=== PATIENT | male | born 1945 | race Caucasian/White ===

== ENCOUNTER → 2016-09-18 | Outpatient (CLI) | payer MEDICARE, BC ==
[2016-09-18 15:33] VITALS: BP 153/80; PULSE 75; RESP 18; TEMP 98
--- NOTE | 2016-09-19 20:02 | P.PN ---
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, we have done radiofrequency ablation of median branch lumbar area more than year ago He got excellent pain relief, and now he is complaining of increased low back pain with radiation to the lower extremity, his meds [place] 5/325 every 6 hours , he denies any motor or sensory deficit, denies any change in the bowel movements or urination Patient denies any side effects of the medication, denies excessive drowsiness or sleepiness, denies suicidal ideation, and reports that the current pain medication is NOT helping To control the pain and improve activity of daily living Physical Examinations : 1-Constitutiona : Cooperative , not in acute distress . 2-HEENT : nech ; supple , no Lymphadenopathy , no Thyromegaly , normal thyroid size . eyes : no ptosis , no icterus, no photophobia . ENT : normal of hearing , normal oropharynx , no Thrush . 3- Respiratory : Chest clear to auscultations Bilaterally , no wheezing , no Rhonchi . 4- Cardiovascular : regular rate and rhythem , S1 , S2 , no S3 , no S4. 5- Gastrointestinal : abdomen soft no tenderness , bowel sounds positive all four quadrents , no organomegally . 6- Genitourinary : Defferred . 7- neurologic : Cranial nerve II to XII intact , no focal neurological deffecit . 8-psychatric : alert , oriented X 3 , appropriate affect , intact judgment and insight . 9-Lymphatic : no Lymphadenopathy . 10- musculoskeltal : exams of the cervical spine = motor strength normal bilateral upper extremities exams of the Lumber spine = motor strength lower extremities ,thigh and legs .5/5 deep tendon reflexes : normal Knee Jerk , normal ankle Jerk . lumber facet Loading Test positive strait leg raising test positive at 30 degree , RT ,LT , Fabere test positive RT and positive LT . Range of motion: Range of motion in flexion of the lumbar spine 30 degrees Range of motion range of motion of extension of the lumbar spine 10 Assessment and plan = - Chronic low back pain secondary to lumbar failed back surgery syndrome , lumbar spondylosis with facet arthropathy without myelopathy , - chronic and current use of high-risk medication (Opioids). The patient was counseled about risk of opioid use, psychological risk associated with opioids and was orally counseled to not overuse , divert,or sell dictations to take medications as prescribed only , and to restore medication in safe location , and the patient counseled against driving while using narcotic medications, and also not to use alcohol or any illicit recreational drugs, - diagnoses , prognosis, and treatment options including but not limited to physical therapy , surgical interventions, interventional therapies , and medication management including narcotics and adjuvant medication were discussed with the patient and all The questions answered -medication management = getting prescription refills from his primary care -procedure= scheduled patient for radiofrequency ablation right-sided medial branch at L3/L4 5/L5-S1, and later on will do the left Objective - Vital Signs Vital signs: Vital Signs Temp 98 F 09/18/16 15:22 Pulse 75 09/18/16 15:22 Resp 18 09/18/16 15:22 BP 153/80 09/18/16 15:22 Pulse Ox 95 09/18/16 15:22
== END ==
LOC: PNWHC3 14:22
PROVIDERS: ATTEND Specialist
DX: M47.816 Spondylosis without myelopathy or radiculopathy, lumbar region (principal); M46.86 Other specified inflammatory spondylopathies, lumbar region; G89.29 Other chronic pain; Z87.891 Personal history of nicotine dependence
CPT/HCPCS: 99211

== ENCOUNTER 2016-10-24 10:29 | Day surgery (SDC) | payer MEDICARE, BC ==
[2016-10-22 15:50] VITALS: BMI 25.0
[2016-10-24 11:05] VITALS: RESP 18; TEMP 97.9
[2016-10-24] MEDS: LACTATED RINGERS 1,000 ML IV SCH ×3 (11:09→11:59)
[2016-10-24] MEDS ORDERED: BUPIVACAINE (PF) 0.5% 30 ML VIAL ONE (12:38)
[2016-10-24] MEDS ORDERED: TRIAMCINOLONE ACETONIDE 40 MG/ML 1 ML VIAL ONE (12:38)
[2016-10-24] MEDS ORDERED: KETOROLAC 30 MG/ML 1 ML VIAL IVP STA (13:08)
--- NOTE | 2016-10-24 13:09 | P.PCN ---
Date of Procedure: 10/24/16 Procedure(s) Performed: PREOPERATIVE DIAGNOSIS: 1-Lumbar Spondylosis with Facet Arthropathy without myelopathy. POSTOPERATIVE DIAGNOSIS: 1- Lumbar Spondylosis with Facet Arthropathy without myelopathy. PROCEDURES : Right Radiofrequency thermocoagulation, L3-L4, L4-L5, and L5-S1 medial branch, with fluoroscopic guidance ANESTHESIA: local infiltration with lidocaine 1% 6 ml EBL: Minimal PROCEDURE INDICATION: The patient with low back pain secondary to lumbar facet arthropathy who had more than 50% relief of her pain with previous diagnostic lumbar medial branch block with bupivacaine. PROCEDURE DESCRIPTION / TECHNIQUE: The patient was seen and identified in the preoperative area. Risks, benefits, complications, including but not limited to risk of infection ,bleeding , allergic reactions to the medications and no complete pain releife , and alternatives were discussed with the patient, the patient agreed to proceed with the procedure and signed the consent. IV was started. Vital signs remained stable throughout the procedure. Patient was taken to the OR and time out was completed. The patient was placed in the prone position on the procedure table. The lumber area was prepped and draped in the usual sterile fashion. . Vital signs were closely monitored during the procedure . Using AP and then oblique fluoroscopy, the ``eye of the Joseph dog corresponding to the connection between the superior and transverse articular processes of right L3, L4, and L5 were identified, marked, and localized with 1 % lidocaine. Subsequently, a 18 [id number] radiofrequency cannula with a 10- mm active tip was advanced guided by fluoroscopy to each of the ``eyes of the Joseph dog at right L3, L4, and L5. Each site then underwent sensory testing at 50 Hz and 0 to 1 volt and motor testing at 2.5 Hz and 0 to 3 volt with local stimulation, but no radicular symptoms down the legs. Thereafter the right L3-4, L4-5, and L5-S1 sites underwent radiofrequency thermocoagulation at 80 degrees celsius for 90 seconds after injecting 0.5 ml of PF lidocaine 1%. then After the thermocoagulation done , 1 ml of the block solution containing Kenalog 40 mg and 3 ml of marain 0.5% was injected at the right L3- 4 , L4-5 , and L5-S1, levels after negative aspiration of CSF and blood and with no paresthesias. Cannulas were retracted while injecting lidocaine 1% until the needle is out. At the end of the procedure, the skin was cleansed and bandages were applied. COMPLICATIONS: No acute complications. DISPOSITION / PLANS: The patient was placed in a supine position and transferred to the recovery area in a stable condition for observation and was discharged from the recovery room after meeting discharge criteria. Home discharge instructions given to the patient by the staff. The patient was reexamined prior to discharge. The patient will schedule a follow up in the clinic in 2-4 weeks.
[2016-10-24 13:31] VITALS: BP 164/80; PULSE 67
[2016-10-24] MEDS ORDERED: IV FLUID CONTINUATION 1,000 ML IV ONE (13:31)
--- NOTE | 2016-10-24 14:00 | FL ---
EXAMINATION TYPE: FL guided pain mgmt statistic DATE OF EXAM: 10/24/2016 1:09 PM HISTORY: Flouroscopy time 6 seconds of fluoroscopy provided. IMPRESSION: 1. Fluoroscopy time.
== END 2016-10-24 13:38 | disposition home or self-care (01) ==
LOC: ORPAIN 10:29
PROVIDERS: ATTEND Specialist
DX: M47.816 Spondylosis without myelopathy or radiculopathy, lumbar region (principal); M46.96 Unspecified inflammatory spondylopathy, lumbar region; Z88.8 Allergy status to other drugs, medicaments and biological substances
CPT/HCPCS: 64635; 64636 ×2; J3301

== ENCOUNTER → 2016-11-14 | Outpatient (CLI) | payer MEDICARE, BC | LOC: PTMAIN 09:45 | PROVIDERS: ATTEND Otolaryngology | DX: K21.9 Gastro-esophageal reflux disease without esophagitis (principal) | CPT/HCPCS: 31579 ==

== ENCOUNTER 2016-12-05 08:43 | Day surgery (SDC) | payer MEDICARE, BC ==
[2016-12-04 08:36] VITALS: BMI 23.6
[~2016-12-05 08:43] MED LIST: LACTATED RINGERS 1,000 ML IV SCH
[2016-12-05 09:28] VITALS: TEMP 98.1
[2016-12-05] MEDS ORDERED: LIDOCAINE 1% 20 ML VIAL (10MG/ML) FOR IV START SQ ONE (09:30)
[2016-12-05] MEDS ORDERED: fentaNYL (PF) 50 MCG/ML 2 ML AMP ONE (10:24)
[2016-12-05] MEDS ORDERED: BUPIVACAINE (PF) 0.5% 30 ML VIAL ONE (10:24)
[2016-12-05] MEDS ORDERED: DEXAMETHASONE SOD PHOS (MDV) 100 MG/10 ML VIAL ONE (10:24)
[2016-12-05] MEDS ORDERED: MIDAZOLAM 2 MG/2 ML VIAL ONE (10:24)
--- NOTE | 2016-12-05 10:51 | P.PCN ---
Date of Procedure: 12/05/16 Preoperative Diagnosis: Postoperative Diagnosis: Procedure(s) Performed: PREOPERATIVE DIAGNOSIS: 1-Lumbar Spondylosis with Facet Arthropathy without myelopathy. POSTOPERATIVE DIAGNOSIS: 1- Lumbar Spondylosis with Facet Arthropathy without myelopathy. PROCEDURES : Left Radiofrequency thermocoagulation, L3-L4, L4-L5, and L5-S1 medial branch, with fluoroscopic guidance ANESTHESIA: IV sedation with versed 3 mg and fentaneyl 100 mcg and local infiltration with lidocaine 1% 6 ml EBL: Minimal PROCEDURE INDICATION: The patient with low back pain secondary to lumbar facet arthropathy who had more than 50% relief of her pain with previous diagnostic lumbar medial branch block with bupivacaine. PROCEDURE DESCRIPTION / TECHNIQUE: The patient was seen and identified in the preoperative area. Risks, benefits, complications, including but not limited to risk of infection ,bleeding , allergic reactions to the medications and no complete pain releife , and alternatives were discussed with the patient, the patient agreed to proceed with the procedure and signed the consent. IV was started. Vital signs remained stable throughout the procedure. Patient was taken to the OR and time out was completed. The patient was placed in the prone position on the procedure table. The lumber area was prepped and draped in the usual sterile fashion. . Vital signs were closely monitored during the procedure .IV sedation was used during the procedure to decrease patients anxiety. Using AP and then oblique fluoroscopy, the ``eye of the Joseph dog corresponding to the connection between the superior and transverse articular processes of left L3, L4, and L5 were identified, marked, and localized with 1 % lidocaine. Subsequently, a 18 -ae radiofrequency cannula with a 10- mm active tip was advanced guided by fluoroscopy to each of the ``eyes of the Joseph dog at left L3, L4, and L5. Each site then underwent sensory testing at 50 Hz and 0 to 1 volt and motor testing at 2.5 Hz and 0 to 3 volt with local stimulation, but no radicular symptoms down the legs. Thereafter the left L3-4, L4-5, and L5-S1 sites underwent radiofrequency thermocoagulation at 80 degrees celsius for 90 seconds after injecting 0.5 ml of PF lidocaine 1%. then After the thermocoagulation done , 1 ml of the block solution containing Kenalog 40 mg and 3 ml of marain 0.5% was injected at the left L3-4 , L4-5 , and L5-S1, levels after negative aspiration of CSF and blood and with no paresthesias. Cannulas were retracted while injecting lidocaine 1% until the needle is out. At the end of the procedure, the skin was cleansed and bandages were applied. COMPLICATIONS: No acute complications. DISPOSITION / PLANS: The patient was placed in a supine position and transferred to the recovery area in a stable condition for observation and was discharged from the recovery room after meeting discharge criteria. Home discharge instructions given to the patient by the staff. The patient was reexamined prior to discharge. The patient will schedule a follow up in the clinic in 2-4 weeks. Implants: Indications for Procedure: Operative Findings: Description of Procedure:
[2016-12-05 10:59] VITALS: RESP 16
--- NOTE | 2016-12-05 11:07 | FL ---
Fluoroscopy HISTORY: Pain 6 seconds fluoroscopy time supplied to the referring clinician. 3 intraoperative C-arm images docume nt the procedure. See dictated report from anesthesia.
[2016-12-05 11:16] VITALS: BP 146/79; PULSE 57
[2016-12-05] MEDS ORDERED: IV FLUID CONTINUATION 1,000 ML IV ONE (11:18)
== END 2016-12-05 11:26 | disposition home or self-care (01) ==
LOC: ORPAIN 08:43
PROVIDERS: ATTEND Specialist
DX: M46.96 Unspecified inflammatory spondylopathy, lumbar region (principal); M47.816 Spondylosis without myelopathy or radiculopathy, lumbar region; Z88.8 Allergy status to other drugs, medicaments and biological substances
CPT/HCPCS: 64635; 64636 ×2; 99152; J2250; J3010; J1100

== ENCOUNTER → 2017-01-20 | Outpatient (CLI) | payer MEDICARE, BC ==
[2017-01-20 12:49] VITALS: BP 156/81; PULSE 66; RESP 16
--- NOTE | 2017-01-20 13:17 | P.PN ---
Progress Note - Text This is a 71-year-old male with chronic history of bilateral leg pain and muscular spasms the pain occasionally wakes the patient up at night however he denies any bowel or bladder dysfunction or any weight loss. He had surgery on his lumbar spine more than 20 years ago. Neuro exam showed normal and symmetrical muscle strength in the lower extremities and also showed hyperactive but symmetrical deep tendon reflexes in the lower extremities. Straight leg raising test negative bilaterally. He denies any tingling or numbness in the lower extremities. At this point I will put the patient on magnesium 400 mg once a day and I will send him to have an MRI on the lumbar spine with and without contrast. We will see the patient next month.
== END | disposition home or self-care (01) ==
LOC: PNWHC3 11:54
PROVIDERS: ATTEND Anesthesiology
DX: M79.605 Pain in left leg (principal); M79.604 Pain in right leg; M62.838 Other muscle spasm
CPT/HCPCS: 99211

== ENCOUNTER → 2017-01-29 | Outpatient (CLI) | payer MEDICARE, BC ==
[2017-01-29 11:30] LABS: Non-African American GFR(MDRD) >60 (>60 ml/min/1.73 sqM)
== END | disposition home or self-care (01) ==
LOC: LABWHC1 10:36
PROVIDERS: ATTEND Anesthesiology
DX: Z01.812 Encounter for preprocedural laboratory examination (principal)
CPT/HCPCS: 36415; 82565

== ENCOUNTER → 2017-01-31 | Outpatient (CLI) | payer MEDICARE, BC ==
--- NOTE | 2017-01-31 11:15 | MR ---
EXAMINATION TYPE: MR lumbar spine wo/w con DATE OF EXAM: 01/31/2017 COMPARISON: Plain film 03/09/2015 HISTORY: post laminectomy, radiculopathy lsp TECHNIQUE: Multiplanar, multisequence images of the lumbar spine were acquired utilizing 15 mL intravenous Multi [place] gadolinium contrast. L1-L2: Loss of disc signal is present, minimal posterior broad-based disc bulge causes only slight an terior mass effect on the thecal sac. No significant central stenosis or foraminal encroachment. L2-L3: Loss of disc height and signal compatible with disc desiccation and degenerative disc disease. Minimal posterior broad-based disc bulge causes only slight anterior mass effect on the thecal sac, there is mild facet arthropathy L3-L4: Circumferential posterior broad-based disc bulge causes only minimal anterior mass effect on t he thecal sac. No significant central stenosis or foraminal encroachment. There is facet arthropathy present with encroachment on the lateral recesses. L4-L5: Facet arthropathy with hypertrophy of the ligamentum flavum encroaches on the lateral recesses left greater than right, listhesis contributes to cause foraminal encroachment bilaterally at L4-5. No evident disc herniation. No significant central stenosis. L5-S1: There is facet arthropathy with hypertrophy of the ligamentum flavum. Circumferential posterio r disc bulge contacts anterior thecal sac and possibly proximal S1 nerve roots, lateral extension of endplate disc complex encroaches on the neural foramen on the right greater than left possibly contri buted by mild scoliosis. Lumbar segments are intact. Mild superior endplate compression suspected L4 appears chronic. Anteroli sthesis grade 1 L4-5, loss of disc height and signal greatest L4-5 and L5-S1. There is multilevel spo ndylosis with endplate discogenic marrow signal change compatible with degenerative disc disease. The conus is at L1. No paraspinal masses are identified. Conus medullaris has a normal appearance. No abnormal enhancement following contrast administration. IMPRESSION: Degenerative disc disease, facet arthropathy, foraminal encroachment as described.
== END ==
LOC: RADMRIMAIN 08:20
PROVIDERS: ATTEND Anesthesiology
DX: M99.73 Connective tissue and disc stenosis of intervertebral foramina of lumbar region (principal); M51.36 Other intervertebral disc degeneration, lumbar region; M46.86 Other specified inflammatory spondylopathies, lumbar region
CPT/HCPCS: 72158; A9577

== ENCOUNTER → 2017-02-17 | Outpatient (CLI) | payer MEDICARE, BC ==
[2017-02-17 14:54] VITALS: BP 129/77; PULSE 79; RESP 16
--- NOTE | 2017-02-17 15:16 | P.PN ---
Progress Note - Text 1-year-old gentleman with history of lower back pain with radiation to the lower extremities down to his feet with numbness and tingling. Has any bowel or bladder dysfunction at this point. He states that the lumbar medial branch RFA procedures have been giving him good relief of his pain except for the last 2 that he had. He uses [place] only once or twice a week. He had the recent MRI of the lumbar spine which showed typical degenerative disc disease and disc bulging and possible compression of the S1 nerve root bilaterally. The patient had back surgery previously with about 2 inch incision the lumbar midline. She says that his pain has been getting worse and he does not like to use opioids to treat his pain. At this point the patient may benefit from getting caudal epidural steroid injection with lysis of adhesions under fluoroscopic guidance. There was explained to the patient and his questions were answered.
== END | disposition home or self-care (01) ==
LOC: PNWHC3 14:40
PROVIDERS: ATTEND Anesthesiology
DX: M51.26 Other intervertebral disc displacement, lumbar region (principal); M51.36 Other intervertebral disc degeneration, lumbar region
CPT/HCPCS: 99211

== ENCOUNTER 2017-04-01 09:45 | Day surgery (SDC) | payer MEDICARE, BC ==
[2017-03-27 11:37] VITALS: BMI 23.5
[2017-04-01 09:04] VITALS: TEMP 98.1
[~2017-04-01 09:45] MED LIST changes: +LACTATED RINGERS 1,000 ML IV ONE; -LACTATED RINGERS 1,000 ML IV SCH
--- NOTE | 2017-04-01 09:56 | P.PCN ---
Date of Procedure: 04/01/17 Procedure(s) Performed: PREOP DIAGNOSIS: 1- Lumbar postlaminectomy syndrome 2- lumbar Spondylosis with lumbar facet arthropathy without myelopathy POSTOP DIAGNOSIS: same as preop diagnosis . PROCEDURE: Caudal epidural steroid injection with epidurolysis and epidurogram under fluoroscopic guidance ANESTHESIA: Local with 1% lidocaine 3 ml ; IV sedation with Versed 2 mg and fentanyl 100 g EBL: Minimal. PROCEDURE INDICATION: The patient with post-laminectomy syndrome with low back pain and radiculopathy radiating down in both legs, here for a caudal epidural steroid injection with epidurolysis. PROCEDURE DESCRIPTION: The patient was seen and identified in the preoperative area. Risks, benefits, complications, and alternatives were discussed with the patient. The patient agreed to proceed with the procedure and signed the consent. IV was started, and vital signs were stable. Patient was taken to the OR and time out was completed. The patient was placed in the prone position on procedure table and a pillow was placed under the abdomen to reduce lumbar lordosis. The lumbosacral area was prepped and draped in the usual sterile fashion. Vital signs were closely monitored during the procedure. lateral view and the anterior-posterior plates of the sacrum were identified with infiltration of the area overlying the sacral hiatus with 1% lidocaine .A 17 gauge RK epidural needle was used to advance through the sacral hiatus into the caudal epidural space. Omnipaque 180 dye. 2cc was injected and the position of the needle was verified to be in the midline. A Racz catheter was introduced into the epidural space and was advanced towards the L5-S1 interspace under direct fluoroscopic guidance. Multiple passes were made with the catheter for lysis of epidural adhesions. Kenalog 80 mg with 3ml of preservative free Lidocaine 1% and 5 ml of preservative free normal saline was injected slowly. Additional spread was seen to L4 under fluoroscopy. The needle and the catheter were withdrawn intact. EPIDUROGRAM: Omnipaque 180 mg dye 2 ml was injected with spread of the dye into the caudal epidural space and with spread cutoff at L5 prior to epidurolysis. Post epidurolysis dye 2 ml was injected and spread was seen to L3- 4.There was further spread of the solution together with the dye above the L3 COMPLICATIONS: None. DISPOSITION / PLANS: The patient was placed in a supine position and transferred to the recovery area in a stable condition for observation and was discharged from the recovery room after meeting discharge criteria. Home discharge instructions given to the patient by the staff. The patient was reexamined prior to discharge. The patient will schedule a follow up in the clinic in 2-4 weeks.
[2017-04-01] MEDS ORDERED: LIDOCAINE 1% 20 ML VIAL (10MG/ML) FOR IV START INTRADERMA ONE (10:00)
[2017-04-01 10:20] VITALS: BP 163/77; PULSE 67; RESP 20
[2017-04-01] MEDS ORDERED: LACTATED RINGERS 1,000 ML IV ONE (10:20)
--- NOTE | 2017-04-01 11:45 | FL ---
Fluoroscopy HISTORY: Pain 9 seconds fluoroscopy time supplied to the referring clinician. 3 intraoperative C-arm images docume nt the procedure. See dictated report from anesthesia.
== END 2017-04-01 11:00 | disposition home or self-care (01) ==
LOC: ORPAIN 09:45
PROVIDERS: ATTEND Specialist
DX: M96.1 Postlaminectomy syndrome, not elsewhere classified (principal); M47.26 Other spondylosis with radiculopathy, lumbar region; M46.96 Unspecified inflammatory spondylopathy, lumbar region; Z88.8 Allergy status to other drugs, medicaments and biological substances; Y83.8 Other surgical procedures as the cause of abnormal reaction of the patient, or of later complication, without mention of misadventure at the time of the procedure; Y79.3 Surgical instruments, materials and orthopedic devices (including sutures) associated with adverse incidents; M54.5 Low back pain
CPT/HCPCS: 99152; 62323; J2250; J1100; Q9965; J3010; C1894

== ENCOUNTER → 2017-05-19 | Outpatient (CLI) | payer MEDICARE, BC ==
[2017-05-19 13:33] VITALS: BP 139/70; PULSE 70; RESP 16; TEMP 98.3
--- NOTE | 2017-05-19 13:50 | P.PN ---
Progress Note - Text Progress Note Date: 05/19/17 This is a 71-year-old male with history of chronic lower back pain with radiation to the lower extremities and history of one back surgery a few years ago.. The patient had caudal epidural steroid injection lately which gave him only a few days of pain relief. He usually takes [place] 10 mg at night and he tries not to use opioids. He said that the last time he received a prescription of [place] from his primary care physician he received 50 pills which lasted him for about 7 months. He denies any new changes in his bowel or bladder function or the strength of his lower extremities. At this point I will give the patient prescription for trazodone 50 mg to be used 1 pill at night to help him sleep through better. The patient will contact his primary care physician to get prescription for [place]. We will see the patient for a follow-up in 2 months from now.
== END | disposition home or self-care (01) ==
LOC: PNWHC3 12:53
PROVIDERS: ATTEND Anesthesiology
DX: M54.5 Low back pain (principal)
CPT/HCPCS: 99211

== ENCOUNTER → 2017-07-14 | Outpatient (CLI) | payer MEDICARE, BC ==
[2017-07-14 13:48] VITALS: BP 152/67; PULSE 74; RESP 16
--- NOTE | 2017-07-14 15:06 | P.PN ---
Subjective Progress Note Date: 07/14/17 This is follow-up visit for this patient with a history of severe and chronic low back pain secondary to lumbar degenerative disc disease, lumbar facet arthropathy, and postlaminectomy pain syndrome, we did interventional pain management injection, radiofrequency ablation of the medial branch lumbar area and on more than 6 months ago, he got good pain relief, is no back pain improved significantly, with only done a caudal epidural steroid injections, . Patient denies any motor or sensory deficit, denies change in bowel movement or urination, patient denies any fever or night sweats and patient here for follow-up visit and medication refill, is currently on trazodone 50 mg patient reported that he had no benefit from it, and it was started last visit the patient for pain but he reported that most of his problem is severe pain interfering with his ability to sleep, otherwise if his pain control he will not have a problem sleeping Objective - Vital Signs Vital signs: Vital Signs Temp Pulse 74 07/14/17 13:39 Resp 16 07/14/17 13:39 BP 152/67 07/14/17 13:39 Pulse Ox 96 07/14/17 13:39 Intake & Output 07/13/17 07/14/17 07/14/17 18:59 06:59 18:59 Weight 70.307 kg - Exam Physical Examinations : 1-Constitutiona : Cooperative , not in acute distress . 2-HEENT : nech ; supple , no Lymphadenopathy , normal thyroid size . eyes : no ptosis , no icterus, no photophobia . ENT : normal of hearing , normal oropharynx , no Thrush . 3- Respiratory : Chest clear to auscultations Bilaterally , no wheezing , no Rhonchi . 4- Cardiovascular : regular rate and rhythem , S1 , S2 , no S3 , no S4. 5- Gastrointestinal : abdomen soft no tenderness , bowel sounds positive all four quadrents , no organomegally . 6- Genitourinary : Defferred . 7- neurologic : Cranial nerve II to XII intact , no focal neurological deffecit . 8-psychatric : alert , oriented X 3 , appropriate affect , intact judgment and insight . 9-Lymphatic : no Lymphadenopathy . 10- musculoskeltal : , Lumber spine = normal moter stegnth lower extremities ,thigh and legs .5/5 deep tendon reflexes : normal Knee Jerk , normal ankle Jerk . lumber facet Loading Test positive strait leg raising test positive at 30 degree Right , positve at 30 degree Left Fabere test positive Right and positive Left Assessment and Plan Plan: Assessment and plan= chronic low back pain secondary to lumbar degenerative disc disease , lumbar spondylosis with lumbar facet arthropathy , failed back surgery syndrome and lumbar area Patient could benefit from repeat radiofrequency ablation of the medial branch lumbar area. Patient signed the narcotic agreement, and he was orally counseled, not to overuse, not to abuse, not to Divert , not tp sell pain medication, and to take it as prescribed only, Patient was counseled not to drive or operate heavy equipment while using narcotic medication, and advised not to use alcohol or any Illicit drugs while using the narcotis, the patient's verbalized understanding that lack of compliance with any of the above instructions, and will likely to cause discharge from the pain service, not to renew his narcotic prescriptions Medication managements= recommend to discontinue trazodone patient could benefit from [place] 7.5/325 , 6-8 hours, dispense 60, and he could benefit from Mobic 7.5 mg daily Time with Patient: Less than 30
== END | disposition home or self-care (01) ==
LOC: PNWHC3 13:32
PROVIDERS: ATTEND Specialist
DX: G89.29 Other chronic pain (principal); M54.5 Low back pain; M51.36 Other intervertebral disc degeneration, lumbar region; M47.816 Spondylosis without myelopathy or radiculopathy, lumbar region; M96.1 Postlaminectomy syndrome, not elsewhere classified; M46.86 Other specified inflammatory spondylopathies, lumbar region; Z79.52 Long term (current) use of systemic steroids; Z79.899 Other long term (current) drug therapy; Z79.891 Long term (current) use of opiate analgesic
CPT/HCPCS: 99211

== ENCOUNTER → 2017-09-30 | Outpatient (CLI) | payer MEDICARE, BC ==
[2017-09-30 09:30] LABS: Blood Urea Nitrogen 10 mg/dL (9-20)
--- NOTE | 2017-09-30 11:29 | CT ---
EXAMINATION TYPE: CT soft tissue neck w con DATE OF EXAM: 09/30/2017 COMPARISON: NONE HISTORY: Sore throat CT DLP: 296.70 mGycm CONTRAST: Patient injected with 100 ml mL of Isovue 370. TECHNIQUE: Axial images at 3 mm thick sections. Reconstructed images in the coronal plane and sagitt al plane are reviewed. FINDINGS: Limited CT sections are obtained the lung apices. The lung apices appear clear. CT neck: The torus tubarius and fossa of Rosenmuller are normal. Boiler Engineer spaces are normal. Para nasal sinuses and mastoid air cells are clear. There is right septal deviation. Parotid glands appear normal and symmetrical. Submandibular glands, are normal. Parapharyngeal spac es are normal. No suspicious adenopathy is evident. Tonsillar pillars and hypopharynx as visualized appears within normal limits. The hypopharynx appears within normal limits. Vocal cord level appear symmetrical. Thyroid as visualized is normal. Subglottic airway is unremarkable. Extensive prominent emphysematous changes with very large blebs and bulla are present at the lung api teressa especially on the left. Prior cervical fusion is present within the mid cervical spine. IMPRESSIONS: 1. No suspicious etiology to account for the sore throat. 2. Extensive emphysematous changes lung apices within the [id number].
== END | disposition home or self-care (01) ==
LOC: RADCTMAIN 08:48
PROVIDERS: ATTEND Otolaryngology
DX: J43.9 Emphysema, unspecified (principal)
CPT/HCPCS: 82565; 84520; 70491; 36415; Q9967

== ENCOUNTER → 2017-11-04 | Day surgery (SDC) | payer MEDICARE, BC ==
[2017-10-30 16:32] VITALS: BMI 24.3
[~2017-11-04] MED LIST changes: +LACTATED RINGERS 1,000 ML IV SCH; +LIDOCAINE 1% 20 ML VIAL (10MG/ML) FOR IV START INTRADERMA ONE
[2017-11-04 08:47] VITALS: RESP 16; TEMP 97.9
[2017-11-04 09:51] VITALS: BP 138/87; PULSE 65
--- NOTE | 2017-11-04 09:57 | P.PCN ---
Date of Procedure: 11/04/17 Surgeon: Cristobal Martin Pathology: none sent Condition: stable Disposition: PACU Description of Procedure: PREOPERATIVE DIAGNOSIS: Lumbar spondylosis without myelopathy and facet arthropathy POSTOPERATIVE DIAGNOSIS: Lumbar spondylosis without myelopathy and facet arthropathy PROCEDURES: Right Radiofrequency thermocoagulation, L3-L4, L4-L5, and L5-S1 medial branch, with fluoroscopic guidance. ANESTHESIA: 1% lidocaine plain; Conscious sedation with versed/fentanyl EBL: Minimal PROCEDURE INDICATION: The patient with low back pain secondary to lumbar arthropathy who had more than 50% relief of pain with previous diagnostic lumbar medial branch block with bupivacaine. Patient presents for R lumbar RFA today; no use of blood thinners. PROCEDURE DESCRIPTION / TECHNIQUE: The patient was seen and identified in the preoperative area. Risks, benefits, complications, and alternatives were discussed with the patient (including but not limited to incomplete pain relief , bleeding, infection, nerve damage, and allergies to medications), the patient agreed to proceed with the procedure and signed the consent after all questions were answered. Patient was taken to the OR and time out was completed to verify proper patient , position, laterality of pain, and allergies. Pt was placed in the prone position. IV was started. Vital signs remained stable throughout the procedure. A pillow was placed under the patients chest to decrease lordosis. The lumbosacral area was prepped and draped in the usual sterile fashion. Vital signs were closely monitored during the procedure. Conscious sedation was used during the procedure to decrease patients anxiety. Using AP and then oblique fluoroscopy, the eye of the Joseph dog corresponding to the connection between the superior and transverse articular processes of right L3, L4, L5 and top of the sacrum were identified, marked, and localized with 1% lidocaine. Subsequently, a 20 gauge, 100-mm radiofrequency cannula with a 10-mm active tip was advanced guided by fluoroscopy to each of the eyes of the Joseph dog at the levels of all four medial branches. Each site then underwent sensory testing at 50 Hz and 0 to 1 volt and motor testing at 2 Hz and 0 to 3 volt with local stimulation, but no radicular symptoms down the legs. Thereafter all four medial branch sites underwent radiofrequency thermocoagulation at 80 degrees Celsius for 90 seconds after injecting 0.5 ml of PF lidocaine 1%. After thermocoagulation, 1 ml of the block solution containing Kenalog 40 mg and 2 mL of preservative-free normal saline was injected at all four medial branch levels after negative aspiration of CSF and blood and with no paresthesias. Cannulas were retracted while injecting lidocaine 1% until the needles were removed. At the end of the procedure, the skin was cleansed and bandages were applied. COMPLICATIONS: No acute complications. DISPOSITION / PLANS: The patient was placed in a supine position and transferred to the recovery area in a stable condition for observation and was discharged from the recovery room after meeting discharge criteria. Home discharge instructions given to the patient by the staff. The patient was reexamined prior to discharge. The patient will schedule a follow up for left lumbar RFA at next visit.
--- NOTE | 2017-11-04 10:14 | FL ---
EXAMINATION TYPE: FL guided pain mgmt statistic DATE OF EXAM: 11/04/2017 HISTORY: Flouroscopy time 8 seconds of fluoroscopy provided. IMPRESSION: 1. Fluoroscopy time.
== END ==
LOC: ORPAIN 07:27
PROVIDERS: ATTEND Anesthesiology
DX: M47.816 Spondylosis without myelopathy or radiculopathy, lumbar region (principal); I10 Essential (primary) hypertension; E78.5 Hyperlipidemia, unspecified; Z79.1 Long term (current) use of non-steroidal anti-inflammatories (NSAID); Z88.8 Allergy status to other drugs, medicaments and biological substances
CPT/HCPCS: 64635; 64636 ×2; J2250; J3301; J3010; 99152

== ENCOUNTER 2018-02-10 09:26 | Inpatient (IN) | payer MEDICARE, BC ==
[~2018-02-10 09:26] MED LIST changes: -LACTATED RINGERS 1,000 ML IV ONE; -LACTATED RINGERS 1,000 ML IV SCH; -LIDOCAINE 1% 20 ML VIAL (10MG/ML) FOR IV START INTRADERMA ONE; +LIDOCAINE 1% 20 ML VIAL (10MG/ML) FOR IV START INTRADERMA PRN; +MIDAZOLAM 2 MG/2 ML VIAL IV PRN
[2018-02-10] MEDS: LACTATED RINGERS 1,000 ML IV SCH (09:53)
--- NOTE | 2018-02-10 11:06 | P.PCN ---
Date of Procedure: 02/10/18 Procedure(s) Performed: Procedure: Colonoscopy and polypectomy. Preoperative diagnosis: Blood in the stools and history of polyps. Postoperative diagnosis: 1. Diverticulosis with no evidence of acute diverticulitis or strictures. 2. Small polyp in the descending colon snared. 3. Exam was terminated for concern of possible perforation. Preparation: HalfLytely prep. Sedation: Was provided by anesthesia. Brief clinical history: The patient is a 72-year-old male who was referred for this evaluation because of finding of blood in his stools. The patient has history of multiple adenomatous polyps in the past. This evaluation is to rule out neoplasia. Procedure: With the patient on his left lateral decubitus position and after informed consent and adequate sedation, the perianal area was inspected and it did not show any fissures or fistulas. There were no masses felt on digital rectal examination. The Olympus CFQ 160L video colonoscope was then inserted in the rectum in the usual fashion and advanced. Multiple diverticular orifices were noted in the sigmoid and there was a 1 cm polyp in the descending colon which I snared and retrieved by suction. At that point, and while proceeding with the exam, I noted some mucosal changes in the splenic flexure area that made me concerned of possible perforation which prompted me to terminate the examination.. Plan: The patient without evidence abdominal x-ray and would be kept nothing by mouth. Further plans based on this evaluation and his course.
[2018-02-10] MEDS ORDERED: fentaNYL (PF) 50 MCG/ML 2 ML AMP IVP ONE (11:24)
[2018-02-10] MEDS: HYDROmorphone 1 MG/ML 1 ML SYRINGE IVP ONE ×3 (11:36→12:39)
[2018-02-10] MEDS ORDERED: LACTATED RINGERS 1,000 ML IV ONE ×3 (11:43→17:09)
--- NOTE | 2018-02-10 11:53 | XR ---
EXAMINATION TYPE: XR abdomen complete w decub DATE OF EXAM: 02/10/2018 CLINICAL HISTORY: Post colonoscopy with possible perforation TECHNIQUE: Supine, upright, and left side down lateral decubitus views of the abdomen are obtained. COMPARISON: None. FINDINGS: Extensive pneumoperitoneum is seen on all images best appreciated on upright and left side down lateral decubitus view. Gas prominent colonic and to lesser degree small bowel loops throughout the abdomen and pelvis are present. Moderate multilevel spurring in the lumbar spine is incidentally seen. IMPRESSION: Pneumoperitoneum consistent with colonic perforation. Critical results communicated to ordering GI doctor via telephone at time of dictation. A Document Only message has been documented for Sharan Hurtado MD in the [facility] system on 02/10/2018 11:51 AM, Message ID [id number].
[2018-02-10] MEDS ORDERED: HYDROmorphone 1 MG/ML 1 ML SYRINGE IVP ONE (12:40)
[2018-02-10] MEDS ORDERED: PIPERACILLIN-TAZOBACTAM 3.375 GM in DEXTROSE/WATER 1 50ML.BAG IVPB STA (13:15)
--- NOTE | 2018-02-10 13:18 | P.GSHP ---
History of Present Illness H&P Date: 02/10/18 Chief Complaint: Colonic perforation 72-year-old male having a elective colonoscopy today. During the procedure there was an area of the sigmoid colon that appeared normal and was suspicious for perforation. Postprocedural x-ray confirmed pneumoperitoneum. Patient having diffuse abdominal pain. Most of the history obtained from the because the patient has been receiving pain medications. No bowel complaints. Past Medical History Past Medical History: Hyperlipidemia, Musculoskeletal Disorder, Osteoarthritis ( OA) Additional Past Medical History / Comment(s): STATES BLOOD IN STOOL, Chronic neck and back pain, RADIATES DOWN BOTH LEGS, ALSO N/T. History of Any Multi-Drug Resistant Organisms: None Reported Past Surgical History: Back Surgery, Orthopedic Surgery Additional Past Surgical History / Comment(s): Neck surgery, right knee arthroscopy, pain procedures. Past Anesthesia/Blood Transfusion Reactions: No Reported Reaction Additional Past Anesthesia/Blood Transfusion Reaction / Comment(s): FAMILY HX UNKNOWN Smoking Status: Current every day smoker - Past Family History Mother Family Medical History: Liver Disease Medications and Allergies Home Medications Medication Instructions Recorded Confirmed Type Atorvastatin [Lipitor] 40 mg PO Q2D 10/05/15 02/05/18 History Ascorbic Acid [Vitamin C] 1,000 mg PO DAILY 02/02/16 02/05/18 History Cholecalciferol [Vitamin D3] 2,000 unit PO DAILY 02/02/16 02/05/18 History Cyanocobalamin [Vitamin B-12] 1,000 mcg PO DAILY 02/02/16 02/05/18 History Magnesium Oxide 400 mg PO DAILY 02/17/17 02/05/18 History Meloxicam [Mobic] 7.5 mg PO DAILY #30 tab 07/14/17 02/10/18 Rx Allergies Allergy/AdvReac Type Severity Reaction Status Date / Time pregabalin [From Lyrica] Allergy psychotic Verified 02/10/18 09:46 behavior varenicline tartrate Allergy psychotic Verified 02/10/18 09:46 [From Chantix] behavior Surgical - Exam Vital Signs Temp Pulse Resp BP Pulse Ox 98.1 F 58 L 16 145/82 98 02/10/18 09:49 02/10/18 09:49 02/10/18 09:49 02/10/18 09:49 02/10/18 09:49 Physical exam: General: Well-developed, well-nourished HEENT: Normocephalic, sclerae nonicteric Abdomen: Distended with diffuse tenderness Extremities: No edema Neuro: Alert and oriented Assessment and Plan (1) Perforation of colon as colonoscopy complication Narrative/Plan: Options discussed with the patient and his . We'll proceed with a exploratory laparotomy with repair colonic perforation. May require colon resection or colostomy. Risks of bleeding, infection, hernia, staple line dehiscence, abscess, anesthesia related complications were reviewed. They understand and wish for us to proceed. Current Visit: Yes Status: Acute Code(s): K63.1 - PERFORATION OF INTESTINE ( NONTRAUMATIC); K91.71 - ACCIDENTAL PNCTR & LAC OF A DGSTV SYS ORG DUR DGSTV SYS PROC SNOMED Code(s): 41119756
[2018-02-10] MEDS ORDERED: ONDANSETRON 4 MG/2 ML VIAL IVP ONE (13:24)
[2018-02-10] MEDS ORDERED: DEXAMETHASONE SOD PHOSPHATE 10 MG/ML 1 ML VIAL IV ONE (13:27)
[2018-02-10] MEDS ORDERED: IV FLUID CONTINUATION 500 ML IV ONE (13:56)
[2018-02-10] MEDS ORDERED: NALBUPHINE 10 MG/ML VIAL (10ML MDV) IV PRN (14:26)
[2018-02-10] MEDS ORDERED: diphenhydrAMINE 50 MG/ML 1 ML VIAL IVP PRN (14:26)
[2018-02-10] MEDS ORDERED: NALOXONE 0.4 MG/ML 1 ML VIAL IV PRN (14:26)
[2018-02-10] MEDS: ROPIVACAINE 300 MG, HYDROMORPHONE (PF) 5 MG in SODIUM CHLORIDE 0.9% 190 ML EPIDURAL PRN ×2 (15:51→17:09)
[2018-02-10] MEDS ORDERED: METOCLOPRAMIDE 5 MG/ML 2 ML VIAL IVP PRN (16:05)
[2018-02-10] MEDS ORDERED: HYDROmorphone 1 MG/ML 1 ML SYRINGE IVP PRN (16:05)
[2018-02-10] MEDS ORDERED: LORazepam 2 MG/ML INJ IV PRN ×2 (16:05)
--- NOTE | 2018-02-10 16:14 | P.OP ---
Date of Procedure: 02/10/18 Procedure(s) Performed: PREOPERATIVE DIAGNOSIS: Colon perforation POSTOPERATIVE DIAGNOSIS: Sigmoid colon perforation PROCEDURE: Low anterior resection SURGEON: Dimitri EBL: 30 mL ANESTHESIA: General COMPLICATIONS: None OPERATIVE PROCEDURE: Patient place in the operative table in the supine position. The patient was placed under general anesthesia. The patient was then placed in lithotomy. The abdomen was prepped and draped in usual sterile fashion. A vertical incision was made extending from the infraumbilical location to the suprapubic location. Dissection through the subcutaneous tissues and fascia took place using electrocautery. The patient had some seropurulent fluid within the abdomen that was evacuated. I could not visualize the site of perforation well through this incision and extended our incision above the umbilicus area careful evaluation of the colon revealed a 1- 1.5 cm perforation of the proximal sigmoid colon. This did not appear to be at the site of a diverticulum. The bowel had some mild adhesions between the mesentery and the left abdominal wall that were able to be lysed using electrocautery. This may have been associated with some prior episodes of scarring from adjacent diverticulitis although no significant diverticular disease in that location was identified. The bowel was clean in that location and the edges of the perforation site appeared healthy. It was decided to close this primarily in a transverse fashion. A running seromuscular 3-0 Vicryl suture was used. This was then imbricated using interrupted 3-0 GI silk Lambert sutures. I then closed some pericolonic fat over the suture line using 3-0 GI silk sutures as well. I was able to palpate digitally the lumen diameter and this appeared adequate at approximately 2 cm. The abdomen was then copiously irrigated. No additional abnormalities were identified. I could not visualize the splenic flexure of the colon well from this incision site however. The fascia was then reapproximated using a double-stranded #1 PDS suturex2. The skin was then closed using wandy. Sterile dressings were then applied. DISPOSITION: Stable to recovery room
[2018-02-10 17:41] LABS: Anion Gap 9 mmol/L; Blood Urea Nitrogen 8 mg/dL (9-20); Carbon Dioxide 22 mmol/L (22-30); Chloride 110 mmol/L (98-107); Glucose 79 mg/dL (74-99); Potassium 4.7 mmol/L (3.5-5.1); Sodium 141 mmol/L (137-145)
[2018-02-10 17:45] LABS: HGB 15.8 gm/dL (13.0-17.5); MCH 31.5 pg (25.0-35.0); MCHC 32.2 g/dL (31.0-37.0); MCV 97.7 fL (80.0-100.0); Mean Platelet Volume 7.3; Platelet Count 305 k/uL (150-450); RBC 5.02 m/uL (4.30-5.90); RDW 12.8 % (11.5-15.5); WBC 7.7 k/uL (3.8-10.6)
[2018-02-10] MEDS: D5-0.45% NACL WITH KCL 20MEQ/L 1,000 ML IV SCH ×2 (17:59→23:31)
[2018-02-10] MEDS: ACETAMINOPHEN IV (For NPO) 1,000 MG in EMPTY BAG 1 BAG IVPB SCH ×2 (18:05→23:29)
[2018-02-10 18:35] LABS: Band Neutrophils % 4 %; Lymphocytes # (M) 0.69 k/uL (1.0-4.8); Monocytes # (M) 0.31 k/uL (0-1.0); Neutrophils % (M) 83 %; Nucleated Red Blood Cells 0 /100 WBC (0-0); Polychromasia Present; Total Cells Counted 100
--- NOTE | 2018-02-10 18:39 | P.CONS ---
History of Present Illness - Reason for Consult Consult date: 02/10/18 Medical management Requesting physician: Rafiq Mosley - Chief Complaint Abdominal pain - History of Present Illness 72-year-old male with past medical history of hyperlipidemia initially presented to the hospital for an elective colonoscopy on February 10. Colonoscopy initially showed diverticulosis and small polyps, mucosal changes were noted in the splenic flexure which was concerning for perforation so the procedure was terminated. Abdominal x-ray at that time showed pneumoperitoneum consistent with colonic perforation. General surgery was consulted and patient underwent exploratory laparotomy and low anterior resection of the sigmoid colon. At the time of this interview, patient had a blood pressure 134/60. He is saturating 97% on 3 L nasal cannula. He is tachycardic to HR 96. Review of labs show a normal hemoglobin of 15.8. Review of Systems All systems: negative Past Medical History Past Medical History: Hyperlipidemia, Musculoskeletal Disorder, Osteoarthritis ( OA) Additional Past Medical History / Comment(s): STATES BLOOD IN STOOL, Chronic neck and back pain, RADIATES DOWN BOTH LEGS, ALSO N/T. History of Any Multi-Drug Resistant Organisms: None Reported Past Surgical History: Back Surgery, Orthopedic Surgery Additional Past Surgical History / Comment(s): Neck surgery, right knee arthroscopy, pain procedures. Past Anesthesia/Blood Transfusion Reactions: No Reported Reaction Additional Past Anesthesia/Blood Transfusion Reaction / Comm: FAMILY HX UNKNOWN Smoking Status: Current every day smoker - Past Family History Mother Family Medical History: Liver Disease Medications and Allergies Home Medications Medication Instructions Recorded Confirmed Type Atorvastatin [Lipitor] 40 mg PO Q2D 10/05/15 02/05/18 History Ascorbic Acid [Vitamin C] 1,000 mg PO DAILY 02/02/16 02/05/18 History Cholecalciferol [Vitamin D3] 2,000 unit PO DAILY 02/02/16 02/05/18 History Cyanocobalamin [Vitamin B-12] 1,000 mcg PO DAILY 02/02/16 02/05/18 History Magnesium Oxide 400 mg PO DAILY 02/17/17 02/05/18 History Meloxicam [Mobic] 7.5 mg PO DAILY #30 tab 07/14/17 02/10/18 Rx Allergies Allergy/AdvReac Type Severity Reaction Status Date / Time pregabalin [From Lyrica] Allergy psychotic Verified 02/10/18 09:46 behavior varenicline tartrate Allergy psychotic Verified 02/10/18 09:46 [From Chantix] behavior Physical Exam Vitals: Vital Signs Temp Pulse Pulse Resp BP BP BP 02/10/18 17:06 96 16 134/60 02/10/18 16:51 94 16 132/68 02/10/18 16:36 101 H 16 142/68 02/10/18 16:21 97.7 F 99 16 140/69 02/10/18 16:06 100 16 138/63 02/10/18 15:51 97.7 F 105 H 18 132/81 02/10/18 13:30 103 H 16 138/69 02/10/18 13:00 96 16 129/63 02/10/18 12:45 95 16 149/64 02/10/18 12:28 88 16 144/62 02/10/18 12:16 86 16 142/75 02/10/18 12:15 97 16 135/74 02/10/18 12:00 84 16 147/80 02/10/18 11:43 89 18 145/85 02/10/18 11:06 68 18 121/65 02/10/18 11:04 65 18 92/61 02/10/18 09:49 98.1 F 58 L 16 145/82 Pulse Ox 02/10/18 17:06 97 02/10/18 16:51 98 02/10/18 16:36 96 02/10/18 16:21 98 02/10/18 16:06 100 02/10/18 15:51 100 02/10/18 13:30 95 02/10/18 13:00 95 02/10/18 12:45 95 02/10/18 12:28 95 02/10/18 12:16 97 02/10/18 12:15 95 02/10/18 12:00 98 02/10/18 11:43 98 02/10/18 11:06 95 02/10/18 11:04 94 L 02/10/18 09:49 98 Intake and Output 02/10/18 02/10/18 02/10/18 06:59 14:59 22:59 Intake Total 1650 309.8 Output Total 160 Balance 1650 149.8 Intake: IV 1650 309.8 Output: Urine 130 Estimated Blood Loss 30 Patient is drowsy at this time, likely due to pain medication. Limited physical exam due to inability to cooperate. General: non toxic, no distress, appears at stated age Derm: warm, dry Head: atraumatic, normocephalic, symmetric Cardiovascular: S1S2 reg, no murmur, rubs, gallops. Lungs: Coarse breath sounds bilaterally, no rhonchi, no rales , no accessory muscle use Abdominal: soft, surgical scar, nondistended Ext: no edema, no contractures, SCD boots on Results CBC & Chem 7: 02/10/18 16:48 02/10/18 16:48 Labs: Abnormal Lab Results - Last 24 Hours (Table) 02/10/18 Range/Units 16:48 Chloride 110 H (98-107) mmol/L BUN 8 L (9-20) mg/dL Abdominal x-ray: report reviewed Assessment and Plan Assessment: Assessment and Plan 1. Colonic perforation: s/p colonic resection and repair on 02/10. Pain control with Ropivacaine/Dilaudid Epidural pump, Dilaudid 1 mg IV Q3H, Tylenol IV. CLD and advance. Adequate coverage with Zosyn 3.375g IV Q8H. Reglan or Zofran for N/ V. Serial abdominal exams. FU CBC, General Sx 2. EtOH abuse: CIWA protocol. Ativan IV PRN for agitation or seizures. Start Thiamine 100 mg PO QD, Folic acid 1 mg PO QD, MVI 1 tab PO QD. 3. Tobacco dependance: Habitrol patch if needed. 4. DVT/GI Prophylaxis: Heparin 5000 units TID. Pepcid 20 mg IV BID.
[2018-02-10] MEDS: THIAMINE 100 MG TAB PO SCH (18:50)
[2018-02-10] MEDS: FAMOTIDINE 20 MG/2 ML VIAL IV SCH (19:48)
[2018-02-10] MEDS: HEPARIN SODIUM,PORCINE 5,000 UNIT/ML 1 ML VIAL SQ SCH (23:30)
[2018-02-10] MEDS: PIPERACILLIN-TAZOBACTAM 3.375 GM in DEXTROSE/WATER 1 50ML.BAG IVPB SCH (23:30)
[2018-02-11] MEDS: ONDANSETRON 4 MG/2 ML VIAL IVP PRN ×2 (04:48→16:11)
[2018-02-11] MEDS: ACETAMINOPHEN IV (For NPO) 1,000 MG in EMPTY BAG 1 BAG IVPB SCH ×2 (04:52→12:19)
[2018-02-11] MEDS: LACTATED RINGERS 1,000 ML IV SCH (05:44)
[2018-02-11] MEDS: PIPERACILLIN-TAZOBACTAM 3.375 GM in DEXTROSE/WATER 1 50ML.BAG IVPB SCH ×3 (09:08→23:27)
[2018-02-11] MEDS: FOLIC ACID 1 MG TAB PO SCH (09:09)
[2018-02-11] MEDS: HEPARIN SODIUM,PORCINE 5,000 UNIT/ML 1 ML VIAL SQ SCH ×3 (09:09→23:27)
[2018-02-11] MEDS: MULTIVITAMINS, THERA 1 EACH TAB PO SCH (09:09)
[2018-02-11] MEDS: THIAMINE 100 MG TAB PO SCH ×2 (09:10→16:16)
[2018-02-11] MEDS: FAMOTIDINE 20 MG/2 ML VIAL IV SCH ×2 (09:10→21:02)
[2018-02-11] MEDS: D5-0.45% NACL WITH KCL 20MEQ/L 1,000 ML IV SCH ×2 (09:10→21:03)
--- NOTE | 2018-02-11 12:19 | P.PN ---
Progress Note - Text Progress Note Date: 02/11/18 72-year-old male status post exploratory laparotomy postop day #1 epidural catheter day #2. Patient doing well VAS 3/10. Epidural catheter site is clean dry and intact, incision appears clean dry and intact. No motor or sensory deficits. Full catheter someplace can be removed per anesthesia. Plan is to continue with current epidural settings a rate of 8 ML's per hour.
--- NOTE | 2018-02-11 12:38 | P.PN ---
Subjective Progress Note Date: 02/11/18 Principal diagnosis: Colonic perforation Patient feels better today. Pain is improved. He is afebrile. Vitals are stable. Labs from yesterday afternoon reviewed. No bowel function. Good pain control with epidural. Objective - Vital Signs Vital signs: Vital Signs Temp 97.9 F 02/11/18 09:44 Pulse 81 02/11/18 09:44 Resp 18 02/11/18 09:44 BP 104/61 02/11/18 09:44 Pulse Ox 95 02/11/18 09:44 Intake & Output 02/10/18 02/11/18 02/11/18 18:59 06:59 18:59 Intake Total 1959.8 1787.5 120 Output Total 160 550 Balance 1799.8 1237.5 120 Weight 65.771 kg Intake: IV 1959.8 Intake, IV Titration 1737.5 Amount D5-0.45% NaCl with KCl 1687.5 20Meq/l 1,000 ml @ 125 mls/hr IV .Q8H [facility] Rx#: [id number] Piperacillin-Tazobactam 3 50 .375 gm In Dextrose/Water 1 50ml.bag @ 12.5 mls/hr IVPB Q8HR [facility] Rx#: [id number] Oral 50 120 Output: Urine 130 550 Estimated Blood Loss 30 Other: Voiding Method Indwelling Catheter Indwelling Catheter - Exam Abdomen: Soft, nondistended, mild tenderness, dressing intact - Labs CBC & Chem 7: 02/10/18 16:48 02/10/18 16:48 Labs: Abnormal Lab Results - Last 24 Hours (Table) 02/10/18 02/10/18 Range/Units 16:48 16:48 Lymphocytes # (Manual) 0.69 L (1.0-4.8) k/uL Chloride 110 H (98-107) mmol/L BUN 8 L (9-20) mg/dL Assessment and Plan (1) Perforation of colon as colonoscopy complication Narrative/Plan: Continue on a biotics. Increase activity. Keep epidural and Echols catheter for now. Current Visit: Yes Status: Acute Code(s): K63.1 - PERFORATION OF INTESTINE ( NONTRAUMATIC); K91.71 - ACCIDENTAL PNCTR & LAC OF A DGSTV SYS ORG DUR DGSTV SYS PROC SNOMED Code(s): 14972983
[2018-02-11] MEDS: ROPIVACAINE 300 MG, HYDROMORPHONE (PF) 5 MG in SODIUM CHLORIDE 0.9% 190 ML EPIDURAL PRN (16:02)
[2018-02-11] MEDS: LORazepam 2 MG/ML INJ IV PRN (20:28)
[2018-02-12] MEDS: LORazepam 2 MG/ML INJ IV PRN ×3 (03:06→22:46)
[2018-02-12] MEDS: D5-0.45% NACL WITH KCL 20MEQ/L 1,000 ML IV SCH ×3 (06:50→14:05)
[2018-02-12] MEDS: LACTATED RINGERS 1,000 ML IV SCH (06:50)
[2018-02-12] MEDS: PIPERACILLIN-TAZOBACTAM 3.375 GM in DEXTROSE/WATER 1 50ML.BAG IVPB SCH ×3 (08:29→23:41)
[2018-02-12] MEDS: FAMOTIDINE 20 MG/2 ML VIAL IV SCH ×2 (08:30→21:54)
[2018-02-12] MEDS: HEPARIN SODIUM,PORCINE 5,000 UNIT/ML 1 ML VIAL SQ SCH ×3 (08:32→23:42)
[2018-02-12] MEDS: THIAMINE 100 MG TAB PO SCH ×2 (10:26→16:03)
[2018-02-12] MEDS: MULTIVITAMINS, THERA 1 EACH TAB PO SCH (10:26)
--- NOTE | 2018-02-12 10:34 | P.PN ---
Progress Note - Text Anesthesia POD 2. Status Post exploratory laparotomy with repair of colonic perforation under general endotracheal anesthesia with an epidrual catheter placed at T10 for post surgical pain releif. The epidural was working well for postoperative pain relief, unfortunately in the system development manager hours the patient accidentally dislodged the catheter from his upper back and it was then completely discontinued by staff. The epidural site is free of any signs of infection.
--- NOTE | 2018-02-12 11:09 | P.PN ---
<Lianna Dillonne M - Last Filed: 02/12/18 10:51> Subjective Progress Note Date: 02/12/18 72-year-old male seen at the bedside with a sitter. Patient had an episode last evening combative trying to climb out of bed. Nursing reports patient did remove the Echols catheter last night. Epidural additionally has been removed. Patient currently is oriented to self easily agitated. Incontinent urine. Did note surgical dressing dry nondistended. Suprapubic area redness noted no labs this morning Postop February 10 exploratory laparotomy with repair colonic perforation Objective - Vital Signs Vital signs: Vital Signs Temp 98.4 F 02/12/18 08:40 Pulse 82 02/12/18 08:40 Resp 16 02/12/18 08:40 BP 113/68 02/12/18 08:40 Pulse Ox 91 L 02/12/18 08:40 Intake & Output 02/11/18 02/12/18 02/12/18 18:59 06:59 18:59 Intake Total 1370 1850 Balance 1370 1850 Intake: Intake, IV Titration 1050 1750 Amount D5-0.45% NaCl with KCl 1000 1650 20Meq/l 1,000 ml @ 125 mls/hr IV .Q8H [facility] Rx#: [id number] Piperacillin-Tazobactam 3 50 100 .375 gm In Dextrose/Water 1 50ml.bag @ 12.5 mls/hr IVPB Q8HR [facility] Rx#: [id number] Oral 320 100 Other: Voiding Method Indwelling Catheter Toilet Urinal # Voids 3 - Exam Physical exam 72-year-old male sitter at bedside restless agitated attempting to get out of bed Lungs adequate air movement bilaterally on room air Heart S1-S2 audible regular Abdomen surgical tenderness appropriate nondistended few hypoactive bowel tones incontinent urine surgical dressing dry slight redness noted left lower quadrant Extremities moving all extremities randomly with no edema - Labs CBC & Chem 7: 02/10/18 16:48 02/10/18 16:48 Assessment and Plan Assessment: Impression Perforation of colon as colonoscopy complication Exploratory laparotomy with repair colonic perforation February 10 chronic alcoholism daily consumption Episode postop combative disruptive behavior suspect due to impending DTs treated with CIWA protocol Active current every day smoker Colonoscopy initially showed diverticulosis, polyps Plan Continue postop surgical care Continue sitter at the bedside for patient safety IV antibiotic Zosyn as ordered Reinforce smoking cessation and absence of alcohol use PT and GI prophylaxis Increase activity when appropriate Pain control The above impression and plan of care have been discussed and directed by signing physician. Janis Dillon nurse practitioner acting as scribe for signing physician. <Rafiq Mosley - Last Filed: 02/12/18 16:07> Objective - Vital Signs Vital signs: Vital Signs Temp 97.4 F L 02/12/18 14:56 Pulse 91 02/12/18 14:56 Resp 18 02/12/18 14:56 BP 130/68 02/12/18 14:56 Pulse Ox 94 L 02/12/18 14:56 Intake & Output 02/11/18 02/12/18 02/12/18 18:59 06:59 18:59 Intake Total 1370 1850 Balance 1370 1850 Intake: Intake, IV Titration 1050 1750 Amount D5-0.45% NaCl with KCl 1000 1650 20Meq/l 1,000 ml @ 125 mls/hr IV .Q8H [facility] Rx#: [id number] Piperacillin-Tazobactam 3 50 100 .375 gm In Dextrose/Water 1 50ml.bag @ 12.5 mls/hr IVPB Q8HR [facility] Rx#: [id number] Oral 320 100 Other: Voiding Method Indwelling Catheter Toilet Urinal # Voids 3 1 - Labs CBC & Chem 7: 02/12/18 12:50 02/12/18 12:50 Labs: Abnormal Lab Results - Last 24 Hours (Table) 02/12/18 Range/Units 12:50 WBC 13.4 H (3.8-10.6) k/uL RBC 3.72 L (4.30-5.90) m/uL Hgb 12.1 L D (13.0-17.5) gm/dL Hct 35.9 L (39.0-53.0) % Assessment and Plan Assessment: As above. Patient has been suffering from delirium tremens since yesterday. Seems to be improved currently from earlier today and last night. He remains disoriented however. Denies any pain currently. Abdomen: Soft, mild diffuse tenderness. He is currently on clear liquids. Had a small bowel movement today. White blood cell count 13. He is afebrile. Continue clear liquids. Gradually increase activity as able. (1) Perforation of colon as colonoscopy complication Current Visit: Yes Status: Acute Code(s): K63.1 - PERFORATION OF INTESTINE ( NONTRAUMATIC); K91.71 - ACCIDENTAL PNCTR & LAC OF A DGSTV SYS ORG DUR DGSTV SYS PROC SNOMED Code(s): 78541291
[2018-02-12 13:05] LABS: HCT 35.9 % (39.0-53.0); MCH 32.6 pg (25.0-35.0); MCHC 33.8 g/dL (31.0-37.0); MCV 96.5 fL (80.0-100.0); Mean Platelet Volume 6.9; Platelet Count 275 k/uL (150-450); RBC 3.72 m/uL (4.30-5.90); RDW 12.8 % (11.5-15.5); WBC 13.4 k/uL (3.8-10.6)
[2018-02-12 13:16] LABS: HGB 12.1 gm/dL (13.0-17.5)
--- NOTE | 2018-02-12 13:21 | P.PN ---
Subjective Progress Note Date: 02/12/18 Principal diagnosis: EtOH Withdrawal Patient was seen and examined. No acute events overnight. Sitter at bedside. Patient reports no pain. Per sitter, patient is very agitated. Epidural dislodged overnight. His blood pressure is 113/68. He is saturating 91% on room air. His pulse is 82. Objective - Vital Signs Vital signs: Vital Signs Temp 98.4 F 02/12/18 08:40 Pulse 82 02/12/18 08:40 Resp 16 02/12/18 08:40 BP 113/68 02/12/18 08:40 Pulse Ox 91 L 02/12/18 08:40 Intake & Output 02/11/18 02/12/18 02/12/18 18:59 06:59 18:59 Intake Total 1370 1850 Balance 1370 1850 Intake: Intake, IV Titration 1050 1750 Amount D5-0.45% NaCl with KCl 1000 1650 20Meq/l 1,000 ml @ 125 mls/hr IV .Q8H [facility] Rx#: [id number] Piperacillin-Tazobactam 3 50 100 .375 gm In Dextrose/Water 1 50ml.bag @ 12.5 mls/hr IVPB Q8HR [facility] Rx#: [id number] Oral 320 100 Other: Voiding Method Indwelling Catheter Toilet Urinal # Voids 3 1 - Exam Patient is AO x 0. Does not know the year or where he is. General: non toxic, no distress, appears at stated age Derm: warm, dry Head: atraumatic, normocephalic, symmetric Cardiovascular: S1S2 reg, no murmur, rubs, gallops. Lungs: Coarse breath sounds bilaterally, no rhonchi, no rales , no accessory muscle use Abdominal: soft, nontender to palpation, dressings intact, nondistended Ext: no edema, no contractures, SCD boots on - Labs CBC & Chem 7: 02/10/18 16:48 02/10/18 16:48 Assessment and Plan Assessment: Assessment and Plan 1. EtOH abuse: CIWA 3. Given 4 mg of Ativan in 24 hours. Will start Librium 25 mg PO TID. Ativan IV PRN for agitation or seizures. Continue Thiamine 100 mg PO QD, Folic acid 1 mg PO QD, MVI 1 tab PO QD. 2. Colonic perforation: s/p colonic resection and repair on 02/10. Pain control with Dilaudid 1 mg IV Q3H PRN. CLD and advance. Adequate coverage with Zosyn 3.375g IV Q8H. Reglan or Zofran for N/V. Serial abdominal exams. FU CBC/BMP, General Sx 3. Tobacco dependance: Habitrol patch if needed. 4. DVT/GI Prophylaxis: Heparin 5000 units TID. Pepcid 20 mg IV BID.
[2018-02-12 13:24] LABS: Anion Gap 6 mmol/L; Blood Urea Nitrogen 12 mg/dL (9-20); Calcium 8.6 mg/dL (8.4-10.2); Carbon Dioxide 25 mmol/L (22-30); Chloride 106 mmol/L (98-107); Glucose 82 mg/dL (74-99); Potassium 3.9 mmol/L (3.5-5.1); Sodium 137 mmol/L (137-145)
[2018-02-12] MEDS: chlordiazePOXIDE 25 MG CAP PO SCH ×2 (16:03→21:54)
[2018-02-12] MEDS ORDERED: NICOTINE 21MG/24HR PATCH TRANSDERM STA (23:26)
[2018-02-13] MEDS: LORazepam 2 MG/ML INJ IV PRN (01:09)
[2018-02-13] MEDS: chlordiazePOXIDE 25 MG CAP PO SCH ×3 (09:58→23:05)
[2018-02-13] MEDS: FAMOTIDINE 20 MG/2 ML VIAL IV SCH ×2 (09:58→21:01)
[2018-02-13] MEDS: HEPARIN SODIUM,PORCINE 5,000 UNIT/ML 1 ML VIAL SQ SCH ×3 (09:59→23:17)
[2018-02-13] MEDS: PIPERACILLIN-TAZOBACTAM 3.375 GM in DEXTROSE/WATER 1 50ML.BAG IVPB SCH ×3 (10:52→23:17)
[2018-02-13] MEDS: LACTATED RINGERS 1,000 ML IV SCH (10:53)
[2018-02-13] MEDS: D5-0.45% NACL WITH KCL 20MEQ/L 1,000 ML IV SCH ×3 (10:53→16:28)
--- NOTE | 2018-02-13 11:43 | P.PN ---
<Janis Dillon M - Last Filed: 02/13/18 11:33> Subjective Progress Note Date: 02/13/18 72-year-old seen with son at bedside remains pleasantly confused less combative cooperative will open eyes to verbal stimuli sitter at bedside. Incontinent urine no stool surgical dressing site dry abdomen soft not distended significant improvement in the redness to the left lateral incision Objective - Vital Signs Vital signs: Vital Signs Temp 97.4 F L 02/13/18 09:53 Pulse 74 02/13/18 09:53 Resp 16 02/13/18 09:53 BP 148/81 02/13/18 09:53 Pulse Ox 93 L 02/13/18 09:53 Intake & Output 02/12/18 02/13/18 02/13/18 18:59 06:59 18:59 Intake Total 1650 Output Total 200 Balance -200 1650 Weight 65.771 kg Intake: Intake, IV Titration 1100 Amount D5-0.45% NaCl with KCl 1000 20Meq/l 1,000 ml @ 125 mls/hr IV .Q8H [facility] Rx#: [id number] Piperacillin-Tazobactam 3 100 .375 gm In Dextrose/Water 1 50ml.bag @ 12.5 mls/hr IVPB Q8HR [facility] Rx#: [id number] Oral 550 Output: Urine 200 Other: Voiding Method Urinal Urinal # Voids 1 3 - Exam Physical exam 72-year-old male sitter at bedside less combative pleasantly confused opens eyes to verbal stimuli oriented to self Lungs adequate air movement bilaterally on room air no cough noted no shortness of breath Heart S1-S2 audible regular no murmur heart rate in the 70s Abdomen surgical tenderness appropriate nondistended few hypoactive bowel tones incontinent urine surgical dressing dry redness significantly improved left lower quadrant Extremities moving all extremities randomly with no edema bilateral mittens on - Labs CBC & Chem 7: 02/12/18 12:50 02/12/18 12:50 Labs: Abnormal Lab Results - Last 24 Hours (Table) 02/12/18 Range/Units 12:50 WBC 13.4 H (3.8-10.6) k/uL RBC 3.72 L (4.30-5.90) m/uL Hgb 12.1 L D (13.0-17.5) gm/dL Hct 35.9 L (39.0-53.0) % Assessment and Plan Assessment: Impression Perforation of colon as colonoscopy complication Exploratory laparotomy with repair colonic perforation February 10 chronic alcoholism daily consumption Episode postop combative disruptive behavior suspect due to impending DTs treated with CIWA protocol Active current every day smoker Colonoscopy initially showed diverticulosis, polyps Leukocytosis possible reactive Plan Continue postop surgical care Continue sitter at the bedside for patient safety IV antibiotic Zosyn as ordered Reinforce smoking cessation and absence of alcohol use when appropriate DVT and GI prophylaxis Increase activity when appropriate Pain control PT OT eval Repeat labs in the morning The above impression and plan of care have been discussed and directed by signing physician. Janis Dillon nurse practitioner acting as scribe for signing physician. <Rafiq Mosley - Last Filed: 02/13/18 14:46> Objective - Vital Signs Vital signs: Vital Signs Temp 98.2 F 02/13/18 14:05 Pulse 85 02/13/18 14:05 Resp 16 02/13/18 14:05 BP 138/87 02/13/18 14:05 Pulse Ox 93 L 02/13/18 14:05 Intake & Output 02/12/18 02/13/18 02/13/18 18:59 06:59 18:59 Intake Total 1650 Output Total 200 Balance -200 1650 Weight 65.771 kg Intake: Intake, IV Titration 1100 Amount D5-0.45% NaCl with KCl 1000 20Meq/l 1,000 ml @ 125 mls/hr IV .Q8H [facility] Rx#: [id number] Piperacillin-Tazobactam 3 100 .375 gm In Dextrose/Water 1 50ml.bag @ 12.5 mls/hr IVPB Q8HR [facility] Rx#: [id number] Oral 550 Output: Urine 200 Other: Voiding Method Urinal Urinal # Voids 1 3 - Labs CBC & Chem 7: 02/13/18 11:42 02/13/18 11:42 Labs: Abnormal Lab Results - Last 24 Hours (Table) 02/13/18 02/13/18 Range/Units 11:42 11:42 WBC 13.1 H (3.8-10.6) k/uL RBC 4.12 L (4.30-5.90) m/uL Neutrophils # 11.0 H (1.3-7.7) k/uL Lymphocytes # 0.9 L (1.0-4.8) k/uL BUN 7 L (9-20) mg/dL Assessment and Plan Assessment: As above. Patient less anxious today. Appears more alert. No bowel movement today. No vomiting. He did have loose stools yesterday. Appears slightly more bloated. Minimal diffuse tenderness noted. Incision is clean and dry with minimal erythema on the left side. White blood cell count slightly improved to 13.1. Today's chest x-ray showed possible pneumoperitoneum which would not be unreasonable given the recent exploratory laparotomy. Continue DVT precautions. Continue antibiotics. Maintain diet on liquids. Repeat labs tomorrow. (1) Perforation of colon as colonoscopy complication Current Visit: Yes Status: Acute Code(s): K63.1 - PERFORATION OF INTESTINE ( NONTRAUMATIC); K91.71 - ACCIDENTAL PNCTR & LAC OF A DGSTV SYS ORG DUR DGSTV SYS PROC SNOMED Code(s): 99011411
--- NOTE | 2018-02-13 11:59 | P.PN ---
Subjective Progress Note Date: 02/13/18 Principal diagnosis: Alcohol withdrawal Patient was seen and examined. No acute events overnight. Neighbor and bedside. Sitter at bedside. Patient complains of 6 out of 10 abdominal pain, only when coughing. Her sitter, patient continues to cough up sputum. Her sitter, patient is not agitated since last night. He is urine incontinent. His blood pressure is 148/81 with a pulse of 74. His O2 saturation is 93% on room air. Objective - Vital Signs Vital signs: Vital Signs Temp 97.4 F L 02/13/18 09:53 Pulse 74 02/13/18 09:53 Resp 16 02/13/18 09:53 BP 148/81 02/13/18 09:53 Pulse Ox 93 L 02/13/18 09:53 Intake & Output 02/12/18 02/13/18 02/13/18 18:59 06:59 18:59 Intake Total 1650 Output Total 200 Balance -200 1650 Weight 65.771 kg Intake: Intake, IV Titration 1100 Amount D5-0.45% NaCl with KCl 1000 20Meq/l 1,000 ml @ 125 mls/hr IV .Q8H [facility] Rx#: [id number] Piperacillin-Tazobactam 3 100 .375 gm In Dextrose/Water 1 50ml.bag @ 12.5 mls/hr IVPB Q8HR [facility] Rx#: [id number] Oral 550 Output: Urine 200 Other: Voiding Method Urinal Urinal # Voids 1 3 - Exam Patient is following commands. General: non toxic, no distress, appears at stated age Derm: warm, dry Head: atraumatic, normocephalic, symmetric Cardiovascular: S1S2 reg, no murmur, rubs, gallops. Lungs: Coarse breath sounds bilaterally, no rhonchi, no rales , no accessory muscle use Abdominal: soft, nontender to palpation, dressings intact, nondistended Ext: no edema, no contractures, SCD boots on - Labs CBC & Chem 7: 02/12/18 12:50 02/12/18 12:50 Labs: Abnormal Lab Results - Last 24 Hours (Table) 02/12/18 Range/Units 12:50 WBC 13.4 H (3.8-10.6) k/uL RBC 3.72 L (4.30-5.90) m/uL Hgb 12.1 L D (13.0-17.5) gm/dL Hct 35.9 L (39.0-53.0) % Assessment and Plan Plan: Assessment and Plan 1. EtOH abuse: Improved mentation since yesterday. Given 4 mg of Ativan in 24 hours with 50 mg of Librium. Continue Librium 25 mg PO TID. Ativan IV PRN for agitation or seizures. Continue Thiamine 100 mg PO QD, Folic acid 1 mg PO QD, MVI 1 tab PO QD. 2. Colonic perforation: s/p colonic resection and repair on 02/10. Pain control with [place] 7.5 mg PO Q6H + Dilaudid 1 mg IV Q3H PRN. CLD and advance. Adequate coverage with Zosyn 3.375g IV Q8H. Reglan or Zofran for N/V. Serial abdominal exams. FU CBC/BMP, General Sx 3. Leukocytosis: WBC 13.4 likely reactive from Sx. Afebrile. Does have a cough, would be concerned for aspiration PNA. FU CXR 4. Anemia: Hg 12.1, 15.8 on admission. Likely dilutional as patient has received IVF since Sx. VSS, no signs of bleeding. Will continue to monitor. FU CBC 5. Tobacco dependance: Habitrol patch if needed. 6. DVT/GI Prophylaxis: Heparin 5000 units TID. Pepcid 20 mg IV BID.
[2018-02-13] MEDS ORDERED: HYDROmorphone 1 MG/ML 1 ML SYRINGE IVP PRN (12:12)
[2018-02-13 12:23] LABS: Basophils % (A) 0 %; Eosinophils # (A) 0.3 k/uL (0-0.7); Eosinophils % (A) 2 %; HCT 39.5 % (39.0-53.0); HGB 13.2 gm/dL (13.0-17.5); Lymphocytes # (A) 0.9 k/uL (1.0-4.8); Lymphocytes % (A) 7 %; MCHC 33.3 g/dL (31.0-37.0); Mean Platelet Volume 6.9; Monocytes # (A) 0.7 k/uL (0-1.0); Monocytes % (A) 6 %; Neutrophils % (A) 84 %; Platelet Count 337 k/uL (150-450); RBC 4.12 m/uL (4.30-5.90); RDW 12.7 % (11.5-15.5); WBC 13.1 k/uL (3.8-10.6)
[2018-02-13 12:46] LABS: Anion Gap 8 mmol/L; Blood Urea Nitrogen 7 mg/dL (9-20); Calcium 8.6 mg/dL (8.4-10.2); Carbon Dioxide 26 mmol/L (22-30); Chloride 103 mmol/L (98-107); Glucose 94 mg/dL (74-99); Potassium 3.7 mmol/L (3.5-5.1); Sodium 137 mmol/L (137-145)
--- NOTE | 2018-02-13 13:29 | XR ---
EXAMINATION TYPE: XR chest 1V portable DATE OF EXAM: 02/13/2018 COMPARISON: 02/10/2018 HISTORY: Pain TECHNIQUE: Single frontal view of the chest is obtained. FINDINGS: There again appears be a lucency beneath the hemidiaphragm of free intraperitoneal air is suspected. Bibasilar infiltrate and small effusion. Underlying COPD. Arthropathy of the shoulders wit h evidence remote trauma left clavicle. Postsurgical change overlying the cervical spine. Prominent t he upper mediastinum likely reflects positioning. IMPRESSION: 1. Bilateral infiltrate and small effusion. Cannot exclude mild central venous congestion. 2. Persistent pneumoperitoneum. Report called to the patient's nurse.
[2018-02-13] MEDS: MULTIVITAMINS, THERA 1 EACH TAB PO SCH (13:34)
[2018-02-13] MEDS: THIAMINE 100 MG TAB PO SCH ×2 (13:35→17:45)
[2018-02-13] MEDS: FOLIC ACID 1 MG TAB PO SCH (13:35)
[2018-02-13] MEDS: CALCIUM CARBONATE 500 MG CHEWABLE PO PRN (17:44)
[2018-02-13] MEDS: HYDROcodone/APAP 7.5-325MG 1 EACH TAB PO PRN (18:27)
[2018-02-14] MEDS: CALCIUM CARBONATE 500 MG CHEWABLE PO PRN (03:50)
[2018-02-14] MEDS: D5-0.45% NACL WITH KCL 20MEQ/L 1,000 ML IV SCH ×3 (05:15→17:25)
[2018-02-14] MEDS: LACTATED RINGERS 1,000 ML IV SCH (05:16)
[2018-02-14 07:27] LABS: Basophils % (A) 0 %; Eosinophils # (A) 0.4 k/uL (0-0.7); Eosinophils % (A) 3 %; HCT 40.8 % (39.0-53.0); HGB 13.6 gm/dL (13.0-17.5); Lymphocytes # (A) 1.1 k/uL (1.0-4.8); Lymphocytes % (A) 10 %; MCH 31.6 pg (25.0-35.0); MCHC 33.3 g/dL (31.0-37.0); MCV 95.1 fL (80.0-100.0); Mean Platelet Volume 6.9; Monocytes # (A) 0.9 k/uL (0-1.0); Monocytes % (A) 7 %; Neutrophils # (A) 9.3 k/uL (1.3-7.7); Neutrophils % (A) 77 %; Platelet Count 387 k/uL (150-450); RBC 4.29 m/uL (4.30-5.90); RDW 12.7 % (11.5-15.5)
[2018-02-14 07:37] LABS: Anion Gap 6 mmol/L; Blood Urea Nitrogen 6 mg/dL (9-20); Calcium 8.8 mg/dL (8.4-10.2); Carbon Dioxide 25 mmol/L (22-30); Chloride 107 mmol/L (98-107); Glucose 92 mg/dL (74-99); Potassium 3.8 mmol/L (3.5-5.1); Sodium 138 mmol/L (137-145)
[2018-02-14] MEDS: PIPERACILLIN-TAZOBACTAM 3.375 GM in DEXTROSE/WATER 1 50ML.BAG IVPB SCH ×3 (08:43→22:55)
[2018-02-14] MEDS: HEPARIN SODIUM,PORCINE 5,000 UNIT/ML 1 ML VIAL SQ SCH ×3 (08:43→22:54)
[2018-02-14] MEDS: FAMOTIDINE 20 MG/2 ML VIAL IV SCH ×2 (08:43→21:48)
[2018-02-14] MEDS: chlordiazePOXIDE 25 MG CAP PO SCH ×3 (08:44→21:48)
--- NOTE | 2018-02-14 08:46 | P.PN ---
Subjective Progress Note Date: 02/14/18 Pt. reported that he had good night sleep, is feeling OK and passing gases per rectum. Did c/o abdominal pain when he coughs or sneeze. Denies CP, Palpitations , Diaphoresis, F/C, N/V and denies rest of the ROS. Objective - Vital Signs Vital signs: Vital Signs Temp 98.2 F 02/13/18 23:20 Pulse 78 02/13/18 23:20 Resp 18 02/13/18 23:20 BP 124/75 02/13/18 23:20 Pulse Ox 93 L 02/13/18 23:20 Intake & Output 02/13/18 02/14/18 02/14/18 18:59 06:59 18:59 Intake Total 890 Output Total 1 Balance 889 Weight 65.771 kg Intake: Intake, IV Titration 650 Amount D5-0.45% NaCl with KCl 600 20Meq/l 1,000 ml @ 125 mls/hr IV .Q8H [facility] Rx#: [id number] Piperacillin-Tazobactam 3 50 .375 gm In Dextrose/Water 1 50ml.bag @ 12.5 mls/hr IVPB Q8HR [facility] Rx#: [id number] Oral 240 Output: Stool 1 Other: Voiding Method Bedside Commode Diaper # Voids 1 3 # Bowel Movements 2 - Constitutional General appearance: Present: average body habitus, cooperative, no acute distress - EENT Eyes: Present: EOMI, normal appearance - Neck Neck: Present: normal ROM. Absent: lymphadenopathy, rigidity, stridor, thyromegaly - Respiratory Respiratory: bilateral: CTA, rales ([place] and central which improves with light coughing.), negative: rhonchi, wheezing - Cardiovascular Rhythm: regular Heart sounds: normal: S1, S2 Abnormal Heart Sounds: Absent: systolic murmur, S3 Gallop, S4 Gallop, other - Gastrointestinal General gastrointestinal: Present: decreased bowel sounds, soft - Neurologic Neurologic: Present: CNII-XII intact - Psychiatric Psychiatric: Present: A&O x's 3, appropriate affect - Labs CBC & Chem 7: 02/14/18 06:24 02/14/18 06:24 Labs: Abnormal Lab Results - Last 24 Hours (Table) 02/13/18 02/13/18 02/14/18 Range/Units 11:42 11:42 06:24 WBC 13.1 H 12.0 H (3.8-10.6) k/uL RBC 4.12 L 4.29 L (4.30-5.90) m/uL Neutrophils # 11.0 H 9.3 H (1.3-7.7) k/uL Lymphocytes # 0.9 L (1.0-4.8) k/uL BUN 7 L (9-20) mg/dL 02/14/18 Range/Units 06:24 WBC (3.8-10.6) k/uL RBC (4.30-5.90) m/uL Neutrophils # (1.3-7.7) k/uL Lymphocytes # (1.0-4.8) k/uL BUN 6 L (9-20) mg/dL - Imaging and Cardiology Chest x-ray: report reviewed, image reviewed Assessment and Plan (1) Alcohol abuse, uncomplicated Current Visit: Yes Status: Acute Priority: Medium Code(s): F10.10 - ALCOHOL ABUSE, UNCOMPLICATED SNOMED Code(s): 43569532 (2) Chest pain Narrative/Plan: No resolved. Current Visit: No Status: Acute Priority: Low Code(s): R07.9 - CHEST PAIN , UNSPECIFIED SNOMED Code(s): 07363523 (3) Perforation of colon as colonoscopy complication Narrative/Plan: Intra-abdominal free air persists and pt. is having some abdominal pain with coughing. Pt. is not using Incentive Spirometry as suggested and on CXR is developing bilateral atelactasis v/s Infiltraltes. There is no clinical evidence of infection as this poin in time. Recommend to use I.S. 10 beep breaths q 2 hours while awake, patient and his nurse was reminded of this and once used appropriately his atelactasis will improve and chances of developing pneumonia will be less. Current Visit: Yes Status: Acute Code(s): K63.1 - PERFORATION OF INTESTINE ( NONTRAUMATIC); K91.71 - ACCIDENTAL PNCTR & LAC OF A DGSTV SYS ORG DUR DGSTV SYS PROC SNOMED Code(s): 00480140 (4) Anemia, unspecified Narrative/Plan: Stable. at this point in time. Current Visit: Yes Status: Acute Code(s): D64.9 - ANEMIA, UNSPECIFIED SNOMED Code(s): 150123160 Plan: Pt's condition is improving, now without 1-1 sitter and is responding appropriately, on ATIVAN as needed for S/S of withdrawal. I.S. as per recs above , continue current management. Time with Patient: Less than 30 (Routine follow-up with some counceling and education given.)
[2018-02-14] MEDS: HYDROcodone/APAP 7.5-325MG 1 EACH TAB PO PRN (10:24)
--- NOTE | 2018-02-14 10:26 | P.PN ---
Subjective Progress Note Date: 02/14/18 Principal diagnosis: Colonic perforation Patient doing much better today. He is oriented to place and seems to be understanding the clinical scenario well. Minimal pain he says. He is having loose stool since yesterday evening. No nausea. No vomiting. White blood cell count 12. Objective - Vital Signs Vital signs: Vital Signs Temp 98.2 F 02/14/18 08:40 Pulse 89 02/14/18 08:40 Resp 16 02/14/18 08:40 BP 115/74 02/14/18 08:40 Pulse Ox 91 L 02/14/18 08:40 Intake & Output 02/13/18 02/14/18 02/14/18 18:59 06:59 18:59 Intake Total 890 Output Total 1 Balance 889 Weight 65.771 kg Intake: Intake, IV Titration 650 Amount D5-0.45% NaCl with KCl 600 20Meq/l 1,000 ml @ 125 mls/hr IV .Q8H [facility] Rx#: [id number] Piperacillin-Tazobactam 3 50 .375 gm In Dextrose/Water 1 50ml.bag @ 12.5 mls/hr IVPB Q8HR [facility] Rx#: [id number] Oral 240 Output: Stool 1 Other: Voiding Method Bedside Commode Bedside Commode Diaper # Voids 1 3 # Bowel Movements 2 - Exam Abdomen: Soft, nondistended, incision clean and dry, minimal tenderness - Labs CBC & Chem 7: 02/14/18 06:24 02/14/18 06:24 Labs: Abnormal Lab Results - Last 24 Hours (Table) 02/13/18 02/13/18 02/14/18 Range/Units 11:42 11:42 06:24 WBC 13.1 H 12.0 H (3.8-10.6) k/uL RBC 4.12 L 4.29 L (4.30-5.90) m/uL Neutrophils # 11.0 H 9.3 H (1.3-7.7) k/uL Lymphocytes # 0.9 L (1.0-4.8) k/uL BUN 7 L (9-20) mg/dL 02/14/18 Range/Units 06:24 WBC (3.8-10.6) k/uL RBC (4.30-5.90) m/uL Neutrophils # (1.3-7.7) k/uL Lymphocytes # (1.0-4.8) k/uL BUN 6 L (9-20) mg/dL Assessment and Plan (1) Perforation of colon as colonoscopy complication Narrative/Plan: Continue antibiotics. Gradually advance diet. Increase activity. Current Visit: Yes Status: Acute Code(s): K63.1 - PERFORATION OF INTESTINE ( NONTRAUMATIC); K91.71 - ACCIDENTAL PNCTR & LAC OF A DGSTV SYS ORG DUR DGSTV SYS PROC SNOMED Code(s): 30706427
[2018-02-14] MEDS: MULTIVITAMINS, THERA 1 EACH TAB PO SCH (14:24)
[2018-02-14] MEDS: THIAMINE 100 MG TAB PO SCH ×2 (14:24→16:58)
[2018-02-14] MEDS: FOLIC ACID 1 MG TAB PO SCH (14:24)
[2018-02-15] MEDS: D5-0.45% NACL WITH KCL 20MEQ/L 1,000 ML IV SCH ×4 (02:31→23:35)
[2018-02-15] MEDS: LACTATED RINGERS 1,000 ML IV SCH (06:08)
[2018-02-15 07:04] LABS: Basophils % (A) 0 %; Eosinophils # (A) 0.4 k/uL (0-0.7); Eosinophils % (A) 4 %; HCT 38.1 % (39.0-53.0); HGB 12.9 gm/dL (13.0-17.5); Lymphocytes # (A) 1.7 k/uL (1.0-4.8); Lymphocytes % (A) 15 %; MCH 32.1 pg (25.0-35.0); MCHC 33.9 g/dL (31.0-37.0); MCV 94.6 fL (80.0-100.0); Mean Platelet Volume 6.8; Monocytes # (A) 1.2 k/uL (0-1.0); Monocytes % (A) 10 %; Neutrophils # (A) 7.5 k/uL (1.3-7.7); Neutrophils % (A) 67 %; Platelet Count 384 k/uL (150-450); RBC 4.03 m/uL (4.30-5.90); RDW 12.8 % (11.5-15.5); WBC 11.1 k/uL (3.8-10.6)
[2018-02-15 07:18] LABS: Anion Gap 7 mmol/L; Blood Urea Nitrogen 5 mg/dL (9-20); Calcium 8.6 mg/dL (8.4-10.2); Carbon Dioxide 22 mmol/L (22-30); Chloride 111 mmol/L (98-107); Glucose 93 mg/dL (74-99); Potassium 4.3 mmol/L (3.5-5.1); Sodium 140 mmol/L (137-145)
--- NOTE | 2018-02-15 08:22 | P.PN ---
<Jnais Dillon M - Last Filed: 02/15/18 08:15> Subjective Progress Note Date: 02/15/18 72-year-old male seen sitting up in bed taking a full liquid diet oriented to self and place pleasant cooperative had a bowel movement last night wandy to surgical incision site well approximated suture line afebrile white count 11.1 Exploratory laparotomy with repair colonic perforation February 10 Objective - Vital Signs Vital signs: Vital Signs Temp 98 F 02/14/18 20:00 Pulse 79 02/14/18 20:00 Resp 18 02/14/18 20:00 BP 138/76 02/14/18 20:00 Pulse Ox 93 L 02/14/18 20:00 Intake & Output 02/14/18 02/15/18 02/15/18 18:59 06:59 18:59 Intake Total 1600 Balance 1600 Intake: Intake, IV Titration 1600 Amount D5-0.45% NaCl with KCl 1500 20Meq/l 1,000 ml @ 125 mls/hr IV .Q8H [facility] Rx#: [id number] Piperacillin-Tazobactam 3 100 .375 gm In Dextrose/Water 1 50ml.bag @ 12.5 mls/hr IVPB Q8HR [facility] Rx#: [id number] Other: Voiding Method Bedside Commode Bedside Commode # Voids 1 3 # Bowel Movements 1 1 - Exam Physical exam 72-year-old male sitting up in bed taking diet oriented to person and place Lungs adequate air movement bilaterally on room air no cough noted no shortness of breath Heart S1-S2 audible regular no murmur heart rate in the 70s Abdomen surgical tenderness appropriate nondistended bowel tones present up on bedside commode urinating one loose stool last night surgical dressing dry redness significantly improved left lower quadrant Extremities moving all extremities no edema - Labs CBC & Chem 7: 02/15/18 06:34 02/15/18 06:34 Labs: Abnormal Lab Results - Last 24 Hours (Table) 02/15/18 02/15/18 Range/Units 06:34 06:34 WBC 11.1 H (3.8-10.6) k/uL RBC 4.03 L (4.30-5.90) m/uL Hgb 12.9 L (13.0-17.5) gm/dL Hct 38.1 L (39.0-53.0) % Monocytes # 1.2 H (0-1.0) k/uL Chloride 111 H (98-107) mmol/L BUN 5 L (9-20) mg/dL Assessment and Plan Assessment: Impression Perforation of colon as colonoscopy complication on February 10 Exploratory laparotomy with repair colonic perforation February 10 chronic alcoholism daily consumption Episode postop combative disruptive behavior suspect due to impending DTs treated with CIWA protocol resolved Active current every day smoker Colonoscopy initially showed diverticulosis, polyps Leukocytosis possible reactive Anemia unspecified Plan Continue postop surgical care IV antibiotic Zosyn as ordered Reinforce smoking cessation and absence of alcohol use when appropriate DVT and GI prophylaxis Increase activity when appropriate Pain control Repeat labs in the morning Gradually advance diet as tolerated Anticipate discharge soon The above impression and plan of care have been discussed and directed by signing physician. Janis Dillon nurse practitioner acting as scribe for signing physician. <Rafiq Mosley - Last Filed: 02/15/18 10:27> Objective - Vital Signs Vital signs: Vital Signs Temp 97.5 F L 02/15/18 10:17 Pulse 92 02/15/18 10:17 Resp 16 02/15/18 10:17 BP 125/75 02/15/18 10:17 Pulse Ox 92 L 02/15/18 10:17 Intake & Output 02/14/18 02/15/18 02/15/18 18:59 06:59 18:59 Intake Total 1600 0 Balance 1600 0 Intake: Intake, IV Titration 1600 Amount D5-0.45% NaCl with KCl 1500 20Meq/l 1,000 ml @ 125 mls/hr IV .Q8H [facility] Rx#: [id number] Piperacillin-Tazobactam 3 100 .375 gm In Dextrose/Water 1 50ml.bag @ 12.5 mls/hr IVPB Q8HR [facility] Rx#: [id number] Oral 0 Other: Voiding Method Bedside Commode Bedside Commode # Voids 1 3 # Bowel Movements 1 1 - Labs CBC & Chem 7: 02/15/18 06:34 02/15/18 06:34 Labs: Abnormal Lab Results - Last 24 Hours (Table) 02/15/18 02/15/18 Range/Units 06:34 06:34 WBC 11.1 H (3.8-10.6) k/uL RBC 4.03 L (4.30-5.90) m/uL Hgb 12.9 L (13.0-17.5) gm/dL Hct 38.1 L (39.0-53.0) % Monocytes # 1.2 H (0-1.0) k/uL Chloride 111 H (98-107) mmol/L BUN 5 L (9-20) mg/dL Assessment and Plan Assessment: As above. Patient doing well. Much more alert. Still having bowel function. Will advance diet to low fiber diet. Increase activity. Possible discharge tomorrow if doing well. (1) Perforation of colon as colonoscopy complication Current Visit: Yes Status: Acute Priority: High Code(s): K63.1 - PERFORATION OF INTESTINE (NONTRAUMATIC); K91.71 - ACCIDENTAL PNCTR & LAC OF A DGSTV SYS ORG DUR DGSTV SYS PROC SNOMED Code(s): 14511732
[2018-02-15] MEDS: chlordiazePOXIDE 25 MG CAP PO SCH ×3 (10:05→21:09)
[2018-02-15] MEDS: PIPERACILLIN-TAZOBACTAM 3.375 GM in DEXTROSE/WATER 1 50ML.BAG IVPB SCH ×3 (10:05→23:31)
[2018-02-15] MEDS: FAMOTIDINE 20 MG/2 ML VIAL IV SCH ×2 (10:05→21:09)
[2018-02-15] MEDS: HEPARIN SODIUM,PORCINE 5,000 UNIT/ML 1 ML VIAL SQ SCH ×3 (10:06→23:31)
--- NOTE | 2018-02-15 10:11 | P.PN ---
Subjective Progress Note Date: 02/15/18 Patient reports that he is feeling little better as compared to yesterday and is tolerating his full liquid diet well. Patient stated he had a bowel movement yesterday. Patient stated that his surgical site is nicely healing. Patient denies chest pain, palpitation, nausea, vomiting, diarrhea, headaches, dizziness and denies rest of the review of system. Patient is status post exploratory laparotomy and coronary perforation repair. Patient's hemoglobin stable at 12.9 white count is improving now around 11,000. Patient is on Zosyn for antibiotic coverage. Nurses reported no current issues with him. Objective - Vital Signs Vital signs: Vital Signs Temp 98 F 02/14/18 20:00 Pulse 79 02/14/18 20:00 Resp 18 02/14/18 20:00 BP 138/76 02/14/18 20:00 Pulse Ox 93 L 02/14/18 20:00 Intake & Output 02/14/18 02/15/18 02/15/18 18:59 06:59 18:59 Intake Total 1600 Balance 1600 Intake: Intake, IV Titration 1600 Amount D5-0.45% NaCl with KCl 1500 20Meq/l 1,000 ml @ 125 mls/hr IV .Q8H [facility] Rx#: [id number] Piperacillin-Tazobactam 3 100 .375 gm In Dextrose/Water 1 50ml.bag @ 12.5 mls/hr IVPB Q8HR [facility] Rx#: [id number] Other: Voiding Method Bedside Commode Bedside Commode # Voids 1 3 # Bowel Movements 1 1 - Constitutional General appearance: Present: cooperative, no acute distress - EENT Eyes: Present: EOMI, normal appearance - Respiratory Respiratory: bilateral: CTA, negative: rales, rhonchi, wheezing - Cardiovascular Rhythm: regular Heart sounds: normal: S1, S2 - Gastrointestinal Gastrointestinal Comment(s): Minimal abdominal soreness/tenderness, nicely healing surgical site without evidence of local infection, no guarding or rigidity rebound detected. Patient abdomen is soft bowel sounds positive. - Neurologic Neurologic: Absent: CNII-XII intact, focal deficits - Psychiatric Psychiatric: Present: A&O x's 3, appropriate affect - Labs CBC & Chem 7: 02/15/18 06:34 02/15/18 06:34 Labs: Abnormal Lab Results - Last 24 Hours (Table) 02/15/18 02/15/18 Range/Units 06:34 06:34 WBC 11.1 H (3.8-10.6) k/uL RBC 4.03 L (4.30-5.90) m/uL Hgb 12.9 L (13.0-17.5) gm/dL Hct 38.1 L (39.0-53.0) % Monocytes # 1.2 H (0-1.0) k/uL Chloride 111 H (98-107) mmol/L BUN 5 L (9-20) mg/dL Assessment and Plan (1) Alcohol abuse, uncomplicated Narrative/Plan: No clinical or documented evidence of alcohol withdrawal at this time. We'll continue to monitor him closely. Current Visit: Yes Status: Acute Priority: Medium Code(s): F10.10 - ALCOHOL ABUSE, UNCOMPLICATED SNOMED Code(s): 20525237 (2) Chest pain Narrative/Plan: No further complaints of chest pain, treated patient stable, patient has been chest pain-free for past 2 or more days. Current Visit: No Status: Resolved Priority: Low Code(s): R07.9 - CHEST PAIN, UNSPECIFIED SNOMED Code(s): 73249696 (3) Perforation of colon as colonoscopy complication Narrative/Plan: Per primary admitting team's care, advance diet As tolerated and when necessary pain management. Current Visit: Yes Status: Acute Priority: High Code(s): K63.1 - PERFORATION OF INTESTINE (NONTRAUMATIC); K91.71 - ACCIDENTAL PNCTR & LAC OF A DGSTV SYS ORG DUR DGSTV SYS PROC SNOMED Code(s): 04645804 (4) Anemia, unspecified Narrative/Plan: Hemoglobin is stable and no significant decline noted postoperatively. Current Visit: Yes Status: Acute Code(s): D64.9 - ANEMIA, UNSPECIFIED SNOMED Code(s): 265620967 Plan: Patient will be continued on I.S. as was recommended yesterday and patient still remembers and has been using it. Patient states that he is able to cough up phlegm now and we're his airways, I will continue current management. Time with Patient: Less than 30
[2018-02-15] MEDS: MULTIVITAMINS, THERA 1 EACH TAB PO SCH (13:22)
[2018-02-15] MEDS: FOLIC ACID 1 MG TAB PO SCH (13:22)
[2018-02-15] MEDS: THIAMINE 100 MG TAB PO SCH ×2 (13:22→17:18)
[2018-02-16] MEDS: LORazepam 2 MG/ML INJ IV PRN ×3 (01:16→20:31)
[2018-02-16] MEDS ORDERED: LORazepam 2 MG/ML INJ IV STA ×2 (01:45→01:52)
[2018-02-16] MEDS ORDERED: QUEtiapine 25 MG TAB PO STA (02:53)
[2018-02-16] MEDS: NICOTINE 14MG/24HR PATCH TRANSDERM SCH (03:13)
--- NOTE | 2018-02-16 03:41 | P.PN ---
Progress Note - Text I evaluated the patient for episodes of agitation and confusion. In summary patient was admitted here about a week ago for surgical intervention due to colon perforation colonoscopy. He underwent laparotomy and anterior resection of the sigmoid colon. No colostomy was created. Patient been recovering well ever since. He has history of drinking and based on history and physical documented from 2016 he was drinking 6. Today I guess at that time. Currently that cannot obtain information how much he was drinking recently. Last drink was at least one week ago. Patient was placed on the Librium around the clock 5 days ago and WA protocol. He's been doing quite well based on the nursing staff and the documentation. He's been quite awake alert and orientated in no apparent distress up to tonight. I found the patient in the bed wound looked slightly agitated but awake and alert clearly not orientated as he felt that he was in longterm. He was: For his family. He was cooperative enough to follow simple commands. And also he was answering with yes and no. My questions he answered no to shortness of breath chest pain abdominal pain headache vision changes. Per nursing staff no difficulties with urination was noted as patient been urinating quite a bit actually he urinated in the bed. He is receiving IV fluids rate on antibiotic. He is moving all 4 extremities and no any particular focal deficits were noticed. He did not have any chest pain. Laboratory findings were stable without any particular electrolyte abnormalities. Most recent chest x-ray showed stable findings Vital Signs: I have reviewed the vital signs. GENERAL: As mentioned he was awake and alert, his attention span was vague, he was following simple commands and answering questions Eyes: PERRL, extraoculry movements intact, clear conjunctiva Neck: Symmetric, trachea midline, No thyromegaly, no masses or neck vain pulsation, no neck rigidity CVS: +S1/S2, No murmurs or gallops. RESP: Unlabored respiratory effort. Diminished but present breath sounds bilaterally, but no wheezing rhonchi or crackles. Abdomen: Midline incision in the lower abdomen is clear without any drainage or redness Bowel sounds present in all 4 quadrants, Soft to palpation, Nontender/ Nondistended, Skin: Warm, Dry. 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 Assessment and plan: Acute delirium, due to hospital delirium/sundowning with waxing and waning pattern. I doubt any alcohol withdrawal at this point as patient's last drink was at least one week ago, he is not tachycardic, sweaty, and he's been doing quite well for this last few days based on the documentation and nursing staff. Plan: Discontinue Librium, Ativan, Reglan and Benadryl as they may cause and further worsen delirium. Continue reorientation of the patient. Bladder scan to assess any urinary retention. Hep-Lock patient until this morning to provide detethering and also help with bladder control overnight. Seroquel 25 mg once due to a bout of agitation. We will order nicotine patch. Elevate the head of the bed to promote deep breaths and help cough mechanism. sitter at bedside. Fall precautions. Once patient's calmer turn off the lights and decrease the noise level if possible. Attempt to establish night/day time sleep /awake pattern. May consider Seroquel at bedtime in the next couple of days and postvoid residuals at bedtime.
[2018-02-16] MEDS: HYDROcodone/APAP 7.5-325MG 1 EACH TAB PO PRN (06:19)
[2018-02-16] MEDS: FAMOTIDINE 20 MG/2 ML VIAL IV SCH ×2 (09:23→20:31)
[2018-02-16] MEDS: HEPARIN SODIUM,PORCINE 5,000 UNIT/ML 1 ML VIAL SQ SCH ×2 (09:23→16:41)
[2018-02-16] MEDS: PIPERACILLIN-TAZOBACTAM 3.375 GM in DEXTROSE/WATER 1 50ML.BAG IVPB SCH ×2 (09:51→16:41)
[2018-02-16] MEDS ORDERED: LORazepam 2 MG/ML INJ IV PRN (10:44)
[2018-02-16] MEDS: THIAMINE 100 MG TAB PO SCH ×2 (12:20→16:46)
[2018-02-16] MEDS: FOLIC ACID 1 MG TAB PO SCH (12:20)
[2018-02-16] MEDS: MULTIVITAMINS, THERA 1 EACH TAB PO SCH (12:20)
[2018-02-16] MEDS: D5-0.45% NACL WITH KCL 20MEQ/L 1,000 ML IV SCH ×2 (12:21→19:49)
[2018-02-16 13:16] LABS: Basophils # (A) 0.1 k/uL (0-0.2); Basophils % (A) 0 %; Eosinophils # (A) 0.4 k/uL (0-0.7); Eosinophils % (A) 3 %; HCT 40.3 % (39.0-53.0); HGB 12.9 gm/dL (13.0-17.5); Lymphocytes # (A) 1.8 k/uL (1.0-4.8); Lymphocytes % (A) 16 %; MCH 31.2 pg (25.0-35.0); MCHC 32.1 g/dL (31.0-37.0); MCV 97.1 fL (80.0-100.0); Mean Platelet Volume 6.5; Monocytes # (A) 1.2 k/uL (0-1.0); Monocytes % (A) 11 %; Neutrophils # (A) 7.5 k/uL (1.3-7.7); Neutrophils % (A) 66 %; Platelet Count 398 k/uL (150-450); RBC 4.15 m/uL (4.30-5.90); RDW 12.9 % (11.5-15.5); WBC 11.3 k/uL (3.8-10.6)
[2018-02-16 13:21] LABS: Anion Gap 9 mmol/L; Blood Urea Nitrogen 5 mg/dL (9-20); Calcium 8.7 mg/dL (8.4-10.2); Carbon Dioxide 22 mmol/L (22-30); Chloride 112 mmol/L (98-107); Glucose 89 mg/dL (74-99); Potassium 3.5 mmol/L (3.5-5.1); Sodium 143 mmol/L (137-145)
[2018-02-16] MEDS: HALOPERIDOL LACTATE 5 MG/ML 1 ML VIAL IM PRN ×2 (14:37→20:37)
--- NOTE | 2018-02-16 16:25 | P.PN ---
Progress Note - Text Progress Note Date: 02/16/18 The patient is sleepy in his bed. Per the nursing staff he just received some Ativan. On exam his vital signs are stable. His abdomen is soft. Incision site is clean dry and intact. Status post repair of colonic perforation status post colonoscopy. Patient is improving. He is tolerating his thickened liquids. He'll most likely be discharged the next 48 hours.
--- NOTE | 2018-02-16 19:01 | P.PN ---
Subjective Progress Note Date: 02/16/18 Principal diagnosis: abdominal pain Patient is a 72-year-old male who initially was having elective colonoscopy. During the preprocedure there is an area of sigmoid colon that appeared abnormal and was suspicious for perforation. Patient had a postprocedural x-ray that consumed pneumoperitoneum. Patient subsequently underwent exploratory laparotomy with repair of colonic perforation on 02/10. Were consulted for medical management. Patient had been progressing well but developed acute agitation overnight on 02/15. He does have a history of alcohol misuse and had been receiving Librium 25 mg twice a day as well as CIWA protocol. On the evening of 02/15 he was given a dose of Seroquel due to his agitation. He was also his Librium and CIWA were stopped. Patient seen and examined at bedside. He is confused. He is able to tell me that it is 2018. He is able to tell me that he is to have a white bandage over his incision and that he had issues with his colon. He is unable to that he is at the hospital or what he has "had done here". He is concerned about people standing in the hallway. He is feeling anxious and fidgety. Objective - Vital Signs Vital signs: Vital Signs Temp 98.2 F 02/16/18 07:00 Pulse 75 02/16/18 07:00 Resp 14 02/16/18 16:00 BP 119/73 02/16/18 07:00 Pulse Ox 92 L 02/16/18 07:00 Intake & Output 02/15/18 02/16/18 02/16/18 18:59 06:59 18:59 Intake Total 100 437.5 Output Total 2 Balance 98 437.5 Intake: Intake, IV Titration 437.5 Amount D5-0.45% NaCl with KCl 437.5 20Meq/l 1,000 ml @ 125 mls/hr IV .Q8H [facility] Rx#: [id number] Oral 100 Output: Stool 2 Other: Voiding Method Bedside Commode Bedside Commode # Voids 1 1 2 # Bowel Movements 1 - Exam General: non toxic, no distress, appears at stated age Derm: warm, dry Head: atraumatic, normocephalic, symmetric Eyes: EOMI, no lid lag, anicteric sclera Mouth: no lip lesion, mucus membranes moist Cardiovascular: S1S2 reg, no murmur, positive posterior tibial pulse bilateral, Lungs: CTA bilateral, no rhonchi, no rales , no accessory muscle use Abdominal: soft, nontender to palpation, no guarding, no appreciable organomegaly, midline incision clean, dry, intact Ext: no gross muscle atrophy, no edema, no contractures Neuro: CN II-XI grossly intact, no focal neuro deficits Psych: Alert, oriented to year, not completely oriented to situation and easily confused, appears to be hallucinating, anxious - Labs CBC & Chem 7: 02/16/18 12:54 02/16/18 12:54 Labs: Abnormal Lab Results - Last 24 Hours (Table) 02/16/18 02/16/18 Range/Units 12:54 12:54 WBC 11.3 H (3.8-10.6) k/uL RBC 4.15 L (4.30-5.90) m/uL Hgb 12.9 L (13.0-17.5) gm/dL Monocytes # 1.2 H (0-1.0) k/uL Chloride 112 H (98-107) mmol/L BUN 5 L (9-20) mg/dL Assessment and Plan Assessment: Acute encephalopathy. Alcohol withdrawal versus delirium -Resume Librium but at a lower dose of 10 mg 3 times a day, CIWA protocol -All precautions, monitor closely -Patient did not respond to a dose of Librium and Ativan. Haldol 2 mg IM initiated along with telemetry monitoring -Check urinalysis to rule out urinary tract infection -Continue with thiamine supplementation -Continue with empiric Zosyn Colonic perforation status post repair -Pain control -Recommendations as per primary team Leukocytosis, improving -Likely reactive secondary to surgery -Repeat CBC in a.m. Anemia, related to acute blood loss and is expected stable -Follow CBC Tobacco abuse -Smoking cessation -Nicotine replacement DVT prophylaxis: Heparin Discussed with: nursing, patient Anticipated discharge: per surgery Anticipated discharge place: home A total of 35 minutes was spent on the care of this complex patient more than 50 % of the time was spent in counseling and care coordination.
[2018-02-17] MEDS: HEPARIN SODIUM,PORCINE 5,000 UNIT/ML 1 ML VIAL SQ SCH ×4 (00:23→23:33)
[2018-02-17] MEDS: PIPERACILLIN-TAZOBACTAM 3.375 GM in DEXTROSE/WATER 1 50ML.BAG IVPB SCH ×4 (00:24→23:33)
[2018-02-17] MEDS: D5-0.45% NACL WITH KCL 20MEQ/L 1,000 ML IV SCH ×3 (00:24→16:16)
[2018-02-17] MEDS: LORazepam 2 MG/ML INJ IV PRN ×2 (03:38→05:13)
[2018-02-17 04:29] LABS: Appearance,Urine Clear (Clear); Bilirubin,Urine Negative (Negative); Blood,Urine Negative (Negative); Color,Urine Yellow; Glucose,Urine (UA) Negative (Negative); Ketones,Urine Negative (Negative); Leukocyte Esterase,Urine Negative (Negative); Nitrite,Urine Negative (Negative); Protein,Urine Negative (Negative); Specific Gravity,Urine 1.009 (1.001-1.035); Urobilinogen,Urine <2.0 mg/dL (<2.0)
[2018-02-17 07:30] LABS: HCT 40.6 % (39.0-53.0); HGB 13.4 gm/dL (13.0-17.5); MCH 31.7 pg (25.0-35.0); Mean Platelet Volume 6.9; Platelet Count 441 k/uL (150-450); RBC 4.22 m/uL (4.30-5.90); RDW 12.8 % (11.5-15.5); WBC 10.9 k/uL (3.8-10.6)
[2018-02-17 07:48] LABS: ALT 36 U/L (21-72); AST 32 U/L (17-59); Albumin 3.1 g/dL (3.5-5.0); Alkaline Phosphatase 78 U/L (38-126); Anion Gap 9 mmol/L; Blood Urea Nitrogen 3 mg/dL (9-20); Calcium 8.8 mg/dL (8.4-10.2); Carbon Dioxide 21 mmol/L (22-30); Chloride 111 mmol/L (98-107); Glucose 94 mg/dL (74-99); Potassium 4.1 mmol/L (3.5-5.1); Sodium 141 mmol/L (137-145); Total Bilirubin 0.5 mg/dL (0.2-1.3); Total Protein 5.8 g/dL (6.3-8.2)
[2018-02-17] MEDS: FAMOTIDINE 20 MG/2 ML VIAL IV SCH ×2 (09:42→21:50)
[2018-02-17] MEDS: FOLIC ACID 1 MG TAB PO SCH (09:44)
[2018-02-17] MEDS: MULTIVITAMINS, THERA 1 EACH TAB PO SCH (09:44)
[2018-02-17] MEDS: THIAMINE 100 MG TAB PO SCH ×2 (09:44→16:16)
[2018-02-17] MEDS: NICOTINE 14MG/24HR PATCH TRANSDERM SCH (09:45)
[2018-02-17] MEDS: ACETAMINOPHEN TAB 325 MG TAB PO PRN (10:31)
--- NOTE | 2018-02-17 12:25 | P.PN ---
Subjective Progress Note Date: 02/17/18 Principal diagnosis: S/P colon perforation and repair. Patient has been having intermittent agitation and confusion. He was given multiple doses of ativan and halodol, when seen he was asleep. I checked on him later when he woke up, he was alert and oriented, mental status is improved. Objective - Vital Signs Vital signs: Vital Signs Temp 97.6 F 02/17/18 07:32 Pulse 76 02/17/18 07:32 Resp 17 02/17/18 07:33 BP 125/76 02/17/18 07:32 Pulse Ox 92 L 02/17/18 07:32 Intake & Output 02/16/18 02/17/18 02/17/18 18:59 06:59 18:59 Intake Total 2049 Output Total 300 Balance 1750 Weight 65.771 kg Intake: Intake, IV Titration 2049 Amount D5-0.45% NaCl with KCl 2000 20Meq/l 1,000 ml @ 125 mls/hr IV .Q8H [facility] Rx#: [id number] Piperacillin-Tazobactam 3 50 .375 gm In Dextrose/Water 1 50ml.bag @ 12.5 mls/hr IVPB Q8HR [facility] Rx#: [id number] Output: Urine 300 Other: Voiding Method Bedside Commode Incontinent Urinal Incontinent # Voids 2 2 1 # Bowel Movements 1 - Exam Constitutional: No acute distress, conversant, pleasant Eyes:Anicteric sclerae, moist conjunctiva, no lid-lag, PERRLA, ENMT: Oropharynx clear, no erythema, exudates Neck: Supple, FROM, no masses, or JVD, No carotid bruits, No thyromegaly Lungs: Diffuse bilateral rhonchi, Clear to percussion, Normal respiratory effort , no accessory muscle use Cardiovascular: Heart regular in rate and rhythm, No murmurs, gallops, or rubs, No peripheral edema Abdominal: Soft, Nontender, no guarding, rebound or rigidity, Normoactive bowel sounds, No hepatomegaly, No splenomegaly, No palpable mass Skin: Normal temperature, tone, texture, turgor, no induration, No subcutaneous nodules, No rash, lesions, No ulcers Extremities: No digital cyanosis, No clubbing, Pedal pulses intact and symmetrical, Radial pulses intact and symmetrical, No calf tenderness Psychiatric: Alert and oriented to person, place and time, appropriate affect, intact judgement Neuro: Gen. weakness, no focal sensory deficits - Labs CBC & Chem 7: 02/17/18 06:57 02/17/18 06:57 Labs: Abnormal Lab Results - Last 24 Hours (Table) 02/16/18 02/16/18 02/17/18 Range/Units 12:54 12:54 06:57 WBC 11.3 H 10.9 H (3.8-10.6) k/uL RBC 4.15 L 4.22 L (4.30-5.90) m/uL Hgb 12.9 L (13.0-17.5) gm/dL Monocytes # 1.2 H (0-1.0) k/uL Chloride 112 H (98-107) mmol/L Carbon Dioxide (22-30) mmol/L BUN 5 L (9-20) mg/dL Total Protein (6.3-8.2) g/dL Albumin (3.5-5.0) g/dL 02/17/18 Range/Units 06:57 WBC (3.8-10.6) k/uL RBC (4.30-5.90) m/uL Hgb (13.0-17.5) gm/dL Monocytes # (0-1.0) k/uL Chloride 111 H (98-107) mmol/L Carbon Dioxide 21 L (22-30) mmol/L BUN 3 L (9-20) mg/dL Total Protein 5.8 L (6.3-8.2) g/dL Albumin 3.1 L (3.5-5.0) g/dL Assessment and Plan Plan: Acute encephalopathy, likely hospital delirium -Hold sedatives including Librium and Ativan as well as Haldol -UA revealed no urinary tract infection -Advised family to support and reorient patient whenever he is confused. Dysphagia Likely secondary to above Swallow evaluation Acute healthcare associated pneumonia -With mild leukocytosis and copious secretions and phlegm, sent for cultures -Repeat chest x-ray -Continue with empiric Zosyn Colonic perforation status post repair -Pain control -Recommendations as per primary team Tobacco abuse -Smoking cessation -Nicotine replacement DVT prophylaxis: Heparin Discussed with: nursing, family Anticipated discharge: Tomorrow Anticipated discharge place: home A total of 60 minutes was spent on the care of this complex patient more than 50 % of the time was spent in counseling and care coordination.
--- NOTE | 2018-02-17 12:57 | P.PN ---
Subjective Progress Note Date: 02/17/18 72-year-old being seen this morning on rounds family at bedside. Currently patient is sedated does open eyes to verbal stimuli. Surgical incision site no redness wandy in place currently tolerating a diet abdomen soft nondistended incontinent urine 1 bowel movement Exploratory laparotomy with repair colonic perforation February 10 Objective - Vital Signs Vital signs: Vital Signs Temp 97.6 F 02/17/18 07:32 Pulse 76 02/17/18 07:32 Resp 17 02/17/18 07:33 BP 125/76 02/17/18 07:32 Pulse Ox 92 L 02/17/18 07:32 Intake & Output 02/16/18 02/17/18 02/17/18 18:59 06:59 18:59 Intake Total 2049 Output Total 300 Balance 1750 Weight 65.771 kg Intake: Intake, IV Titration 2049 Amount D5-0.45% NaCl with KCl 2000 20Meq/l 1,000 ml @ 125 mls/hr IV .Q8H [facility] Rx#: [id number] Piperacillin-Tazobactam 3 50 .375 gm In Dextrose/Water 1 50ml.bag @ 12.5 mls/hr IVPB Q8HR [facility] Rx#: [id number] Output: Urine 300 Other: Voiding Method Bedside Commode Incontinent Urinal Incontinent # Voids 2 2 1 # Bowel Movements 1 - Exam Physical exam 72-year-old male sitting up in bed sedated opens eyes to verbal stimuli Lungs adequate air movement bilaterally on room air no cough noted no shortness of breath Heart S1-S2 audible regular no murmur heart rate in the 70s Abdomen surgical tenderness appropriate nondistended bowel tones present wandy in place non-red nondistended bowel tones present incontinent urine reports by nursing 1 stool last night reportedly tolerating a diet Extremities moving all extremities no edema - Labs CBC & Chem 7: 02/17/18 06:57 02/17/18 06:57 Labs: Abnormal Lab Results - Last 24 Hours (Table) 02/16/18 02/16/18 02/17/18 Range/Units 12:54 12:54 06:57 WBC 11.3 H 10.9 H (3.8-10.6) k/uL RBC 4.15 L 4.22 L (4.30-5.90) m/uL Hgb 12.9 L (13.0-17.5) gm/dL Monocytes # 1.2 H (0-1.0) k/uL Chloride 112 H (98-107) mmol/L Carbon Dioxide (22-30) mmol/L BUN 5 L (9-20) mg/dL Total Protein (6.3-8.2) g/dL Albumin (3.5-5.0) g/dL 02/17/18 Range/Units 06:57 WBC (3.8-10.6) k/uL RBC (4.30-5.90) m/uL Hgb (13.0-17.5) gm/dL Monocytes # (0-1.0) k/uL Chloride 111 H (98-107) mmol/L Carbon Dioxide 21 L (22-30) mmol/L BUN 3 L (9-20) mg/dL Total Protein 5.8 L (6.3-8.2) g/dL Albumin 3.1 L (3.5-5.0) g/dL Assessment and Plan Assessment: Impression Perforation of colon as colonoscopy complication on February 10 Exploratory laparotomy with repair colonic perforation February 10 chronic alcoholism daily consumption Episode postop combative disruptive behavior suspect due to impending DTs treated with CIWA protocol resolved Active current every day smoker Colonoscopy initially showed diverticulosis, polyps Leukocytosis likely due to hospital acquired pneumonia Anemia unspecified Acute healthcare associated pneumonia Acute encephalopathy suspect hospital delirium Plan Continue postop surgical care IV antibiotic Zosyn as ordered will need to transition to oral upon discharge Reinforce smoking cessation and absence of alcohol use when appropriate DVT and GI prophylaxis Increase activity when appropriate Pain control Repeat labs in the morning Gradually advance diet as tolerated The above impression and plan of care have been discussed and directed by signing physician. Janis Dillon nurse practitioner acting as scribe for signing physician.
--- NOTE | 2018-02-17 13:08 | XR ---
EXAMINATION TYPE: XR chest 1V portable DATE OF EXAM: 02/17/2018 COMPARISON: 02/13/2018 HISTORY: Cough TECHNIQUE: Single frontal view of the chest is obtained. FINDINGS: Subsegmental changes at both lung bases with blunting of the costophrenic angle on the rig ht. No overt failure. Biapical pleural thickening. Arthropathy of the shoulders with previous trauma involving the left clavicle. Postsurgical change overlying the cervical spine. Atherosclerotic change aorta. Hypertrophic and degenerative change of the spine. Underlying COPD suspected. IMPRESSION: 1. Improving bilateral lower lobe atelectasis or infiltrate with tiny effusion or pleural thickening.
--- NOTE | 2018-02-17 13:24 | FL ---
EXAMINATION TYPE: FL barium swallow w video DATE OF EXAM: 02/17/2018 MODIFIED SWALLOW / DEGLUTITION STUDY CLINICAL HISTORY: Dysphagia. Rule out aspiration. TECHNIQUE: Deglutition study is performed utilizing nectar thick liquid barium and barium thick pudd ing. A total of 1.4 minutes of fluoroscopic time was utilized. 0 images are saved to PACS. COMPARISON: CT neck September 30, 2017. FINDINGS: Patient has difficulty initiating swallow with all modalities tested. There is eventual spi ll of ingested material into the oral pharynx without progression into the proximal esophagus. There is poor epiglottis inversion and essentially absent pharyngeal phase of swallowing. No vinod penetrat ion or aspiration is seen. Patient is unable to swallow to get ingested material into proximal esopha karis. Minimal passage is identified. After 2-3 attempts no further attempts were made. Patient instruc florentino to cough up or vomit ingested material. Note is made of long segment anterior fusion plate C3-C7 levels. IMPRESSION: Markedly abnormal study study with essentially absent swallow. Please refer to speech therapist notes for further details if necessary.
[2018-02-18] MEDS: D5-0.45% NACL WITH KCL 20MEQ/L 1,000 ML IV SCH ×2 (05:13→21:02)
--- NOTE | 2018-02-18 08:57 | P.PN ---
Subjective Progress Note Date: 02/18/18 72-year-old seen this morning sitting up in a chair sitter at bedside pleasant cooperative. Patient is able to state name place no real recall of event. Abdomen nondistended nontender wandy in place bowel tones present States had a bowel movement afebrileExploratory laparotomy with repair colonic perforation February 10 Exploratory laparotomy with repair colonic perforation February 10 Objective - Vital Signs Vital signs: Vital Signs Temp 97.4 F L 02/18/18 04:58 Pulse 75 02/18/18 04:58 Resp 17 02/18/18 04:58 BP 150/73 02/18/18 04:58 Pulse Ox 95 02/18/18 04:58 Intake & Output 02/17/18 02/18/18 02/18/18 18:59 06:59 18:59 Intake Total 150 Balance 150 Weight 65.771 kg Intake: Intake, IV Titration 150 Amount D5-0.45% NaCl with KCl 100 20Meq/l 1,000 ml @ 125 mls/hr IV .Q8H [facility] Rx#: [id number] Piperacillin-Tazobactam 3 50 .375 gm In Dextrose/Water 1 50ml.bag @ 12.5 mls/hr IVPB Q8HR [facility] Rx#: [id number] Other: Voiding Method Urinal Toilet Incontinent Diaper # Voids 1 3 # Bowel Movements 1 0 # Emeses 0 - Exam Exam Abdomen wandy to surgical incision site well approximated no redness nondistended bowel tones present incontinent a urine reportedly tolerating a diet with no nausea vomiting nontender - Labs CBC & Chem 7: 02/17/18 06:57 02/17/18 06:57 Labs: Microbiology - Last 24 Hours (Table) 02/17/18 12:01 Gram Stain - Final Sputum Sputum Culture - Final Assessment and Plan Assessment: Impression Perforation of colon as colonoscopy complication on February 10 Exploratory laparotomy with repair colonic perforation February 10 chronic alcoholism daily consumption Episode postop combative disruptive behavior suspect due to impending DTs treated with CIWA protocol resolved Active current every day smoker Colonoscopy initially showed diverticulosis, polyps Leukocytosis likely due to hospital acquired pneumonia Anemia unspecified Acute healthcare associated pneumonia Acute encephalopathy suspect hospital delirium Plan Continue postop surgical care IV antibiotic Zosyn as ordered will need to transition to oral upon discharge Reinforce smoking cessation and absence of alcohol use when appropriate DVT and GI prophylaxis Increase activity when appropriate Pain control Progress note dictated for running on behalf of Dr. Mosley The above impression and plan of care have been discussed and directed by signing physician. Janis Dillon nurse practitioner acting as scribe for signing physician.
[2018-02-18] MEDS: PIPERACILLIN-TAZOBACTAM 3.375 GM in DEXTROSE/WATER 1 50ML.BAG IVPB SCH ×2 (09:37→17:48)
[2018-02-18] MEDS: NICOTINE 14MG/24HR PATCH TRANSDERM SCH (09:37)
[2018-02-18] MEDS: HEPARIN SODIUM,PORCINE 5,000 UNIT/ML 1 ML VIAL SQ SCH ×2 (09:37→17:48)
[2018-02-18] MEDS: FAMOTIDINE 20 MG/2 ML VIAL IV SCH ×2 (09:37→20:54)
--- NOTE | 2018-02-18 11:20 | CT ---
EXAMINATION TYPE: CT brain wo con DATE OF EXAM: 02/18/2018 COMPARISON: None HISTORY: Altered mental status CT DLP: 1853.[address] of the brain was performed. The ventricles, basal cisterns and sulci overlying the cerebral convexities demonstrate mild enlargem ent. There is no evidence for intracranial hemorrhage or sulcal effacement. There is decreased attenuation about the periventricular white matter and deep white matter of both c erebral hemispheres, compatible with chronic small vessel ischemia. Differential diagnosis does inclu de demyelination. No mass effects are seen.No midline shift. Osseous calvarium is intact. If symptoms persist consider MRI. IMPRESSION: 1. Age related atrophic and chronic small vessel ischemic change without acute intracranial process s een at this time.
[2018-02-18] MEDS: FOLIC ACID 1 MG TAB PO SCH (13:07)
[2018-02-18] MEDS: MULTIVITAMINS, THERA 1 EACH TAB PO SCH (13:07)
[2018-02-18] MEDS: THIAMINE 100 MG TAB PO SCH ×2 (13:08→16:28)
--- NOTE | 2018-02-18 13:46 | P.PN ---
Subjective Progress Note Date: 02/18/18 Principal diagnosis: S/P colon perforation and repair. Patient continues to do well in terms of his mental status. No further confusion, no focal weakness or numbness. However patient continues to fail swallow evaluation. Objective - Vital Signs Vital signs: Vital Signs Temp 98.6 F 02/18/18 07:50 Pulse 85 02/18/18 07:50 Resp 16 02/18/18 07:50 BP 119/74 02/18/18 07:50 Pulse Ox 95 02/18/18 07:50 Intake & Output 02/17/18 02/18/18 02/18/18 18:59 06:59 18:59 Intake Total 150 Balance 150 Weight 65.771 kg Intake: Intake, IV Titration 150 Amount D5-0.45% NaCl with KCl 100 20Meq/l 1,000 ml @ 125 mls/hr IV .Q8H [facility] Rx#: [id number] Piperacillin-Tazobactam 3 50 .375 gm In Dextrose/Water 1 50ml.bag @ 12.5 mls/hr IVPB Q8HR [facility] Rx#: [id number] Other: Voiding Method Urinal Toilet Toilet Incontinent Diaper Diaper # Voids 1 3 # Bowel Movements 1 0 # Emeses 0 - Exam Constitutional: No acute distress, conversant, pleasant Eyes:Anicteric sclerae, moist conjunctiva, no lid-lag, PERRLA, ENMT: Oropharynx clear, no erythema, exudates Neck: Supple, FROM, no masses, or JVD, No carotid bruits, No thyromegaly Lungs: Diffuse bilateral rhonchi, Clear to percussion, Normal respiratory effort , no accessory muscle use Cardiovascular: Heart regular in rate and rhythm, No murmurs, gallops, or rubs, No peripheral edema Abdominal: Soft, Nontender, no guarding, rebound or rigidity, Normoactive bowel sounds, No hepatomegaly, No splenomegaly, No palpable mass Skin: Normal temperature, tone, texture, turgor, no induration, No subcutaneous nodules, No rash, lesions, No ulcers Extremities: No digital cyanosis, No clubbing, Pedal pulses intact and symmetrical, Radial pulses intact and symmetrical, No calf tenderness Psychiatric: Alert and oriented to person, place and time, appropriate affect, intact judgement Neuro: Gen. weakness, no focal sensory deficits - Labs CBC & Chem 7: 02/17/18 06:57 02/17/18 06:57 Labs: Microbiology - Last 24 Hours (Table) 02/17/18 12:01 Gram Stain - Final Sputum Sputum Culture - Final Assessment and Plan Plan: Acute encephalopathy, likely hospital delirium -Holding all sedatives including Librium and Ativan as well as Haldol -UA revealed no urinary tract infection -Advised family to support and reorient patient whenever he is confused. Dysphagia Likely secondary to above Discussed with neurology, needs to rule out stroke. Patient cannot have MRI due to recent surgery with wandy placement, status post computed tomography scan Acute healthcare associated pneumonia -Improving -With mild leukocytosis and copious secretions and phlegm -Repeat chest x-ray showed improvement -Continue with empiric Zosyn Colonic perforation status post repair -Pain control -Recommendations as per primary team Tobacco abuse -Smoking cessation -Nicotine replacement DVT prophylaxis: Heparin Discussed with: nursing, family Anticipated discharge: 1-[address]: home A total of 35 minutes was spent on the care of this complex patient more than 50 % of the time was spent in counseling and care coordination.
[2018-02-19] MEDS: PIPERACILLIN-TAZOBACTAM 3.375 GM in DEXTROSE/WATER 1 50ML.BAG IVPB SCH ×3 (01:09→17:56)
[2018-02-19] MEDS: HEPARIN SODIUM,PORCINE 5,000 UNIT/ML 1 ML VIAL SQ SCH ×4 (01:09→23:20)
--- NOTE | 2018-02-19 09:37 | CONS ---
CONSULTATION DATE OF CONSULTATION: 02/18/2018. CHIEF COMPLAINT: Dysphagia and altered mental status. HISTORY OF PRESENT ILLNESS: Mr. Camacho is a pleasant 72-year-old, male, who is being evaluated today on 02/18/2018 by the neurology service per the request of Dr. Ludwig for the above- mentioned complaints. The patient was admitted to [facility] on 02/10/2018 after he underwent an elective colonoscopy, but ended up having a perforated bowel. He has been treated with antibiotics and the next few days, he had significant encephalopathy, likely due to infectious and toxic etiologies as he was receiving benzodiazepine and Haldol as needed. His mental status has significantly improved as the Ativan and Haldol have been held now. He was having difficulty swallowing and did have a swallow study done on 02/17/2018 which showed significant dysphagia. He has been n.p.o. for about 1 week now. Today, he is much more awake and appears to be at his baseline. He was able to take some oral medications that have been crushed and placed in applesauce. He does have a mild slurred speech which is also new. I had ordered an MRI of the brain but this was not done due to recent abdominal surgery. A CT scan of the brain was done, which showed generalized atrophy and small-vessel ischemic changes. When asked to swallow his saliva at bedside, the patient is able to swallow. He denies any lateralizing numbness or weakness. He continues to be on antibiotics. PAST MEDICAL HISTORY: Dyslipidemia, arthritis, chronic neck and low back pain, history of spine surgery and orthopedic surgery. SOCIAL HISTORY: The patient is a current every day smoker. He denies any drug use. He occasionally drinks alcohol. FAMILY HISTORY: Positive for liver disease. HOME MEDICATIONS: Reviewed in the chart. ALLERGIES: LYRICA and CHANTIX. REVIEW OF SYSTEMS: CONSTITUTIONAL: Positive for fatigue. EYES: Negative. ENT: Negative. CARDIOVASCULAR: Negative. RESPIRATORY: Positive for occasional shortness of breath. NEUROLOGICAL: As mentioned above. GASTROINTESTINAL: As mentioned above. GENITOURINARY: Negative. DERMATOLOGICAL: Negative. MUSCULOSKELETAL: As mentioned above. ENDOCRINE: Negative. PSYCHIATRIC: Negative. PHYSICAL EXAM: Vital signs show a temperature of 98.6, pulse 85, respirations 16, blood pressure 119/74. GENERAL APPEARANCE: The patient is a thin elderly male who appears to be in no acute distress. HEENT: Normocephalic, atraumatic. No facial asymmetry is seen. Neck is supple with no masses felt. CARDIOVASCULAR: Regular rate and rhythm. ABDOMEN: Nontender, nondistended. Extremities showed no edema or clubbing. NEUROLOGICAL EXAM: The patient is awake and oriented x3. Speech is mildly dysarthric. Language testing is normal. Strength is 5 minus out of 5 in all 4 extremities. Sensory exam was normal to light touch in all 4 extremities. No pronator drift is seen. No facial asymmetry is noticed on cranial nerve testing. IMPRESSION: 1. Dysphagia. 2. Dysarthria. 3. Acute toxic and infectious encephalopathy, resolved. 4. Status post bowel perforation after elective colonoscopy. 5. Small vessel ischemic disease. RECOMMENDATION: The patient was having significant dysphagia but this may have been due to him being n.p.o. for 1 week and having significant encephalopathy. He is back to his baseline at this time from a mental status standpoint and was able to swallow saliva at bedside with normal neck motion of swallowing. I do recommend repeating a barium swallow study and I will order this. Speech therapy is following. As for his encephalopathy, this was likely multifactorial with infectious and toxic etiologies. Continue antibiotic therapy. I do recommend holding all sedating medications at this time. In the differential diagnosis, there is also a small ischemic stroke but the patient was unable to undergo any MRI imaging due to his recent abdominal surgery. His CT scan of the brain showed only small vessel ischemic changes. Once cleared by surgery, he should be started on aspirin 81 mg daily. Continue neuro checks. I will continue to follow with you. Further recommendations to follow. Thank you for allowing me to participate in the care of your patient. If you have any questions, please feel free to contact me. MMODL / IJN: [id number] /
[2018-02-19] MEDS: FAMOTIDINE 20 MG/2 ML VIAL IV SCH ×2 (11:05→23:20)
[2018-02-19] MEDS: NICOTINE 14MG/24HR PATCH TRANSDERM SCH (11:06)
--- NOTE | 2018-02-19 11:23 | FL ---
Modified barium swallow HISTORY: Dysphagia Patient was evaluated in real-time fluoroscopy in the lateral projection during ingestion of barium w ith liquid. 40 seconds fluoroscopy time. No intraoperative images. There is an absent or near absent swallowing reflex. Patient coughed during the exam. Exam was aborte d.
--- NOTE | 2018-02-19 13:23 | P.PN ---
Subjective Progress Note Date: 02/19/18 72-year-old male seen family at bedside patient reportedly failed swallow eval per speech service. The attending has discussed with the family in regards to addressing nutritional status family is agreeing to have a PEG tube placed for nutritional support will arrange scheduled for tomorrow by Dr. vicente service. Consult the dietitian will start PPN. Exploratory laparotomy with repair colonic perforation February 10 Objective - Vital Signs Vital signs: Vital Signs Temp 98.4 F 02/19/18 06:40 Pulse 87 02/19/18 06:40 Resp 16 02/19/18 06:40 BP 175/78 02/19/18 06:40 Pulse Ox 96 02/19/18 07:11 Intake & Output 02/18/18 02/19/18 02/19/18 18:59 06:59 18:59 Intake Total 600 Balance 600 Intake: Intake, IV Titration 600 Amount D5-0.45% NaCl with KCl 600 20Meq/l 1,000 ml @ 50 mls /hr IV .Q20H [facility] Rx#: [id number] Other: Voiding Method Toilet Diaper # Voids 3 1 - Exam Exam Abdomen wandy to surgical incision site well approximated no redness nondistended bowel tones present incontinent urine no stool currently NPO status secondary to failed swallow eval - Labs CBC & Chem 7: 02/17/18 06:57 02/17/18 06:57 Assessment and Plan Assessment: Impression Perforation of colon as colonoscopy complication on February 10 Exploratory laparotomy with repair colonic perforation February 10 chronic alcoholism daily consumption Episode postop combative disruptive behavior suspect due to impending DTs treated with CIWA protocol resolved Active current every day smoker Colonoscopy initially showed diverticulosis, polyps Leukocytosis likely due to hospital acquired pneumonia Anemia unspecified Acute healthcare associated pneumonia Acute encephalopathy suspect hospital delirium Plan We'll schedule patient for PEG tube placement on February 20 Continue postop surgical care IV antibiotic Zosyn as ordered will need to transition to oral upon discharge Consult dietitian to start PPN Keep NPO with aspiration precautions DVT and GI prophylaxis Increase activity when appropriate Pain control Progress note dictated for running on behalf of Dr. Mosley The above impression and plan of care have been discussed and directed by signing physician. Janis Dillon nurse practitioner acting as scribe for signing physician.
--- NOTE | 2018-02-19 13:28 | P.PN ---
Subjective Progress Note Date: 02/19/18 Principal diagnosis: S/P colon perforation and repair. Patient is still failing the swallow evaluation, strict nothing by mouth recommendation was made by the speech therapist. Patient is feeling better in terms of the cough and shortness of breath. Objective - Vital Signs Vital signs: Vital Signs Temp 98.4 F 02/19/18 06:40 Pulse 87 02/19/18 06:40 Resp 16 02/19/18 06:40 BP 175/78 02/19/18 06:40 Pulse Ox 96 02/19/18 07:11 Intake & Output 02/18/18 02/19/18 02/19/18 18:59 06:59 18:59 Intake Total 600 Balance 600 Intake: Intake, IV Titration 600 Amount D5-0.45% NaCl with KCl 600 20Meq/l 1,000 ml @ 50 mls /hr IV .Q20H [facility] Rx#: [id number] Other: Voiding Method Toilet Diaper # Voids 3 1 - Exam Constitutional: No acute distress, conversant, pleasant Eyes:Anicteric sclerae, moist conjunctiva, no lid-lag, PERRLA, ENMT: Oropharynx clear, no erythema, exudates Neck: Supple, FROM, no masses, or JVD, No carotid bruits, No thyromegaly Lungs: Diffuse bilateral rhonchi, Clear to percussion, Normal respiratory effort , no accessory muscle use Cardiovascular: Heart regular in rate and rhythm, No murmurs, gallops, or rubs, No peripheral edema Abdominal: Soft, Nontender, no guarding, rebound or rigidity, Normoactive bowel sounds, No hepatomegaly, No splenomegaly, No palpable mass Skin: Normal temperature, tone, texture, turgor, no induration, No subcutaneous nodules, No rash, lesions, No ulcers Extremities: No digital cyanosis, No clubbing, Pedal pulses intact and symmetrical, Radial pulses intact and symmetrical, No calf tenderness Psychiatric: Alert and oriented to person, place and time, appropriate affect, intact judgement Neuro: Gen. weakness, no focal sensory deficits - Labs CBC & Chem 7: 02/17/18 06:57 02/17/18 06:57 Assessment and Plan Plan: Acute encephalopathy, likely hospital delirium -Holding all sedatives including Librium and Ativan as well as Haldol -UA revealed no urinary tract infection -Advised family to support and reorient patient whenever he is confused. Dysphagia Likely secondary to above Unable to rule out stroke, cannot do MRI this point because of the wandy Discussed with neurology Discussed with family, proceed with PEG tube placement, discussed with general surgery. PEG tube in a.m. Acute healthcare associated pneumonia -Improving -With mild leukocytosis and copious secretions and phlegm -Repeat chest x-ray showed improvement -Continue with empiric Zosyn Colonic perforation status post repair -Pain control -Recommendations as per primary team Tobacco abuse -Smoking cessation -Nicotine replacement DVT prophylaxis: Heparin Discussed with: nursing, family Anticipated discharge: 1-[address]: home A total of 55 minutes was spent on the care of this complex patient more than 50 % of the time was spent in counseling and care coordination.
[2018-02-19] MEDS: THIAMINE 100 MG TAB PO SCH ×2 (14:01→17:56)
[2018-02-19] MEDS: FOLIC ACID 1 MG TAB PO SCH (14:01)
[2018-02-19] MEDS: MULTIVITAMINS, THERA 1 EACH TAB PO SCH (14:01)
[2018-02-19] MEDS ORDERED: MVI, ADULT NO.4 WITH VIT K 10 ML, TRACE (CONC-1ML/DOSE) 1 ML in AMINO ACID 4.25%-D10W+L... IV SCH ×3 (15:00)
[2018-02-19 16:22] LABS: ALT 34 U/L (21-72); AST 28 U/L (17-59); Albumin 3.5 g/dL (3.5-5.0); Alkaline Phosphatase 75 U/L (38-126); Anion Gap 9 mmol/L; Blood Urea Nitrogen 6 mg/dL (9-20); Calcium 8.9 mg/dL (8.4-10.2); Carbon Dioxide 23 mmol/L (22-30); Chloride 108 mmol/L (98-107); Glucose 90 mg/dL (74-99); Magnesium 1.8 mg/dL (1.6-2.3); Phosphorus 3.5 mg/dL (2.5-4.5); Potassium 3.9 mmol/L (3.5-5.1); Sodium 140 mmol/L (137-145); Total Bilirubin 0.6 mg/dL (0.2-1.3); Total Protein 6.5 g/dL (6.3-8.2); Triglycerides 134 mg/dL (<150)
[2018-02-19 17:27] LABS: Glucose,Whole Blood 88 mg/dL (75-99)
[2018-02-19] MEDS: FAT EMULSION 20% 250 ML IV SCH (17:40)
[2018-02-19] MEDS: D5-0.45% NACL WITH KCL 20MEQ/L 1,000 ML IV SCH (17:54)
[2018-02-19] MEDS: INSULIN ASPART 100 UNIT/ML 1 ML 10 ML VIAL SQ SCH ×2 (17:59→23:20)
--- NOTE | 2018-02-19 22:33 | P.PN ---
Subjective Progress Note Date: 02/19/18 Principal diagnosis: acute toxic and infectious encephalopathy neurology is following a 72-year-old male for dysphagia, altered mental status. Patient was admitted to the hospital on 02/10/18 for elective surgery/ colonoscopy. Patient did have surgical complication including perforated bowel. Patient was treated with antibiotics but was noted to be significantly encephalopathic due to infectious and toxic etiologies. Ativan and Haldol were held and the patient's mental status improved significantly. Patient does still have difficulty swallowing and had a swallow study done on 02/17/18 which showed significant dysphagia. Patient has been nothing by mouth for approximately 8 days. Patient did have a repeat swallow study today which noted absent or near absent swallowing reflex. On contact, patient was sitting in bedside chair, several family members were in the room. Patient is alert and oriented 3, no acute distress. Nursing reports patient's cognition continues to improve. Supervising physician noted patient had almost returned to baseline yesterday. Per family patient is improving with regard to cognition. Patient's swallowing is still difficult and ineffective. Speech therapy is on consult and active in patient management. Objective - Vital Signs Vital signs: Vital Signs Temp 97.7 F 02/19/18 15:00 Pulse 81 02/19/18 15:00 Resp 16 02/19/18 15:00 BP 145/80 02/19/18 15:00 Pulse Ox 91 L 02/19/18 15:00 Intake & Output 02/19/18 02/19/18 02/20/18 06:59 18:59 06:59 Intake Total 600 Output Total 100 Balance 600 -100 Weight 65.771 kg Intake: Intake, IV Titration 600 Amount D5-0.45% NaCl with KCl 600 20Meq/l 1,000 ml @ 50 mls /hr IV .Q20H [facility] Rx#: [id number] Output: Urine 100 Other: # Voids 1 2 - Exam General appearance: Alert & oriented x3, no apparent distress. Head: Atraumatic, normocephalic, normal inspection Eyes: PERRLA, EOMI. Absent scleral icterus, conjunctival injection, nystagmus, periorbital swelling. Ear, nose and throat: abnormal swallow Neck: Normal inspection, absent tenderness, lymphadenopathy. Respiratory: No increased work of breathing Cardiovascular: Regular rate, rhythm GI/abdominal: postsurgical status Extremities: Full range of motion, normal capillary refill, no tenderness, pedal edema joint swelling, calf tenderness. Neurological: alert and oriented 3. Speech very mildly dysarthric. Language is normal. Strength is 5 out of 5 in all 4 extremities. Light touch was equal and symmetrical in 4 extremities. No pronator drift, no facial asymmetry on cranial nerve testing. Psychological: Mood and Affect appropriate for setting - Labs CBC & Chem 7: 02/17/18 06:57 02/19/18 15:52 Labs: Abnormal Lab Results - Last 24 Hours (Table) 02/19/18 Range/Units 15:52 Chloride 108 H (98-107) mmol/L BUN 6 L (9-20) mg/dL Assessment and Plan (1) Dysphagia Narrative/Plan: patient does have dysphagia however, exact underlying etiology is still yet to be determined. Given the patient's recent postsurgical status and inability to obtain MRI, we are unable to rule out acute stroke as a potential underlying or contributory etiology. As soon as patient is cleared, patient will need MRI of the brain for further investigation. Care team has plan in place for PEG tube placement tomorrow. We will continue to monitor for any correctable or identifiable underlying etiologies. Continue with speech's therapy's recommended plan of care. Current Visit: Yes Status: Acute Code(s): R13.10 - DYSPHAGIA, UNSPECIFIED SNOMED Code(s): 37817844 (2) Encephalopathy acute Narrative/Plan: Patient is almost returned to baseline per family. Patient is alert, interactive and responds appropriately to questions. Current Visit: Yes Status: Acute Code(s): G93.40 - ENCEPHALOPATHY, UNSPECIFIED SNOMED Code(s): 73871041 (3) Perforation of colon as colonoscopy complication Narrative/Plan: as previously noted Current Visit: Yes Status: Acute Priority: High Code(s): K63.1 - PERFORATION OF INTESTINE (NONTRAUMATIC); K91.71 - ACCIDENTAL PNCTR & LAC OF A DGSTV SYS ORG DUR DGSTV SYS PROC SNOMED Code(s): 06369875 Plan: Status: Neurology will continue to follow and provide updates as needed or warranted. Contact our office with any questions I have discussed the plan of care with the physician prior to implementation and he agrees with the plan as implemented.
[2018-02-19 23:28] LABS: Glucose,Whole Blood 138 mg/dL (75-99)
[2018-02-20] MEDS: PIPERACILLIN-TAZOBACTAM 3.375 GM in DEXTROSE/WATER 1 50ML.BAG IVPB SCH ×3 (01:12→18:00)
[2018-02-20 02:12] LABS: Hemoglobin A1C 5.4 % (4.0-6.0)
[2018-02-20 05:28] LABS: Glucose,Whole Blood 123 mg/dL (75-99)
[2018-02-20] MEDS: INSULIN ASPART 100 UNIT/ML 1 ML 10 ML VIAL SQ SCH ×3 (05:40→18:05)
[2018-02-20] MEDS: 1: MVI, ADULT NO.4 WITH VIT K 10 ML, TRACE (CONC-1ML/DOSE) 1 ML in AMINO ACID 4.25%-D10W IV SCH ×6 (06:23→17:48)
[2018-02-20] MEDS: HEPARIN SODIUM,PORCINE 5,000 UNIT/ML 1 ML VIAL SQ SCH ×2 (08:03→18:03)
[2018-02-20] MEDS: ACETAMINOPHEN TAB 325 MG TAB PO PRN (08:05)
[2018-02-20] MEDS ORDERED: ACETAMINOPHEN IV (For NPO) 1,000 MG in EMPTY BAG 1 BAG IVPB PRN (08:12)
[2018-02-20] MEDS: FAMOTIDINE 20 MG/2 ML VIAL IV SCH ×2 (08:19→21:37)
[2018-02-20 09:09] LABS: Ionized Calcium 5.1 mg/dL (4.5-5.3)
[2018-02-20 09:13] LABS: ALT 29 U/L (21-72); AST 21 U/L (17-59); Alkaline Phosphatase 63 U/L (38-126); Anion Gap 8 mmol/L; Blood Urea Nitrogen 8 mg/dL (9-20); Calcium 8.6 mg/dL (8.4-10.2); Carbon Dioxide 24 mmol/L (22-30); Chloride 107 mmol/L (98-107); Glucose 127 mg/dL (74-99); Magnesium 1.9 mg/dL (1.6-2.3); Phosphorus 3.7 mg/dL (2.5-4.5); Sodium 139 mmol/L (137-145); Total Bilirubin 0.4 mg/dL (0.2-1.3); Total Protein 5.9 g/dL (6.3-8.2)
[2018-02-20] MEDS: D5-0.45% NACL WITH KCL 20MEQ/L 1,000 ML IV SCH (12:01)
--- NOTE | 2018-02-20 12:21 | P.OP ---
Date of Procedure: 02/20/18 Preoperative Diagnosis: Malnutrition Postoperative Diagnosis: Malnutrition Procedure(s) Performed: PEG tube placement Anesthesia: MAC Surgeon: Toni Soto Pathology: none sent Condition: stable Disposition: floor Description of Procedure: The patient's placed on the endoscopy table in the lateral position. He received IV sedation. The gastroscope placed oropharynx passed in the esophagus and stomach. Scope was then placed through the pylorus. The first and second portion of the duodenum appeared normal. Scope was then brought back the antrum this. Mildly inflamed. The scope was unretroflexed and remainder some appeared normal. A suitable light reflux seen the anterior abdominal wall and then the skin was anesthetized and then using a 11 blade the skin was incised. The needles placed into the stomach under direct visualization and the we will needle was snared. The wire was placed through the needle and the wire was snared. The wires then brought through the oropharynx. The PEG tube placed overtop the wire and placed into the stomach. The PEG tube was secured at 3 cm ford. The one-piece bolster was applied. Patient top she will was sent to recovery in stable condition.
--- NOTE | 2018-02-20 12:46 | P.PN ---
Progress Note - Text Progress Note Date: 02/20/18 Patient seen this morning family at bedside scheduled today for PEG tube placement for nutritional support abdominal incision inspected wandy in place no redness to the abdominal wall nursing reports patient is stooling currently nothing by mouth for planned procedure PPN is infusing The above impression and plan of care have been discussed and directed by signing physician. Janis Dillon nurse practitioner acting as scribe for signing physician.
[2018-02-20 13:15] LABS: Glucose,Whole Blood 96 mg/dL (75-99)
[2018-02-20] MEDS: FOLIC ACID 1 MG TAB PO SCH (13:57)
[2018-02-20] MEDS: MULTIVITAMINS, THERA 1 EACH TAB PO SCH (13:58)
[2018-02-20] MEDS: THIAMINE 100 MG TAB PO SCH ×2 (13:58→18:03)
--- NOTE | 2018-02-20 15:09 | CDI ---
Last Revision, May 2017 Documentation Clarification Form Date: 02/20/2018 03:07:00 PM From: Breann MeeksPersaudCLAY, CCDS Admit Date: 02/12/2018 Patient Name: Best Camacho Visit Number: [id number] Discharge Date: ATTENTION: The Clinical Documentation Specialists (CDI) and [facility] Coding Staff appreciate your assistance in clarifying documentation. Please respond to the clarification below the line at the bottom and electronically sign. The CDI & [facility] Coding staff will review the response and follow-up if needed. Please note: Queries are made part of the Legal Health Record. If you have any questions, please contact the author of this message via ITS. Dr. Toni Soto: History/Risk Factors: Diverticulosis & polyps, Smoker, EtOH abuse. Clinical Indicators: Presented on 02/10 for colonoscopy due to diverticulosis w/ no evidence of diverticulitis or stricture but possible perforation noted during procedure. Subsequent repair w/sigmoid colon resection on 02/10 for repair of colon perforation. Labs: (02/16) Total protein 5.8*, Albumin 3.1*. (not drawn previously) Current BMI: 20.9 Nutritional assessment: npo status post surgery, advanced to clear liquids only. Difficulty swallowing, Moderate chronic malnutrition, poor oral intake. Treatment: CIWA protocol, IV Amino acids, IV Lipids, IV antibiotics & IV pain meds, IV Ativan required for alcohol withdrawal symptoms. In your professional opinion, can you please clarify if these findings signify one of the following conditions? Mild Protein-Calorie Malnutrition Moderate Protein-Calorie Malnutrition Severe Protein-Calorie Malnutrition Malnutrition following GI surgery Other condition, please specify Unable to determine Please include if the patient's malnutrition was present on admission. MTDD
[2018-02-20] MEDS: NICOTINE 14MG/24HR PATCH TRANSDERM SCH (17:19)
[2018-02-20 18:27] LABS: Glucose,Whole Blood 113 mg/dL (75-99)
[2018-02-20] MEDS: FAT EMULSION 20% 250 ML IV SCH (18:47)
--- NOTE | 2018-02-20 18:53 | P.MHFACE ---
Face to Face Eval of Restraint - Evaluation Patient's Immediate Situation: Endangers self safety, Endangers others' safety, Endangers staff safety, Violent behavior Patient's Immediate Situation - Comment: Patient was sitting in the staff members, trying to get out of bed, violent, confused and not cooperative with his care, even with family members present trying to reorient him. Patient's Reaction to the Intervention: Uncooperative, Angry, Nervous, Bizarre, Aggressive, Combative, Restless, Resistive to care Patient's Medical & Behavioral Condition: Awake, Alert, Agitated Need to Continue or Terminate Restraint or Seclusion: Continue
--- NOTE | 2018-02-20 18:55 | P.PN ---
Progress Note - Text Progress Note Date: 02/20/18 Time of previous [id number] evaluation for restraints was 16:30
[2018-02-20] MEDS ORDERED: diphenhydrAMINE 50 MG/ML 1 ML VIAL IVP STA (21:56)
[2018-02-21] MEDS: PIPERACILLIN-TAZOBACTAM 3.375 GM in DEXTROSE/WATER 1 50ML.BAG IVPB SCH ×3 (00:14→18:00)
[2018-02-21] MEDS: HEPARIN SODIUM,PORCINE 5,000 UNIT/ML 1 ML VIAL SQ SCH ×3 (00:14→15:24)
[2018-02-21] MEDS: INSULIN ASPART 100 UNIT/ML 1 ML 10 ML VIAL SQ SCH ×4 (00:14→18:15)
[2018-02-21] MEDS: 1: MVI, ADULT NO.4 WITH VIT K 10 ML, TRACE (CONC-1ML/DOSE) 1 ML in AMINO ACID 4.25%-D10W IV SCH ×3 (04:38)
[2018-02-21 06:09] LABS: Glucose,Whole Blood 108 mg/dL (75-99)
[2018-02-21 07:27] LABS: ALT 29 U/L (21-72); AST 21 U/L (17-59); Albumin 3.4 g/dL (3.5-5.0); Alkaline Phosphatase 66 U/L (38-126); Anion Gap 10 mmol/L; Blood Urea Nitrogen 13 mg/dL (9-20); Calcium 9.1 mg/dL (8.4-10.2); Carbon Dioxide 23 mmol/L (22-30); Chloride 107 mmol/L (98-107); Glucose 102 mg/dL (74-99); Magnesium 2.1 mg/dL (1.6-2.3); Phosphorus 4.7 mg/dL (2.5-4.5); Potassium 4.2 mmol/L (3.5-5.1); Sodium 140 mmol/L (137-145); Total Bilirubin 0.4 mg/dL (0.2-1.3); Total Protein 6.6 g/dL (6.3-8.2)
[2018-02-21] MEDS: NICOTINE 14MG/24HR PATCH TRANSDERM SCH (10:56)
[2018-02-21] MEDS: FAMOTIDINE 20 MG/2 ML VIAL IV SCH ×2 (10:57→21:24)
[2018-02-21] MEDS: FOLIC ACID 1 MG TAB PO SCH (11:03)
--- NOTE | 2018-02-21 11:03 | CT ---
EXAMINATION TYPE: CT brain wo con DATE OF EXAM: 02/21/2018 COMPARISON: Previous study dated 02/18/2018 HISTORY: AMS CT DLP: 1054.9 mGycm Automated exposure control for dose reduction was used. FINDINGS: There are generalized changes of sulcal prominence and ventriculomegaly, compatible with atrophic vangie nge. There is diffuse periventricular white matter lucency, compatible with small vessel ischemic vangie nge. There is no acute focal lesion, mass effect or midline shift identified. I do not see evidence o f intracranial blood. Visualized portions of the paranasal sinuses and mastoids are clear. The bony calvarium is intact. IMPRESSION: 1. NO ACUTE INTRACRANIAL ABNORMALITY. 2. DEGENERATIVE CHANGE.
--- NOTE | 2018-02-21 11:07 | CT ---
EXAMINATION TYPE: CT angio head neck DATE OF EXAM: 02/21/2018 HISTORY: agitation COMPARISON: CT DLP: 241.3 mGycm. Automated Exposure Control for Dose Reduction was Utilized. TECHNIQUE: CTA scan of the neck is performed with IV Contrast, patient injected with 65mL mL of Isov ue 370, axial images are obtained, coronal and sagittal reformatted images are reviewed. Three-D esther nstructed images are created on an independent workstation and reviewed. FINDINGS: There are gross emphysematous and bullous changes throughout the visualized portions of the lungs. There is a normal origin of the great vessels. The right vertebral artery is dominant. There is atheromatous calcification at both carotid bulbs, greater on the right than the left. There is no significant stenosis on the left. On the right there is approximately 90% by diameter stenosis at the origin of the right internal cerebral artery. The [place] has a normal appearance. There is normal arborization of the middle cerebral art eries. Both anterior cerebral arteries are patent. The posterior circulation appears normal. No sizab le aneurysm is seen. IMPRESSION: 1. 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 2. NORMAL CTA OF THE [place].
[2018-02-21 11:59] LABS: Glucose,Whole Blood 98 mg/dL (75-99)
--- NOTE | 2018-02-21 13:24 | P.PN ---
Subjective Progress Note Date: 02/21/18 The patient is a 72-year-old male with complicated medical history including perforated colon with repair of colon perforation over a week ago and subsequent gastrostomy tube placement yesterday. His family is at bedside. Patient is also being evaluated by vascular surgery for carotid artery stenosis. He has a sitter at bedside. His family members are at bedside. He is obtaining nutrition via TPN. Objective - Vital Signs Vital signs: Vital Signs Temp 99.1 F 02/21/18 07:00 Pulse 79 02/21/18 07:00 Resp 16 02/21/18 07:00 BP 138/74 02/21/18 07:00 Pulse Ox 98 02/21/18 07:00 Intake & Output 02/20/18 02/21/18 02/21/18 18:59 06:59 18:59 Intake Total 1061 Output Total 1175 Balance -114 Weight 60.5 kg 60.5 kg 59.8 kg Intake: IV 50 Intake, IV Titration 1011 Amount Mvi, Adult No.4 with Vit 1011 K 10 ml Trace (Conc-1Ml/ Dose) 1 ml In Amino Acid 4.25%-D10w+Lytes*E* 1,000 ml @ 95 mls/hr IV .BY DURATION [facility] Rx#: [id number] Output: Urine 1175 Other: Voiding Method Toilet Diaper - Exam GENERAL: Well developed and in no acute distress. HEENT: No sclera icterus. Extraocular movements grossly intact. Head is atraumatic, normocephalic. Hears conversational speech. No nasal drainage. NECK: Supple without lymphadenopathy. CHEST: Non-labored respirations and equal bilateral excursions. CARDIOVASCULAR: Regular rate and rhythm. Palpable 2+ radial pulses. ABDOMEN: Soft, nontender. Nondistended. Gastrostomy tube and staple sites clean dry and intact. MUSCULOSKELETAL: No clubbing, cyanosis or edema. NEUROLOGIC: No focal or lateralizing signs. PSYCH: He is alert to person - Labs CBC & Chem 7: 02/17/18 06:57 02/21/18 06:32 Labs: Abnormal Lab Results - Last 24 Hours (Table) 02/20/18 02/21/18 02/21/18 Range/Units 18:05 05:53 06:32 Glucose 102 H (74-99) mg/dL POC Glucose (mg/dL) 113 H 108 H (75-99) mg/dL Phosphorus 4.7 H (2.5-4.5) mg/dL Albumin 3.4 L (3.5-5.0) g/dL Assessment and Plan (1) Gastrostomy tube in place Current Visit: Yes Status: Acute Code(s): Z93.1 - GASTROSTOMY STATUS SNOMED Code(s): 714660208 (2) Perforated sigmoid colon Current Visit: Yes Status: Acute Code(s): K63.1 - PERFORATION OF INTESTINE ( NONTRAUMATIC) SNOMED Code(s): 502218973 (3) Inadequate dietary intake of protein Current Visit: Yes Status: Acute Code(s): R63.8 - OTHER SYMPTOMS AND SIGNS CONCERNING FOOD AND FLUID INTAKE SNOMED Code(s): 627339188 Plan: 1. Patient had a recent placement of gastrostomy tube by another provider. 2. Continue TPN at this time. 3. Nutrition management per operating surgeon.
[2018-02-21] MEDS: MULTIVITAMINS, THERA 1 EACH TAB PO SCH (13:48)
[2018-02-21] MEDS: THIAMINE 100 MG TAB PO SCH ×2 (13:48→15:20)
[2018-02-21] MEDS: diphenhydrAMINE 50 MG/ML 1 ML VIAL IVP PRN (14:04)
--- NOTE | 2018-02-21 14:18 | CONS ---
CONSULTATION This is a 72-year-old pleasant gentleman who was seen in his room on consultation. Patient had a surgical intervention for bowel perforation post colonoscopy. Patient also has been placed on tube feeding. The patient is having hyperalimentation. The patient has difficulty swallowing and for that patient went for a barium swallow, which showed no swallowing reflex noted. Patient has no history of amaurosis fugax and no history of any motor deficit in upper or lower extremity. Patient was seen by Neurology and had a CT scan of the brain which showed no active bleeding or stroke noted. 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 The patient was scheduled to have an MRI, but because of abdominal surgery and wandy could not do the MRI. Patient has history of spine surgery done in the past with chronic back problem, history of arthritis. Patient is under the care of Dr. Tom Mas, and I have discussed with him about any study done in the past for his carotid arteries. According to the patient, he had an ultrasound done at Dr. Tom Mccollum's office. We will contact them on Friday for the report. The patient's vital signs are stable. His speech is normal. Family has a concern about his tube feeding. Discussed with Dr. Gaspar. Most likely they will start feeding from Friday. On examination the patient still has some swelling problem. Neck is supple. Chest is clear on auscultation. First and second sounds are normal. Abdomen is soft. A gastrostomy tube has been placed for feeding. His brachial, radial femoral pulses are present. CENTRAL NERVOUS SYSTEM: The patient has normal motor function, upper and lower extremity. PLAN: We will get report on Friday from Dr. Tom Mccollum about his ultrasound findings and right carotid did show a 90% stenosis. The patient has been worked up for difficulty in swallowing and dysphagia. We will also request an ENT evaluation to rule out any vocal cord injury. We will follow with you. MMODL / IJN: [id number] /
[2018-02-21] MEDS: D5-0.45% NACL WITH KCL 20MEQ/L 1,000 ML IV SCH (15:12)
[2018-02-21] MEDS: 1: MVI, ADULT NO.4 WITH VIT K 10 ML, TRACE (CONC-1ML/DOSE) 1 ML, PARENTERAL ELECTROLYTES IV SCH ×4 (16:00)
[2018-02-21] MEDS: FAT EMULSION 20% 250 ML IV SCH (16:00)
[2018-02-21] MEDS ORDERED: NICOTINE POLACRILEX 2 MG GUM BUCCAL PRN (17:47)
[2018-02-21 18:08] LABS: Glucose,Whole Blood 97 mg/dL (75-99)
[2018-02-21] MEDS: ACETAMINOPHEN TAB 325 MG TAB PO PRN (18:10)
[2018-02-21 19:29] LABS: Glucose,Whole Blood 96 mg/dL (75-99)
--- NOTE | 2018-02-21 20:44 | P.PN ---
Subjective Progress Note Date: 02/21/18 Principal diagnosis: acute toxic and infectious encephalopathy Interval update: 02/20/18: Unable to be rounded on, patient off floor 02/21/18: Neurology is following on a 74 -year-old male with a history of colon perforation. He did have PEG tube placed yesterday. On rounding, patient's son was in the room. Son expressed concern regarding patient's agitation as well as his confusion. Patient is significantly post procedure anesthesia recovery which does decrease the potential that there is any secondary anesthesia remaining effect. Given the patient's mental status changes, CT angiogram head and neck was ordered. On contact, the patient was alert, responsive to verbal stimuli but was otherwise agitated. Nursing requests order for when necessary sedation medication. Order was given for Benadryl 25 mg by mouth every 4-6 hours when necessary. Order a standing order at this time. Discussed for the results of imaging tomorrow and rounding. Further treatment options to be discussed at that time. Objective - Vital Signs Vital signs: Vital Signs Temp 97.7 F 02/21/18 14:56 Pulse 82 02/21/18 14:56 Resp 15 02/21/18 14:56 BP 149/71 02/21/18 14:56 Pulse Ox 97 02/21/18 14:56 Intake & Output 02/21/18 02/21/18 02/22/18 06:59 18:59 06:59 Weight 60.5 kg 59.8 kg Other: Voiding Method Toilet Diaper # Voids 3 - Exam General appearance: Alert, no apparent distress. Head: Atraumatic, normocephalic, normal inspection Eyes: PERRLA, EOMI. Absent scleral icterus, conjunctival injection, nystagmus, periorbital swelling. Ear, nose and throat: abnormal swallow Neck: Normal inspection, absent tenderness, lymphadenopathy. Respiratory: No increased work of breathing Cardiovascular: Regular rate, rhythm GI/abdominal: postsurgical status, PEG tube present Extremities: Full range of motion, normal capillary refill, no tenderness, pedal edema joint swelling, calf tenderness. Neurological: alert. Speech very mildly dysarthric. Language is normal. Strength is 5 out of 5 in all 4 extremities. Light touch was equal and symmetrical in 4 extremities. No pronator drift, no facial asymmetry on cranial nerve testing. Psychological: Mood and Affect appropriate for setting - Labs CBC & Chem 7: 02/17/18 06:57 02/21/18 06:32 Labs: Abnormal Lab Results - Last 24 Hours (Table) 02/21/18 02/21/18 Range/Units 05:53 06:32 Glucose 102 H (74-99) mg/dL POC Glucose (mg/dL) 108 H (75-99) mg/dL Phosphorus 4.7 H (2.5-4.5) mg/dL Albumin 3.4 L (3.5-5.0) g/dL Assessment and Plan (1) Dysphagia Narrative/Plan: patient does have dysphagia however, exact underlying etiology is still yet to be determined. Given the patient's recent postsurgical status and inability to obtain MRI, we are unable to rule out acute stroke as a potential underlying or contributory etiology. As soon as patient is cleared, patient will need MRI of the brain for further investigation. consider ear nose and throat consult. Continue with speech's therapy's recommended plan of care. Current Visit: Yes Status: Acute Code(s): R13.10 - DYSPHAGIA, UNSPECIFIED SNOMED Code(s): 01121443 (2) Encephalopathy acute Narrative/Plan: continue to manage correctable underlying etiology. Defer to primary team for management. continue neuro checks as order/implemented. Notify neurology with any mental status changes. Current Visit: Yes Status: Acute Code(s): G93.40 - ENCEPHALOPATHY, UNSPECIFIED SNOMED Code(s): 25424170 (3) Perforation of colon as colonoscopy complication Narrative/Plan: defer to surgical team and GI for management. Current Visit: Yes Status: Acute Priority: High Code(s): K63.1 - PERFORATION OF INTESTINE (NONTRAUMATIC); K91.71 - ACCIDENTAL PNCTR & LAC OF A DGSTV SYS ORG DUR DGSTV SYS PROC SNOMED Code(s): 40496980 Plan: Status: Neurology will continue to follow and provide updates as needed or warranted. Contact our office with any questions I have discussed the plan of care with the physician prior to implementation and he agrees with the plan as implemented.
--- NOTE | 2018-02-21 21:00 | PN ---
PROGRESS NOTE DATE OF SERVICE: February 21, 2018. PRESENTING COMPLAINT: Acute confusion. INTERVAL HISTORY: This patient initially admitted to get a colonoscopy by Dr. Hurtado, then did have a sigmoid perforation. Surgical intervention was done by Dr. Mosley. Subsequently, the patient became confused and delirious, not able to take any food. Hence a PEG tube was placed by Dr. Soto. The patient also did fail a swallowing evaluation. The patient's son and daughter were at the bedside. I was speaking to the [id number], the patient prior to the presentation had been becoming forgetful for example he and son had gotten into a pretty significant argument, but the patient had forgotten all about the same. There have been episodes of forgetfulness. The patient had been smoking up until prior to surgery the patient is currently n.p.o. REVIEW OF SYSTEMS: Attempted for constitutional, cardiovascular, GI, pulmonary. The patient is able to answer some questions. CURRENT MEDICATIONS: Reviewed that include TPN, lipids, and IV Zosyn. EXAMINATION: VITAL SIGNS: Temperature 97.7, pulse 82, respiratory 15, blood pressure 149/71, pulse ox 97 percent on room air. GENERAL APPEARANCE: Thin build, awake, tired-appearing. EYES: Pupils equal. Conjunctivae pale. HEENT: External appearance of nose and ears normal. Oral cavity dry. NECK: JVD not raised. Mass not palpable. RESPIRATORY: Effort increased. LUNGS: Diminished breath sounds. CARDIOVASCULAR: 1st and 2nd sounds normal. No edema. ABDOMEN: Soft. Mild tenderness. Liver and spleen not palpable. PSYCHIATRY: Patient is able answer some questions, but otherwise drifts off. INVESTIGATIONS: White count 4.2, BUN 13, creatinine 0.75. ASSESSMENT: 1. Acute delirium, likely metabolic, multifactorial. 2. Mild cognitive impairment probably from late onset Alzheimer's dementia. 3. Chronic nicotine dependence. Patient is a cigarette smoker possibly now with nicotine withdrawal. 4. Primary osteoarthritis. 5. Sigmoid diverticulosis. 6. Hyperlipidemia. 7. Primary osteoarthritis. PLAN: I had a lengthy talk with the patient's son and daughter in law. I did explain to them what was going on. Did also speak at length with the nurse. Will initiate a sleep hygiene cycle. The patient not to be disturbed at night and of course he needs to be checked into and also let the patient to have a nap in the afternoon. We will allow the patient to have a Seroquel 25 mg pill by mouth. The patient otherwise remains to be n.p.o. The patient to continue with TPN lipids. PEG tube feeding to be started when okay with surgery. Antibiotics in the meantime, are to continue. We will also give the patient a nicotine patch and allow nicotine gum. Total time spent today was about 45 minutes with over 25 minutes of discussion. MMODL / IJN: [id number] /
[2018-02-21] MEDS: QUEtiapine 25 MG TAB PO SCH (21:24)
[2018-02-21] MEDS: NICOTINE 21MG/24HR PATCH TRANSDERM SCH (21:58)
[2018-02-22] MEDS: HEPARIN SODIUM,PORCINE 5,000 UNIT/ML 1 ML VIAL SQ SCH ×3 (00:23→15:35)
[2018-02-22] MEDS: PIPERACILLIN-TAZOBACTAM 3.375 GM in DEXTROSE/WATER 1 50ML.BAG IVPB SCH ×3 (00:27→15:26)
[2018-02-22] MEDS: INSULIN ASPART 100 UNIT/ML 1 ML 10 ML VIAL SQ SCH ×4 (00:27→18:00)
[2018-02-22] MEDS: 1: MVI, ADULT NO.4 WITH VIT K 10 ML, TRACE (CONC-1ML/DOSE) 1 ML, PARENTERAL ELECTROLYTES IV SCH ×12 (02:11→14:11)
[2018-02-22] MEDS: D5-0.45% NACL WITH KCL 20MEQ/L 1,000 ML IV SCH (04:30)
[2018-02-22 06:20] LABS: Glucose,Whole Blood 113 mg/dL (75-99)
[2018-02-22 06:58] LABS: Basophils % (A) 0 %; Eosinophils # (A) 0.4 k/uL (0-0.7); Eosinophils % (A) 3 %; Lymphocytes # (A) 1.6 k/uL (1.0-4.8); Lymphocytes % (A) 12 %; MCH 30.5 pg (25.0-35.0); MCHC 31.6 g/dL (31.0-37.0); MCV 96.7 fL (80.0-100.0); Mean Platelet Volume 6.6; Monocytes % (A) 8 %; Neutrophils # (A) 9.5 k/uL (1.3-7.7); Neutrophils % (A) 75 %; Platelet Count 594 k/uL (150-450); RBC 3.93 m/uL (4.30-5.90); WBC 12.8 k/uL (3.8-10.6)
[2018-02-22 07:06] LABS: ALT 26 U/L (21-72); AST 18 U/L (17-59); Albumin 2.9 g/dL (3.5-5.0); Alkaline Phosphatase 55 U/L (38-126); Anion Gap 7 mmol/L; Blood Urea Nitrogen 14 mg/dL (9-20); Calcium 8.8 mg/dL (8.4-10.2); Carbon Dioxide 24 mmol/L (22-30); Chloride 108 mmol/L (98-107); Glucose 108 mg/dL (74-99); Magnesium 2.1 mg/dL (1.6-2.3); Phosphorus 3.8 mg/dL (2.5-4.5); Potassium 4.2 mmol/L (3.5-5.1); Sodium 139 mmol/L (137-145); Total Bilirubin 0.3 mg/dL (0.2-1.3); Total Protein 5.8 g/dL (6.3-8.2)
[2018-02-22] MEDS: diphenhydrAMINE 50 MG/ML 1 ML VIAL IVP PRN ×2 (07:29→12:03)
[2018-02-22] MEDS: FAMOTIDINE 20 MG/2 ML VIAL IV SCH (08:39)
[2018-02-22] MEDS: NICOTINE 21MG/24HR PATCH TRANSDERM SCH (08:41)
--- NOTE | 2018-02-22 10:33 | XR ---
EXAMINATION TYPE: XR cervical spine comp , 5 VIEWS DATE OF EXAM ORDERED: 02/22/2018 HISTORY: cervicalgia, hx of fusion w ext hardware. COMPARISON: Previous study dated 10/23/2009. FINDINGS: There has been an ACDF extending from C3 through to C7. There is also been a corpectomy. A lignment remains normal. There has been no interval change in the appearance. Intervertebral foramina are narrowed throughout this area effusion more so on the right than the left . Alignment remains normal. Atlantoaxial relationships are normal. IMPRESSION: 1. EXTENSIVE POSTSURGICAL CHANGE. 2. MULTILEVEL INTERVERTEBRAL FORAMINAL NARROWING.
[2018-02-22 12:02] LABS: Glucose,Whole Blood 102 mg/dL (75-99)
[2018-02-22] MEDS: FOLIC ACID 1 MG TAB PO SCH (12:55)
[2018-02-22] MEDS: MULTIVITAMINS, THERA 1 EACH TAB PO SCH (12:56)
[2018-02-22] MEDS: THIAMINE 100 MG TAB PO SCH ×2 (12:57→15:32)
[2018-02-22] MEDS ORDERED: IPRATROPIUM-ALBUTEROL 3 ML NEB INHALATION PRN (13:13)
--- NOTE | 2018-02-22 13:32 | P.PN ---
Subjective Progress Note Date: 02/22/18 The patient is a 72-year-old male with complicated medical history including perforated colon with repair of colon perforation over a week ago and subsequent gastrostomy tube placement. His son is at bedside. He is much more awake and alert today than yesterday. In fact, he is concerned of his medications which may be affecting his mentation. He still on TPN. Objective - Vital Signs Vital signs: Vital Signs Temp 98.0 F 02/22/18 07:00 Pulse 100 02/22/18 07:00 Resp 16 02/22/18 07:00 BP 117/80 02/22/18 07:00 Pulse Ox 95 02/22/18 07:00 Intake & Output 02/21/18 02/22/18 02/22/18 18:59 06:59 18:59 Intake Total 1031 Balance 1031 Weight 59.8 kg 59.5 kg Intake: Intake, IV Titration 1031 Amount Mvi, Adult No.4 with Vit 1031 K 10 ml Trace (Conc-1Ml/ Dose) 1 ml Parenteral Electrolytes 20 ml In Amino Acid 4.25%-D10w 1, 000 ml @ 95 mls/hr IV .BY DURATION [facility] Rx#: [id number] Other: Voiding Method Toilet Diaper # Voids 3 - Exam GENERAL: Well developed and in no acute distress. HEENT: No sclera icterus. Extraocular movements grossly intact. Head is atraumatic, normocephalic. Hears conversational speech. No nasal drainage. NECK: Supple without lymphadenopathy. CHEST: Non-labored respirations and equal bilateral excursions. CARDIOVASCULAR: Regular rate and rhythm. Palpable 2+ radial pulses. ABDOMEN: Soft, nontender. Nondistended. Gastrostomy tube and staple sites clean dry and intact. MUSCULOSKELETAL: No clubbing, cyanosis or edema. NEUROLOGIC: No focal or lateralizing signs. PSYCH: Awake and alert. Oriented to person and place. - Labs CBC & Chem 7: 02/22/18 06:15 02/22/18 06:15 Labs: Abnormal Lab Results - Last 24 Hours (Table) 02/22/18 02/22/18 02/22/18 Range/Units 06:15 06:15 06:18 WBC 12.8 H (3.8-10.6) k/uL RBC 3.93 L (4.30-5.90) m/uL Hgb 12.0 L (13.0-17.5) gm/dL Hct 38.0 L (39.0-53.0) % Plt Count 594 H (150-450) k/uL Neutrophils # 9.5 H (1.3-7.7) k/uL Chloride 108 H (98-107) mmol/L Glucose 108 H (74-99) mg/dL POC Glucose (mg/dL) 113 H (75-99) mg/dL Total Protein 5.8 L (6.3-8.2) g/dL Albumin 2.9 L (3.5-5.0) g/dL 02/22/18 Range/Units 11:57 WBC (3.8-10.6) k/uL RBC (4.30-5.90) m/uL Hgb (13.0-17.5) gm/dL Hct (39.0-53.0) % Plt Count (150-450) k/uL Neutrophils # (1.3-7.7) k/uL Chloride (98-107) mmol/L Glucose (74-99) mg/dL POC Glucose (mg/dL) 102 H (75-99) mg/dL Total Protein (6.3-8.2) g/dL Albumin (3.5-5.0) g/dL Assessment and Plan (1) Gastrostomy tube in place Current Visit: Yes Status: Acute Code(s): Z93.1 - GASTROSTOMY STATUS SNOMED Code(s): 674300407 (2) Perforated sigmoid colon Current Visit: Yes Status: Acute Code(s): K63.1 - PERFORATION OF INTESTINE ( NONTRAUMATIC) SNOMED Code(s): 903225525 (3) Inadequate dietary intake of protein Current Visit: Yes Status: Acute Code(s): R63.8 - OTHER SYMPTOMS AND SIGNS CONCERNING FOOD AND FLUID INTAKE SNOMED Code(s): 486609457 (4) Weakness Current Visit: Yes Status: Acute Code(s): R53.1 - WEAKNESS SNOMED Code(s) : 66561197 Plan: 1. He is more awake and alert. May benefit from swallow study. 2. Management of nutrition by operating surgeon. 3. Review of medications, Pepcid places him at risk for mental status changes. We'll switch to Protonix. 4. White count trending up. May benefit from ID consultation. 5. Recommend PT and OT for generalized weakness
--- NOTE | 2018-02-22 15:21 | P.PN ---
Subjective Progress Note Date: 02/22/18 Principal diagnosis: acute toxic and infectious encephalopathy Interval update 02/22/18: Neurology is following on a 74-year-old male with complex history including perforated bowel, PEG tube placement, acute delirium/encephalopathy. CT angiogram of the head and neck noted 90% occlusion right ICA. Vascular surgery consult was requested yesterday. Vascular is following up with the patient and attempting to obtain outside records per family. Patient was significantly more alert, interactive and displayed much more energy. Patient and family did obtain further history related to the patient's neck and throat complaints. Patient does have a history of cervical anterior fusion approximate 7 years ago in [facility] with Dr. Vallejo. Patient also was evaluated by ear nose and throat provider Dr. Chen and a second opinion with Dr. Vigil. This took place within the last 12 months. Patient states that Dr. Vigil told him that there were findings on his esophagram had concerning findings which needed to be followed up on. Patient was unclear exactly what the findings were. He stated that he was told that they "could develop into something more" if they were not handled. Patient also complains of cervicalgia which did appear to be consistent with facet etiology however the patient does have a significant fusion history. Based on the age of the fusion, patient is beginning to enter the window of adjacent level disease to start. Further workup as noted in assessment and plan. We may need to consider ruling out laryngeal nerve palsy as a possible underlying etiology as well. Interval update 02/21/18: Neurology is following on a 74 -year-old male with a history of colon perforation. He did have PEG tube placed yesterday. On rounding, patient's son was in the room. Son expressed concern regarding patient's agitation as well as his confusion. Patient is significantly post procedure anesthesia recovery which does decrease the potential that there is any secondary anesthesia remaining effect. Given the patient's mental status changes, CT angiogram head and neck was ordered. On contact, the patient was alert, responsive to verbal stimuli but was otherwise agitated. Nursing requests order for when necessary sedation medication. Order was given for Benadryl 25 mg by mouth every 4-6 hours when necessary. Order a standing order at this time. Discussed for the results of imaging tomorrow and rounding. Further treatment options to be discussed at that time. Interval update: 02/20/18: Unable to be rounded on, patient off floor Objective - Vital Signs Vital signs: Vital Signs Temp 98.0 F 02/22/18 07:00 Pulse 100 02/22/18 07:00 Resp 16 02/22/18 07:00 BP 117/80 02/22/18 07:00 Pulse Ox 95 02/22/18 07:00 Intake & Output 02/21/18 02/22/18 02/22/18 18:59 06:59 18:59 Intake Total 1031 Balance 1031 Weight 59.8 kg 59.5 kg Intake: Intake, IV Titration 1031 Amount Mvi, Adult No.4 with Vit 1031 K 10 ml Trace (Conc-1Ml/ Dose) 1 ml Parenteral Electrolytes 20 ml In Amino Acid 4.25%-D10w 1, 000 ml @ 95 mls/hr IV .BY DURATION [facility] Rx#: [id number] Other: Voiding Method Toilet Diaper # Voids 3 4 - Exam General appearance: Alert, no apparent distress. Head: Atraumatic, normocephalic, normal inspection Eyes: PERRLA, EOMI. Absent scleral icterus, conjunctival injection, nystagmus, periorbital swelling. Ear, nose and throat: abnormal swallow Neck: Normal inspection, absent tenderness, lymphadenopathy. Respiratory: No increased work of breathing Cardiovascular: Regular rate, rhythm GI/abdominal: postsurgical status, PEG tube present Extremities: Full range of motion, normal capillary refill, no tenderness, pedal edema joint swelling, calf tenderness. Neurological: Alert and oriented x2-3. Speech normal. Language is normal. Strength is 5 out of 5 in all 4 extremities. Light touch was equal and symmetrical in 4 extremities. No pronator drift, no facial asymmetry on cranial nerve testing. Psychological: Mood and Affect appropriate for setting - Labs CBC & Chem 7: 02/22/18 06:15 02/22/18 06:15 Labs: Abnormal Lab Results - Last 24 Hours (Table) 02/22/18 02/22/18 02/22/18 Range/Units 06:15 06:15 06:18 WBC 12.8 H (3.8-10.6) k/uL RBC 3.93 L (4.30-5.90) m/uL Hgb 12.0 L (13.0-17.5) gm/dL Hct 38.0 L (39.0-53.0) % Plt Count 594 H (150-450) k/uL Neutrophils # 9.5 H (1.3-7.7) k/uL Chloride 108 H (98-107) mmol/L Glucose 108 H (74-99) mg/dL POC Glucose (mg/dL) 113 H (75-99) mg/dL Total Protein 5.8 L (6.3-8.2) g/dL Albumin 2.9 L (3.5-5.0) g/dL 02/22/18 Range/Units 11:57 WBC (3.8-10.6) k/uL RBC (4.30-5.90) m/uL Hgb (13.0-17.5) gm/dL Hct (39.0-53.0) % Plt Count (150-450) k/uL Neutrophils # (1.3-7.7) k/uL Chloride (98-107) mmol/L Glucose (74-99) mg/dL POC Glucose (mg/dL) 102 H (75-99) mg/dL Total Protein (6.3-8.2) g/dL Albumin (3.5-5.0) g/dL Assessment and Plan (1) Dysphagia Narrative/Plan: patient does have dysphagia however, exact underlying etiology is still yet to be determined. Given the patient's recent postsurgical status and inability to obtain MRI, we are unable to rule out acute stroke as a potential underlying or contributory etiology. As soon as patient is cleared, patient will need MRI of the brain for further investigation. Consider ear nose and throat consult to further investigate the results of patients previous esophagram with noted changes per patient. Patient also has cervicalgia with a history of cervical fusion of approximately 78 years. Patient and family state that the patient did have vocal changes post surgery which does appear to be consistent with possible laryngeal nerve damage. Given the patient's current status, I am going to conduct a workup of the cervical spine to further investigate any possible underlying etiology and to investigate the patient's cervicalgia. Reconsult Speech therapy for "vitalstim" use. ordered: X-ray cervical spine with flexion and extension CT cervical spine without contrast Continue with speech's therapy's recommended plan of care. Current Visit: Yes Status: Acute Code(s): R13.10 - DYSPHAGIA, UNSPECIFIED SNOMED Code(s): 88050463 (2) Encephalopathy acute Narrative/Plan: continue to manage correctable underlying etiology. Defer to primary team for management. continue neuro checks as order/implemented. Notify neurology with any mental status changes. Current Visit: Yes Status: Acute Code(s): G93.40 - ENCEPHALOPATHY, UNSPECIFIED SNOMED Code(s): 54500731 (3) Perforation of colon as colonoscopy complication Narrative/Plan: defer to surgical team and GI for management. Current Visit: Yes Status: Acute Priority: High Code(s): K63.1 - PERFORATION OF INTESTINE (NONTRAUMATIC); K91.71 - ACCIDENTAL PNCTR & LAC OF A DGSTV SYS ORG DUR DGSTV SYS PROC SNOMED Code(s): 77395824 Plan: Status: Neurology will continue to follow and provide updates as needed or warranted. Contact our office with any questions I have discussed the plan of care with the physician prior to implementation and he agrees with the plan as implemented.
[2018-02-22] MEDS: FAT EMULSION 20% 250 ML IV SCH (15:27)
[2018-02-22] MEDS: PANTOPRAZOLE 40 MG/10 ML VIAL IVP SCH (15:35)
[2018-02-22 18:13] LABS: Glucose,Whole Blood 131 mg/dL (75-99)
[2018-02-22 21:41] LABS: Glucose,Whole Blood 96 mg/dL (75-99)
[2018-02-22] MEDS: QUEtiapine 25 MG TAB PO SCH (22:04)
--- NOTE | 2018-02-22 22:11 | PN ---
PROGRESS NOTE DATE OF SERVICE: 02/22/2018. PRESENTING COMPLAINT: Acute agitation. INTERVAL HISTORY: The patient is status post sigmoid perforation following colonoscopy, had surgical repair of the same. Then had a PEG tube placed. Patient had failed a swallowing. The patient subsequently became delirious. Introducing a sleep hygiene and Seroquel, patient did very well last night, slept well, far more alert and oriented this morning. The patient's nephew is present at the bedside. The patient remains otherwise n.p.o. REVIEW OF SYSTEMS: Done for constitutional, cardiovascular, GI, pulmonary; relevant findings as above. CURRENT MEDICATIONS: Include IV Zosyn, TPN, lipids. PHYSICAL EXAMINATION: VITAL SIGNS: Temperature 97.7 pulse 87, respiratory rate 15, blood pressure 113/76, pulse ox 95 percent on room air. GENERAL APPEARANCE: Lying in bed, comfortable. Tired. EYES: Pupils equal. Conjunctivae pale. HEENT: External appearance of nose and ears normal. Oral cavity dry. NECK: JVD not raised. Mass not palpable. RESPIRATORY: Effort increased. LUNGS: Decreased breath sounds. Mild wheezing. CARDIOVASCULAR: 1st and 2nd sounds normal. No edema. ABDOMEN: Soft, nontender. Liver and spleen not palpable. PSYCHIATRY: Patient is answering questions, far more appropriately today. INVESTIGATIONS: White count 12.8, hemoglobin 12, potassium 4.2, BUN and creatinine is normal. Accu- Cheks are noted. ASSESSMENT: 1. Acute delirium, likely metabolic, multifactorial with improvement. 2. Altered sleep cycle. 3. Mild cognitive impairment probably from late onset Alzheimer's dementia. 4. Chronic nicotine dependence, patient is a cigarette smoker. 5. Nicotine withdrawal syndrome, doing better with nicotine patch. 6. Primary osteoarthritis. 7. Sigmoid diverticulosis. 8. Hyperlipidemia. 9. Status post sigmoid perforation followed by surgical repair. 10.New PEG tube placed, currently not being used. PLANS: Reminded the nurse about to maintain the sleep cycle. I did speak to the patient and the nephew. TPN lipids to be continue. Will have a repeat swallow evaluation in the morning by speech. The patient probably may be doing much better after the delirium is now better. MMODL / IJN: [id number] /
[2018-02-23] MEDS: D5-0.45% NACL WITH KCL 20MEQ/L 1,000 ML IV SCH ×2 (00:20→22:04)
[2018-02-23] MEDS: HEPARIN SODIUM,PORCINE 5,000 UNIT/ML 1 ML VIAL SQ SCH ×3 (00:20→15:53)
[2018-02-23] MEDS: INSULIN ASPART 100 UNIT/ML 1 ML 10 ML VIAL SQ SCH ×4 (00:21→17:27)
[2018-02-23] MEDS: 1: MVI, ADULT NO.4 WITH VIT K 10 ML, TRACE (CONC-1ML/DOSE) 1 ML, PARENTERAL ELECTROLYTES IV SCH ×4 (00:25)
[2018-02-23] MEDS: PIPERACILLIN-TAZOBACTAM 3.375 GM in DEXTROSE/WATER 1 50ML.BAG IVPB SCH ×4 (00:25→23:45)
[2018-02-23] MEDS: diphenhydrAMINE 50 MG/ML 1 ML VIAL IVP PRN ×2 (01:47→08:37)
[2018-02-23] MEDS: IPRATROPIUM-ALBUTEROL 3 ML NEB INHALATION SCH ×4 (07:03→19:12)
[2018-02-23 07:26] LABS: ALT 27 U/L (21-72); AST 22 U/L (17-59); Albumin 3.4 g/dL (3.5-5.0); Alkaline Phosphatase 67 U/L (38-126); Anion Gap 10 mmol/L; Blood Urea Nitrogen 14 mg/dL (9-20); Calcium 9.3 mg/dL (8.4-10.2); Carbon Dioxide 25 mmol/L (22-30); Chloride 106 mmol/L (98-107); Glucose 105 mg/dL (74-99); Magnesium 2.1 mg/dL (1.6-2.3); Potassium 4.3 mmol/L (3.5-5.1); Sodium 141 mmol/L (137-145); Total Bilirubin 0.5 mg/dL (0.2-1.3); Total Protein 6.7 g/dL (6.3-8.2)
[2018-02-23 07:50] LABS: Glucose,Whole Blood 108 mg/dL (75-99)
[2018-02-23] MEDS: NICOTINE 21MG/24HR PATCH TRANSDERM SCH (07:55)
[2018-02-23] MEDS: PANTOPRAZOLE 40 MG/10 ML VIAL IVP SCH (07:55)
[2018-02-23 10:50] VITALS: BMI 20.7
[2018-02-23 11:32] LABS: Glucose,Whole Blood 97 mg/dL (75-99)
--- NOTE | 2018-02-23 11:36 | P.PN ---
<Lianna Dillonne M - Last Filed: 02/23/18 11:30> Subjective Progress Note Date: 02/23/18 72-year-old male ambulating in the hallway with standby assist PEG tube in place no redness at the site dressing dry. Pleasant cooperative oriented to person and place wandy to surgical incision site well approximated no redness no stool no nausea no vomiting TPN in progress Objective - Vital Signs Vital signs: Vital Signs Temp 98.0 F 02/23/18 07:50 Pulse 81 02/23/18 07:50 Resp 18 02/23/18 07:50 BP 148/82 02/23/18 07:50 Pulse Ox 100 02/23/18 07:50 Intake & Output 02/22/18 02/23/18 02/23/18 18:59 06:59 18:59 Intake Total 1031 1131 Balance 1031 1131 Weight 60.1 kg Intake: Intake, IV Titration 1031 1031 Amount Mvi, Adult No.4 with Vit 1031 1031 K 10 ml Trace (Conc-1Ml/ Dose) 1 ml Parenteral Electrolytes 20 ml In Amino Acid 4.25%-D10w 1, 000 ml @ 95 mls/hr IV .BY DURATION COUNTS INCLUDE 234 BEDS AT THE [facility] Rx#: [id number] Oral 100 Other: Voiding Method Toilet Diaper # Voids 4 2 - Exam Exam Abdomen wandy to surgical incision site well approximated no redness nondistended bowel tones present incontinent urine no stool currently TPN progress PEG tube in place dressings dry - Labs CBC & Chem 7: 02/22/18 06:15 02/23/18 06:21 Labs: Abnormal Lab Results - Last 24 Hours (Table) 02/22/18 02/22/18 02/23/18 Range/Units 11:57 17:55 06:21 Glucose 105 H (74-99) mg/dL POC Glucose (mg/dL) 102 H 131 H (75-99) mg/dL Albumin 3.4 L (3.5-5.0) g/dL 02/23/18 Range/Units 06:39 Glucose (74-99) mg/dL POC Glucose (mg/dL) 108 H (75-99) mg/dL Albumin (3.5-5.0) g/dL Assessment and Plan Assessment: Impression Perforation of colon as colonoscopy complication on February 10 Exploratory laparotomy with repair colonic perforation February 10 chronic alcoholism daily consumption Episode postop combative disruptive behavior suspect due to impending DTs treated with CIWA protocol resolved Active current every day smoker Colonoscopy initially showed diverticulosis, polyps Leukocytosis likely due to hospital acquired pneumonia Anemia unspecified Acute healthcare associated pneumonia Acute encephalopathy suspect hospital delirium Episode of dysphagia. PEG tube placement for nutritional support Right carotid artery stenosis Plan Start tube feeds using PEG tube now and taper PPN down IV antibiotic Zosyn as ordered will need to transition to oral upon discharge DVT and GI prophylaxis Increase activity when appropriate Pain control The above impression and plan of care have been discussed and directed by signing physician. Janis Dillon nurse practitioner acting as scribe for signing physician. <Rafiq Mosley - Last Filed: 02/23/18 17:37> Objective - Vital Signs Vital signs: Vital Signs Temp 97.6 F 02/23/18 14:43 Pulse 72 02/23/18 15:54 Resp 16 02/23/18 14:43 BP 138/71 02/23/18 14:43 Pulse Ox 97 02/23/18 14:43 Intake & Output 02/22/18 02/23/18 02/23/18 18:59 06:59 18:59 Intake Total 1031 1131 43 Balance 1031 1131 43 Weight 60.1 kg Intake: Intake, IV Titration 1031 1031 Amount Mvi, Adult No.4 with Vit 1031 1031 K 10 ml Trace (Conc-1Ml/ Dose) 1 ml Parenteral Electrolytes 20 ml In Amino Acid 4.25%-D10w 1, 000 ml @ 95 mls/hr IV .BY DURATION [facility] Rx#: [id number] Oral 100 Tube Feeding 43 Other: Voiding Method Toilet Diaper # Voids 4 2 - Labs CBC & Chem 7: 02/22/18 06:15 02/23/18 06:21 Labs: Abnormal Lab Results - Last 24 Hours (Table) 02/22/18 02/23/18 02/23/18 Range/Units 17:55 06:21 06:39 Glucose 105 H (74-99) mg/dL POC Glucose (mg/dL) 131 H 108 H (75-99) mg/dL Albumin 3.4 L (3.5-5.0) g/dL 02/23/18 Range/Units 17:18 Glucose (74-99) mg/dL POC Glucose (mg/dL) 122 H (75-99) mg/dL Albumin (3.5-5.0) g/dL Assessment and Plan Assessment: As above. I had a long discussion with the family today at the bedside. Patient still intermittently confused. Tube feeds were just started today. They are interested in the patient being discharged to rehab when stable. They also were discussing the possibility of transfer to an outside facility for second opinion. I discussed the case with Dr. Dias. He is aware of their concerns. Slowly advance tube feeds to goal. Possible discharge to rehab if cleared by consultants. We'll remove one half of abdominal wandy. (1) Perforation of colon as colonoscopy complication Current Visit: Yes Status: Acute Priority: High Code(s): K63.1 - PERFORATION OF INTESTINE (NONTRAUMATIC); K91.71 - ACCIDENTAL PNCTR & LAC OF A DGSTV SYS ORG DUR DGSTV SYS PROC SNOMED Code(s): 58774187
--- NOTE | 2018-02-23 12:06 | PN ---
PROGRESS NOTE Patient has a long-standing history of medical issues along with the patient had a colonoscopy and has been found to have a perforation and had surgical intervention by Dr. Mosley and patient also had a feeding tube. Patient has history of difficulty in swallowing. Today, patient had a repeat swallowing test which he failed. CT of the carotids shows a 90% right carotid. On examination, his motor functions are normal for upper and lower extremities. Speech is normal. I have discussed with Internal Medicine and at this point, patient has to be worked up for dysphagia. As far as carotid surgical intervention is concerned, we will wait until we find out the underlying problem. Will follow with you. Thank you very much. MMSAVANNAHL / IJN: [id number] /
[2018-02-23] MEDS: MULTIVITAMINS, THERA 1 EACH TAB PO SCH (13:07)
[2018-02-23] MEDS: FOLIC ACID 1 MG TAB PO SCH (13:07)
[2018-02-23] MEDS: THIAMINE 100 MG TAB PO SCH ×2 (13:07→15:54)
[2018-02-23] MEDS: FAT EMULSION 20% 250 ML IV SCH (15:22)
[2018-02-23 17:20] LABS: Glucose,Whole Blood 122 mg/dL (75-99)
--- NOTE | 2018-02-23 19:44 | P.PN ---
Subjective Progress Note Date: 02/23/18 Principal diagnosis: acute toxic and infectious encephalopathy, dysphagia Interval update 02/23/18: Provider conferenced with Dr. Dias regarding patient's current neurological status, current neurological workup and results. Provider also spoke to supervising physician regarding patient status. Provider spoke to patient family regarding further neurological workup or treatment in the outpatient setting given the patient's current status (greater than 30 minutes care team and family meeting time). Son expressed understanding although upset at the current patient status. Explained current workup past results of testing, further workup to be done in the outpatient setting and consideration by speech therapy for evaluation of possible vital stim use in the patient if appropriate. Neurology will follow up with the patient in the outpatient setting for ongoing care and/or diagnostic workup as warranted. Provider answered and family questions with regard to possible treatment plan in the outpatient setting. If no follow-up with our office in 10-14 days post discharge for further evaluation in the office. STATUS: Patient will be cleared for discharge from a neurological standpoint. Patient to contact our office within 10 days for follow up. I have discussed the plan of care with the physician prior to implementation and he agrees with the plan as implemented. Interval update 02/22/18: Neurology is following on a 74-year-old male with complex history including perforated bowel, PEG tube placement, acute delirium/encephalopathy. CT angiogram of the head and neck noted 90% occlusion right ICA. Vascular surgery consult was requested yesterday. Vascular is following up with the patient and attempting to obtain outside records per family. Patient was significantly more alert, interactive and displayed much more energy. Patient and family did obtain further history related to the patient's neck and throat complaints. Patient does have a history of cervical anterior fusion approximate 7 years ago in [facility] with Dr. Vallejo. Patient also was evaluated by ear nose and throat provider Dr. Chen and a second opinion with Dr. Vigil. This took place within the last 12 months. Patient states that Dr. Vigil told him that there were findings on his esophagram had concerning findings which needed to be followed up on. Patient was unclear exactly what the findings were. He stated that he was told that they "could develop into something more" if they were not handled. Patient also complains of cervicalgia which did appear to be consistent with facet etiology however the patient does have a significant fusion history. Based on the age of the fusion, patient is beginning to enter the window of adjacent level disease to start. Further workup as noted in assessment and plan. We may need to consider ruling out laryngeal nerve palsy as a possible underlying etiology as well. Interval update 02/21/18: Neurology is following on a 74 -year-old male with a history of colon perforation. He did have PEG tube placed yesterday. On rounding, patient's son was in the room. Son expressed concern regarding patient's agitation as well as his confusion. Patient is significantly post procedure anesthesia recovery which does decrease the potential that there is any secondary anesthesia remaining effect. Given the patient's mental status changes, CT angiogram head and neck was ordered. On contact, the patient was alert, responsive to verbal stimuli but was otherwise agitated. Nursing requests order for when necessary sedation medication. Order was given for Benadryl 25 mg by mouth every 4-6 hours when necessary. Order a standing order at this time. Discussed for the results of imaging tomorrow and rounding. Further treatment options to be discussed at that time. Interval update: 02/20/18: Unable to be rounded on, patient off floor Objective - Vital Signs Vital signs: Vital Signs Temp 97.6 F 02/23/18 14:43 Pulse 92 02/23/18 19:21 Resp 16 02/23/18 14:43 BP 138/71 02/23/18 14:43 Pulse Ox 97 02/23/18 14:43 Intake & Output 02/23/18 02/23/18 02/24/18 06:59 18:59 06:59 Intake Total 1131 43 Balance 1131 43 Weight 60.1 kg Intake: Intake, IV Titration 1031 Amount Mvi, Adult No.4 with Vit 1031 K 10 ml Trace (Conc-1Ml/ Dose) 1 ml Parenteral Electrolytes 20 ml In Amino Acid 4.25%-D10w 1, 000 ml @ 95 mls/hr IV .BY DURATION [facility] Rx#: [id number] Oral 100 Tube Feeding 43 Other: Voiding Method Toilet Diaper # Voids 2 - Exam Care team / family meeting - Labs CBC & Chem 7: 02/22/18 06:15 02/23/18 06:21 Labs: Abnormal Lab Results - Last 24 Hours (Table) 08/27/18 08/27/18 08/27/18 Range/Units 06:21 06:39 17:18 Glucose 105 H (74-99) mg/dL POC Glucose (mg/dL) 108 H 122 H (75-99) mg/dL Albumin 3.4 L (3.5-5.0) g/dL Assessment and Plan (1) Dysphagia Narrative/Plan: patient does have dysphagia however, exact underlying etiology is still yet to be determined. Given the patient's recent postsurgical status and inability to obtain MRI, we are unable to rule out acute stroke as a potential underlying or contributory etiology. As soon as patient is cleared, patient will need MRI of the brain for further investigation. Consider ear nose and throat consult to further investigate the results of patients previous esophagram with noted changes per patient. Patient also has cervicalgia with a history of cervical fusion of approximately 78 years. Patient and family state that the patient did have vocal changes post surgery which does appear to be consistent with possible laryngeal nerve damage. Given the patient's current status, any further cervical workup can be done in the outpatient setting. Speech therapy for "vitalstim" use has already been requested. ordered: X-ray cervical spine with flexion and extension- noted degenerative changes CT cervical spine without contrast- to be completed in the outpatient setting Continue with speech's therapy's recommended plan of care. Current Visit: Yes Status: Acute Code(s): R13.10 - DYSPHAGIA, UNSPECIFIED SNOMED Code(s): 98919424 (2) Encephalopathy acute Narrative/Plan: continue to manage correctable underlying etiology. Defer to primary team for management. continue neuro checks as order/implemented. Notify neurology with any mental status changes. Current Visit: Yes Status: Acute Code(s): G93.40 - ENCEPHALOPATHY, UNSPECIFIED SNOMED Code(s): 38422058 (3) Perforation of colon as colonoscopy complication Narrative/Plan: defer to surgical team and GI for management. Current Visit: Yes Status: Acute Priority: High Code(s): K63.1 - PERFORATION OF INTESTINE (NONTRAUMATIC); K91.71 - ACCIDENTAL PNCTR & LAC OF A DGSTV SYS ORG DUR DGSTV SYS PROC SNOMED Code(s): 61074517 Plan: STATUS: Patient will be cleared for discharge from a neurological standpoint. Patient to contact our office within 10 days for follow up. I have discussed the plan of care with the physician prior to implementation and he agrees with the plan as implemented.
[2018-02-23] MEDS: QUEtiapine 25 MG TAB PO SCH (20:39)
[2018-02-23] MEDS ORDERED: QUEtiapine 25 MG TAB PO STA (22:50)
[2018-02-23 23:09] LABS: Glucose,Whole Blood 110 mg/dL (75-99)
[2018-02-24] MEDS: INSULIN ASPART 100 UNIT/ML 1 ML 10 ML VIAL SQ SCH ×5 (00:04→23:49)
[2018-02-24] MEDS: HEPARIN SODIUM,PORCINE 5,000 UNIT/ML 1 ML VIAL SQ SCH ×4 (00:05→23:46)
--- NOTE | 2018-02-24 00:23 | PN ---
PROGRESS NOTE DATE OF SERVICE: 02/23/2018 PRESENTING COMPLAINT: Confusion. INTERVAL HISTORY: Patient is status post sigmoid perforation following colonoscopy and surgical repair of the same. He has a PEG tube. Tube feeding was started today. The patient again failed swallowing test this morning. The patient had swallowing evaluation by Dr. Andreas Vigil as an outpatient. I spoke this morning to the patient's . Patient's delirium is better. Confusion is actually better with sleep hygiene. Patient remains n.p.o. REVIEW OF SYSTEMS: Done for constitutional, cardiovascular, GI, pulmonary, psych; relevant findings as above. There are occasional episodes of patient getting confused. CURRENT MEDICATIONS: Reviewed. They include TPN, lipids. Tube feeding is being started. IV Zosyn. PHYSICAL EXAMINATION: Temperature 98, pulse 81, respiration 18, blood pressure 140/82, pulse ox 100% on room air. GENERAL APPEARANCE: Sitting up in a chair, comfortable, smiling, having a conversation with me. Very reasonable. EYES: Pupils equal. Conjunctivae pale. HEENT: External appearance of nose and ears normal. Oral cavity dry. NECK: JVD not raised. Mass not palpable. RESPIRATORY: Effort increased. LUNGS: Diminished breath sounds. CARDIOVASCULAR: First and second sounds normal. No edema. ABDOMEN: Soft, non-tender. PEG tube in place. PSYCHIATRY: Patient is answering questions rather appropriately. INVESTIGATIONS: Potassium 4.3. ASSESSMENT: 1. Acute delirium, likely metabolic, multifactorial, with significant improvement. 2. Altered sleep cycle. 3. Mild cognitive impairment, probably from late-onset Alzheimer's dementia. 4. Chronic nicotine dependence. Patient is a cigarette smoker. 5. Nicotine withdrawal syndrome. Patient is on a nicotine patch. 6. Primary osteoarthritis. 7. Sigmoid diverticulosis. 8. Hyperlipidemia. 9. Status post sigmoid perforation followed by surgical repair. 10.PEG tube feeding will be started. PLAN: TPN and lipids are being weaned off. PEG tube feeding is being advanced. I spoke to patient's son at length over the phone for a good 20 minutes, explaining the different problems that are going on. From a medical standpoint, the patient is doing much better and delirium is suspected, given the change in environment and surgery. Dr. Andreas Vigil is following the patient from ENT standpoint. I did speak to Dr. Chuy Adamson from Neurology to talk to him, as he has discussed this with them before. Probably they want to see the patient as an outpatient. Per Dr. Mosley, hopefully the patient can go to the rehab place. Total time spent was about 1 hour today with over 40 minutes of discussion with various consultants, family, Nursing, perinatal social worker and embedded case manager. MELO / TELMA: [id number] /
[2018-02-24] MEDS: diphenhydrAMINE 50 MG/ML 1 ML VIAL IVP PRN (01:49)
[2018-02-24] MEDS: IPRATROPIUM-ALBUTEROL 3 ML NEB INHALATION SCH ×5 (07:27→20:23)
[2018-02-24 07:37] LABS: ALT 30 U/L (21-72); AST 25 U/L (17-59); Alkaline Phosphatase 67 U/L (38-126); Anion Gap 10 mmol/L; Blood Urea Nitrogen 11 mg/dL (9-20); Carbon Dioxide 24 mmol/L (22-30); Chloride 107 mmol/L (98-107); Glucose 85 mg/dL (74-99); Phosphorus 4.4 mg/dL (2.5-4.5); Potassium 4.3 mmol/L (3.5-5.1); Sodium 141 mmol/L (137-145); Total Bilirubin 0.5 mg/dL (0.2-1.3); Total Protein 5.8 g/dL (6.3-8.2)
[2018-02-24 07:38] LABS: Glucose,Whole Blood 129 mg/dL (75-99)
[2018-02-24] MEDS: NICOTINE 21MG/24HR PATCH TRANSDERM SCH (09:28)
[2018-02-24] MEDS: PANTOPRAZOLE 40 MG/10 ML VIAL IVP SCH (09:28)
[2018-02-24] MEDS: PIPERACILLIN-TAZOBACTAM 3.375 GM in DEXTROSE/WATER 1 50ML.BAG IVPB SCH ×2 (09:29→16:29)
--- NOTE | 2018-02-24 10:33 | CDI ---
Last Revision, May 2017 Documentation Clarification Form Date: 02/20/2018 2:50:00 PM From: Breann MeeksPersaudCLAY ivy, CCDS Admit Date: 02/12/2018 1:40:00 AM Patient Name: Best Camacho Visit Number: [id number] Discharge Date: ATTENTION: The Clinical Documentation Specialists (CDI) and [facility] Coding Staff appreciate your assistance in clarifying documentation. Please respond to the clarification below the line at the bottom and electronically sign. The CDI & [facility] Coding staff will review the response and follow-up if needed. Please note: Queries are made part of the Legal Health Record. If you have any questions, please contact the author of this message via ITS. Toni De Dios MD: Malnutrition has been documented in the PEG tube procedure note with no specificity. History/Risk Factors: Diverticulosis & polyps, Smoker, EtOH abuse. Clinical Indicators: Presented on 02/10 for colonoscopy due to diverticulosis w/ no evidence of diverticulitis or stricture but possible perforation noted during procedure. Subsequent repair w/sigmoid colon resection on 02/10 for repair of colon perforation. Labs: (02/16) Total protein 5.8*, Albumin 3.1*. (not drawn previously) Current BMI: 20.9 Nutritional assessment: npo status post surgery, advanced to clear liquids only. Difficulty swallowing, Moderate chronic malnutrition, poor oral intake. Treatment: CIWA protocol, IV Amino acids, IV Lipids, IV antibiotics & IV pain meds, IV Ativan required for alcohol withdrawal symptoms. In your professional opinion, can you please clarify if these findings signify one of the following conditions? Mild Protein-Calorie Malnutrition Moderate Protein-Calorie Malnutrition Severe Protein-Calorie Malnutrition Malnutrition following GI surgery Other condition, please specify Unable to determine Please include if the patient's malnutrition was present on admission. MTDD
[2018-02-24 11:21] LABS: Glucose,Whole Blood 134 mg/dL (75-99)
--- NOTE | 2018-02-24 11:32 | P.PN ---
<Janis Dillon - Last Filed: 02/24/18 11:26> Subjective Progress Note Date: 02/24/18 Seen sitting up in chair Discharge Plan in Progress Family Indicates They Want Take the Patient Home with Home Health Support no new events Tube feeds in place per PEG tube Exploratory laparotomy with repair colonic perforation February 10 Status post February 20 PEG tube placement for nutrition Objective - Vital Signs Vital signs: Vital Signs Temp 97.7 F 02/24/18 07:20 Pulse 94 02/24/18 10:57 Resp 16 02/24/18 10:57 BP 119/65 02/24/18 07:20 Pulse Ox 93 L 02/24/18 07:27 Intake & Output 02/23/18 02/24/18 02/24/18 18:59 06:59 18:59 Intake Total 43 120 Balance 43 120 Weight 60.1 kg 60 kg Intake: Tube Feeding 43 120 Other: Voiding Method Toilet Urinal - Exam Exam Abdomen wandy to surgical incision site well approximated no redness nondistended bowel tones present incontinent urine no stool currently TPN progress PEG tube in place dressings dry wandy to the surgical incision site well approximated no redness - Labs CBC & Chem 7: 02/22/18 06:15 02/24/18 06:38 Labs: Abnormal Lab Results - Last 24 Hours (Table) 02/23/18 02/23/18 02/24/18 Range/Units 17:18 23:07 06:38 POC Glucose (mg/dL) 122 H 110 H (75-99) mg/dL Total Protein 5.8 L (6.3-8.2) g/dL Albumin 3.0 L (3.5-5.0) g/dL 02/24/18 02/24/18 Range/Units 07:37 11:20 POC Glucose (mg/dL) 129 H 134 H (75-99) mg/dL Total Protein (6.3-8.2) g/dL Albumin (3.5-5.0) g/dL Assessment and Plan Assessment: Impression Perforation of colon as colonoscopy complication on February 10 Exploratory laparotomy with repair colonic perforation February 10 chronic alcoholism daily consumption Episode postop combative disruptive behavior suspect due to impending DTs treated with CIWA protocol resolved Active current every day smoker Colonoscopy initially showed diverticulosis, polyps Leukocytosis likely due to hospital acquired pneumonia Anemia unspecified Acute healthcare associated pneumonia Acute encephalopathy suspect hospital delirium Episode of dysphagia. PEG tube placement for nutritional support Right carotid artery stenosis Moderate protein calorie malnutrition underweight BMI 20.9 likely due to poor caloric intake chronic in a patient who has a history of alcoholism Plan Tube feeds per PEG tube IV antibiotic Zosyn as ordered will need to transition to oral upon discharge DVT and GI prophylaxis Increase activity when appropriate Pain control Remove one half of the wandy now The above impression and plan of care have been discussed and directed by signing physician. Janis Dillon nurse practitioner acting as scribe for signing physician. <Rafiq Mosley - Last Filed: 02/24/18 23:00> Objective - Vital Signs Vital signs: Vital Signs Temp 98.8 F 02/24/18 14:57 Pulse 93 02/24/18 20:35 Resp 12 02/24/18 14:57 BP 129/69 02/24/18 14:57 Pulse Ox 93 L 02/24/18 07:27 Intake & Output 02/24/18 02/24/18 02/25/18 06:59 18:59 06:59 Intake Total 120 Balance 120 Weight 60 kg Intake: Tube Feeding 120 Other: Voiding Method Toilet Urinal - Labs CBC & Chem 7: 02/22/18 06:15 02/24/18 06:38 Labs: Abnormal Lab Results - Last 24 Hours (Table) 02/23/18 02/24/18 02/24/18 Range/Units 23:07 06:38 07:37 POC Glucose (mg/dL) 110 H 129 H (75-99) mg/dL Total Protein 5.8 L (6.3-8.2) g/dL Albumin 3.0 L (3.5-5.0) g/dL 02/24/18 02/24/18 Range/Units 11:20 18:23 POC Glucose (mg/dL) 134 H 106 H (75-99) mg/dL Total Protein (6.3-8.2) g/dL Albumin (3.5-5.0) g/dL Assessment and Plan Assessment: As above. Patient sleeping comfortably currently. Patient has been having ongoing intermittent episodes of delirium and confusion. I did not wake the patient at this time hoping that the additional sleep will help. He is currently tolerating tube feeds however at 50 mL per hour. Per the nursing staff has done quite well so far today with no confusion. We'll reevaluate tomorrow but anticipate discharge per the primary service soon. (1) Perforation of colon as colonoscopy complication Current Visit: Yes Status: Acute Priority: High Code(s): K63.1 - PERFORATION OF INTESTINE (NONTRAUMATIC); K91.71 - ACCIDENTAL PNCTR & LAC OF A DGSTV SYS ORG DUR DGSTV SYS PROC SNOMED Code(s): 76950882
[2018-02-24] MEDS: FOLIC ACID 1 MG TAB PO SCH (12:21)
[2018-02-24] MEDS: MULTIVITAMINS, THERA 1 EACH TAB PO SCH (12:21)
[2018-02-24] MEDS: THIAMINE 100 MG TAB PO SCH ×2 (12:22→18:14)
[2018-02-24 18:25] LABS: Glucose,Whole Blood 106 mg/dL (75-99)
[2018-02-24] MEDS: D5-0.45% NACL WITH KCL 20MEQ/L 1,000 ML IV SCH (20:21)
[2018-02-24] MEDS ORDERED: QUEtiapine 50 MG TAB PO SCH (21:00)
[2018-02-24 23:50] LABS: Glucose,Whole Blood 118 mg/dL (75-99)
--- NOTE | 2018-02-24 23:50 | PN ---
PROGRESS NOTE DATE OF SERVICE: 02/24/2018 PRESENTING COMPLAINT: Tired. INTERVAL HISTORY: Patient is status post sigmoid perforation following colonoscopy and surgical repair of the same. Has a PEG tube. Patient also failed swallowing; being worked up by Dr. Andreas Vigil as an outpatient. This morning up and about in the hallway, doing better. PEG tube feeding has been started. REVIEW OF SYSTEMS: Done for constitutional, cardiovascular, GI, pulmonary; relevant findings as above. CURRENT MEDICATIONS: Reviewed. They include Zosyn. PHYSICAL EXAMINATION: Temperature 97.7, pulse 92, respiration 14, blood pressure 119/65, pulse ox 92% on room air. GENERAL APPEARANCE: Sitting up, comfortable. EYES: Pupils equal. Conjunctivae pale. HEENT: External appearance of nose and ears normal. Oral cavity dry. NECK: JVD not raised. Mass not palpable. RESPIRATORY: Effort increased. LUNGS: Decreased breath sounds. CARDIOVASCULAR: First and second sounds normal. No edema. ABDOMEN: Soft, non-tender. PEG tube in place. PSYCHIATRY: Patient is answering questions rather appropriately. INVESTIGATIONS: Potassium 4.3. Accu-Cheks are noted. ASSESSMENT: 1. Acute delirium, multifactorial, with great improvement. 2. Altered sleep cycle. 3. Mild cognitive impairment, probably from late onset Alzheimer's dementia in the background. 4. Chronic nicotine dependence. Patient is a cigarette smoker. 5. Nicotine withdrawal syndrome, on nicotine patch. 6. Primary osteoarthritis. 7. Sigmoid diverticulosis. 8. Hyperlipidemia. 9. Status post sigmoid perforation during colonoscopy followed by surgical repair. 10.PEG tube feeding now started. PLAN: I had a lengthy talk with the patient, who is a little hesitant about going to [facility]. I did talk to him that it will benefit him. He is now agreeable to do the same. Also spoke to Malissa, the manager social, coordinating the same. I also spoke to patient's son, Maribel. I explained to him that the patient is definitely doing much better and will benefit from rehab at this point. We will see how this goes. Discharge for patient is in place. Total time spent today was about 50 minutes with over 35 minutes of discussion. MMODL / IJN: [id number] /
[2018-02-25 07:12] LABS: Glucose,Whole Blood 99 mg/dL (75-99)
[2018-02-25 08:06] LABS: Anion Gap 7 mmol/L; Blood Urea Nitrogen 10 mg/dL (9-20); Carbon Dioxide 26 mmol/L (22-30); Chloride 107 mmol/L (98-107); Glucose 83 mg/dL (74-99); Phosphorus 4.2 mg/dL (2.5-4.5); Potassium 4.5 mmol/L (3.5-5.1); Sodium 140 mmol/L (137-145)
[2018-02-25] MEDS ORDERED: AMOXIC-POT CLAV 875-125MG 1 EACH TAB PO SCH (09:00)
[2018-02-25] MEDS ORDERED: FAMOTIDINE 20 MG TAB PO SCH (09:00)
[2018-02-25] MEDS: IPRATROPIUM-ALBUTEROL 3 ML NEB INHALATION SCH ×3 (09:11→16:27)
[2018-02-25] MEDS: INSULIN ASPART 100 UNIT/ML 1 ML 10 ML VIAL SQ SCH ×2 (09:25→13:45)
[2018-02-25] MEDS: HEPARIN SODIUM,PORCINE 5,000 UNIT/ML 1 ML VIAL SQ SCH ×2 (10:53→17:10)
[2018-02-25] MEDS: NICOTINE 21MG/24HR PATCH TRANSDERM SCH (10:53)
[2018-02-25 12:36] LABS: Glucose,Whole Blood 102 mg/dL (75-99)
--- NOTE | 2018-02-25 13:11 | P.PN ---
<SantanaJanis M - Last Filed: 02/25/18 13:05> Subjective Progress Note Date: 02/25/18 72-year-old seen up ambulating in the hallway tube feeds in progress. Nursing reports patient has been getting up to the bathroom drinking water from the tap questioning the patient the patient states thirsty. Discharge plan per the attending Exploratory laparotomy with repair colonic perforation February 10 Status post February 20 PEG tube placement for nutrition Objective - Vital Signs Vital signs: Vital Signs Temp 98.2 F 02/25/18 07:49 Pulse 92 02/25/18 09:23 Resp 17 02/25/18 07:49 BP 115/65 02/25/18 07:49 Pulse Ox 96 02/25/18 07:49 Intake & Output 02/24/18 02/25/18 02/25/18 18:59 06:59 18:59 Intake Total 350 Balance 350 Weight 60 kg 60.9 kg Intake: Tube Feeding 350 Other: Voiding Method Toilet Toilet Urinal Urinal - Exam Exam Abdomen wandy to surgical incision site well approximated every other one removed yesterday no redness nondistended bowel tones present incontinent urine no stool currently tube feeds per PEG tube no nausea no vomiting - Labs CBC & Chem 7: 02/22/18 06:15 02/25/18 07:06 Labs: Abnormal Lab Results - Last 24 Hours (Table) 02/24/18 02/24/18 02/25/18 Range/Units 18:23 23:48 12:24 POC Glucose (mg/dL) 106 H 118 H 102 H (75-99) mg/dL Assessment and Plan Assessment: Impression Perforation of colon as colonoscopy complication on February 10 Exploratory laparotomy with repair colonic perforation February 10 chronic alcoholism daily consumption Episode postop combative disruptive behavior suspect due to impending DTs treated with CIWA protocol resolved Active current every day smoker Colonoscopy initially showed diverticulosis, polyps Leukocytosis likely due to hospital acquired pneumonia Anemia unspecified Acute healthcare associated pneumonia Acute encephalopathy suspect hospital delirium Episode of dysphagia. PEG tube placement for nutritional support Right carotid artery stenosis Moderate protein calorie malnutrition underweight BMI 20.9 likely due to chronic poor caloric intake in a patient who has a history of alcoholism Plan Tube feeds per PEG tube IV antibiotic Zosyn as ordered will need to transition to oral upon discharge DVT and GI prophylaxis Increase activity when appropriate Pain control Discharged per the attending The above impression and plan of care have been discussed and directed by signing physician. Janis Dillon nurse practitioner acting as scribe for signing physician. <Rafiq Mosley - Last Filed: 02/25/18 22:07> Objective - Vital Signs Vital signs: Vital Signs Temp 98.7 F 02/25/18 15:00 Pulse 89 02/25/18 15:00 Resp 12 02/25/18 15:00 BP 153/73 02/25/18 15:00 Pulse Ox 99 02/25/18 15:00 Intake & Output 02/25/18 02/25/18 02/26/18 06:59 18:59 06:59 Intake Total 350 200 Balance 350 200 Weight 60.9 kg Intake: Tube Feeding 350 200 Other: Voiding Method Toilet Urinal - Labs CBC & Chem 7: 02/22/18 06:15 02/25/18 07:06 Labs: Abnormal Lab Results - Last 24 Hours (Table) 02/24/18 02/25/18 Range/Units 23:48 12:24 POC Glucose (mg/dL) 118 H 102 H (75-99) mg/dL Assessment and Plan Assessment: As above. Patient doing well today. Tolerating tube feeds. Stable for transfer to rehabilitation. Follow-up in office. (1) Perforation of colon as colonoscopy complication Status: Acute Priority: High Code(s): K63.1 - PERFORATION OF INTESTINE ( NONTRAUMATIC); K91.71 - ACCIDENTAL PNCTR & LAC OF A DGSTV SYS ORG DUR DGSTV SYS PROC SNOMED Code(s): 23066301
[2018-02-25] MEDS: MULTIVITAMINS, THERA 1 EACH TAB PO SCH (14:42)
[2018-02-25 15:15] VITALS: BP 153/73; PULSE 89; RESP 12; TEMP 98.7
[2018-02-25] MEDS: THIAMINE 100 MG TAB PO SCH ×2 (15:21→17:10)
[2018-02-25] MEDS: FOLIC ACID 1 MG TAB PO SCH (15:21)
--- NOTE | 2018-02-26 07:25 | DS ---
DISCHARGE SUMMARY DATE OF ADMISSION: 02/12/2018 DATE OF DISCHARGE: 02/26/2018. FINAL DIAGNOSES: 1. Acute sigmoid perforation secondary to colonoscopy. 2. Hyperlipidemia. 3. Sigmoid diverticulosis. 4. Primary osteoarthritis. 5. Nicotine withdrawal syndrome. 6. Chronic nicotine dependence, patient active cigarette smoker. 7. Mild cognitive impairment. probably from late onset Alzheimer's dementia. 8. Altered sleep cycle. 9. Acute delirium, multifactorial. 10.Right carotid stenosis 80%-90%. 11.Acute on chronic dysphagia, patient is n.p.o. 12.Chronic obstructive pulmonary disease in a current smoker. PROCEDURES: PEG tube placement, repair of surgical perforation. CONSULTATIONS: 1. Dr. Mosley from General Surgery. 2. Dr. Faith from Neurology. 3. Dr. Feliciano Lr from Vascular Surgery. HOSPITAL COURSE: This patient had a colonoscopy, subsequently had a perforation and Dr. Mosley did a surgical intervention and the perforation was patch up. Subsequently, the patient has been having swallowing trouble as an outpatient too and did fail a swallowing eval, since admit n.p.o. and a PEG tube was started and feeding was resumed. Patient did become acutely delirious after sleep hygiene and Seroquel. Patient is doing much better. Patient was seen by Dr. Faith from Neurology. Patient did have a CT angio that did show 90% stenosis of proximal right ICA. Patient will follow up with Dr. Lr as an outpatient for the same. Also patient has been seen by Musa Kim from ENT and patient will follow up with the same regarding his swallowing. Patient is seen by Speech Therapy and the plan to do a repeat speech therapy after patient has been seen by ENT as an outpatient to determine what exact cause. Care was discussed at length with the patient today, also with the patient's son, Maribel, and the hospice case manager. Home care is being arranged. Patient was declined by the [facility]. Patient is up and about in the hallway. Patient is reminded of being n.p.o. PHYSICAL EXAM: LUNGS: decreased breath sounds. PSYCH: Patient is able to answer questions. PEG tube in place. DISCHARGE MEDICATIONS: 1. Lipitor 40 mg q.48 hours. 2. Vitamin C 1000 mg p.o. daily. 3. Vitamin D3 two thousand units p.o. daily. 4. Vitamin B12 one thousand mcg p.o. daily. 5. Augmentin 875 one tablet p.o. q.12 fourteen tablets. 6. [place] 5 one to two tablets q.4 p.r.n. 7. Pepcid 20 mg b.i.d. 8. Folic acid 1 mg p.o. daily. 9. DuoNeb t.i.d. 10.Multivitamin 1 tablet p.o. daily. 11.nicotine 20 mg patch. 12.Nicotine 2 mg q.4 p.r.n. 13.Seroquel 50 mg q.h.s. 14.Thiamine 100 mg p.o. b.i.d. Follow up with Dr. Mosley on 03/04/2018. Follow up with Dr. Tom Mccollum on 03/05/2018. Follow up with Dr. Andreas Gregorio in 1 week. Follow up with Dr. Faith in 2 weeks. Follow up with Dr. Lr in 1 week. PEG tube infusion as per dietitian. Discussion and discharge planning more than 35 minutes. MMODL / IJN: [id number] /
== END 2018-02-25 20:24 | disposition home health service (06) | DRG 907 ==
LOC: ORWHC2ENDO 09:26 → 3SUR 16:05 → ORWHC2ENDO 02-12 01:40 → 3SUR 02-15 22:14
PROVIDERS: ADMIT Hospitalist; ATTEND Hospitalist
PROC: 0DBN8ZX Excision of Sigmoid Colon, Via Natural or Artificial Opening Endoscopic, Diagnostic (ICD-10-PCS; principal; 2018-02-10 10:35)
PROC: 0DQN0ZZ Repair Sigmoid Colon, Open Approach (ICD-10-PCS; principal; 2018-02-10 10:35)
PROC: 0DH63UZ Insertion of Feeding Device into Stomach, Percutaneous Approach (ICD-10-PCS; 2018-02-20)
PROC: 3E0G76Z Introduction of Nutritional Substance into Upper GI, Via Natural or Artificial Opening (ICD-10-PCS; 2018-02-21)
DX: K91.71 Accidental puncture and laceration of a digestive system organ or structure during a digestive system procedure (principal); G92 Toxic encephalopathy; J18.9 Pneumonia, unspecified organism; D62 Acute posthemorrhagic anemia; E44.0 Moderate protein-calorie malnutrition; F02.81 Dementia in other diseases classified elsewhere, unspecified severity, with behavioral disturbance; F05 Delirium due to known physiological condition; F10.231 Alcohol dependence with withdrawal delirium; F17.213 Nicotine dependence, cigarettes, with withdrawal; J44.0 Chronic obstructive pulmonary disease with (acute) lower respiratory infection; R13.10 Dysphagia, unspecified; K66.8 Other specified disorders of peritoneum; I65.21 Occlusion and stenosis of right carotid artery; G30.1 Alzheimer's disease with late onset; K63.5 Polyp of colon; E78.5 Hyperlipidemia, unspecified; M19.91 Primary osteoarthritis, unspecified site; R32 Unspecified urinary incontinence; G89.29 Other chronic pain; M54.2 Cervicalgia; M54.5 Low back pain; R47.1 Dysarthria and anarthria; K57.30 Diverticulosis of large intestine without perforation or abscess without bleeding; Z79.899 Other long term (current) drug therapy; Z98.1 Arthrodesis status; Z88.8 Allergy status to other drugs, medicaments and biological substances; Z68.20 Body mass index [BMI] 20.0-20.9, adult; Z71.41 Alcohol abuse counseling and surveillance of alcoholic; Z71.6 Tobacco abuse counseling; Z83.79 Family history of other diseases of the digestive system; Y83.8 Other surgical procedures as the cause of abnormal reaction of the patient, or of later complication, without mention of misadventure at the time of the procedure
CPT/HCPCS: 43246; 45385; 70450; 70496; 70498; 71045; 72050; 74021; 74220; 74230; 80048; 80053; 81003; 82330; 83036; 83735; 84100; 84478; 85025; 85027; 87070; 87205; 88305; 94640; 94760

== ENCOUNTER → 2018-03-13 | Outpatient (CLI) | payer MEDICARE, BC | END | disposition home or self-care (01) | LOC: PTMAIN 11:05 | PROVIDERS: ATTEND Otolaryngology | DX: K21.9 Gastro-esophageal reflux disease without esophagitis (principal) | CPT/HCPCS: 31579; 74230 ==

== ENCOUNTER → 2018-03-13 | Outpatient (CLI) | payer MEDICARE, BC ==
--- NOTE | 2018-03-13 12:16 | FL ---
EXAMINATION TYPE: FL barium swallow w video DATE OF EXAM: 03/13/2018 MODIFIED SWALLOW / DEGLUTITION STUDY CLINICAL HISTORY: Dysphagia. TECHNIQUE: Deglutition study is performed utilizing thin liquid barium, nectar thick liquid barium and barium thick pudding. 0 spot images are saved to PACS. A total of 2 minutes 25 seconds of fluoros copic time was utilized. COMPARISON: Prior modified barium swallow report February 19, 2018. FINDINGS: The oral and pharyngeal phases show some mild delay in initiation with poor propagation wit h all modalities tested. There is poor epiglottic inversion with moderate to severe pharyngeal resid ue which slowly clears with repeated dry swallowing. No aspiration is evident. Long segment surgery i n the cervical spine is incidentally noted. IMPRESSION: Poor propagation with significant residuals. No aspiration is identified. Please refer t o speech therapist notes for further details if necessary.
== END | disposition home or self-care (01) ==
LOC: RADFLWHC 10:47
PROVIDERS: ATTEND Otolaryngology
DX: R13.10 Dysphagia, unspecified (principal)
CPT/HCPCS: 74230

== ENCOUNTER → 2018-05-15 | Outpatient (CLI) | payer MEDICARE, BC ==
--- NOTE | 2018-05-15 12:31 | FL ---
Modified barium swallow. HISTORY: Dysphagia. Modified barium swallow was performed with the department of speech pathology. The patient was prese nted with various consistencies of barium. There is no evidence for aspiration. Minimal aspiration noted with thin liquid barium. Full report is to follow from the department of speech pathology. Impression: No evidence for aspiration.
== END | disposition home or self-care (01) ==
LOC: RADFLMAIN 11:45
PROVIDERS: ATTEND Internal Medicine
DX: R13.13 Dysphagia, pharyngeal phase (principal)
CPT/HCPCS: 74230

== ENCOUNTER → 2018-06-10 | Outpatient (CLI) | payer MEDICARE, BC ==
--- NOTE | 2018-06-10 13:45 | CTL ---
EXAMINATION TYPE: CT Low Dose Lung DATE OF EXAM ORDERED: 06/10/2018 HISTORY: Tobacco abuse. Lung cancer screening CT DLP: 53.[address] CTDI: 1.49 mGy Automated exposure control for dose reduction was used. SCREENING VISIT: Initial COMPARISON: None TECHNIQUE: Low dose computed tomography scan was performed through the chest at 1 mm thick sections a nd reconstructed images in the coronal plane at [address] DIAGNOSTIC QUALITY: Limited, but interpretable FINDINGS: LUNG NODULES: Present, detailed below: There is an elongated nodule along the lateral aspect of a right apical bulla measuring 1.2 x 0.7 cm on series 4 image 62 and series 5 image 62. LUNGS: COPD: Severity: Moderate centrilobular and paraseptal emphysematous change with large biapical bulla Fibrosis: Severity: None Lymph nodes: Nonenlarged Other findings: Cylindrical bibasilar bronchiectasis is incidentally noted. Left basilar atelectasis is also seen in the subsegmental in addition to lingular atelectasis and right middle lobe atelectasi s. RIGHT PLEURAL SPACE: Effusion: None Calcification: None Thickening: None Pneumothorax: None LEFT PLEURAL SPACE: Effusion: None Calcification: None Thickening: None Pneumothorax: None HEART: Heart Size: Nonenlarged Coronary calcification: Moderate Pericardial effusion: None OTHER FINDINGS: Upper abdomen: There is a slightly nodular contour the liver raising suspicion for possible underlyin g hepatocellular disease. Correlate with serum laboratory values. Bony thorax: Moderate multilevel degenerative change of the thoracic spine. Supraclavicular region: Thyroid gland as few right lobe punctate calcifications. Other: Moderate atherosclerosis is seen of the thoracic aorta. Ascending thoracic aorta is within nor mal limits measuring 3.7 cm. IMPRESSION: Lung RADS 4A-findings for which additional diagnostic testing is recommended. Right apica l elongated pulmonary nodule measures 1.2 cm. [address] is recommended to assess for any in terval enlargement as the morphology of this nodular density decreases suspicion. FOLLOW UP CT CHEST RECOMMENDATION: Low-dose chest CT in [address] LUNG RAD: 3
== END | disposition home or self-care (01) ==
LOC: RADCTMAIN 11:50
PROVIDERS: ATTEND Internal Medicine
DX: Z12.2 Encounter for screening for malignant neoplasm of respiratory organs (principal); R91.1 Solitary pulmonary nodule; Z87.891 Personal history of nicotine dependence

== ENCOUNTER → 2018-09-09 | Outpatient (CLI) | payer MEDICARE, OTHER ==
--- NOTE | 2018-09-09 11:43 | CTL ---
EXAMINATION TYPE: CT Low Dose Lung DATE OF EXAM ORDERED: 09/09/2018 HISTORY: . Lung cancer screening CT DLP: 59.[address] CTDI: 1.61 mGy Automated exposure control for dose reduction was used. SCREENING VISIT: COMPARISON: 06/10/2018 TECHNIQUE: Low dose computed tomography scan was performed through the chest at 1 mm thick sections a nd reconstructed images in the coronal plane at [address] DIAGNOSTIC QUALITY: Satisfactory FINDINGS: LUNG NODULES: Stable elongated nodule measuring 1.2 x 0.7 cm right upper lobe. There is an additional left upper lo be nodule not seen with certainty in the prior exam measuring 3 mm. LUNGS: COPD: Severity: Severe centrilobular and paraseptal emphysematous change with large biapical bulla Fi brosis: Severity: None Lymph nodes: Nonenlarged Other findings: Cylindrical bibasilar bronchiectasis is incidentally noted. Left basilar atelectasis is also seen in the subsegmental consolidation bilaterally likely in the basis of atelectasis. Additi onally along the left proximal mainstem bronchus laterally there is a 1 cm soft tissue nodule. Bronch oscopy suggested.. PLEURAL SPACE: Effusion: None Calcification: None Thickening: Apical pleural thickening stable. Pneumothorax: None HEART: Heart Size: Within normal limits Coronary calcification: Dense coronary artery calcification Pericardial effusion: No sizable pericardial effusion OTHER FINDINGS: Upper abdomen: There is a slightly nodular contour the liver raising suspicion for possible underlyin g hepatocellular disease. Correlate with serum laboratory values. Bony thorax: Moderate multilevel degenerative change of the thoracic spine. Supraclavicular region: Thyroid gland as few right lobe punctate calcifications. Other: Moderate atherosclerosis is seen of the thoracic aorta. Ascending thoracic aorta is within nor mal limits measuring 3.7 cm. Atherosclerotic change of the origin of the great vessels. IMPRESSION: Lung RADS 4A-findings for which additional diagnostic testing is recommended. Right apical elongated pulmonary nodule measures 1.4 cm. This is slightly increased in size from the prior exam and a dedica florentino PET/CT scan is recommended. FOLLOW UP CT CHEST RECOMMENDATION: The right upper lobe nodule has demonstrated incremental increase in size by approximately 2 mm, dedicated PET/CT scan recommended. Additionally, there is a 1.2 cm nod ule on axial image 127 along the proximal mainstem left bronchus. Pulmonary consultation and bronchos copy suggested.
== END | disposition home or self-care (01) ==
LOC: RADCTMAIN 09:41
PROVIDERS: ATTEND Internal Medicine
DX: Z12.2 Encounter for screening for malignant neoplasm of respiratory organs (principal); R91.1 Solitary pulmonary nodule; F17.210 Nicotine dependence, cigarettes, uncomplicated

== ENCOUNTER 2018-10-11 13:57 | Observation (INO) | payer MEDICARE ==
[2018-10-11] MEDS ORDERED: NITROGLYCERIN OINT 1 INCH/GM PACKET TOPICAL STA (14:41)
[2018-10-11] MEDS ORDERED: ASPIRIN 81 MG PO STA (14:41)
--- NOTE | 2018-10-11 14:43 | ED ---
General Adult HPI - General Chief complaint: Chest Pain Stated complaint: Chest pain Time Seen by Provider: 10/11/18 14:09 Source: patient, RN notes reviewed Mode of arrival: wheelchair Limitations: no limitations - History of Present Illness Initial comments: Patient is a pleasant 73-year-old male presenting to the emergency Department with complaints of chest discomfort. Onset was yesterday. Discomfort has been mostly steady. Discomfort feels like pressure. No radiation. No associated dyspnea, nausea, or diaphoresis. No history of similar symptoms previously. Discomfort is currently 09/06. - Related Data Home Medications Medication Instructions Recorded Confirmed HYDROcodone/APAP 10-325MG [[place] 1 tab PO Q6H PRN 08/15/18 10/11/18 10-325] Atorvastatin [Lipitor] 80 mg PO Q48H 10/11/18 10/11/18 Metoprolol Unknown 1 tab PO ONCE PRN 10/11/18 10/11/18 Allergies Allergy/AdvReac Type Severity Reaction Status Date / Time pregabalin [From Lyrica] Allergy psychotic Verified 10/11/18 14:45 behavior varenicline tartrate Allergy psychotic Verified 10/11/18 14:45 [From Chantix] behavior Review of Systems ROS Statement: Those systems with pertinent positive or pertinent negative responses have been documented in the HPI. ROS Other: All systems not noted in ROS Statement are negative. Constitutional: Denies: fever Eyes: Denies: eye pain ENT: Denies: ear pain Respiratory: Denies: cough, dyspnea Cardiovascular: Reports: chest pain Endocrine: Denies: fatigue Gastrointestinal: Denies: abdominal pain Genitourinary: Denies: dysuria Skin: Denies: as per HPI, rash Neurological: Denies: weakness Past Medical History Past Medical History: Hyperlipidemia, Musculoskeletal Disorder, Osteoarthritis (OA) Additional Past Medical History / Comment(s): STATES BLOOD IN STOOL, Chronic neck and back pain, RADIATES DOWN BOTH LEGS, ALSO N/T. History of Any Multi-Drug Resistant Organisms: None Reported Past Surgical History: Back Surgery, Orthopedic Surgery Additional Past Surgical History / Comment(s): Neck surgery, right knee arthroscopy, pain procedures. Past Anesthesia/Blood Transfusion Reactions: No Reported Reaction Additional Past Anesthesia/Blood Transfusion Reaction / Comment(s): FAMILY HX UNKNOWN Past Psychological History: No Psychological Hx Reported Smoking Status: Current every day smoker Past Alcohol Use History: Daily Past Drug Use History: None Reported - Past Family History Mother Family Medical History: Liver Disease General Exam Limitations: no limitations General appearance: alert, in no apparent distress Head exam: Present: atraumatic Eye exam: Present: normal appearance, PERRL ENT exam: Present: normal oropharynx Neck exam: Present: normal inspection Respiratory exam: Present: normal lung sounds bilaterally. Absent: chest wall tenderness Cardiovascular Exam: Present: regular rate, normal rhythm Expanded Peripheral pulses: 2+: Radial (R), Radial (L), Dorsalis Pedis (R), Dorsalis Pedis (L) GI/Abdominal exam: Present: soft. Absent: distended, tenderness Extremities exam: Present: normal inspection. Absent: pedal edema, calf tenderness Neurological exam: Present: alert Psychiatric exam: Present: normal affect, normal mood Skin exam: Present: normal color Course Vital Signs 10/11/18 10/11/18 10/11/18 14:05 14:46 15:30 Temperature 97.8 F Pulse Rate 57 L 54 L 54 L Respiratory 18 18 16 Rate Blood Pressure 115/64 117/64 120/71 O2 Sat by Pulse 96 98 97 Oximetry EKG Findings - EKG Comments: EKG Findings:: Sinus bradycardia 57. TX 164. QRS 68. QT 396. QTc 385. Normal axis. Septal Q waves. No acute ST change. Medical Decision Making - Medical Decision Making Patient reevaluated and resting comfortably in bed. Patient and family updated on results and plan. Dr. Dias has been paged for admission, covering for Dr. Gallegos. - Lab Data Result diagrams: 10/11/18 14:21 10/11/18 14:21 Lab Results 10/11/18 10/11/18 10/11/18 Range/Units 14:21 14:21 14:21 WBC 9.0 (3.8-10.6) k/uL RBC 4.55 (4.30-5.90) m/uL Hgb 14.4 (13.0-17.5) gm/dL Hct 41.6 (39.0-53.0) % MCV 91.6 (80.0-100.0) fL MCH 31.6 (25.0-35.0) pg MCHC 34.5 (31.0-37.0) g/dL RDW 14.6 (11.5-15.5) % Plt Count 337 (150-450) k/uL Neutrophils % 58 % Lymphocytes % 25 % Monocytes % 11 % Eosinophils % 3 % Basophils % 1 % Neutrophils # 5.2 (1.3-7.7) k/uL Lymphocytes # 2.3 (1.0-4.8) k/uL Monocytes # 1.0 (0-1.0) k/uL Eosinophils # 0.3 (0-0.7) k/uL Basophils # 0.1 (0-0.2) k/uL PT 10.3 (9.0-12.0) sec INR 1.0 (<1.2) APTT 25.9 (22.0-30.0) sec Sodium 141 (137-145) mmol/L Potassium 4.4 (3.5-5.1) mmol/L Chloride 107 (98-107) mmol/L Carbon Dioxide 28 (22-30) mmol/L Anion Gap 6 mmol/L BUN 11 (9-20) mg/dL Creatinine 0.73 (0.66-1.25) mg/dL Est GFR (CKD-EPI)AfAm >90 (>60 ml/min/1.73 sqM) Est GFR (CKD-EPI)NonAf >90 (>60 ml/min/1.73 sqM) Glucose 75 (74-99) mg/dL Calcium 9.4 (8.4-10.2) mg/dL Magnesium 2.0 (1.6-2.3) mg/dL Total Bilirubin 0.4 (0.2-1.3) mg/dL AST 21 (17-59) U/L ALT 22 (21-72) U/L Alkaline Phosphatase 103 (38-126) U/L Creatine Kinase 80 (55-170) U/L Troponin I (0.000-0.034) ng/mL Total Protein 7.1 (6.3-8.2) g/dL Albumin 4.3 (3.5-5.0) g/dL 10/11/18 Range/Units 14:21 WBC (3.8-10.6) k/uL RBC (4.30-5.90) m/uL Hgb (13.0-17.5) gm/dL Hct (39.0-53.0) % MCV (80.0-100.0) fL MCH (25.0-35.0) pg MCHC (31.0-37.0) g/dL RDW (11.5-15.5) % Plt Count (150-450) k/uL Neutrophils % % Lymphocytes % % Monocytes % % Eosinophils % % Basophils % % Neutrophils # (1.3-7.7) k/uL Lymphocytes # (1.0-4.8) k/uL Monocytes # (0-1.0) k/uL Eosinophils # (0-0.7) k/uL Basophils # (0-0.2) k/uL PT (9.0-12.0) sec INR (<1.2) APTT (22.0-30.0) sec Sodium (137-145) mmol/L Potassium (3.5-5.1) mmol/L Chloride (98-107) mmol/L Carbon Dioxide (22-30) mmol/L Anion Gap mmol/L BUN (9-20) mg/dL Creatinine (0.66-1.25) mg/dL Est GFR (CKD-EPI)AfAm (>60 ml/min/1.73 sqM) Est GFR (CKD-EPI)NonAf (>60 ml/min/1.73 sqM) Glucose (74-99) mg/dL Calcium (8.4-10.2) mg/dL Magnesium (1.6-2.3) mg/dL Total Bilirubin (0.2-1.3) mg/dL AST (17-59) U/L ALT (21-72) U/L Alkaline Phosphatase (38-126) U/L Creatine Kinase (55-170) U/L Troponin I <0.012 (0.000-0.034) ng/mL Total Protein (6.3-8.2) g/dL Albumin (3.5-5.0) g/dL - Radiology Data Radiology results: image reviewed (Chest x-ray shows no acute process) Disposition Clinical Impression: Chest pain Disposition: ADMITTED IP TO THIS [facility] Is patient prescribed a controlled substance at d/c from ED?: No Referrals: Tom Mccollum MD [Primary Care Provider] - 1-2 days Decision Time: 16:01
[2018-10-11 15:17] LABS: ALT 22 U/L (21-72); AST 21 U/L (17-59); Albumin 4.3 g/dL (3.5-5.0); Alkaline Phosphatase 103 U/L (38-126); Anion Gap 6 mmol/L; Blood Urea Nitrogen 11 mg/dL (9-20); Calcium 9.4 mg/dL (8.4-10.2); Carbon Dioxide 28 mmol/L (22-30); Chloride 107 mmol/L (98-107); Creatine Kinase 80 U/L (55-170); Glucose 75 mg/dL (74-99); Potassium 4.4 mmol/L (3.5-5.1); Sodium 141 mmol/L (137-145); Total Bilirubin 0.4 mg/dL (0.2-1.3); Total Protein 7.1 g/dL (6.3-8.2)
[2018-10-11 15:21] LABS: Partial Thromboplastin Time 25.9 sec (22.0-30.0); Prothrombin Time 10.3 sec (9.0-12.0)
[2018-10-11 15:32] LABS: Basophils # (A) 0.1 k/uL (0-0.2); Basophils % (A) 1 %; Eosinophils # (A) 0.3 k/uL (0-0.7); Eosinophils % (A) 3 %; HCT 41.6 % (39.0-53.0); HGB 14.4 gm/dL (13.0-17.5); Lymphocytes # (A) 2.3 k/uL (1.0-4.8); Lymphocytes % (A) 25 %; MCH 31.6 pg (25.0-35.0); MCHC 34.5 g/dL (31.0-37.0); MCV 91.6 fL (80.0-100.0); Mean Platelet Volume 7.6; Monocytes % (A) 11 %; Neutrophils # (A) 5.2 k/uL (1.3-7.7); Neutrophils % (A) 58 %; Platelet Count 337 k/uL (150-450); RBC 4.55 m/uL (4.30-5.90); RDW 14.6 % (11.5-15.5)
--- NOTE | 2018-10-11 15:46 | XR ---
EXAMINATION TYPE: XR chest 2V DATE OF EXAM: 10/11/2018 COMPARISON: 08/15/2018 HISTORY: Chest pain TECHNIQUE: Frontal and lateral views of the chest are obtained. FINDINGS: Heart and mediastinum are normal. There is minimal right upper lobe pulmonary emphysema. T here is old healed left clavicle fracture. There is no pleural effusion. There are no hilar masses. T here are chest leads. Thoracic spine is intact. IMPRESSION: No active cardiopulmonary disease. Normal heart. No change. Mild emphysema.
[2018-10-11] MEDS ORDERED: NITROGLYCERIN SL TABS 0.4 MG TAB SUBLINGUAL PRN (16:01)
[2018-10-11] MEDS: NITROGLYCERIN OINT 1 INCH/GM PACKET TOPICAL SCH ×2 (18:55→23:17)
[2018-10-11] MEDS ORDERED: MAG HYDROX/AL HYDROX/SIMETH 30 ML CUP PO PRN (19:19)
--- NOTE | 2018-10-11 19:29 | P.HPIM ---
History of Present Illness H&P Date: 10/11/18 Chief Complaint: chest pain 73-year-old male with no significant past medical history except for hyperlipidemia. Patient was at his baseline status at home when suddenly yesterday in the afternoon he felt sudden onset central chest pain retrosternal he couldn't but he said it severe 8 out of 10 in severity radiating to the neck this pain lasted for 12 hours he could not related to food or activity he didn't try to take any medications for that he just rested and waited for it to go away and was waxing and waning throughout the day until 1 after midnight when the pain subsided he slept well and then when woke up this morning he was fine and then at 10 in the morning he started experiencing chest pain again same as above lasting for one hour and then went away again is not precipitated by any food or activity. And then later during the day he kept getting short brief attacks of chest pain off-and-on for which she decided come to the hospital none of these events were associated with any nausea vomiting sweating and dizziness lightheadedness shortness of breath or palpitations. He has anything similar in the past. He reported that he is very active during the day normally and he wouldn't get any chest pain or shortness of breath that limits his activity. He takes Lipitor at home and Grambling's when needed. His neighbor had a heart attack a month ago and he kind of talked him into coming into the hospital to get checked. Currently patient feeling okay denies any chest pain or trouble breathing laying comfortable in bed with family at bedside the ER EKG was unremarkable except for bradycardia, his labs were unremarkable troponins were negative Review of Systems Pertinent positives as noted in HPI. All other systems were reviewed and are negative Past Medical History Past Medical History: Hyperlipidemia, Musculoskeletal Disorder, Osteoarthritis (OA) Additional Past Medical History / Comment(s): STATES BLOOD IN STOOL, Chronic neck and back pain, RADIATES DOWN BOTH LEGS, ALSO N/T. History of Any Multi-Drug Resistant Organisms: None Reported Past Surgical History: Back Surgery, Orthopedic Surgery Additional Past Surgical History / Comment(s): Neck surgery, right knee arthroscopy, pain procedures. Past Anesthesia/Blood Transfusion Reactions: No Reported Reaction Additional Past Anesthesia/Blood Transfusion Reaction / Comment(s): FAMILY HX UNKNOWN Past Psychological History: No Psychological Hx Reported Smoking Status: Current every day smoker Past Alcohol Use History: Daily Past Drug Use History: None Reported - Past Family History Mother Family Medical History: Liver Disease Medications and Allergies Home Medications Medication Instructions Recorded Confirmed Type HYDROcodone/APAP 10-325MG [[place] 1 tab PO Q6H PRN 08/15/18 10/11/18 History 10-325] Atorvastatin [Lipitor] 80 mg PO Q48H 10/11/18 10/11/18 History Metoprolol Unknown 1 tab PO ONCE PRN 10/11/18 10/11/18 History Allergies Allergy/AdvReac Type Severity Reaction Status Date / Time pregabalin [From Lyrica] Allergy psychotic Verified 10/11/18 14:45 behavior varenicline tartrate Allergy psychotic Verified 10/11/18 14:45 [From Chantix] behavior Physical Exam Vitals: Vital Signs Temp Pulse Resp BP Pulse Ox 10/11/18 15:30 54 L 16 120/71 97 10/11/18 14:46 54 L 18 117/64 98 10/11/18 14:05 97.8 F 57 L 18 115/64 96 Intake and Output 10/11/18 10/11/18 10/11/18 06:59 14:59 22:59 Other: Weight 69.853 kg Constitutional: No acute distress, conversant, pleasant Eyes: Anicteric sclerae, moist conjunctiva, no lid-lag Pupils equal round reactive to light ENMT: NC/AT Oropharynx clear, no erythema, exudates Neck: Supple, FROM, no masses, or JVD No carotid bruits No thyromegaly Lungs: Clear to auscultation Clear to percussion Normal respiratory effort, no accessory muscle use Cardiovascular: Heart regular in rate and rhythm, No murmurs, gallops, or rubs No peripheral edema Abdominal: Soft Nontender, no guarding, rebound or rigidity Abdomen moving with respiration Normoactive bowel sounds No hepatomegaly, No splenomegaly No palpable mass No abdominal wall hernia noted Skin: Normal temperature, tone, texture, turgor No induration No subcutaneous nodules No rash, lesions No ulcers Extremities: No digital cyanosis No clubbing Pedal pulses intact and symmetrical Radial pulses intact and symmetrical No calf tenderness Psychiatric: Alert and oriented to person, place and time Appropriate affect fair judgement Neuro Muscles Strength 5/5 in all 4 extremities Sensation to light touch grossly present throughout Cranial nerves II-XII grossly intact No focal sensory deficits Lymphatics: no palpable cervical or supraclavicular , or inguinal lymph nodes Results CBC & Chem 7: 10/11/18 14:21 10/11/18 14:21 Assessment and Plan Assessment: 73-year-old male with past medical history of hyperlipidemia admitted as observation with anticipated length of stay less than 48 hours for chest pain rule out ACS Plan: Atypical chest pain Patient is a male 73 years old heavy smoker with history of hyperlipidemia Patient will be monitored overnight with serial cardiac enzymes Cardiac monitoring Cardiology consult The patient chest pain-free in the morning probably will be offered stress test Nitro when necessary Hold metoprolol patient is bradycardic in the low 50s Aspirin Lipitor DVT prophylaxis heparin subcu 3 times a day Surrogate decision-maker: Patient CODE STATUS: Full code Discussed with: Patient, ER, RN Anticipated discharge: <48hours Anticipated discharge place: home A total of 60 minutes was spent on the care of this complex patient more than 50% of the time was spent in counseling and care coordination.
[2018-10-11] MEDS ORDERED: LORazepam 2 MG/ML INJ IV PRN ×3 (19:32)
[2018-10-11] MEDS ORDERED: THIAMINE 100 MG/ML 2 ML VIAL IM STA (19:32)
[2018-10-11] MEDS ORDERED: ATORVASTATIN 80 MG TAB PO SCH (21:00)
[2018-10-11] MEDS: PANTOPRAZOLE 40 MG TABLET PO SCH (23:14)
[2018-10-11] MEDS: HEPARIN SODIUM,PORCINE 5,000 UNIT/ML 1 ML VIAL SQ SCH (23:17)
[2018-10-12 03:05] LABS: Cholesterol 148 mg/dL (<200); HDL Cholesterol 34 mg/dL (40-60); LDL Cholesterol,Calculated 86 mg/dL (0-99); Triglycerides 139 mg/dL (<150)
[2018-10-12 05:34] VITALS: TEMP 98
[2018-10-12] MEDS: NITROGLYCERIN OINT 1 INCH/GM PACKET TOPICAL SCH ×2 (06:50→11:42)
[2018-10-12] MEDS: PANTOPRAZOLE 40 MG TABLET PO SCH (06:50)
[2018-10-12 08:23] VITALS: RESP 16
[2018-10-12] MEDS ORDERED: DOBUTamine DRIP for NUC MED 500 MG in DEXTROSE/WATER 1 250ML.BAG IV ONE (08:30)
[2018-10-12] MEDS: HEPARIN SODIUM,PORCINE 5,000 UNIT/ML 1 ML VIAL SQ SCH ×2 (08:56→15:50)
[2018-10-12] MEDS ORDERED: ASPIRIN 325 MG TAB PO SCH (09:00)
--- NOTE | 2018-10-12 09:11 | CONS ---
CONSULTATION CHIEF COMPLAINT: Chest pain. Best is a 73-year-old gentleman with history of hypertension, dyslipidemia, and smoking, who presented to hospital complaining of chest pain. He is admitted to hospital for the same and Cardiology had been consulted for the same. There is history of significant ETOH abuse. There is no history of leg edema, shortness of breath paroxysmal nocturnal dyspnea or orthopnea. There is no prior history of coronary artery disease or congestive heart failure. EKG on this admission reveals sinus bradycardia without significant ST-T wave changes. Three sets of cardiac enzymes are negative. Patient had an echocardiogram in 2016 that was within normal limits. Patient had a cardiac catheterization in 2006 that revealed moderate disease involving PDA and the diagonal branch. Patient's chest discomfort is localized to the xiphoid process and is reproducible. I am going to obtain a dobutamine echo on him to rule out ischemia and if he has ischemia, consider cardiac catheterization. If not, discharge him home and arrange outpatient followup. PAST MEDICAL HISTORY: Significant for hypertension, dyslipidemia. CURRENT MEDICATIONS: Include [place], metoprolol, and Lipitor. The patient is allergic to LYRICA and CHANTIX. FAMILY HISTORY: Negative for premature coronary artery disease. SOCIAL HISTORY: Significant for smoking and ETOH abuse. There is no history of drug abuse. REVIEW OF SYSTEMS: HEENT is unremarkable. CARDIAC: As described above. RESPIRATORY: Negative. GI: Negative. GENITOURINARY: Negative. ENDOCRINE: Negative. ALLERGY: Negative. SKIN: Negative. MUSCULOSKELETAL: Negative. ENDOCRINE: Negative. CONSTITUTIONAL: Negative. ONCOLOGICAL: Negative. Rest of the system review is not relevant. PHYSICAL EXAM: Comfortable at rest. Vital signs are stable. There is no jugular venous distention. Carotid upstroke is normal. There is no bruit. Chest exam reveals good air entry bilaterally. Heart exam reveals first and second heart sounds. No gallop. No murmur. No rub. Abdomen is soft, nontender. Exam of extremities did not reveal edema. Peripheral pulses are felt. SEED TECHNICIAN exam did not reveal focal neurological deficits. LABS: Show a hemoglobin of 14.4, potassium is 4.4, creatinine is 0.7. Three sets of troponins are negative. LDL is 86. ASSESSMENT: 1. Precordial chest pain. 2. Sinus bradycardia. 3. Dyslipidemia. 4. Smoking. PLAN: Patient's chest pain is atypical and probably musculoskeletal. Myocardial infarction is ruled out. EKG does not reveal ischemic changes. I reviewed his old records. I will obtain an dobutamine stress echo on him and if this is negative, he can be discharged home with outpatient followup. Thank you for giving us the privilege to participate in the care of this pleasant gentleman. MELO / TELMA: [id number] /
[2018-10-12] MEDS ORDERED: ATROPINE SULFATE 0.1 MG/ML 10ML SYRINGE ONE (11:05)
[2018-10-12] MEDS ORDERED: METOPROLOL TARTRATE 5 MG/5 ML VIAL IVP ONE (11:05)
--- NOTE | 2018-10-12 13:09 | ECHOF ---
Referral Reason:chest pain MEASUREMENTS -------- HEIGHT: 170.2 cm WEIGHT: 67.6 kg BP: RVIDd: 2.4 cm (< 3.3) IVSd: 1.2 cm (0.6 - 1.1) LVIDd: 3.4 cm (3.9 - 5.3) LVPWd: 1.3 cm (0.6 - 1.1) IVSs: 1.5 cm LVIDs: 1.9 cm LVPWs: 1.7 cm LAESV Index (A-L): 22.50 ml/m Ao Diam: 3.0 cm (2.0 - 3.7) AV Cusp: 1.5 cm (1.5 - 2.6) LA Diam: 1.8 cm (2.7 - 3.8) MV EXCURSION: 13.189 mm (> 18.000) MV EF SLOPE: 105 mm/s (70 - 150) EPSS: 0.3 cm MV E Kelvin: 0.85 m/s MV DecT: 299 ms MV A Kelvin: 0.94 m/s MV E/A Ratio: 0.91 RAP: 5.00 mmHg RVSP: 18.74 mmHg FINDINGS -------- Sinus rhythm with extra systolic beats. This was a technically good study. The left ventricular size is normal. Left ventricular wall thickness is normal. Overall left vent ricular systolic function is normal with, an EF between 55 - 60 %. The right ventricle is normal in size. Normal LA size by volume 22+/-6 ml/m2. The right atrial size is normal. The aortic valve is trileaflet and appears structurally normal. There is trace mitral regurgitation. Trace tricuspid regurgitation present. The right ventricular systolic pressure, as measured by Dopp ler, is 18.74mmHg. There is no pulmonic regurgitation present. The aortic root size is normal. Normal inferior vena cava with normal inspiratory collapse consistent with estimated right atrial pre ssure of 5 mmHg. There is no pericardial effusion. CONCLUSIONS -------- 1. Sinus rhythm with extra systolic beats. 2. This was a technically good study. 3. The left ventricular size is normal. 4. Left ventricular wall thickness is normal. 5. Overall left ventricular systolic function is normal with, an EF between 55 - 60 %. 6. The right ventricle is normal in size. 7. Normal LA size by volume 22+/-6 ml/m2. 8. The right atrial size is normal. 9. The aortic valve is trileaflet and appears structurally normal. 10. There is trace mitral regurgitation. 11. Trace tricuspid regurgitation present. 12. The right ventricular systolic pressure, as measured by Doppler, is 18.74mmHg. 13. There is no pulmonic regurgitation present. 14. The aortic root size is normal. 15. Normal inferior vena cava with normal inspiratory collapse consistent with estimated right atrial pressure of 5 mmHg. 16. There is no pericardial effusion. SCIENTIFIC TECHNICAL WRITER: Qi Bella RDCS
--- NOTE | 2018-10-12 13:58 | ECHOS ---
STRESS ECHOCARDIOGRAM INDICATIONS: Chest pain. BASELINE HEART RATE: 51 BASELINE BLOOD PRESSURE: 119/63 MAXIMUM HEART RATE: 154 MAXIMUM BLOOD PRESSURE: 194/65 85% MPHR: 123 100% MPHR: 145 MAXIMUM STAGE REACHED: 5 TOTAL EXERCISE TIME: 13:30 CLINICAL INFORMATION: Baseline EKG revealed a sinus mechanism with poor R-wave progression over leads V1 to V3. With the dobutamine administration as per protocol, the heart rate went up to 154 beats per minute and then came back down to baseline. As the heart rate increased at about 120 beats per minute, patient developed a rate-related QRS widening with rare ST- segment depression, which is considered as an inconclusive finding. Once the heart rate came back down in the recovery period, he went back to a narrow QRS rhythm which was same as baseline. Rare isolated PVCs were noted. There were some PACs noted as well. By EKG criteria, this is considered as an inconclusive dobutamine stress test because of rate-related QRS widening making it difficult to interpret. Baseline echo images revealed normal wall motion and wall thickening of all segments. With dobutamine administration as per protocol there was progressive increase in contractility noted suggesting that there is no evidence of any stress-induced ischemia on this study. There was good augmentation of ventricular wall motion and wall thickening of all segments. IMPRESSION: 1. By EKG criteria, this is an inconclusive dobutamine stress test because of rate- related QRS widening with a bundle branch block. 2. Normal dobutamine stress echocardiogram. MMODL / IJN: [id number] /
[2018-10-12 15:29] VITALS: BP 157/69; PULSE 58
[2018-10-12] MEDS ORDERED: THIAMINE 100 MG TAB PO SCH (17:00)
--- NOTE | 2018-10-13 00:02 | DS ---
DISCHARGE SUMMARY DATE OF ADMISSION: 10/11/2018 DATE OF DISCHARGE: 10/12/2018 FINAL DIAGNOSES: 1. Anterior chest wall pain, probably musculoskeletal, localized to the lower sternum. 2. Hyperlipidemia. 3. Sigmoid diverticulosis. 4. Primary osteoarthritis. 5. Mild cognitive impairment from late-onset Alzheimer's dementia. 6. Right carotid artery stenosis of 80% to 90%. 7. Chronic obstructive pulmonary disease in a smoker. HOSPITAL COURSE: This patient presented with chest pain which was actually localized to the lower sternal area; point tenderness. The patient was seen by Dr. Fab Kumari from Cardiology. A dobutamine echocardiogram was carried out that was negative. The patient's pain is completely resolved. PHYSICAL EXAMINATION: Temperature 98, pulse 55, respiration 16, blood pressure 110/58, pulse ox 93% on room air. CONSULTATION: Dr. Fab Kumari from Cardiology. DISCHARGE MEDICATIONS: 1. [place] 10 one tablet q.6 p.r.n. 2. Lipitor 80 mg q.48 hours. Follow up with Dr. Tom Mccollum on 10/19/2018. Follow up with Dr. Fab Kumari on 11/16/2018. MMODL / IJN: [id number] /
== END 2018-10-12 16:04 | disposition home or self-care (01) ==
LOC: EC 13:57 → 1SOBS 16:01 → 3SCARD 17:16
PROVIDERS: ADMIT Hospitalist; ATTEND Hospitalist
DX: R07.89 Other chest pain (principal); E78.5 Hyperlipidemia, unspecified; M19.90 Unspecified osteoarthritis, unspecified site; G89.29 Other chronic pain; M54.2 Cervicalgia; M54.9 Dorsalgia, unspecified; F10.20 Alcohol dependence, uncomplicated; F17.200 Nicotine dependence, unspecified, uncomplicated; Z71.6 Tobacco abuse counseling; I65.21 Occlusion and stenosis of right carotid artery; K57.30 Diverticulosis of large intestine without perforation or abscess without bleeding; G30.1 Alzheimer's disease with late onset; I10 Essential (primary) hypertension; J44.9 Chronic obstructive pulmonary disease, unspecified; K21.9 Gastro-esophageal reflux disease without esophagitis; M19.91 Primary osteoarthritis, unspecified site; F02.80 Dementia in other diseases classified elsewhere, unspecified severity, without behavioral disturbance, psychotic disturbance, mood disturbance, and anxiety; Z79.899 Other long term (current) drug therapy; Z88.8 Allergy status to other drugs, medicaments and biological substances
CPT/HCPCS: 96372; 99285; 36415; 93005; 93306; 93351; 80061; 80053; 82550; 83735; 84484 ×2; 85025; 85610; 85730; 71046; G0378 ×2; J1250; J1644; J0461

== ENCOUNTER → 2018-10-15 | Outpatient (CLI) | payer MEDICARE ==
--- NOTE | 2018-10-15 15:10 | XR ---
EXAMINATION TYPE: XR cervical spine comp DATE OF EXAM: 10/15/2018 COMPARISON: NONE HISTORY: Neck surgery, pain TECHNIQUE: Four views are submitted. FINDINGS: There is postsurgical change involving the cervical spine area multilevel facet arthropathy noted. Al ignment near-anatomic. Odontoid suboptimally evaluated. Emphysematous changes involving the lung apic es noted. Multilevel foraminal encroachment suspected. Calcification the soft tissue the neck likely related carotid artery atherosclerotic changes. IMPRESSION: 1. Postsurgical change appears in near-anatomic alignment. 2. Carotid artery atherosclerotic changes.
[2018-10-16 12:51] LABS: HLA B27 NEGATIVE
== END ==
LOC: LABWHC1 12:12
PROVIDERS: ATTEND Physician Assistant
DX: M54.2 Cervicalgia (principal); L40.50 Arthropathic psoriasis, unspecified; Z98.890 Other specified postprocedural states
CPT/HCPCS: 36415; 72050; 86812

== ENCOUNTER → 2018-10-30 | Outpatient (CLI) | payer MEDICARE ==
--- NOTE | 2018-10-30 12:53 | US ---
EXAMINATION TYPE: US carotid duplex BILAT DATE OF EXAM: 10/30/2018 COMPARISON: NONE CLINICAL HISTORY: I65.29 carotid atherosclerosis. EXAM MEASUREMENTS: RIGHT: Peak Systolic Velocity (PSV) cm/sec ----- Right CCA: 91.0 ----- Right ICA: 99.7 ----- Right ECA: 135.8 ICA/CCA ratio: 1.1 RIGHT: End Diastole cm/sec ----- Right CCA: 22.7 ----- Right ICA: 31.4 ----- Right ECA: 15.6 LEFT: Peak Systolic Velocity (PSV) cm/sec ----- Left CCA: 114.1 ----- Left ICA: 103.9 ----- Left ECA: 90.5 ICA/CCA ratio: 0.9 LEFT: End Diastole cm/sec ----- Left CCA: 23.4 ----- Left ICA: 40.5 ----- Left ECA: 12.4 VERTEBRALS (direction of flow): Right Vertebral: Antegrade Left Vertebral: Antegrade Rhythm: Normal IMPRESSION: Moderate amount of plaque visualized bilaterally. Elevated velocities visualized in right ECA Criteria for Assigning % of Stenosis / Diameter reduction (Estimation based on the indirect measurements of the internal carotid artery velocities (ICA PSV). 1. Normal (no stenosis)=ICA PSV < 125 cm/s: ratio < 2.0: ICA EDV<40 cm/s. 2. Less than 50% stenosis=ICA PSV < 125 cm/s: ratio < 2.0: ICA EDV<40 cm/s. 3. 50 to 69% stenosis=ICA PSV of 125 to 230 cm/s: ration 2.0 ? 4.0: ICA EDV 40-100 cm/s. 4. Greater than 70% stenosis to near occlusion= ICA PSV > 230 cm/s: ratio > 4.0: ICA EDV > 100 cm/s. 5. Near occlusion= ICA PSV velocities may be low or undetectable: variable ratio and ICA EDV. 6. Total occlusion=unable to detect flow.
== END | disposition home or self-care (01) ==
LOC: RADUSWWP 12:02
PROVIDERS: ATTEND Internal Medicine
DX: I65.23 Occlusion and stenosis of bilateral carotid arteries (principal); I77.89 Other specified disorders of arteries and arterioles
CPT/HCPCS: 93880

== ENCOUNTER → 2018-10-30 | Outpatient (CLI) | payer MEDICARE ==
--- NOTE | 2018-10-30 19:01 | PE ---
EXAMINATION TYPE: PET CT fusion skull to thigh DATE OF EXAM: 10/30/2018 COMPARISON: CT low dose lung September 09, 2018 HISTORY: Solitary pulmonary nodule, abnormal CT TECHNIQUE: Following the intravenous administration of 15.455 mCi of F-18 FDG, whole body images are performed from the skull base to the midthigh. Images are reviewed on the computer in the coronal, axial, and sagittal planes. Reconstructed rotating images are created on independent workstation and reviewed on the computer. A noncontrast CT is performed in conjunction with the PET scan. SCAN: Initial Scan FINDINGS: SKULL BASE AND NECK: No areas of suspicious hypermetabolic uptake. CHEST, MEDIASTINUM, AND HILAR REGION: Background moderate to advanced emphysematous change most promi nent in the lung apices. Small nodule or nodular consolidation medial right upper lobe measures 1.3 x 0.9 cm on axial image 78 not significantly changed in size or appearance from prior study is ametabo lic and strongly favor postinflammatory in etiology based on location near bulla. There is 5 x 4 mm l eft upper lobe ametabolic nodule axial image 85 perhaps slightly more prominent from prior. No areas of suspicious hypermetabolic uptake. ABDOMEN AND PELVIS: There is 7 x 2 mm scattered based soft tissue nodule right posterior upper pelvic region axial image 188 with mild hypermetabolic uptake, max SUV is 2.22. Correlate with direct physi dany exam advised. No additional areas of suspicious hypermetabolic uptake. Normal excretion is seen. OSSEOUS STRUCTURES: No areas of suspicious hypermetabolic uptake. OTHER CT: Anterior fusion plate in the cervical spine with vertebral fusion device is noted. Moderate coronary artery calcification is seen which is noted marked underlying coronary artery disea se. Incidental normal-appearing appendix from the cecum. Moderate calcified plaque distal abdominal aorta extends into iliac branch vessels. Bladder is poorly distended and thus suboptimally evaluated. Prostate gland is upper limits of normal in size. Facet arthropathy in the lower lumbar spine. There is multilevel spurring in the spine present. IMPRESSION: No suspicious hypermetabolic uptake identified to suggest malignancy. Advised follow-up c hest CT in 6 months time to reassess specially due to slightly more prominent left upper lobe nodule. Advise direct correlation of right upper pelvic posterior skin lesion as focal melanoma would be in differential.
== END | disposition home or self-care (01) ==
LOC: RADPETMAIN 15:37
PROVIDERS: ATTEND Internal Medicine
DX: R91.8 Other nonspecific abnormal finding of lung field (principal)
CPT/HCPCS: 78815; A9552

== ENCOUNTER 2018-11-04 12:37 | Day surgery (SDC) | payer BC, MEDICARE, OTHER ==
[2018-11-02 13:25] VITALS: BMI 24.1
[~2018-11-04 12:37] MED LIST changes: +ALBUTEROL NEB (CONC) 2.5 MG/0.5 ML INHALATION ONE; +LACTATED RINGERS 1,000 ML IV SCH; +LIDOCAINE 2% (PF) 20 MG/ML 5 ML VIAL INHALATION ONE; +LIDOCAINE VISCOUS 300 MG/15 ML CUP MUCOUS MEM ONE; -MIDAZOLAM 2 MG/2 ML VIAL IV PRN; +SODIUM CHLORIDE 0.9% 1,000 ML IV SCH
[2018-11-04 13:12] VITALS: RESP 16; TEMP 97.2
[2018-11-04] MEDS ORDERED: GLYCOPYRROLATE 0.2 MG/ML 2 ML VIAL ONE (14:51)
[2018-11-04] MEDS ORDERED: LIDOCAINE 1% INJ 10MG/ML (20 ML MDV) ONE (14:51)
[2018-11-04] MEDS ORDERED: PROPOFOL 10 MG/ML 20 ML VIAL IV ONE (14:51)
[2018-11-04] MEDS ORDERED: LIDOCAINE 2% INJ 20 MG/ML INTRATRACH ONE (15:09)
[2018-11-04 15:37] VITALS: BP 124/73; PULSE 77
--- NOTE | 2018-11-04 20:52 | OP ---
OPERATIVE REPORT OPERATIVE PROCEDURE: Bronchoscopy and random washings. PREOPERATIVE DIAGNOSIS: Abnormal CT of the chest suggestive of endobronchial tumor involving the left mainstem bronchus. POSTOPERATIVE DIAGNOSIS: Bronchiectasis, purulent secretions. No evidence of endobronchial tumor involving the left mainstem bronchus. ANESTHESIA USED: IV conscious sedation. PROCEDURE DESCRIPTION: The patient was prepared according to protocol. He was placed in a supine position. Oxygen was applied via nasal cannula. We monitored his oxygen saturation continuously. Blood pressure was intermittently monitored and cardiac rhythm was continuously monitored. After adequate IV conscious sedation, the bronchoscope was advanced through the right naris down to the area of the vocal cords. The vocal cords were noted to be patent. Lidocaine was applied over the vocal cords, and the bronchoscope was advanced down further. We had a thorough examination of the trachea, shmuel, right upper lobe, right middle lobe, right lower lobe, left upper lobe, lingula and left lower lobe. There was evidence of scattered purulent secretions in both lungs bilaterally; also noted in the left mainstem bronchus and in the right mainstem bronchus. The secretions were washed and lavaged from different segments and from the main airways. These were sent for different diagnostic studies. Thorough examination was done of the left mainstem bronchus. Pictures were taken. There was no evidence of any endobronchial tumors or nodules in the left mainstem. The procedure was well tolerated. No evidence of any immediate complications. The abnormality on the CT of the chest most likely was related to mucus plugs rather than a true endobronchial tumor. MMODL / IJN: [id number] /
== END 2018-11-04 16:06 | disposition home or self-care (01) ==
LOC: ORWHC2ENDO 12:37
PROVIDERS: ATTEND Internal Medicine
DX: J47.9 Bronchiectasis, uncomplicated (principal); F17.200 Nicotine dependence, unspecified, uncomplicated; M79.7 Fibromyalgia; Z71.6 Tobacco abuse counseling; K21.9 Gastro-esophageal reflux disease without esophagitis; E78.5 Hyperlipidemia, unspecified; D64.9 Anemia, unspecified; F17.210 Nicotine dependence, cigarettes, uncomplicated; F10.10 Alcohol abuse, uncomplicated; K70.9 Alcoholic liver disease, unspecified; Z88.8 Allergy status to other drugs, medicaments and biological substances; Z98.890 Other specified postprocedural states; Z87.01 Personal history of pneumonia (recurrent); Z84.89 Family history of other specified conditions
CPT/HCPCS: 31624; 87070; 87102; 87116; 87205; 87206; 94640

== ENCOUNTER 2018-11-09 11:23 | Day surgery (SDC) | payer MEDICARE ==
[2018-11-05 14:17] VITALS: BMI 24.1
[~2018-11-09 11:23] MED LIST changes: -ALBUTEROL NEB (CONC) 2.5 MG/0.5 ML INHALATION ONE; -LIDOCAINE 2% (PF) 20 MG/ML 5 ML VIAL INHALATION ONE; -LIDOCAINE VISCOUS 300 MG/15 ML CUP MUCOUS MEM ONE; -SODIUM CHLORIDE 0.9% 1,000 ML IV SCH
[2018-11-09 12:01] VITALS: RESP 16; TEMP 97.4
[2018-11-09] MEDS ORDERED: PROPOFOL 10 MG/ML 20 ML VIAL IV ONE (14:05)
--- NOTE | 2018-11-09 14:48 | P.PCN ---
Date of Procedure: 11/09/18 Procedure(s) Performed: Procedure: Esophagogastroduodenoscopy and biopsy. Preoperative diagnosis: Dysphagia. Postoperative diagnosis: 1. Sliding hiatal hernia with no obvious esophagitis or complicated reflux disease. 2. Mild gastritis and duodenitis. 3. Multiple biopsies obtained from the duodenum, antrum and esophagus. Preparation and sedation: Were provided by anesthesia. Brief clinical history: The patient is a 73-year-old male who I have evaluated in the office earlier this month in regards to difficulty swallowing that he has been experiencing since last year. The patient had colonoscopy in January 2018 which was complicated by perforation and he had low anterior resection with anastomosis and has done well since with the exception of his swallowing difficulties. Apparently, he had difficulty swallowing since that time. He has required a feeding tube back then during that hospitalization that was complicated by alcohol withdrawal. In April 2018 a barium swallow showed no evidence of aspiration. He is having hard time now even swallowing pills. No other alarm symptoms. This evaluation is to assess for esophagitis or complicated reflux disease or other pathology. Procedure: With the patient on his left lateral decubitus position and after informed consent and adequate sedation, I passed the Olympus-GIF H 190 video upper endoscope through the cricopharyngeus down the esophagus. GE junction was around 40 cm from the incisors and there was a sliding hiatal hernia measuring around 2 cm but no obvious esophagitis or complicated reflux disease. Specifically, there were no strictures or ulcers. The endoscope was then passed into the stomach which was insufflated with air and inspected in detail including the retroflex view in the cardia. Finally, the endoscope was passed through the pylorus into the duodenum. Both, the stomach and duodenum showed erythema and friability but no ulcers, erosions or bleeding. I obtained biopsies from the duodenum, antrum and esophagus then the endoscope was withdrawn. The patient tolerated the procedure well. Plan: The patient was reassured. Will await biopsy results. If he continues to be symptomatic, and if the biopsies do not add additional insight into the problem, I would consider a modified barium swallow and possible motility study. I will keep you updated on his progress.
[2018-11-09 15:02] VITALS: BP 126/71; PULSE 68
== END 2018-11-09 15:13 | disposition home or self-care (01) ==
LOC: ORWHC2ENDO 11:23
DX: K29.50 Unspecified chronic gastritis without bleeding (principal); K20.9 Esophagitis, unspecified; K44.9 Diaphragmatic hernia without obstruction or gangrene; K29.80 Duodenitis without bleeding; M19.90 Unspecified osteoarthritis, unspecified site; E78.5 Hyperlipidemia, unspecified; F17.200 Nicotine dependence, unspecified, uncomplicated; Z98.0 Intestinal bypass and anastomosis status; Z90.49 Acquired absence of other specified parts of digestive tract; Z87.19 Personal history of other diseases of the digestive system; Z79.891 Long term (current) use of opiate analgesic; Z79.899 Other long term (current) drug therapy; Z88.8 Allergy status to other drugs, medicaments and biological substances
CPT/HCPCS: 88305; 43239; J2704

== ENCOUNTER → 2019-01-04 | Outpatient (CLI) | payer MEDICARE ==
[2019-01-04 13:06] LABS: HCT 46.5 % (39.0-53.0); HGB 15.3 gm/dL (13.0-17.5); MCH 30.9 pg (25.0-35.0); MCV 93.6 fL (80.0-100.0); Mean Platelet Volume 7.1; Platelet Count 334 k/uL (150-450); RBC 4.97 m/uL (4.30-5.90); RDW 14.4 % (11.5-15.5)
[2019-01-04 13:34] LABS: African American GFR (CKD) >90 (>60 ml/min/1.73 sqM); Anion Gap 9 mmol/L; Blood Urea Nitrogen 11 mg/dL (9-20); Carbon Dioxide 26 mmol/L (22-30); Chloride 106 mmol/L (98-107); Potassium 4.7 mmol/L (3.5-5.1); Sodium 141 mmol/L (137-145)
== END | disposition home or self-care (01) ==
LOC: LABPAT 12:16
PROVIDERS: ATTEND Internal Medicine Interventional Cardiology
DX: Z01.812 Encounter for preprocedural laboratory examination (principal); I25.10 Atherosclerotic heart disease of native coronary artery without angina pectoris
CPT/HCPCS: 36415; 80051; 82565; 84520; 85027

== ENCOUNTER 2019-01-06 05:54 | Day surgery (SDC) | payer MEDICARE ==
[2019-01-06] MEDS ORDERED: SODIUM CHLORIDE 0.9% 1,000 ML in EMPTY BAG 1 BAG IV ONE (06:17)
[2019-01-06] MEDS ORDERED: NITROGLYCERIN SL TABS 0.4 MG TAB SUBLINGUAL PRN ×2 (06:17→08:48)
[2019-01-06] MEDS ORDERED: ALPRAZolam 0.25 MG TAB PO PRN (06:17)
[2019-01-06] MEDS ORDERED: ALPRAZolam 0.5 MG TAB PO PRN (06:17)
[2019-01-06] MEDS ORDERED: ATORVASTATIN 80 MG TAB PO ONE (07:00)
[2019-01-06] MEDS ORDERED: ASPIRIN 325 MG TAB PO ONE (07:00)
[2019-01-06] MEDS ORDERED: SODIUM CHLORIDE 0.9% 1,000 ML IV ONE (07:04)
[2019-01-06] MEDS ORDERED: fentaNYL (PF) 50 MCG/ML 2 ML AMP ONE (07:21)
[2019-01-06] MEDS ORDERED: HEPARIN SODIUM 1,000 UN/ML (10ML VL) ONE (07:21)
[2019-01-06] MEDS ORDERED: fentaNYL (PF) 50 MCG/ML 2 ML AMP IV ONE (07:43)
[2019-01-06] MEDS ORDERED: LIDOCAINE 1% INJ 10MG/ML (20 ML MDV) SQ ONE (07:47)
[2019-01-06] MEDS ORDERED: VERAPAMIL SYRINGE (5 MG/10 ML) INTRAARTER ONE (07:50)
[2019-01-06] MEDS ORDERED: BIVALIRUDIN BOLUS 250 MG/50 ML IV ONE (07:59)
[2019-01-06] MEDS ORDERED: BIVALIRUDIN 250 MG in SODIUM CHLORIDE 0.9% 50 ML IV ONE (07:59)
[2019-01-06] MEDS ORDERED: CLOPIDOGREL 75 MG TAB PO ONE (08:00)
[2019-01-06] MEDS ORDERED: NITROGLYCERIN 1000MCG/10ML SYRINGE INTRACORON ONE (08:00)
[2019-01-06] MEDS ORDERED: CLOPIDOGREL 75 MG TAB ONE (08:00)
[2019-01-06] MEDS ORDERED: IOPAMIDOL-370 100ML BTL INJ ONE ×2 (08:09→08:26)
[2019-01-06] MEDS ORDERED: ATROPINE SULFATE 0.1 MG/ML 10ML SYRINGE IV PRN (08:48)
[2019-01-06] MEDS ORDERED: ZOLPIDEM 5 MG TAB PO PRN (08:48)
[2019-01-06] MEDS ORDERED: MAG HYDROX/AL HYDROX/SIMETH 30 ML CUP PO PRN (08:48)
[2019-01-06] MEDS ORDERED: RX INFO: IV CONTRAST WAS GIVEN 1 EACH MISC MISCELLANE PRN (08:48)
[2019-01-06] MEDS ORDERED: SODIUM CHLORIDE 0.9% 1,000 ML IV SCH (09:00)
--- NOTE | 2019-01-06 09:08 | CC ---
CARDIAC CATHETERIZATION REPORT Mr. Camacho is a 73-year-old male with known history of coronary artery disease by cardiac catheterization in 2006, history of hyperlipidemia and chronic tobacco use, who presented with symptoms of chest discomfort at time exertional and improving with nitroglycerin. In view of that, recommendation was made regarding cardiac catheterization. The procedure as well as the risks and the complications were discussed with the patient who is in full understanding and agreement. PROCEDURE: Patient was brought to denture laboratory technician in a fasting semi-sedated state after receiving fentanyl and Benadryl and achieving moderate conscious sedated state. Using Xylocaine anesthesia in the Seldinger technique, a a 6-Maori sheath was introduced in the right radial artery. Selective right and left coronary angiography performed using 5-Maori 3.5 bend right and left True catheter. Multiple views of the coronary artery including hemiaxial views were obtained. Following that, angioplasty and stenting was performed. Following that 5-Maori tight pigtail catheter was introduced in the left ventricle and a 30-degree CARRILLO view of the left ventricle was obtained. Following the catheter and sheaths were removed. Hemostasis was obtained with deployment of a TR band. There was no immediate complication. Patient is returned to his room in stable condition. Of note, the patient received intra-arterial verapamil. FINDINGS: LEFT MAIN: This is a short size vessel bifurcating left circumflex, left anterior descending artery. Left main coronary artery has no evidence of high-grade stenosis. LEFT ANTERIOR DESCENDING ARTERY: This is a large-sized vessel reaching toward the apex with a wrap around the apex segment giving rise to a diagonal branch in the proximal segment. At the takeoff of the diagonal branch, there is 20% plaque. The takeoff of the ostium of the diagonal branch has a 70% plaque. The rest of the vessel has no high- grade stenosis. LEFT CIRCUMFLEX: This is a nondominant vessel giving rise to a large obtuse marginal branch. The left circumflex as well as branches have no evidence of obstructive coronary artery disease. RIGHT CORONARY ARTERY: This is a large dominant vessel bifurcating distally PDA and posterolateral segment and branches. The right coronary artery proximally has an 80% plaque in the mid segment. There is another tubular lesion of 80%. The takeoff of the PDA has a 60% to 70% plaque. The right coronary artery in the proximal mid segment is calcified. LEFT VENTRICULOGRAM: Left ventriculogram is performed 30-degree CARRILLO view and revealed normal left ventricular size and systolic function, ejection fraction 60%. There was arrhythmia induced mitral regurgitation. HEMODYNAMICS: There was no gradient across the aortic valve. The left ventricular end-diastolic pressure was 12 to 14 mmHg. CONCLUSION: 1. Calcified right coronary artery. 2. Significant disease in the proximal and mid right coronary artery. 3. Significant disease in the ostium of the first diagonal branch. 4. Normal left ventricular size and systolic function. RECOMMENDATION: In view of finding anatomy, I recommend proceeding with coronary angioplasty and stenting of the right coronary artery. The procedure as well as the risks and the complications were discussed with the patient who is in full understanding and agreement. MMODL / IJN: [id number] /
--- NOTE | 2019-01-06 09:13 | PTCA ---
PERCUTANEOUSTRANS CORORONARY ANGIOGRAPHY Mr. Camacho is a 73-year-old male with a known history of coronary artery disease who presented with symptoms of chest discomfort, underwent cardiac catheterization, was found to have critical stenosis involving the proximal mid right coronary artery and recommendation regarding angioplasty and stenting. The procedure as well as the risks and the complications were discussed with the patient who is in full understanding and agreement. PROCEDURE: A 6-Kiswahili FR3.5 guiding catheter introduced in the system. After cannulating the right coronary ostium, a 0.014 balanced medium weight J-wire was advanced and positioned distal right coronary artery. Following that, a 2.25 x 12 mm Trek balloon was advanced and 2 inflations in the proximal mid segment were done maximum of 8 atmospheres. Following that, the balloon was removed and a 2.5 x 15 mm Xience Priscilla stent was deployed in mid segment, postdilated at 16 atmospheres. Following that, the balloon was removed and a 2.75 x 15 mm Xience Priscilla stent was deployed proximally and postdilated to 16 atmospheres. Following that the balloon was removed and a 2.5 x 12 mm Xience Priscilla stent was deployed distal to the first stent and post dilated at 16 atmospheres. An inflation overlap segment to 16 atmospheres was done. Following that, the balloon and the guidewire were withdrawn back in the guiding catheter. Images were obtained and repeated. Those images reveal stable successful stenting. At that point, the guiding catheter, the balloon and the guidewire were removed. Left ventriculogram was performed. Following that, the sheath was removed. Hemostasis was obtained with deployment of a TR band. There was no immediate complication. Patient was returned to his room in stable condition. Of note, the patient had chest discomfort with the inflation that resolved at the end of the procedure. He received Angiomax per protocol as well as oral loading dose of clopidogrel. RESULTS: 1. Successful stenting of the proximal right coronary artery with reduction of stenosis from 80% to 0%. 2. Successful stenting of the mid right coronary artery with reduction of stenosis from 80% to 0%. RECOMMENDATION: Patient will be continued on aspirin, Plavix and statin. The importance of dual antiplatelet treatment was discussed with the patient and his family and they are in full understanding and agreement. Duration of procedure is 45 minutes. MMODL / IJN: [id number] /
[2019-01-06 13:41] VITALS: BMI 24.5
[2019-01-07 05:41] VITALS: PULSE 65
[2019-01-07 06:25] LABS: Basophils % (A) 0 %; Eosinophils # (A) 0.4 k/uL (0-0.7); Eosinophils % (A) 5 %; HCT 42.8 % (39.0-53.0); HGB 14.2 gm/dL (13.0-17.5); Lymphocytes # (A) 1.8 k/uL (1.0-4.8); Lymphocytes % (A) 21 %; MCH 31.3 pg (25.0-35.0); MCHC 33.2 g/dL (31.0-37.0); MCV 94.2 fL (80.0-100.0); Mean Platelet Volume 6.5; Monocytes # (A) 0.9 k/uL (0-1.0); Monocytes % (A) 10 %; Neutrophils # (A) 5.2 k/uL (1.3-7.7); Neutrophils % (A) 61 %; Platelet Count 295 k/uL (150-450); RBC 4.54 m/uL (4.30-5.90); RDW 13.2 % (11.5-15.5); WBC 8.5 k/uL (3.8-10.6)
[2019-01-07 06:35] LABS: African American GFR (CKD) >90 (>60 ml/min/1.73 sqM); Anion Gap 7 mmol/L; Blood Urea Nitrogen 10 mg/dL (9-20); Calcium 9.1 mg/dL (8.4-10.2); Carbon Dioxide 24 mmol/L (22-30); Chloride 107 mmol/L (98-107); Glucose 107 mg/dL (74-99); Potassium 4.1 mmol/L (3.5-5.1); Sodium 138 mmol/L (137-145)
[2019-01-07 08:03] VITALS: BP 150/80; RESP 16; TEMP 98.3
[2019-01-07] MEDS ORDERED: ASPIRIN 81 MG PO SCH (09:00)
[2019-01-07] MEDS ORDERED: ATORVASTATIN 80 MG TAB PO SCH (09:00)
[2019-01-07] MEDS ORDERED: CLOPIDOGREL 75 MG TAB PO SCH (09:00)
--- NOTE | 2019-01-07 09:57 | PN ---
PROGRESS NOTE Mr. Camacho is a 73-year-old male with known history of hyperlipidemia, chronic tobacco use, who presented with symptoms of chest discomfort and underwent a cardiac catheterization that revealed significant obstructive disease involving the right coronary artery, underwent successful stenting of that vessel. He is doing well this morning. He is denying any chest pain. His breathing has been stable. He denies any dizziness or palpitation. He denies any nausea. He continued to be on aspirin once a day, Plavix 75 mg daily, Lipitor 80 mg daily. PHYSICAL EXAMINATION: Blood pressure 120/60 with the heart rate in the 60s. LUNGS: Clear. HEART: Regular rate and rhythm. S1, S2. No S3. No rub. ABDOMEN: Soft, nontender. EXTREMITIES: No edema. Right radial pulse intact. LAB DATA: Lab data revealed BUN and creatinine 10 and 0.7, potassium . EKG revealed no acute changes. IMPRESSION: 1. Status post stenting of the right coronary artery. 2. Hyperlipidemia. 3. Chronic tobacco use. RECOMMENDATION: Patient should be able to be discharged home today and followed as an outpatient. The importance of smoking cessation was discussed with him. MMODL / IJN: [id number] /
== END 2019-01-07 10:00 | disposition home or self-care (01) ==
LOC: CATHCVL 05:54 → 3SCARD 10:08 → CATHCVL 01-07 10:00
PROVIDERS: ATTEND Internal Medicine Interventional Cardiology
DX: I25.110 Atherosclerotic heart disease of native coronary artery with unstable angina pectoris (principal); E78.2 Mixed hyperlipidemia; F17.210 Nicotine dependence, cigarettes, uncomplicated; I73.9 Peripheral vascular disease, unspecified; Z79.82 Long term (current) use of aspirin; Z79.02 Long term (current) use of antithrombotics/antiplatelets; Z88.8 Allergy status to other drugs, medicaments and biological substances; Z79.899 Other long term (current) drug therapy
CPT/HCPCS: 93458; 85347; 80048; 85025; C9600; C1769 ×2; C1894; C1725; C1887; C1874; J2001; J3010; J0583; Q9967

== ENCOUNTER 2019-02-01 02:16 | Observation (INO) | payer MEDICARE ==
[2019-02-01] MEDS ORDERED: SODIUM CHLORIDE 0.9% 1,000 ML IV STA (02:26)
--- NOTE | 2019-02-01 02:26 | ED ---
Chest Pain HPI - General Chief Complaint: Chest Pain Stated Complaint: Chest pain Time Seen by Provider: 02/01/19 02:18 Source: EMS, RN notes reviewed, old records reviewed Mode of arrival: EMS Limitations: no limitations - History of Present Illness Initial Comments: This is a 73-year-old male the ER for evaluation patient presents for evaluation of chest pain. Patient has history of anginal-type pain. Multiple cardiac evaluations. Patient has history of high cholesterol. Patient states he was working out suddenly of all day and began to have chest pain. MD Complaint: chest pain -: hour(s) Onset: during exertion Pain Location: substernal, left chest Severity: mild Severity scale (1-10): 2 Quality: heaviness Consistency: constant Improves With: nothing Worsens With: nothing Anginal Symptoms: nausea Treatments Prior to Arrival: none - Related Data Home Medications Medication Instructions Recorded Confirmed HYDROcodone/APAP 10-325MG [[place] 1 tab PO DAILY PRN 08/15/18 01/06/19 10-325] Aspirin 81 mg PO ONCE 01/06/19 01/06/19 Previous Rx's Medication Instructions Recorded Atorvastatin [Lipitor] 80 mg PO DAILY #0 01/07/19 Clopidogrel [Plavix] 75 mg PO DAILY #90 tab 01/07/19 Nitroglycerin Sl Tabs [Nitrostat] 0.4 mg SUBLINGUAL Q5M PRN #25 tab 01/07/19 Allergies Allergy/AdvReac Type Severity Reaction Status Date / Time pregabalin [From Lyrica] Allergy psychotic Verified 02/01/19 02:24 behavior varenicline tartrate Allergy psychotic Verified 02/01/19 02:24 [From Chantix] behavior Review of Systems ROS Statement: Those systems with pertinent positive or pertinent negative responses have been documented in the HPI. ROS Other: All systems not noted in ROS Statement are negative. EKG Findings - EKG Comments: EKG Findings:: EKG shows sinus rhythm rate of 60, KS 152, QRS 70, QTc 438 Past Medical History Past Medical History: Chest Pain / Angina, Hyperlipidemia, Musculoskeletal Disorder, Osteoarthritis (OA) Additional Past Medical History / Comment(s): Chronic neck and back pain, RADIATES DOWN BOTH LEGS, History of Any Multi-Drug Resistant Organisms: None Reported Past Surgical History: Back Surgery, Orthopedic Surgery Additional Past Surgical History / Comment(s): Neck surgery, right knee arthroscopy, pain procedures. COLONOSCOPY Past Anesthesia/Blood Transfusion Reactions: No Reported Reaction Additional Past Anesthesia/Blood Transfusion Reaction / Comment(s): FAMILY HX UNKNOWN Past Psychological History: No Psychological Hx Reported Smoking Status: Current every day smoker Past Alcohol Use History: Daily Past Drug Use History: None Reported - Past Family History Mother Family Medical History: No Reported History, Liver Disease General Exam Limitations: no limitations General appearance: alert, in no apparent distress Head exam: Present: atraumatic, normocephalic, normal inspection Eye exam: Present: normal appearance, PERRL, EOMI. Absent: scleral icterus, conjunctival injection, periorbital swelling ENT exam: Present: normal exam, mucous membranes moist Neck exam: Present: normal inspection. Absent: tenderness, meningismus, lymph adenopathy Respiratory exam: Present: normal lung sounds bilaterally. Absent: respiratory distress, wheezes, rales, rhonchi, stridor Cardiovascular Exam: Present: regular rate, normal rhythm, normal heart sounds. Absent: systolic murmur, diastolic murmur, rubs, gallop, clicks GI/Abdominal exam: Present: soft, normal bowel sounds. Absent: distended, tenderness, guarding, rebound, rigid Extremities exam: Present: normal inspection, full ROM, normal capillary refill. Absent: tenderness, pedal edema, joint swelling, calf tenderness Back exam: Present: normal inspection Neurological exam: Present: alert, oriented X3, CN II-XII intact Psychiatric exam: Present: normal affect, normal mood Skin exam: Present: warm, dry, intact, normal color. Absent: rash Course Vital Signs 02/01/19 02:17 Temperature 98.4 F Pulse Rate 68 Respiratory 18 Rate Blood Pressure 111/63 O2 Sat by Pulse 94 L Oximetry Chest Pain MDM - MDM 73 male the ER for evaluation presented for evaluation chest pain, patient can be admitted for cardiac observation Critical Care Time Critical Care Time: Yes Total Critical Care Time: 31 Disposition Clinical Impression: Chest pain Disposition: ADMITTED IP TO THIS HOSP Condition: Undetermined Instructions (If sedation given, give patient instructions): Chest Pain (ED) Is patient prescribed a controlled substance at d/c from ED?: No Referrals: Tom Mccollum MD [Primary Care Provider] - 1-2 days
[2019-02-01 02:34] LABS: Basophils % (A) 0 %; Eosinophils # (A) 0.4 k/uL (0-0.7); Eosinophils % (A) 4 %; HCT 37.9 % (39.0-53.0); HGB 12.8 gm/dL (13.0-17.5); Lymphocytes # (A) 2.5 k/uL (1.0-4.8); Lymphocytes % (A) 23 %; MCHC 33.8 g/dL (31.0-37.0); MCV 91.7 fL (80.0-100.0); Mean Platelet Volume 6.2; Monocytes # (A) 1.2 k/uL (0-1.0); Monocytes % (A) 11 %; Neutrophils # (A) 6.4 k/uL (1.3-7.7); Neutrophils % (A) 59 %; Platelet Count 332 k/uL (150-450); RBC 4.14 m/uL (4.30-5.90); RDW 13.1 % (11.5-15.5); WBC 10.8 k/uL (3.8-10.6)
[2019-02-01 02:47] LABS: ALT 22 U/L (21-72); AST 21 U/L (17-59); African American GFR (CKD) >90 (>60 ml/min/1.73 sqM); Albumin 3.7 g/dL (3.5-5.0); Alkaline Phosphatase 113 U/L (38-126); Anion Gap 8 mmol/L; Blood Urea Nitrogen 11 mg/dL (9-20); Calcium 8.7 mg/dL (8.4-10.2); Carbon Dioxide 28 mmol/L (22-30); Chloride 98 mmol/L (98-107); Glucose 102 mg/dL (74-99); Potassium 3.6 mmol/L (3.5-5.1); Sodium 134 mmol/L (137-145); Total Bilirubin 0.5 mg/dL (0.2-1.3); Total Protein 6.4 g/dL (6.3-8.2)
[2019-02-01 02:50] LABS: D-Dimer 0.59 mg/L FEU (<0.60); Partial Thromboplastin Time 25.5 sec (22.0-30.0); Prothrombin Time 10.5 sec (9.0-12.0)
--- NOTE | 2019-02-01 02:56 | XR ---
EXAM: XR Chest, 2 Views CLINICAL HISTORY: ITS.REASON XR Reason: Chest Pain TECHNIQUE: Frontal and lateral views of the chest. COMPARISON: 10/11/18. FINDINGS: Lungs: Chronic lung changes. Mild basilar opacities, possible atelectasis. Pleural space: No significant pleural effusion or pneumothorax. Heart: Stable cardiomediastinal silhouette. Mediastinum: See above. Bones/joints: Cervical hardware and old left clavicle fracture and noted. IMPRESSION: Mild basilar opacities, possible atelectasis. Correlate clinically to exclude developing infiltrate.
[2019-02-01] MEDS ORDERED: NITROGLYCERIN SL TABS 0.4 MG TAB SUBLINGUAL PRN ×2 (03:04→09:59)
[2019-02-01] MEDS ORDERED: MORPHINE SULFATE 4 MG/ML SYRINGE IVP PRN (03:09)
[2019-02-01] MEDS ORDERED: NITROGLYCERIN OINT 1 INCH/GM PACKET TOPICAL STA (03:09)
[2019-02-01] MEDS ORDERED: MORPHINE SULFATE 4 MG/ML SYRINGE IVP STA (03:09)
[2019-02-01] MEDS ORDERED: HYDROcodone/APAP 10-325MG 1 EACH TAB PO PRN (09:59)
--- NOTE | 2019-02-01 10:14 | P.CRDCN ---
History of Present Illness History of present illness: This is Dr. Saavedra dictating a consult on this patient The patient was interviewed and examined by me IMPRESSION / ASSESSMENT: Atypical chest discomfort with normal cardiac enzymes Coronary artery disease status post coronary stenting to the RCA last month No evidence for acute myocardial infarction PLAN: Dobutamine stress echo tomorrow and if this is normal he may follow up with Dr. Rodriguez as an outpatient Lipid panel HPI Patient was working in the yard when he started experiencing severe chest discomfort that began in his abdomen and went upwards no other symptoms such as nausea and sweating diarrhea or any other abnormal symptoms The pain lasted all day almost 11-12 hours by the time he came to the emergency room ROS: No fever chills or rigors, no cough, phlegm or expectoration, no nausea, vomiting or diarrhea, no hematuria, dysuria, no musculoskeletal complaints, no strokes or seizures, no skin lesions. EXAMINATION: Afebrile, pulse rate in the 50s, respirations, blood pressure 120/65 mmHg Breath sounds are normal, no adventitious sounds Normal S1 normal S2 no murmurs or gallops Abdomen is soft nontender Extremities warm no edema REVIEW OF LABS, ECG & MEDICAL DATA Coronary angiography last month in December 2018, revealed calcified right coronary artery, significant disease in the proximal and mid RCA, significant disease in the ostium of the first diagonal branch and normal LV systolic function He underwent coronary stenting of the RCA Twelve-lead ECG on admission did not show any ST segment abnormalities 2 cardiac enzymes are normal Past Medical History Past Medical History: Coronary Artery Disease (CAD), Chest Pain / Angina, Hyperlipidemia, Musculoskeletal Disorder, Osteoarthritis (OA) Additional Past Medical History / Comment(s): Chronic neck and back pain, RADIA EDMAR DOWN BOTH LEGS. 01/2018 colonoscopy resulting in perferation of bowel leading to peg tube with reversal History of Any Multi-Drug Resistant Organisms: None Reported Past Surgical History: Back Surgery, Heart Catheterization With Stent, Orthopedic Surgery Additional Past Surgical History / Comment(s): Neck surgery, right knee arthroscopy, pain procedures. COLONOSCOPY Past Anesthesia/Blood Transfusion Reactions: No Reported Reaction Additional Past Anesthesia/Blood Transfusion Reaction / Comment(s): FAMILY HX UNKNOWN Date of Last Stent Placement:: 12/2018 Past Psychological History: No Psychological Hx Reported Smoking Status: Current every day smoker Past Alcohol Use History: Daily Additional Past Alcohol Use History / Comment(s): STARTED SMOKING AT AGE 16 SMOKES 1/2PPD. DRINKS 6 BEERS DAILY Past Drug Use History: None Reported - Past Family History Mother Family Medical History: No Reported History, Liver Disease Medications and Allergies Home Medications Medication Instructions Recorded Confirmed Type HYDROcodone/APAP 10-325MG [[place] 1 tab PO DAILY PRN 08/15/18 02/01/19 History 10-325] Atorvastatin [Lipitor] 80 mg PO DAILY #0 01/07/19 02/01/19 Rx Clopidogrel [Plavix] 75 mg PO DAILY #90 tab 01/07/19 02/01/19 Rx Nitroglycerin Sl Tabs [Nitrostat] 0.4 mg SUBLINGUAL Q5M PRN #25 tab 01/07/19 02/01/19 Rx Gabapentin [Neurontin] 300 mg PO TID 02/01/19 02/01/19 History Allergies Allergy/AdvReac Type Severity Reaction Status Date / Time pregabalin [From Lyrica] Allergy psychotic Verified 02/01/19 07:12 behavior varenicline tartrate Allergy psychotic Verified 02/01/19 07:12 [From Chantix] behavior Physical Exam Vitals: Vital Signs Temp Pulse Pulse Resp BP BP BP 02/01/19 08:08 16 02/01/19 07:24 97.5 F L 57 L 16 120/65 02/01/19 03:57 97.6 F 67 18 137/70 02/01/19 03:30 72 21 118/71 02/01/19 03:00 64 19 115/60 02/01/19 02:17 98.4 F 68 18 111/63 Pulse Ox 02/01/19 08:08 02/01/19 07:24 93 L 02/01/19 03:57 96 02/01/19 03:30 98 02/01/19 03:00 97 02/01/19 02:17 94 L Intake and Output 01/31/19 02/01/19 02/01/19 22:59 06:59 14:59 Other: Voiding Method Toilet Toilet # Voids 1 Weight 70.76 kg Results 02/01/19 02:22 02/01/19 02:22 Cardiac Enzymes 02/01/19 02/01/19 02/01/19 Range/Units 02:22 02:22 07:30 AST 21 (17-59) U/L Troponin I <0.012 <0.012 (0.000-0.034) ng/mL Coagulation 02/01/19 Range/Units 02:22 PT 10.5 (9.0-12.0) sec APTT 25.5 (22.0-30.0) sec CBC 02/01/19 Range/Units 02:22 WBC 10.8 H (3.8-10.6) k/uL RBC 4.14 L (4.30-5.90) m/uL Hgb 12.8 L (13.0-17.5) gm/dL Hct 37.9 L (39.0-53.0) % Plt Count 332 (150-450) k/uL Comprehensive Metabolic Panel 02/01/19 Range/Units 02:22 Sodium 134 L (137-145) mmol/L Potassium 3.6 (3.5-5.1) mmol/L Chloride 98 (98-107) mmol/L Carbon Dioxide 28 (22-30) mmol/L BUN 11 (9-20) mg/dL Creatinine 0.92 (0.66-1.25) mg/dL Glucose 102 H (74-99) mg/dL Calcium 8.7 (8.4-10.2) mg/dL AST 21 (17-59) U/L ALT 22 (21-72) U/L Alkaline Phosphatase 113 (38-126) U/L Total Protein 6.4 (6.3-8.2) g/dL Albumin 3.7 (3.5-5.0) g/dL Current Medications Generic Name Dose Route Start Last Admin Trade Name Freq PRN Reason Stop Dose Admin Hydrocodone Bitart/Acetaminophen 1 each 02/01/19 09:59 [place] 10 PO DAILY PRN Pain Aspirin 325 mg 02/02/19 09:00 Aspirin PO DAILY [facility] Atorvastatin Calcium 80 mg 02/01/19 10:00 Lipitor PO DAILY [facility] Clopidogrel Bisulfate 75 mg 02/01/19 10:00 Plavix PO DAILY [facility] Gabapentin 300 mg 02/01/19 10:00 Neurontin PO TID [facility] Metoprolol Tartrate 25 mg 02/01/19 09:00 Lopressor PO BID [facility] Morphine Sulfate 4 mg 02/01/19 03:09 Morphine Sulfate (Inj) IVP Q4HR PRN Pain Nitroglycerin 0.4 mg 02/01/19 09:59 Nitrostat SUBLINGUAL Q5M PRN Chest Pain Intake and Output 01/31/19 02/01/19 02/01/19 22:59 06:59 14:59 Other: Voiding Method Toilet Toilet # Voids 1 Weight 70.76 kg 02/01/19 02:22 02/01/19 02:22
[2019-02-01] MEDS: GABAPENTIN 300 MG CAP PO SCH ×2 (10:58→16:45)
[2019-02-01] MEDS: ATORVASTATIN 80 MG TAB PO SCH (10:59)
[2019-02-01] MEDS: METOPROLOL TARTRATE 25 MG TAB PO SCH ×2 (10:59→20:54)
[2019-02-01] MEDS: CLOPIDOGREL 75 MG TAB PO SCH (10:59)
--- NOTE | 2019-02-01 13:24 | ECHOF ---
Referral Reason:cp MEASUREMENTS -------- HEIGHT: 170.2 cm WEIGHT: 70.8 kg BP: IVSd: 1.0 cm (0.6 - 1.1) LVIDd: 4.3 cm (3.9 - 5.3) LVPWd: 0.9 cm (0.6 - 1.1) IVSs: 1.3 cm LVIDs: 2.8 cm LVPWs: 1.3 cm LA Diam: 2.8 cm (2.7 - 3.8) RVIDd: 2.5 cm (< 3.3) LAESV Index (A-L): 18.70 ml/m Ao Diam: 2.8 cm (2.0 - 3.7) LA Diam: 2.9 cm (2.7 - 3.8) AV Cusp: 1.5 cm (1.5 - 2.6) EPSS: 0.5 cm MV E Kelvin: 0.74 m/s MV DecT: 272 ms MV A Kelvin: 0.84 m/s MV E/A Ratio: 0.88 RAP: 5.00 mmHg RVSP: 19.32 mmHg MV EF SLOPE: 76.70 mm/s (70 - 150) MV EXCURSION: 14.23 mm (> 18.000) FINDINGS -------- Sinus rhythm. This was a technically good study. LV size, wall thickness and systolic function are normal, with an EF greater than 55%. The left gildardo tricular size is normal. The right ventricle is normal in size. The left atrial size is normal. The right atrial size is normal. The aortic valve is trileaflet, and appears structurally normal. No aortic stenosis or regurgitation. Mild mitral regurgitation is present. Mild tricuspid regurgitation present. There is no evidence of pulmonary hypertension. The right v entricular systolic pressure, as measured by Doppler, is 19.32mmHg. There is no pulmonic regurgitation present. The aortic root size is normal. There is no pericardial effusion. CONCLUSIONS -------- 1. LV size, wall thickness and systolic function are normal, with an EF greater than 55%. 2. The left ventricular size is normal. 3. The right ventricle is normal in size. 4. The left atrial size is normal. 5. The right atrial size is normal. 6. The aortic valve is trileaflet, and appears structurally normal. No aortic stenosis or regurgitati on. 7. Mild mitral regurgitation is present. 8. Mild tricuspid regurgitation present. 9. There is no evidence of pulmonary hypertension. 10. The right ventricular systolic pressure, as measured by Doppler, is 19.32mmHg. 11. There is no pulmonic regurgitation present. 12. The aortic root size is normal. 13. There is no pericardial effusion. PASTRY ASSISTANT: Eva Pardo RDCS
[2019-02-01 15:45] VITALS: RESP 18
--- NOTE | 2019-02-01 16:09 | P.HPIM ---
History of Present Illness H&P Date: 02/01/19 Chief Complaint: Chest pain History of presenting complaint: This is a 73-year-old patient who follows Dr. Tom Gallegos. Chronic stable medical conditions include hyperlipidemia, sigmoid diverticulosis, primary osteoarthritis, mild cognitive impairment, COPD, right carotid artery stenosis. On January 06 of this year patient underwent cardiac catheterization with Dr. Rodriguez from cardiology. Patient was found to have calcification of the right coronary artery and significant disease in the right coronary artery. LV function was preserved. Also stenosis of the obtuse marginal. Patient did undergo successful stenting of the RCA. Patient now presented with what he desc ribes his pain starting in the upper abdomen. And the pain went across his chest rather significant. Last for good at 10 hours. There was no shortness of breath. No nausea. No dizziness. Patient did have some burping. Symptoms did improve. Patient is currently smoke. Troponin was negative. Pain did not radiate to the neck or arm. Admitted with unstable angina. And also to patient this afternoon. Does no further pain. Cardiology was consulted. Review of systems: GEN.: None EYES: None HEENT: None NECK: None RESPIRATORY: Occasional wheezing and shortness of breath CARDIOVASCULAR: As above GASTROINTESTINAL: As above GENITOURINARY: None MUSCULOSKELETAL: Joint pains LYMPHATICS: None HEMATOLOGICAL: None PSYCHIATRY: Some forgetfulness and anxiety NEUROLOGICAL: None Past medical history to include: Coronary artery disease with stent to the RCA December 2018, hyperlipidemia, sigmoid diverticulosis, primary osteoarthritis, mild cognitive impairment, COPD Social history: Drinks about 6 beers a day, smokes about half a pack a day has been smoking for over 50 years, INVESTIGATIONS, reviewed in the clinical context: White count 10.8, hemoglobin 12.8 potassium 3.6 creatinine 0.9 to Troponin I 2 less than 0.012 EKG tracing personally reviewed by me shows poor R-wave progression 2-D echo shows EF of greater than 55% no wall motion optometric the reported Chest x-ray film personally reviewed by me shows no obvious infiltrate, questionable borderline cardiomegaly Assessment: -Patient presents with upper abdominal pain that going to the chest staying there for quite a few hours. Patient has known coronary artery disease with a recent stent to the RCA. Has no ST segment abnormalities and troponins are negative. There is no wall motion abnormality on the 2-D echo. Need to rule out unstable angina -Coronary artery disease with stent to the RCA in December 2018 -Hyperlipidemia -Asymptomatic sigmoid diverticulosis -Primary osteoarthritis -Mild cognitive impairment -COPD in a current smoker -Chronic nicotine dependence patient cigarette smoker -Chronic alcohol intakes Plan: Continue patient not having any chest pain. Home medications resumed. Cardiology was consulted. Serial cardiac enzymes and place. Cardiology is planning to stress test tomorrow morning. Bronchodilators are being added. Nicotine patch should be given. Past Medical History Past Medical History: Coronary Artery Disease (CAD), Chest Pain / Angina, Hyperlipidemia, Musculoskeletal Disorder, Osteoarthritis (OA) Additional Past Medical History / Comment(s): Chronic neck and back pain, RADIATES DOWN BOTH LEGS. 01/2018 colonoscopy resulting in perferation of bowel leading to peg tube with reversal History of Any Multi-Drug Resistant Organisms: None Reported Past Surgical History: Back Surgery, Heart Catheterization With Stent, Orthopedic Surgery Additional Past Surgical History / Comment(s): Neck surgery, right knee arthroscopy, pain procedures. COLONOSCOPY Past Anesthesia/Blood Transfusion Reactions: No Reported Reaction Additional Past Anesthesia/Blood Transfusion Reaction / Comment(s): FAMILY HX UNKNOWN Date of Last Stent Placement:: 12/2018 Past Psychological History: No Psychological Hx Reported Smoking Status: Current every day smoker Past Alcohol Use History: Daily Additional Past Alcohol Use History / Comment(s): STARTED SMOKING AT AGE 16 SMOKES 1/2PPD. DRINKS 6 BEERS DAILY Past Drug Use History: None Reported - Past Family History Mother Family Medical History: No Reported History, Liver Disease Medications and Allergies Home Medications Medication Instructions Recorded Confirmed Type HYDROcodone/APAP 10-325MG [[place] 1 tab PO DAILY PRN 08/15/18 02/01/19 History 10-325] Atorvastatin [Lipitor] 80 mg PO DAILY #0 01/07/19 02/01/19 Rx Clopidogrel [Plavix] 75 mg PO DAILY #90 tab 01/07/19 02/01/19 Rx Nitroglycerin Sl Tabs [Nitrostat] 0.4 mg SUBLINGUAL Q5M PRN #25 tab 01/07/19 02/01/19 Rx Gabapentin [Neurontin] 300 mg PO TID 02/01/19 02/01/19 History Allergies Allergy/AdvReac Type Severity Reaction Status Date / Time pregabalin [From Lyrica] Allergy psychotic Verified 02/01/19 07:12 behavior varenicline tartrate Allergy psychotic Verified 02/01/19 07:12 [From Chantix] behavior Physical Exam Vitals: Vital Signs Temp Pulse Pulse Resp BP BP BP 02/01/19 15:44 97.9 F 54 L 18 120/68 02/01/19 11:37 97.5 F L 54 L 16 138/70 02/01/19 08:08 16 02/01/19 07:24 97.5 F L 57 L 16 120/65 02/01/19 03:57 97.6 F 67 18 137/70 02/01/19 03:30 72 21 118/71 02/01/19 03:00 64 19 115/60 02/01/19 02:17 98.4 F 68 18 111/63 Pulse Ox 02/01/19 15:44 96 02/01/19 11:37 97 02/01/19 08:08 02/01/19 07:24 93 L 02/01/19 03:57 96 02/01/19 03:30 98 02/01/19 03:00 97 02/01/19 02:17 94 L Intake and Output 02/01/19 02/01/19 02/01/19 06:59 14:59 22:59 Intake Total 440 Balance 440 Intake: Oral 240 Other 200 Other: Voiding Method Toilet Toilet # Voids 1 Weight 70.76 kg Results CBC & Chem 7: 02/01/19 02:22 02/01/19 02:22 Labs: Abnormal Lab Results - Last 24 Hours (Table) 02/01/19 02/01/19 Range/Units 02:22 02:22 WBC 10.8 H (3.8-10.6) k/uL RBC 4.14 L (4.30-5.90) m/uL Hgb 12.8 L (13.0-17.5) gm/dL Hct 37.9 L (39.0-53.0) % Monocytes # 1.2 H (0-1.0) k/uL Sodium 134 L (137-145) mmol/L Glucose 102 H (74-99) mg/dL Thrombosis Risk Factor Assmnt - Choose All That Apply Any of the Below Risk Factors Present?: No Other Risk Factors: Yes Each Risk Factor Represents 3 Points: Age 75 years or older Other congenital or acquired thrombophilia - If yes, enter type in comment: No Thrombosis Risk Factor Assessment Total Risk Factor Score: 3 Thrombosis Risk Factor Assessment Level: Moderate Risk
[2019-02-02 03:25] LABS: Cholesterol 124 mg/dL (<200); HDL Cholesterol 29 mg/dL (40-60); LDL Cholesterol,Calculated 70 mg/dL (0-99); Triglycerides 127 mg/dL (<150)
[2019-02-02] MEDS ORDERED: DOBUTamine DRIP for NUC MED 500 MG in DEXTROSE/WATER 1 250ML.BAG IV ONE (06:00)
[2019-02-02] MEDS ORDERED: ASPIRIN 325 MG TAB PO SCH (09:00)
--- NOTE | 2019-02-02 10:58 | P.PN ---
Subjective This is Keely Wesley PA-C dictating a progress note on this patient The patient was interviewed and examined by me as well as by Dr. Saavedra Case discussed with Dr. Saavedra and he agrees with the plan of care IMPRESSION / ASSESSMENT: Atypical chest discomfort, resolved, negative troponins CAD status post stent to the RCA and one month ago Dyslipidemia PLAN: Plan for dobutamine stress echo today He may be discharged from a cardiac standpoint and follow-up in the office with Dr. Rodriguez if stress testing is negative Continue atorvastatin 80 mg daily and dual antiplatelet therapy HPI/interval history Patient is a 73-year-old male with past medical history of CAD status post recent stenting and dyslipidemia who presented to the emergency department with complaints of chest discomfort x 11-12 hours. The discomfort started in his abdomen and radiated up to his chest. His troponins were negative and his EKG showed no ST segment abnormalities. Today his chest pain has resolved. He has been getting up and walking around with any dizziness, shortness of breath, or chest discomfort. EXAMINATION Temperature 97.8F, pulse 50, respirations 18, blood pressure 121/70, oxygen saturation 92% on room air Patient seen and examined resting comfortably in bed, no acute distress Lungs are clear to auscultation bilaterally, no rhonchi, wheezing, or crackles Heart is regular, normal S1 and S2, no murmurs appreciated Abdomen is soft No lower extremity edema noted REVIEW OF LABS, ECG Echocardiogram showed EF greater than 55%, no significant valvular abnormalities WBC 10.8, hemoglobin 12.8, potassium 3.6, BUNs 11, creatinine 0.9 to, magnesium 2.0 Lipase 100 Troponins negative 3 Total cholesterol 124, triglycerides 127, LDL 70, HDL 29 Objective - Vital Signs Vital signs: Vital Signs Temp 97.8 F 02/02/19 07:02 Pulse 60 02/02/19 07:02 Resp 18 02/02/19 07:02 BP 121/70 02/02/19 07:02 Pulse Ox 92 L 02/02/19 07:02 Intake & Output 02/01/19 02/02/19 02/02/19 18:59 06:59 18:59 Intake Total 440 Balance 440 Intake: Oral 240 Other 200 Other: Voiding Method Toilet Toilet Toilet # Voids 1 - Labs CBC & Chem 7: 02/01/19 02:22 02/01/19 02:22 Labs: Abnormal Lab Results - Last 24 Hours (Table) 02/01/19 Range/Units 02:22 HDL Cholesterol 29 L (40-60) mg/dL
[2019-02-02 11:54] VITALS: BP 137/77; PULSE 59; TEMP 97.4
[2019-02-02] MEDS: METOPROLOL TARTRATE 25 MG TAB PO SCH (11:56)
[2019-02-02] MEDS: CLOPIDOGREL 75 MG TAB PO SCH (11:56)
[2019-02-02] MEDS: ATORVASTATIN 80 MG TAB PO SCH (11:56)
--- NOTE | 2019-02-02 12:21 | P.STRESS ---
- Stress Test Note Stress Test Results/Findings: Exam Performed: dobutamine stress echo with con Exam Date: 02/02/19 Reason for Exam: CHEST PAIN Height: 5 ft 7 in Weight: 70.76 kg Protocol: DSE Stage: 5 Duration of Exercise: 12:30 Resting Heart Rate: 49 Resting Blood Pressure: 110/87 Maximum Achieved Heart Rate: 105 Maximum Achieved Blood Pressure: 168/48 85% PMHR: 123 100% PMHR: 145 METS: NA Technologist Comment: Stress Test Results/Findings: Baseline heart rate 49 beats a minute, Baseline blood pressure 110/87 mmHg Baseline 12-lead ECG shows sinus rhythm with poor R wave progression normal ST segments Patient is a dobutamine infusion per protocol Occasional PVCs noted no ECG ms for ischemia no sustained or nonsustained arrhythmias noted 0.[address] depression noted Baseline 2-D echo images were suboptimal and therefore Definity contrast was used line with dobutamine infusion there was a stepwise increment in overall LV contractility without development any wall motion abnormalities Specifically there was no evidence for inferior wall hypokinesis during dobutamine infusion At recovery regional global LV systolic function with normal Impression No ECG or echocardiographic evidence of ischemia on dobutamine stress echo
--- NOTE | 2019-02-02 23:45 | P.PN ---
Progress Note - Text Progress Note Date: 02/02/19 History of presenting complaint: This is a 73-year-old patient who follows Dr. Tom Gallegos. Chronic stable medical conditions include hyperlipidemia, sigmoid diverticulosis, primary osteoarthritis, mild cognitive impairment, COPD, right carotid artery stenosis. On January 06 of this year patient underwent cardiac catheterization with Dr. Rodriguez from cardiology. Patient was found to have calcification of the right coronary artery and significant disease in the right coronary artery. LV funct ion was preserved. Also stenosis of the obtuse marginal. Patient did undergo successful stenting of the RCA. Patient now presented with what he describes his pain starting in the upper abdomen. And the pain went across his chest rather significant. Last for good at 10 hours. There was no shortness of breath. No nausea. No dizziness. Patient did have some burping. Symptoms did improve. Patient is currently smoke. Troponin was negative. Pain did not radiate to the neck or arm. Admitted with unstable angina. And also to patient this afternoon. Does no further pain. Cardiology was consulted. Troponins were negative. Dobutamine stress echocardiogram was negative. Patient doing been up and about On examination: 97.4, 59, 18, 1 37/77, 96% room air Lungs-decreased breaths sounds Cardiovascular first second sounds normal INVESTIGATIONS, reviewed in the clinical context: White count 10.8, hemoglobin 12.8 potassium 3.6 creatinine 0.9 to Troponin I 2 less than 0.012 EKG tracing personally reviewed by me shows poor R-wave progression 2-D echo shows EF of greater than 55% no wall motion optometric the reported Chest x-ray film personally reviewed by me shows no obvious infiltrate, questionable borderline cardiomegaly Discharge diagnosis: -Anterior chest wall pain, could be musculoskeletal -Coronary artery disease with stent to the RCA in December 2018 -Hyperlipidemia -Asymptomatic sigmoid diverticulosis -Primary osteoarthritis -Mild cognitive impairment -COPD in a current smoker -Chronic nicotine dependence patient cigarette smoker -Chronic alcohol intakes Disposition: Home.
== END 2019-02-02 16:01 | disposition home or self-care (01) ==
LOC: EC 02:16 → 1SOBS 03:05
PROVIDERS: ADMIT Hospitalist; ATTEND Hospitalist
DX: R07.89 Other chest pain (principal); R11.0 Nausea; E78.00 Pure hypercholesterolemia, unspecified; E78.5 Hyperlipidemia, unspecified; M19.91 Primary osteoarthritis, unspecified site; G89.29 Other chronic pain; M54.2 Cervicalgia; M54.9 Dorsalgia, unspecified; I25.10 Atherosclerotic heart disease of native coronary artery without angina pectoris; F17.210 Nicotine dependence, cigarettes, uncomplicated; G31.84 Mild cognitive impairment of uncertain or unknown etiology; J44.9 Chronic obstructive pulmonary disease, unspecified; I65.21 Occlusion and stenosis of right carotid artery; K57.30 Diverticulosis of large intestine without perforation or abscess without bleeding; Z88.8 Allergy status to other drugs, medicaments and biological substances; Z95.5 Presence of coronary angioplasty implant and graft; Z79.82 Long term (current) use of aspirin; Z79.899 Other long term (current) drug therapy; Z79.02 Long term (current) use of antithrombotics/antiplatelets
CPT/HCPCS: 96374; 96361; 99291; 36415; 93005; 93306; 85379; 83880; 80061; 80053; 83690; 83735; 84484; 85025; 85610; 85730; 71046; G0378 ×2; C8930; J1250; J2270; Q9950; 93351

== ENCOUNTER → 2019-02-10 | Outpatient (CLI) | payer MEDICARE ==
--- NOTE | 2019-02-10 10:03 | US ---
EXAMINATION TYPE: US gallbladder DATE OF EXAM: 02/10/2019 COMPARISON: NONE CLINICAL HISTORY: R10.13 Epigastric pain. Difficult exam due to overlying bowel gas EXAM MEASUREMENTS: Liver Length: 15.0 cm Gallbladder Wall: 0.2 cm CBD: 0.3 cm Right Kidney: 9.6 x 5.5 x 4.2 cm Pancreas: Majority is obscured by bowel gas however the visualized portions appear inhomogeneous. Liver: Nodular and lobular contour however they parenchyma appears homogeneous. Gallbladder: wnl Evidence for sonographic Silva's sign: No CBD: wnl as visualized Right Kidney: No hydronephrosis or masses seen IMPRESSION: 1. Nodular contour the liver is seen. Correlate with liver function tests. Early cirrhosis is possibl e. 2. No sonographic evidence of cholelithiasis nor acute cholecystitis. 3. Slight inhomogeneity of the pancreas although the majority the pancreas is obscured by bowel gas. Inhomogeneity may relate to technique or pancreatitis. Correlate with serum amylase and lipase.
== END | disposition home or self-care (01) ==
LOC: RADUSMAIN 08:46
PROVIDERS: ATTEND Internal Medicine
DX: R14.3 Flatulence (principal)
CPT/HCPCS: 76705

== ENCOUNTER → 2019-02-22 | Outpatient (CLI) | payer MEDICARE ==
--- NOTE | 2019-02-22 14:28 | NM ---
Nuclear medicine hepatobiliary scan. HISTORY: Pain. DOSAGE: The patient received 8 ounces Ensure plus and 3.6 mCi of Technetium 99m Choletec. FINDINGS: There is normal hepatic extraction. The gallbladder is seen by 48 minutes. There is bilia ry to bowel clearance by 20 minutes. Ejection fraction is 86%. IMPRESSION: 1. Gallbladder fills within normal limits at 48 minutes. 2. Ejection fraction of 86%. This can occasionally be seen with hyperdynamic gallbladder. Correlate c linically.
== END | disposition home or self-care (01) ==
LOC: RADNMMAIN 12:17
PROVIDERS: ATTEND Internal Medicine
DX: R93.2 Abnormal findings on diagnostic imaging of liver and biliary tract (principal); R10.13 Epigastric pain
CPT/HCPCS: 78226; A9537

== ENCOUNTER → 2019-04-02 | Outpatient (CLI) | payer MEDICARE ==
[2019-04-02 15:47] LABS: African American GFR (CKD) >90 (>60 ml/min/1.73 sqM); Blood Urea Nitrogen 7 mg/dL (9-20)
--- NOTE | 2019-04-02 16:56 | CT ---
EXAMINATION TYPE: CT soft tissue neck w con DATE OF EXAM: 04/02/2019 COMPARISON: 09/30/2017 HISTORY: Throat pain. CT DLP: 329.4 mGycm CONTRAST: Patient injected with 100ml mL of Isovue 300. TECHNIQUE: Axial images at 3 mm thick sections. Reconstructed images in the coronal plane and sagitt al plane are reviewed. FINDINGS: Limited CT sections are obtained the lung apices. There is extensive advanced emphysematou s blebs and bulla throughout the lung apices. There is a three-vessel arch. Nose made of a subcutaneo us nodule posterior left neck. CT neck: The torus tubarius and fossa of Rosenmuller are normal. Shoe Patternmaker spaces are normal. Para nasal sinuses and mastoid air cells are clear. Parotid glands appear normal and symmetrical. Submandibular glands, are normal. Parapharyngeal spac es are normal. No suspicious adenopathy is evident. The hypopharynx appears within normal limits. Vocal cord level appear symmetrical. Thyroid as visualized is normal. Prior extensive anterior cervical fusion with interposition of structures is evident. IMPRESSIONS: 1. No suspicious acute changes.
== END ==
LOC: RADCTMAIN 14:59
PROVIDERS: ATTEND Otolaryngology
DX: J02.9 Acute pharyngitis, unspecified (principal)
CPT/HCPCS: 82565; 84520; 70491; 36415; Q9967

== ENCOUNTER → 2019-05-17 | Outpatient (CLI) | payer MEDICARE ==
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
== END | disposition home or self-care (01) ==
LOC: RADUSWWP 09:25
PROVIDERS: ATTEND Otolaryngology
DX: R13.10 Dysphagia, unspecified (principal)
CPT/HCPCS: 74220

== ENCOUNTER → 2019-10-25 | Outpatient (CLI) | payer MEDICARE ==
[2019-10-25 18:48] LABS: African American GFR (CKD) 95.8 (60.0-200.0); Albumin 4.4 g/dL (3.80-4.90); Albumin/Globulin Ratio 2.1 (1.60-3.17); BUN/Creat Ratio 8.89 Ratio (12.00-20.00); Calcium 9.4 mg/dL (8.7-10.3); Chol/HDL Ratio 2.73; Globulin 2.1 g/dL (1.6-3.3); Non-African American GFR(CKD) 82.7 (60.0-200.0); Potassium 4.6 mmol/L (3.5-5.5); Total Bilirubin 0.3 mg/dL (0.2-1.2); Total Protein 6.5 g/dL (6.2-8.2)
== END | disposition home or self-care (01) ==
LOC: LABWHC1 12:05
PROVIDERS: ATTEND Internal Medicine Interventional Cardiology
DX: E78.2 Mixed hyperlipidemia (principal)
CPT/HCPCS: 36415; 80053; 80061

== ENCOUNTER 2020-04-04 15:20 | Emergency (ER) | payer MEDICARE ==
--- NOTE | 2020-04-04 15:40 | ED ---
General Adult HPI - General Chief complaint: Chest Pain Stated complaint: Chest Pain Time Seen by Provider: 04/04/20 15:30 Source: patient Limitations: no limitations - History of Present Illness Initial comments: Dictation was produced using [employer] dictation software. please excuse any grammatical, word or spelling errors. This patient was cared for during a federal and state declared state of emergency secondary to Covid 19 Chief Complaint: 74-year-old male past medical history of coronary artery disease, stents presents with chest pain. History of Present Illness: 74-year-old male who sent in by his primary care physician for evaluation of chest pain. Patient recently had his flu shot. The day after he began experiencing episodes of chest pressure. Patient has any symptoms at this time. He describes it at some chest pain except for a noticeab le ache. States the pain moves about. Does not radiate to shoulders or jaw. No associated diaphoresis or nausea. He thought perhaps maybe had some he did do with recent flu shot he got. Denies any exacerbating or mitigating symptoms. The ROS documented in this emergency department record has been reviewed and confirmed by me. Those systems with pertinent positive or negative responses have been documented in the HPI. All other systems are other negative and/or noncontributory. PHYSICAL EXAM: General Impression: Alert and oriented x3, not in acute distress HEENT: Normocephalic atraumatic, extra-ocular movements intact, pupils equal and reactive to light bilaterally, mucous membranes moist. Cardiovascular: Heart regular rate and rhythm Chest: Able to complete full sentences, no retractions, no tachypnea Abdomen: abdomen soft, non-tender, non-distended, no organomegaly Musculoskeletal: Pulses present and equal in all extremities, no peripheral edema Motor: no focal deficits noted Neurological: CN II-XII grossly intact, no focal motor or sensory deficits noted Skin: Intact with no visualized rashes Psych: Normal affect and mood ED course: 74-year-old male past medical history of cardiac disease presents today with episodic chest pain. His symptomatology is atypical with typical features. He does have risk factors. Vital signs upon arrival are within acceptable limits. EKGs benign. Laboratory evaluation obtained. CBC, coag panel, metabolic panel was obtained. All his labs are unremarkable except his glucose is slightly depressed at 70. Patient given oral intake and his blood glucose is rechecked found to be unremarkable. Chest x-ray is nonacute. Patient was notified of these results. Disposition options were discussed. It was told to him that I would recommend to have him admitted for serial troponins however he said preferred to be discharge and to return to emergency department if he has any sort of hesitation recurrence of symptoms. That acute coronary syndrome has not been ruled out with reasonable certainty. He understands and will follow up with his primary care physician. At this point there is no high-risk findings. He is continual ly asymptomatic upon reevaluation. EKG interpretation: Ventricular rate 56, sinus bradycardia, NV interval 150, QRS 84, QTc 384. No NV prolongation, no QTC prolongation, no ST or T-wave changes noted. EKG compared to 02/01/2019 showing no changes. Overall, this EKG is unremarkable - Related Data Home Medications Medication Instructions Recorded Confirmed Famotidine (Unknown Dose) 1 tab PO DIRECTED PRN 02/23/19 Previous Rx's Medication Instructions Recorded Atorvastatin [Lipitor] 80 mg PO DAILY #0 01/07/19 Clopidogrel [Plavix] 75 mg PO DAILY #90 tab 01/07/19 Nitroglycerin Sl Tabs [Nitrostat] 0.4 mg SUBLINGUAL Q5M PRN #25 tab 01/07/19 Aspirin 81 mg PO DAILY #1 chewable 02/02/19 Metoprolol Tartrate [Lopressor] 25 mg PO BID #60 tab 02/02/19 Allergies Allergy/AdvReac Type Severity Reaction Status Date / Time pregabalin [From Lyrica] Allergy psychotic Verified 04/04/20 15:26 behavior varenicline tartrate Allergy psychotic Verified 04/04/20 15:26 [From Chantix] behavior Review of Systems ROS Statement: Those systems with pertinent positive or pertinent negative responses have been documented in the HPI. ROS Other: All systems not noted in ROS Statement are negative. Past Medical History Past Medical History: Coronary Artery Disease (CAD), Chest Pain / Angina, Hyperlipidemia, Musculoskeletal Disorder, Osteoarthritis (OA) Additional Past Medical History / Comment(s): Chronic neck and back pain, RADIAT ES DOWN BOTH LEGS. 01/2018 colonoscopy resulting in perferation of bowel leading to peg tube with reversal History of Any Multi-Drug Resistant Organisms: None Reported Past Surgical History: Back Surgery, Heart Catheterization With Stent, Orthopedic Surgery Additional Past Surgical History / Comment(s): Neck surgery, right knee arthroscopy, pain procedures. COLONOSCOPY Past Anesthesia/Blood Transfusion Reactions: No Reported Reaction Additional Past Anesthesia/Blood Transfusion Reaction / Comment(s): FAMILY HX UNKNOWN Date of Last Stent Placement:: 12/2018 Past Psychological History: No Psychological Hx Reported Smoking Status: Current every day smoker Past Alcohol Use History: Daily Past Drug Use History: None Reported - Past Family History Mother Family Medical History: No Reported History, Liver Disease General Exam Limitations: no limitations Course Vital Signs 04/04/20 15:22 Temperature 98 F Pulse Rate 62 Respiratory 18 Rate Blood Pressure 128/74 O2 Sat by Pulse 94 L Oximetry Medical Decision Making - Lab Data Result diagrams: 04/04/20 16:04 04/04/20 16:04 Lab Results 04/04/20 04/04/20 04/04/20 Range/Units 16:04 16:04 16:04 WBC 9.2 (3.8-10.6) k/uL RBC 4.45 (4.30-5.90) m/uL Hgb 14.2 (13.0-17.5) gm/dL Hct 43.0 (39.0-53.0) % MCV 96.7 (80.0-100.0) fL MCH 31.9 (25.0-35.0) pg MCHC 33.0 (31.0-37.0) g/dL RDW 13.1 (11.5-15.5) % Plt Count 319 (150-450) k/uL Neutrophils % 59 % Lymphocytes % 24 % Monocytes % 10 % Eosinophils % 4 % Basophils % 0 % Neutrophils # 5.4 (1.3-7.7) k/uL Lymphocytes # 2.2 (1.0-4.8) k/uL Monocytes # 0.9 (0-1.0) k/uL Eosinophils # 0.4 (0-0.7) k/uL Basophils # 0.0 (0-0.2) k/uL PT 9.8 (9.0-12.0) sec INR 0.9 (<1.2) APTT 24.1 (22.0-30.0) sec Sodium 138 (137-145) mmol/L Potassium 4.3 (3.5-5.1) mmol/L Chloride 107 (98-107) mmol/L Carbon Dioxide 25 (22-30) mmol/L Anion Gap 6 mmol/L BUN 9 (9-20) mg/dL Creatinine 0.77 (0.66-1.25) mg/dL Est GFR (CKD-EPI)AfAm >90 (>60 ml/min/1.73 sqM) Est GFR (CKD-EPI)NonAf 88 (>60 ml/min/1.73 sqM) Glucose 70 L (74-99) mg/dL Calcium 9.3 (8.4-10.2) mg/dL Magnesium 2.2 (1.6-2.3) mg/dL Total Bilirubin 0.5 (0.2-1.3) mg/dL AST 34 (17-59) U/L ALT 21 (4-49) U/L Alkaline Phosphatase 108 (38-126) U/L Troponin I (0.000-0.034) ng/mL Total Protein 7.0 (6.3-8.2) g/dL Albumin 4.2 (3.5-5.0) g/dL 04/04/20 Range/Units 16:04 WBC (3.8-10.6) k/uL RBC (4.30-5.90) m/uL Hgb (13.0-17.5) gm/dL Hct (39.0-53.0) % MCV (80.0-100.0) fL MCH (25.0-35.0) pg MCHC (31.0-37.0) g/dL RDW (11.5-15.5) % Plt Count (150-450) k/uL Neutrophils % % Lymphocytes % % Monocytes % % Eosinophils % % Basophils % % Neutrophils # (1.3-7.7) k/uL Lymphocytes # (1.0-4.8) k/uL Monocytes # (0-1.0) k/uL Eosinophils # (0-0.7) k/uL Basophils # (0-0.2) k/uL PT (9.0-12.0) sec INR (<1.2) APTT (22.0-30.0) sec Sodium (137-145) mmol/L Potassium (3.5-5.1) mmol/L Chloride (98-107) mmol/L Carbon Dioxide (22-30) mmol/L Anion Gap mmol/L BUN (9-20) mg/dL Creatinine (0.66-1.25) mg/dL Est GFR (CKD-EPI)AfAm (>60 ml/min/1.73 sqM) Est GFR (CKD-EPI)NonAf (>60 ml/min/1.73 sqM) Glucose (74-99) mg/dL Calcium (8.4-10.2) mg/dL Magnesium (1.6-2.3) mg/dL Total Bilirubin (0.2-1.3) mg/dL AST (17-59) U/L ALT (4-49) U/L Alkaline Phosphatase (38-126) U/L Troponin I <0.012 (0.000-0.034) ng/mL Total Protein (6.3-8.2) g/dL Albumin (3.5-5.0) g/dL Disposition Clinical Impression: Chest pain Disposition: HOME SELF-CARE Condition: Good Instructions (If sedation given, give patient instructions): Chest Pain (ED) Is patient prescribed a controlled substance at d/c from ED?: No Referrals: Tom Mccollum MD [Primary Care Provider] - 1-2 days Time of Disposition: 16:43
[2020-04-04 16:16] LABS: Basophils % (A) 0 %; Eosinophils # (A) 0.4 k/uL (0-0.7); Eosinophils % (A) 4 %; HGB 14.2 gm/dL (13.0-17.5); Lymphocytes # (A) 2.2 k/uL (1.0-4.8); Lymphocytes % (A) 24 %; MCH 31.9 pg (25.0-35.0); MCV 96.7 fL (80.0-100.0); Mean Platelet Volume 6.7; Monocytes # (A) 0.9 k/uL (0-1.0); Monocytes % (A) 10 %; Neutrophils # (A) 5.4 k/uL (1.3-7.7); Neutrophils % (A) 59 %; Platelet Count 319 k/uL (150-450); RBC 4.45 m/uL (4.30-5.90); RDW 13.1 % (11.5-15.5); WBC 9.2 k/uL (3.8-10.6)
[2020-04-04 16:25] LABS: ALT 21 U/L (4-49); AST 34 U/L (17-59); African American GFR (CKD) >90 (>60 ml/min/1.73 sqM); Albumin 4.2 g/dL (3.5-5.0); Alkaline Phosphatase 108 U/L (38-126); Anion Gap 6 mmol/L; Blood Urea Nitrogen 9 mg/dL (9-20); Calcium 9.3 mg/dL (8.4-10.2); Carbon Dioxide 25 mmol/L (22-30); Chloride 107 mmol/L (98-107); Glucose 70 mg/dL (74-99); INR 0.9 (<1.2); Magnesium 2.2 mg/dL (1.6-2.3); Non-African American GFR(CKD) 88 (>60 ml/min/1.73 sqM); Partial Thromboplastin Time 24.1 sec (22.0-30.0); Potassium 4.3 mmol/L (3.5-5.1); Prothrombin Time 9.8 sec (9.0-12.0); Sodium 138 mmol/L (137-145); Total Bilirubin 0.5 mg/dL (0.2-1.3)
--- NOTE | 2020-04-04 16:25 | XR ---
EXAMINATION TYPE: XR chest 2V DATE OF EXAM: 04/04/2020 COMPARISON: 02/01/2019 INDICATION: Chest pain TECHNIQUE: Frontal and lateral views of the chest are obtained. FINDINGS: The heart size is normal. The pulmonary vasculature is normal. The lungs are clear. Anterior cervical fusion is evident. IMPRESSION: 1. No acute pulmonary process.
[2020-04-04 17:09] LABS: Glucose,Whole Blood 97 mg/dL (75-99)
[2020-04-04 17:14] VITALS: BP 138/76; PULSE 57; RESP 16; TEMP 97.9
== END 2020-04-04 17:14 | disposition home or self-care (01) ==
LOC: EC 15:20
DX: R07.9 Chest pain, unspecified (principal); I25.119 Atherosclerotic heart disease of native coronary artery with unspecified angina pectoris; R00.1 Bradycardia, unspecified; R73.09 Other abnormal glucose; F17.200 Nicotine dependence, unspecified, uncomplicated; Z88.8 Allergy status to other drugs, medicaments and biological substances; Z95.5 Presence of coronary angioplasty implant and graft
CPT/HCPCS: 36415; 71046; 80053; 83735; 84484; 85025; 85610; 85730; 93005; 99285

== ENCOUNTER → 2020-04-17 | Outpatient (CLI) | payer MEDICARE ==
--- NOTE | 2020-04-17 18:00 | FL ---
EXAMINATION TYPE: FL barium swallow w video DATE OF EXAM: 04/17/2020 MODIFIED BARIUM SWALLOW FLUOROSCOPY EXAM CLINICAL HISTORY: Pain in throat. History of oral cancer. TECHNIQUE: Notified barium swallow study is performed utilizing thin liquid barium, honey and nectar thick liquid barium, barium thick puree. COMPARISON: None. FINDINGS: The oral phase shows satisfactory initiation and propagation with all modalities tested. T here is premature spill to the vallecula and piriform sinuses. There was penetration with thin and ba rium thick puree consistencies. No evidence of aspiration. Total fluoroscopy time 2 minutes 33 seconds IMPRESSION: Penetration with thin and barium thick puree consistencies. No aspiration. Please refer to speech therapist notes for further details.
== END | disposition home or self-care (01) ==
LOC: RADFLMAIN 11:04
PROVIDERS: ATTEND Internal Medicine
DX: R07.0 Pain in throat (principal)
CPT/HCPCS: 74230

== ENCOUNTER → 2020-11-30 | Outpatient (CLI) | payer MEDICARE ==
[2020-12-01 16:28] LABS: African American GFR (CKD) 83.8 (60.0-200.0); Albumin 4.2 g/dL (3.80-4.90); Albumin/Globulin Ratio 1.83 (1.60-3.17); Anion Gap 10.8 mmol/L (4.00-12.00); Calcium 9.8 mg/dL (8.7-10.3); Carbon Dioxide 22.2 mmol/L (21.6-31.8); Chol/HDL Ratio 3.37; Globulin 2.3 g/dL (1.6-3.3); LDL Cholesterol,Calculated 67.2 mg/dL (0.0-131.0); Non-African American GFR(CKD) 72.3 (60.0-200.0); Potassium 4.7 mmol/L (3.5-5.5); Total Bilirubin 0.5 mg/dL (0.2-1.2); Total Protein 6.5 g/dL (6.2-8.2); VLDL Calculation 15.8 mg/dL (5.00-40.00)
== END | disposition home or self-care (01) ==
LOC: LABWHC1 13:04
PROVIDERS: ATTEND Internal Medicine Interventional Cardiology
DX: E78.2 Mixed hyperlipidemia (principal)
CPT/HCPCS: 36415; 80053; 80061

== ENCOUNTER 2021-03-06 10:54 | Day surgery (SDC) | payer MEDICARE ==
[2021-03-02 12:12] VITALS: BMI 24.3
[~2021-03-06 10:54] MED LIST changes: +LIDOCAINE 1% (10MG/ML) FOR IV START INTRADERMA PRN; -LIDOCAINE 1% 20 ML VIAL (10MG/ML) FOR IV START INTRADERMA PRN
[2021-03-06 11:35] VITALS: TEMP 97.7
[2021-03-06] MEDS ORDERED: LIDOCAINE 1% INJ 10MG/ML (20 ML MDV) ONE (11:51)
[2021-03-06] MEDS ORDERED: PROPOFOL 10 MG/ML 20 ML VIAL IV ONE (11:51)
--- NOTE | 2021-03-06 11:57 | P.GSHP ---
History of Present Illness H&P Date: 03/06/21 Chief Complaint: Dysphagia 75-year-old male here today for upper endoscopy. Patient states he occasionally has coughing and sneezing episodes while eating. History of previous swallow evaluation suggesting possible aspiration. Mild dysphagia at times as well. Past Medical History Past Medical History: Coronary Artery Disease (CAD), Chest Pain / Angina, Hyperlipidemia, Musculoskeletal Disorder, Osteoarthritis (OA) Additional Past Medical History / Comment(s): Chronic neck and back pain, RADIATES DOWN BOTH LEGS. 01/2018 colonoscopy resulting in perferation of bowel leading to peg tube with reversal. Does not have any Peg tube @ this time. History of Any Multi-Drug Resistant Organisms: None Reported Past Surgical History: Back Surgery, Heart Catheterization With Stent, Orthopedic Surgery Additional Past Surgical History / Comment(s): Neck surgery, right knee arthroscopy, pain procedures. COLONOSCOPY. Past Anesthesia/Blood Transfusion Reactions: No Reported Reaction Additional Past Anesthesia/Blood Transfusion Reaction / Comment(s): FAMILY HX UNKNOWN Date of Last Stent Placement:: 12/2018 Smoking Status: Current every day smoker - Past Family History Mother Family Medical History: No Reported History, Liver Disease Medications and Allergies Home Medications Medication Instructions Recorded Confirmed Type Atorvastatin [Lipitor] 80 mg PO DAILY #0 01/07/19 03/06/21 Rx Nitroglycerin Sl Tabs [Nitrostat] 0.4 mg SUBLINGUAL Q5M PRN #25 tab 01/07/19 03/06/21 Rx Aspirin 81 mg PO DAILY #1 chewable 02/02/19 03/06/21 Rx Allergies Allergy/AdvReac Type Severity Reaction Status Date / Time pregabalin [From Lyrica] Allergy psychotic Verified 03/02/21 11:55 behavior varenicline tartrate Allergy psychotic Verified 03/02/21 11:55 [From Chantix] behavior Surgical - Exam Vital Signs Temp Pulse Resp BP Pulse Ox 97.7 F 66 16 139/64 94 L 03/06/21 11:30 03/06/21 11:30 03/06/21 11:30 03/06/21 11:30 03/06/21 11:30 Physical exam: General: Well-developed, somewhat malnourished appearing HEENT: Normocephalic, sclerae nonicteric Abdomen: Nontender, nondistended Extremities: No edema Neuro: Alert and oriented Assessment and Plan (1) Dysphagia Narrative/Plan: Will proceed with upper endoscopy and possible dilation. Current Visit: No Status: Acute Code(s): R13.10 - DYSPHAGIA, UNSPECIFIED SNOMED Code(s): 34698058
--- NOTE | 2021-03-06 12:04 | P.PCN ---
Date of Procedure: 03/06/21 Procedure(s) Performed: Preoperative Dx: Dysphagia Postoperative Dx: Gastritis, small hiatal hernia Procedure: EGD with Bx Anesthesia: Sedation Endoscopist: Dr. Mosley Specimens: Antrum Endoscopic Procedure: The patient was on the endoscopy table in the left decubitus position. The Olympus gastroscope was inserted into the oropharynx and passed under direct visualization to the region of the third portion of the duodenum. From that point the scope was slowly withdrawn inspecting all surfaces carefully. There were no neoplastic inflammatory or polypoid lesions throughout the duodenum. The pylorus was widely patent. The stomach was carefully inspected. There was prepyloric and antral gastritis present. A biopsy of the antrum took place to rule out H. pylori. Retroflexion revealed a small the medium sized hiatal hernia. At the GE junction there was very subtle narrowing that did not appear to be significant enough to cause dysphagia. The remainder the esophagus appeared normal. There were no inflammatory changes in the esophagus. The patient was then taken to the recovery room in stable condition per anesthesia guidelines. Recommendations: Resume diet. Patient's history suggest possible intermittent aspiration. Consider speech pathology evaluation for swallowing evaluation.
[2021-03-06 12:29] VITALS: BP 111/65; PULSE 69; RESP 16
== END 2021-03-06 12:50 | disposition home or self-care (01) ==
LOC: ORWHC2ENDO 10:54
PROVIDERS: ATTEND Surgery
DX: K29.50 Unspecified chronic gastritis without bleeding (principal); K44.9 Diaphragmatic hernia without obstruction or gangrene; R13.10 Dysphagia, unspecified; E78.5 Hyperlipidemia, unspecified; I25.10 Atherosclerotic heart disease of native coronary artery without angina pectoris; F17.210 Nicotine dependence, cigarettes, uncomplicated; M19.90 Unspecified osteoarthritis, unspecified site; Z95.5 Presence of coronary angioplasty implant and graft; Z98.890 Other specified postprocedural states; Z79.82 Long term (current) use of aspirin; Z79.899 Other long term (current) drug therapy
CPT/HCPCS: 88305; 43239; J2001; J2704

== ENCOUNTER 2021-03-12 12:51 | Emergency (ER) | payer MEDICARE ==
[2021-03-12 13:30] VITALS: RESP 18; TEMP 97.9
[2021-03-12] MEDS ORDERED: KETOROLAC 15 MG/ML 1 ML VIAL IM STA (13:58)
--- NOTE | 2021-03-12 14:11 | XR ---
EXAMINATION TYPE: XR shoulder limited RT DATE OF EXAM: 03/12/2021 COMPARISON: NONE HISTORY: Pain TECHNIQUE: Three views are submitted. FINDINGS: The osseous structures are intact. There is no acute fracture or dislocation. Views osteopenia and a rthropathy of the shoulder correlate for chronic rotator cuff disease. There is a sclerotic lesion in volving the proximal right humerus. IMPRESSION: 1. Correlate for bone infarct versus chondroid lesion proximal right humerus. This could be correlate d with MRI. 2. Hypertrophic arthropathy of the AC joint with large spur extending off the acromium correlate for chronic rotator cuff disease.
[2021-03-12] MEDS ORDERED: ACET/COD 300 MG/30 MG STARTER PACK 6 TAB BTL PO STA (14:25)
--- NOTE | 2021-03-12 14:28 | ED ---
Upper Extremity HPI - General Chief Complaint: Extremity Injury, Upper Stated Complaint: rt shoulder injury Time Seen by Provider: 03/12/21 13:47 Source: patient, RN notes reviewed Mode of arrival: ambulatory Limitations: no limitations - History of Present Illness Initial Comments: Patient is a 75-year-old male that presents to emergency department stating that he tried moving a log earlier today went to lift it with his right arm felt a pop in excruciating pain. Patient notes that he does have a decreased strength in his right arm to lift it laterally in abduction. He denied any other issues at this time. He was otherwise well-appearing 75-year-old male. He notes that while at rest is pain is a 1-2 out of 10 but when he tries to lift it shoots up to a 10 out of 10. He denied any illness tingling in his right upper extremity. He denied any chest pain shortness of breath headache nausea vomiting diarrhea constipation fever fatigue chills. - Related Data Previous Rx's Medication Instructions Recorded Atorvastatin [Lipitor] 80 mg PO DAILY #0 01/07/19 Nitroglycerin Sl Tabs [Nitrostat] 0.4 mg SUBLINGUAL Q5M PRN #25 tab 01/07/19 Aspirin 81 mg PO DAILY #1 chewable 02/02/19 Allergies Allergy/AdvReac Type Severity Reaction Status Date / Time pregabalin [From Lyrica] Allergy psychotic Verified 03/12/21 13:28 behavior varenicline tartrate Allergy psychotic Verified 03/12/21 13:28 [From Chantix] behavior Review of Systems ROS Statement: Those systems with pertinent positive or pertinent negative responses have been documented in the HPI. ROS Other: All systems not noted in ROS Statement are negative. Past Medical History Past Medical History: Coronary Artery Disease (CAD), Chest Pain / Angina, Hyperlipidemia, Musculoskeletal Disorder, Osteoarthritis (OA) Additional Past Medical History / Comment(s): Chronic neck and back pain, RADIATES DOWN BOTH LEGS. 01/2018 colonoscopy resulting in perferation of bowel leading to peg tube with reversal. Does not have any Peg tube @ this time. History of Any Multi-Drug Resistant Organisms: None Reported Past Surgical History: Back Surgery, Heart Catheterization With Stent, Orthopedic Surgery Additional Past Surgical History / Comment(s): Neck surgery, right knee arthroscopy, pain procedures. COLONOSCOPY. Past Anesthesia/Blood Transfusion Reactions: No Reported Reaction Additional Past Anesthesia/Blood Transfusion Reaction / Comment(s): FAMILY HX UNKNOWN Date of Last Stent Placement:: 12/2018 Past Psychological History: No Psychological Hx Reported Smoking Status: Current every day smoker Past Alcohol Use History: None Reported Past Drug Use History: None Reported - Past Family History Mother Family Medical History: No Reported History, Liver Disease General Exam Limitations: no limitations General appearance: alert, in no apparent distress Head exam: Present: atraumatic, normocephalic, normal inspection Eye exam: Present: normal appearance, PERRL, EOMI. Absent: scleral icterus, conjunctival injection, periorbital swelling Neck exam: Present: normal inspection Respiratory exam: Present: normal lung sounds bilaterally. Absent: respiratory distress, wheezes, rales, rhonchi, stridor Cardiovascular Exam: Present: regular rate, normal rhythm, normal heart sounds. Absent: systolic murmur, diastolic murmur, rubs, gallop, clicks Right Shoulder Exam: Present: normal inspection, other (Decreased strength with ex ternal rotation abduction. 3 out of 5). Absent: full ROM (Secondary to pain), tenderness, swelling, abrasion, laceration, ecchymosis, deformity, crepitus, dislocation, erythema, tenderness over AC joint Neurological exam: Present: alert, oriented X3 Psychiatric exam: Present: normal affect, normal mood Skin exam: Present: warm, dry, intact, normal color. Absent: rash Course Vital Signs 03/12/21 13:28 Temperature 97.9 F Pulse Rate 69 Respiratory 18 Rate O2 Sat by Pulse 96 Oximetry Medical Decision Making - Medical Decision Making 75-year-old male with right shoulder pain after trying to lift a log X-ray of the right shoulder, 15 mg of Toradol ordered. X-ray negative for any acute fractures or dislocations. Patient most likely has a rotator cuff injury and will need to follow-up with orthopedics. Case discussed with Dr. Sorensen. Patient discharge home in stable condition with arm sling. - Radiology Data Radiology results: report reviewed, image reviewed X-ray right shoulder: Correlate for bone infarct versus chondroid lesion proximal right humerus. This could be correlate with MRI. Hypertrophic arthropathy of the before meals joint with large spur extending off the acromium correlate for chronic rotator cuff disease. Disposition Clinical Impression: Injury of right rotator cuff Disposition: HOME SELF-CARE Condition: Stable Instructions (If sedation given, give patient instructions): Rotator Cuff Injury (ED) Additional Instructions: Please return to the Emergency Department if symptoms worsen or any other concerns. Follow-up with primary care in 1-2 days. Follow-up with orthopedics within the next week. Take Tylenol and Motrin as needed for pain. Keep sling on thought the day. Is patient prescribed a controlled substance at d/c from ED?: No Referrals: Shadi Freed DO [Primary Care Provider] - 1-2 days Nicanor Thapa PAC [PHYSICIAN PERSONAL TRAINER] - 1-2 days Time of Disposition: 14:26
[2021-03-12 14:59] VITALS: BP 143/74; PULSE 63
== END 2021-03-12 14:57 | disposition home or self-care (01) ==
LOC: EC 12:51
DX: S46.001A Unspecified injury of muscle(s) and tendon(s) of the rotator cuff of right shoulder, initial encounter (principal); E78.5 Hyperlipidemia, unspecified; I25.10 Atherosclerotic heart disease of native coronary artery without angina pectoris; M19.90 Unspecified osteoarthritis, unspecified site; F17.200 Nicotine dependence, unspecified, uncomplicated; Z79.82 Long term (current) use of aspirin; Z79.899 Other long term (current) drug therapy; X50.0XXA Overexertion from strenuous movement or load, initial encounter; X50.1XXA Overexertion from prolonged static or awkward postures, initial encounter
CPT/HCPCS: 73020; 96372; 99283; J1885

== ENCOUNTER → 2021-04-16 | Outpatient (CLI) | payer MEDICARE ==
[2021-04-16 12:46] LABS: Basophils % (A) 0 %; Eosinophils # (A) 0.3 k/uL (0-0.7); Eosinophils % (A) 3 %; HCT 43.9 % (39.0-53.0); HGB 14.4 gm/dL (13.0-17.5); Lymphocytes # (A) 1.9 k/uL (1.0-4.8); Lymphocytes % (A) 19 %; MCHC 32.9 g/dL (31.0-37.0); MCV 97.5 fL (80.0-100.0); Mean Platelet Volume 7.1; Monocytes # (A) 0.8 k/uL (0-1.0); Monocytes % (A) 8 %; Neutrophils # (A) 6.9 k/uL (1.3-7.7); Neutrophils % (A) 68 %; Platelet Count 311 k/uL (150-450); RDW 12.9 % (11.5-15.5); WBC 10.1 k/uL (3.8-10.6)
[2021-04-16 13:00] LABS: African American GFR (CKD) >90 (>60 ml/min/1.73 sqM); Anion Gap 7 mmol/L; Blood Urea Nitrogen 9 mg/dL (9-20); Carbon Dioxide 27 mmol/L (22-30); Chloride 106 mmol/L (98-107); Non-African American GFR(CKD) 87 (>60 ml/min/1.73 sqM); Potassium 4.4 mmol/L (3.5-5.1); Sodium 140 mmol/L (137-145)
== END | disposition home or self-care (01) ==
LOC: LABPAT 11:46
PROVIDERS: ATTEND Internal Medicine Interventional Cardiology
DX: Z01.812 Encounter for preprocedural laboratory examination (principal); R07.9 Chest pain, unspecified
CPT/HCPCS: 80051; 82565; 84520; 85025

== ENCOUNTER 2021-04-25 07:51 | Day surgery (SDC) | payer MEDICARE ==
[2021-04-23 15:54] VITALS: BMI 25.0
[~2021-04-25 07:51] MED LIST changes: +ALPRAZolam 0.25 MG TAB PO PRN; +ALPRAZolam 0.5 MG TAB PO PRN; +ASPIRIN 325 MG TAB PO ONE; +ATORVASTATIN 80 MG TAB PO ONE; -LACTATED RINGERS 1,000 ML IV SCH; -LIDOCAINE 1% (10MG/ML) FOR IV START INTRADERMA PRN; +NITROGLYCERIN SL TABS 0.4 MG TAB SUBLINGUAL PRN; +SODIUM CHLORIDE 0.9% 1,000 ML in EMPTY BAG 1 BAG IV SCH
[2021-04-25 08:29] VITALS: RESP 16; TEMP 98
[2021-04-25] MEDS ORDERED: SODIUM CHLORIDE 0.9% 1,000 ML IV ONE (08:30)
[2021-04-25] MEDS ORDERED: LIDOCAINE 1% INJ 10MG/ML (20 ML MDV) ONE (08:38)
[2021-04-25] MEDS ORDERED: VERAPAMIL 2.5 MG/ML 2 ML AMP ONE (08:38)
[2021-04-25] MEDS ORDERED: HEPARIN SODIUM 1,000 UN/ML (10ML VL) ONE (08:39)
[2021-04-25] MEDS ORDERED: fentaNYL (PF) 50 MCG/ML 2 ML AMP ONE (08:59)
[2021-04-25] MEDS ORDERED: fentaNYL (PF) 50 MCG/ML 2 ML AMP IV ONE (09:21)
[2021-04-25] MEDS ORDERED: LIDOCAINE 1% INJ 10MG/ML (20 ML MDV) SQ ONE (09:27)
[2021-04-25] MEDS ORDERED: VERAPAMIL SYRINGE (5 MG/10 ML) INTRAARTER ONE (09:28)
[2021-04-25] MEDS ORDERED: IOPAMIDOL-370 125ML BTL INJ ONE (09:39)
[2021-04-25] MEDS ORDERED: NITROGLYCERIN SL TABS 0.4 MG TAB SUBLINGUAL PRN (10:06)
[2021-04-25] MEDS ORDERED: RX INFO: IV CONTRAST WAS GIVEN 1 EACH MISC MISCELLANE PRN (10:06)
[2021-04-25] MEDS ORDERED: SODIUM CHLORIDE 0.9% 1,000 ML IV SCH (10:15)
--- NOTE | 2021-04-25 13:47 | CC ---
CARDIAC CATHETERIZATION REPORT DATE OF SERVICE: 04/25/2021 Mr. Camacho is a 75-year-old male with known history of coronary artery disease, history of percutaneous revascularization, hyperlipidemia and chronic tobacco use who presented with symptoms of chest discomfort and abnormal myocardial perfusion imaging. In view of that, recommendation was made regarding cardiac catheterization. The procedure as well as its risks and complications were discussed with the patient, who was in full understanding and agreement. PROCEDURE DESCRIPTION: Patient was brought to the dye lab technician in a fasting, semi-sedated state after receiving fentanyl and Benadryl and achieving a moderate conscious state. Using Xylocaine anesthesia and Seldinger technique, a 6-Barbadian sheath was introduced in the right radial artery. Selective right and left coronary angiography was performed using 5- Barbadian 3.5 bend, right and left True catheters. Multiple views were taken of the arteries, including hemiaxial views. Following that, a 5-Barbadian tight pigtail catheter was introduced into the left ventricle and left ventricular end-diastolic pressure was calculated. Following that, catheters and sheaths were removed. Hemostasis was obtained with deployment of a TR band. There was no immediate complication. Patient was returned to his room in stable condition. Of note, patient received 4000 units of intravenous heparin as well as intra-arterial verapamil. FINDINGS: LEFT MAIN: This is a short-sized vessel bifurcating into left circumflex and left anterior descending artery. Left main coronary artery has no evidence of high-grade stenosis. LEFT ANTERIOR DESCENDING ARTERY: This is a large-sized vessel reaching towards the apex with a wrap around the apex segment giving rise to a large diagonal branch proximally. At the takeoff of the diagonal branch there is a 20% to 30% plaque. The ostium of the diagonal branch has a 70% plaque with a 40% to 50% plaque in the proximal segment of the diagonal branch. The rest of the vessel has no high-grade stenosis. LEFT CIRCUMFLEX: This is a nondominant vessel giving rise to 2 obtuse marginal branches. The first one is large in caliber. The first obtuse marginal branch has a 30% to 40% plaque proximally. The rest of the vessel has no high-grade stenosis. RIGHT CORONARY ARTERY: This is a large dominant vessel bifurcating distally into PDA and posterolateral segment and branches. The stented segment and proximal and mid RCA are patent, with no evidence of significant in-stent restenosis. At the ostium of the PDA there is a 70% to 80% plaque. The rest of the vessel has no high-grade stenosis. LEFT VENTRICULOGRAM: Left ventriculogram was not performed. HEMODYNAMICS: There was no gradient across the aortic valve. The left ventricular end- diastolic pressure was 16 to 20 mmHg. CONCLUSION: 1. Patent stent to the RCA. 2. Mild disease in the first obtuse marginal branch. 3. Significant disease in the ostium of the first diagonal branch and the ostium of the PDA with no progression compared to 2019. RECOMMENDATIONS: In view of findings and anatomy, I have recommended continued medical therapy with the aggressive coronary risk modifications that have been initiated. Those findings and recommendations were discussed with the patient his family, who are in full understanding and agreement. Duration of sedation was 17 minutes. MMSAVANNAHL / IJN: [id number] /
--- NOTE | 2021-04-25 13:50 | LTR ---
April 25, 2021 To: Dr. Freed Re: Best Camacho (41) Dear Dr. Freed, I had the pleasure of performing cardiac catheterization on Mr. Camacho at [facility] on April 25, and a full copy of the procedure note will be forwarded to you. In brief, he was found to have no significant in-stent restenosis of the RCA with obstructive disease involving the ostium of the first diagonal branch and the right PDA and no progression compared to 2019. Based on those findings, I have recommended continued medical therapy with the aggressive coronary risk modifications that have been initiated. Thank you again for allowing me to participate in this patient's care. Please feel free to call with any questions. Sincerely, Gila Rodriguez M.D. MELO / TELMA: [id number] /
[2021-04-25 14:21] VITALS: BP 136/66; PULSE 56
[2021-04-25] MEDS ORDERED: GABAPENTIN 300 MG CAP PO SCH (21:00)
[2021-04-26] MEDS ORDERED: ATORVASTATIN 80 MG TAB PO SCH (09:00)
[2021-04-26] MEDS ORDERED: ASPIRIN 81 MG PO SCH (09:00)
== END 2021-04-25 14:26 | disposition home or self-care (01) ==
LOC: CATHCVL 07:51
PROVIDERS: ATTEND Internal Medicine Interventional Cardiology
DX: I25.10 Atherosclerotic heart disease of native coronary artery without angina pectoris (principal); E78.00 Pure hypercholesterolemia, unspecified; E78.2 Mixed hyperlipidemia; I10 Essential (primary) hypertension; Z20.822 Contact with and (suspected) exposure to COVID-19; F17.210 Nicotine dependence, cigarettes, uncomplicated; Z95.5 Presence of coronary angioplasty implant and graft; Z88.8 Allergy status to other drugs, medicaments and biological substances; Z98.1 Arthrodesis status; K21.9 Gastro-esophageal reflux disease without esophagitis; M19.90 Unspecified osteoarthritis, unspecified site; Z79.82 Long term (current) use of aspirin; Z79.899 Other long term (current) drug therapy
CPT/HCPCS: 93458; 87635; J2001; J3010; J1644; Q9967

== ENCOUNTER → 2021-08-23 | Outpatient (CLI) | payer MEDICARE ==
[2021-08-23 15:41] LABS: ALT 19 U/L (10-49); AST 23 U/L (14-35); African American GFR (CKD) 95.1 (60.0-200.0); Albumin 4.3 g/dL (3.8-4.9); Albumin/Globulin Ratio 1.39 (1.60-3.17); Alkaline Phosphatase 143 U/L (41-126); BUN/Creat Ratio 7.67 Ratio (12.00-20.00); Blood Urea Nitrogen 6.9 mg/dL (9.0-27.0); Calcium 9.3 mg/dL (8.7-10.3); Chloride 103 mmol/L (96-109); Chol/HDL Ratio 3.79 Ratio; Globulin 3.1 g/dL (1.6-3.3); Glucose 90 mg/dL (70-110); LDL Cholesterol,Calculated 72.1 mg/dL (0.0-131.0); Non-African American GFR(CKD) 82.1 (60.0-200.0); Potassium 4.3 mmol/L (3.5-5.5); Sodium 140 mmol/L (135-145); Total Protein 7.4 g/dL (6.2-8.2)
== END | disposition home or self-care (01) ==
LOC: LABWHC1 10:28
PROVIDERS: ATTEND Internal Medicine Interventional Cardiology
DX: E78.2 Mixed hyperlipidemia (principal)
CPT/HCPCS: 36415; 80053; 80061

== ENCOUNTER → 2021-09-04 | Outpatient (CLI) | payer MEDICARE ==
--- NOTE | 2021-09-04 15:00 | XR ---
EXAMINATION TYPE: XR chest 2V DATE OF EXAM: 09/04/2021 COMPARISON: Chest x-ray 04/04/2020 HISTORY: Left rib pain TECHNIQUE: Frontal and lateral views of the chest are obtained. FINDINGS: There is no focal air space opacity, pleural effusion, or pneumothorax seen. The cardiac silhouette size is within normal limits. Pleural-based density in the superolateral left chest, biapi dany pleural thickening are stable findings. Aorta is dense. There is eventration of right hemidiaphra gm. Patient is rotated. Postop change noted to the cervical spine. There is thoracic spondylosis. Th e osseous structures are intact. IMPRESSION: No acute cardiopulmonary process.
== END | disposition home or self-care (01) ==
LOC: RADXRMAIN 13:51
PROVIDERS: ATTEND Family Medicine
DX: R07.81 Pleurodynia (principal)
CPT/HCPCS: 71046

== ENCOUNTER → 2021-09-14 | Outpatient (CLI) | payer MEDICARE ==
[2021-09-14 18:15] LABS: HCT 40.4 % (39.6-50.0); HGB 12.8 g/dL (13.0-17.0); MCHC 31.7 g/dL (32.0-37.0); MCV 97.8 fL (80.0-97.0); Mean Platelet Volume 9.5 fL (9.5-12.2); NRBC Per 100 WBC 0 /100 WBCS (0.0-0.0); Platelet Count 464 X 10*3/uL (140-440); RBC 4.13 X 10*6/uL (4.40-5.60); RDW 12.8 % (11.5-14.5); WBC 9.95 X 10*3/uL (4.50-10.00)
[2021-09-14 18:34] LABS: African American GFR (CKD) 100.6 (60.0-200.0); Albumin 4.4 g/dL (3.8-4.9); Albumin/Globulin Ratio 1.63 (1.60-3.17); Anion Gap 13.2 mmol/L (10.00-18.00); BUN/Creat Ratio 10.85 Ratio (12.00-20.00); Blood Urea Nitrogen 8.4 mg/dL (9.0-27.0); Calcium 9.4 mg/dL (8.7-10.3); Carbon Dioxide 24.2 mmol/L (20.0-27.5); Globulin 2.7 g/dL (1.6-3.3); Non-African American GFR(CKD) 86.8 (60.0-200.0); Potassium 4.8 mmol/L (3.5-5.5); Total Bilirubin 0.2 mg/dL (0.30-1.20)
== END | disposition home or self-care (01) ==
LOC: LABWHC1 11:36
PROVIDERS: ATTEND Nurse Practitioner Adult Health
DX: K92.1 Melena (principal); R07.9 Chest pain, unspecified
CPT/HCPCS: 36415; 80053; 85027

== ENCOUNTER → 2021-10-01 | Outpatient (CLI) | payer MEDICARE ==
--- NOTE | 2021-10-01 13:58 | NM ---
EXAMINATION TYPE: NM bone scan whole body DATE OF EXAM: 10/01/2021 COMPARISON: Chest x-ray 09/04/2021 HISTORY: Precordial pain, chest pain for 5 months Delayed whole-body scanning was performed following the injection of 22.8 mCi Tc 99m MDP. Images acq uired 3 hours post injection. FINDINGS: Soft tissue uptake is normal. Spinal curvature could be positional, mild uptake in the spine is likel y due to degenerative disc change. Uptake within the feet, knees, wrists and hands, shoulders and kelin rnoclavicular joints is likely degenerative. IMPRESSION: Degenerative changes. No abnormality evident to account for patient's symptoms.
== END | disposition home or self-care (01) ==
LOC: RADNMMAIN 09:40
PROVIDERS: ATTEND Family Medicine
DX: M13.89 Other specified arthritis, multiple sites (principal)
CPT/HCPCS: 78306; A9503

== ENCOUNTER → 2021-11-12 | Outpatient (CLI) | payer MEDICARE ==
--- NOTE | 2021-11-12 10:34 | FL ---
EXAMINATION TYPE: FL UGI air w esophagus DATE OF EXAM: 11/12/2021 COMPARISON: Low-dose lung screening CT September 09, 2018 HISTORY: GERD per order. Recent endoscopy with hiatal hernia and gastritis performed last month on bi opsies. Pain worse over the left chest for patient. No relief with antireflux medications per patient TECHNIQUE: A double contrast UGI study is performed. A total of 47 seconds of fluoroscopic time was utilized during procedure and 130 images obtained. FINDINGS: [employer] Aide image of the abdomen shows overall nonobstructive bowel gas pattern. Multilevel spur ring in the spine is present Patient then drinks contrast. Extensive surgical changes in the cervical spine is present. The esopha karis shows satisfactory motility and emptying into the stomach. No proximal diverticulum. No evidence of fixed hiatal hernia or stricture noted. The stomach shows satisfactory distensibility and peristalsis. Moderate prominence of gastric folds throughout the stomach is identified. No definitive focal ulcer disease. Moderate to severe gastroeso phageal reflux was seen during real time performance of this study. Multiple episodes through the bot rob one half of the esophagus noted during real-time performance of study. The duodenal bulb, sweep, and proximal small bowel loops are unremarkable. IMPRESSION: Moderate diffuse gastritis. Moderate to severe gastroesophageal reflux. No fixed hiatal h ernia.
== END | disposition home or self-care (01) ==
LOC: RADUSWWP 08:47
PROVIDERS: ATTEND Surgery
DX: K21.9 Gastro-esophageal reflux disease without esophagitis (principal); K29.70 Gastritis, unspecified, without bleeding; Z87.19 Personal history of other diseases of the digestive system
CPT/HCPCS: 74246

== ENCOUNTER → 2021-12-03 | Outpatient (CLI) | payer MEDICARE ==
[2021-12-03 11:20] LABS: African American GFR (CKD) >90 (>60 ml/min/1.73 sqM); Blood Urea Nitrogen 8 mg/dL (9-20); Non-African American GFR(CKD) 88 (>60 ml/min/1.73 sqM)
--- NOTE | 2021-12-03 14:34 | CT ---
"EXAMINATION TYPE: CT chest w con DATE OF EXAM: 12/03/2021 COMPARISON: PET scan dated 10/30/2018 HISTORY: pain in left chest, diaphragmatic hernia CT DLP: 202.5 mGycm Automated exposure control for dose reduction was used. TECHNIQUE: CT scan of the chest is performed with IV Contrast, patient injected with 70 mL of Isovue 300. FINDINGS: LUNGS: An irregular lesion is seen at the posterolateral aspect of the left upper lobe measuring 2.1 x 2.9 cm. This could represent focal pulmonary infiltration/pneumonia however underlying neoplastic p rocess cannot be excluded. Recommend clinical correlation and further PET scan assessment. Bilateral apical pulmonary fibrotic changes more on the right side. Moderate to severe COPD changes with emphys ematous changes and paraseptal emphysema. Bilateral basal posterior subpleural reticulations and depe ndent densities. Patent trachea and main bronchi. No pleural effusion MEDIASTINUM: 10 mm subcarinal lymph node. Significant soft tissue thickening along the left hilum ext ending to the left side of the aortopulmonary window, measuring up to 2.2 cm, suspicious for hilar ma ss versus lymphadenopathy. Subcentimeter right hilar lymph nodes, nonspecific. Other scattered smalle r mediastinal lymph nodes. No axillary lymphadenopathy. Small pericardial fluid. No cardiomegaly. Cor onary and arterial atherosclerotic calcification. The ascending aorta measures 3.7 cm. OTHER: Grossly unremarkable upper abdomen. Osteopenia. No gross aggressive bone lesion. IMPRESSION: Suspicious left upper lobe lesion with left hilar and aortopulmonary soft tissue thickening which cou ld represent metastatic lymph nodes versus primary lung cancer. Recommend further PET scan assessment , tissue diagnosis and thoracic surgery consultation. Other findings as detailed above. A [place] level critical message alert has been initiated for Toni Soto MD via the [employer] | Critical Results System on 12/03/2021 2:31 PM. This message alert has been sent to Toni Soto MD via the preferences provided by the clinician for the receipt of Radiology Critical Findings. [facility] [id number]."
== END ==
LOC: RADCTMAIN 10:08
PROVIDERS: ATTEND Surgery
DX: K44.9 Diaphragmatic hernia without obstruction or gangrene (principal); R07.9 Chest pain, unspecified
CPT/HCPCS: 82565; 84520; 71260; 36415; Q9967

== ENCOUNTER → 2021-12-21 | Outpatient (CLI) | payer MEDICARE ==
--- NOTE | 2022-01-01 11:33 | PE ---
Nuclear medicine PET/CT HISTORY: Solitary pulmonary nodule, initial Patient received 12.3 mCi F-18 FDG intravenously and delayed scanning was performed from the skull ba se to the mid thighs. A localization and attenuation correction CT scan was performed. Correlation to CT chest dated 12/26/2021, 12/03/2021, prior nuclear medicine PET/CT 10/30/2018 Average mediastinal uptake SUV 3, average liver uptake SUV 2.1 Chest and neck: The abnormal soft tissue in the left upper lobe which is showing pleural extension sh ows associated hypermetabolic uptake, SUV is 8.4. The abnormal uptake in the retrocaval pretracheal a nd left hilar regions corresponds to abnormal soft tissue, SUV 0.5, 13.4 respectively. Anterior media stinal uptake in the substernal location is present, there is a possible node at this level, SUV 5. U nderlying emphysematous changes are present within the lungs, there is no pleural pericardial effusio n. Extensive coronary artery calcifications are present. ABDOMEN: No evident adrenal mass, no ascites. No evident liver mass. Bowel uptake is felt likely to b e physiologic. No pelvic adenopathy or free fluid. Prostate is enlarged and shows associated calcific ation. Urinary bladder is thickened possibly due to chronic outlet obstruction. Diverticular changes associated with the colon. Osseous structures show no suspicious uptake. IMPRESSION: Findings consistent with bronchogenic carcinoma.
== END | disposition home or self-care (01) ==
LOC: RADXRMAIN 14:51
PROVIDERS: ATTEND Family Medicine
DX: R91.8 Other nonspecific abnormal finding of lung field (principal)
CPT/HCPCS: 78815; A9552

== ENCOUNTER 2021-12-26 11:20 | Day surgery (SDC) | payer MEDICARE ==
[2021-12-25 09:37] VITALS: BMI 21.1
[~2021-12-26 11:20] MED LIST changes: +ALBUTEROL NEB (CONC) 2.5 MG/0.5 ML INHALATION ONE; -ALPRAZolam 0.25 MG TAB PO PRN; -ALPRAZolam 0.5 MG TAB PO PRN; -ASPIRIN 325 MG TAB PO ONE; -ATORVASTATIN 80 MG TAB PO ONE; +LACTATED RINGERS 1,000 ML IV SCH; +LIDOCAINE 2% (PF) 20 MG/ML 5 ML VIAL INHALATION ONE; +LIDOCAINE VISCOUS 300 MG/15 ML CUP MUCOUS MEM ONE; -NITROGLYCERIN SL TABS 0.4 MG TAB SUBLINGUAL PRN; -SODIUM CHLORIDE 0.9% 1,000 ML in EMPTY BAG 1 BAG IV SCH; +fentaNYL (PF) 50 MCG/ML 2 ML AMP IV PRN
[2021-12-26] MEDS ORDERED: ePHEDrine 50 MG/ML 1 ML VIAL ONE (13:30)
[2021-12-26] MEDS ORDERED: GLYCOPYRROLATE 0.2 MG/ML 2 ML VIAL ONE (13:30)
[2021-12-26] MEDS ORDERED: ROCURONIUM 10 MG/ML (5 ML VIAL) IV ONE (13:30)
[2021-12-26] MEDS ORDERED: NEOSTIGMINE 1 MG/ML 10 ML VIAL ONE (13:30)
[2021-12-26] MEDS ORDERED: PROPOFOL 10 MG/ML 20 ML VIAL IV ONE (13:30)
[2021-12-26] MEDS ORDERED: SUCCINYLCHOLINE CHLORIDE 100 MG/5 ML SYR IV ONE (13:30)
[2021-12-26] MEDS ORDERED: LIDOCAINE 2% INJ 20 MG/ML (2 ML VIAL) ONE (13:30)
[2021-12-26] MEDS ORDERED: fentaNYL (PF) 50 MCG/ML 2 ML AMP ONE (13:30)
[2021-12-26] MEDS ORDERED: PHENYLEPHRINE-0.9% NACL SYG 1,000 MCG/10 ML SYRINGE ONE (13:30)
--- NOTE | 2021-12-26 14:27 | CT ---
EXAMINATION TYPE: CT Chest wo con [facility] Protocol DATE OF EXAM: 12/26/2021 COMPARISON: CT dated 12/03/2021 HISTORY: Lung Mass CT DLP: 603 mGycm Automated exposure control for dose reduction was used. TECHNIQUE: Multiplanar CT scan of the chest without IV contrast administration as per VERAN protocol. FINDINGS: Again noted is the suspicious soft tissue lesion at the lateral aspect of the left upper lobe measuri ng 2.6 x 3 cm compared to 2.1 x 2.9 cm previously. Advanced COPD changes mainly involving the upper l obes with paraseptal and centrilobular emphysema. Patent trachea and main bronchi. No pleural effusio n. Small pericardial effusion. Coronary and arterial atherosclerotic calcification. No gross cardiomegal y. Again noted is the significant aortopulmonary and left hilar soft tissue thickening, possibly repr esenting metastatic or infiltrating lung cancer, suboptimally assessed by this nonenhanced CT scan. O ther mediastinal lymphadenopathy is noted. No pathologically enlarged right hilar lymph node by this nonenhanced CT scan. No axillary lymphadeno francisco j. Grossly unremarkable upper abdomen. No gross aggressive bone lesion. IMPRESSION: Slight interval enlargement of the left upper lobe lesion with persistent suspicious left mediastinal and left hilar metastatic lymph nodes versus infiltrating lung cancer as described above. Other find ings as described above.
--- NOTE | 2021-12-26 14:28 | P.PCN ---
Date of Procedure: 12/26/21 Preoperative Diagnosis: Left hilar mass, suspicious for bilateral lymphadenopathy versus primary bronchogenic cancer Postoperative Diagnosis: Same Anesthesia: GETA (naida) Surgeon: Herbert Starks Data Warehouse Specialist #1: Maame Brown Estimated Blood Loss (ml): 0 Disposition: same day Operative Findings: 1 flexible bronchoscopy, airway inspection 2 endoscopic ultrasound (EBUS) 3 transbronchial needle aspirate left hilar mass Surgeon: Herbert Starks Data Warehouse Specialist #1: Maame Brown (zeny Melo) Estimated Blood Loss (ml): 0 Pathology: other Condition: stable Disposition: same day Operative Findings: After obtaining the consent the patient was taken to the OR suite he was intubated and put on MV by anesthesia then the scope was advanced to the ET tube until the Trachea was seen and it was normal and then the shmuel appears normal then the scope advanced to the left main and ROB LB1-LB3 were seen and no endobronchial lesions were seen then the scope advanced to the lingula and the LB4 and LB5 were seen and no endobronchial lesions were seen the scope retracted and advanced to the left lower lobes LB6 to LB12 were seen one by one and no endobronchial lesions, then the scope was retracted back to the shmuel and advanced to the Right main and RUL RB1 and RB2 and RB3 were seen one by one and no endobronchial lesions were seen the scope then retracted and advanced to the BI and RML RB4 and RB5 were seen and no endobronchial lesions were seen then it was retracted and advanced to the RLL RB6 to RB12 were seen one by one and no endobronchial lesions. Then EBUS was used and the lymph nodes were examined. Direct measurement of the mediastinal lymph nodes revealed a 3 x 2 cm left hilar mass. There was another pretracheal lymph node measuring 1 x 1.5 cm in size. Resonant the mediastinum was essentially clear. Under EBUS guidance, transbronchial needle aspirate of the left hilar mass was done successfully. The rapid on-site evaluation was done by pathology and the samples were adequate. A total of 4 passes were obtained. Following that, I performed one transbronchial needle aspirate of the precarinal lymph node. The patient was originally set up to undergo bronchoscopy. Based on his history of bullous emphysema and high risk for pneumothorax, transbronchial biopsies of the left upper lobe lesion was not done. The patient was extubated, transferred recovery in stable condition. Patient will be discharged home once for recovered and cleared by anesthesia.
[2021-12-26 14:36] VITALS: RESP 16; TEMP 97.1
[2021-12-26] MEDS ORDERED: IV FLUID CONTINUATION 1,000 ML IV ONE (15:44)
--- NOTE | 2021-12-26 16:03 | XR ---
EXAMINATION TYPE: XR chest 1V portable DATE OF EXAM: 12/26/2021 COMPARISON: 09/04/2021 HISTORY: Status post bronchoscopy TECHNIQUE: Single frontal view of the chest is obtained. FINDINGS: No sizable pneumothorax. Left upper lobe lung mass suspected measuring approximately 3.6 c m. Postsurgical change overlying the cervical spine. No pleural effusion or interstitial edema. Heart size normal. Atherosclerotic change aorta. Arthropathy of the shoulders with chronic left clavicular deformity IMPRESSION: 1. Large left upper lobe lung mass with no sizable pneumothorax.
[2021-12-26 16:06] VITALS: BP 109/48; PULSE 63
== END 2021-12-26 16:25 | disposition home or self-care (01) ==
LOC: ORWHC2ENDO 11:20
PROVIDERS: ATTEND Internal Medicine Critical Care Medicine
DX: C34.02 Malignant neoplasm of left main bronchus (principal); J44.9 Chronic obstructive pulmonary disease, unspecified; F17.210 Nicotine dependence, cigarettes, uncomplicated; F10.10 Alcohol abuse, uncomplicated; D64.9 Anemia, unspecified; E78.5 Hyperlipidemia, unspecified; K21.9 Gastro-esophageal reflux disease without esophagitis; Z79.899 Other long term (current) drug therapy; Z88.8 Allergy status to other drugs, medicaments and biological substances; Z88.6 Allergy status to analgesic agent; Z98.890 Other specified postprocedural states
CPT/HCPCS: 88305; 88173; 88342; 88341; 71045; 71250; 31629; 31652; J2710; J3010; J2370; J0330; J2704; J2001

== ENCOUNTER → 2022-01-11 | Outpatient (CLI) | payer MEDICARE ==
--- NOTE | 2022-01-11 13:58 | MR ---
EXAMINATION TYPE: MR brain wo/w con DATE OF EXAM: 01/11/2022 COMPARISON: NONE HISTORY: Newly diagnosed Lung cancer, evaluate for metastatic disease. TECHNIQUE: Multiplanar, multisequence images of the brain and brainstem is performed without and with IV contras t, utilizing 6 mL intravenous Gadavist . FINDINGS: Diffusion weighted images demonstrate no evidence of a recent infarct or other diffusion ab normality. There is mild to moderate ventricular and sulcal prominence. There are multiple small sca ttered foci of T2 hyperintensity seen throughout the white matter bilaterally. Approximately 40-50 sm all to tiny scattered lesions are seen. Lesions are nonspecific in appearance and distribution. Midline structures demonstrate normal morphology. The craniocervical junction appears within normal limits. Post contrast images demonstrate no suspicious enhancing masses to suggest metastatic diseas e to the brain.. The dural venous sinuses appear patent. The visualized sinuses are clear and the radha bes are intact. IMPRESSION: No abnormal enhancing masses to suggest metastatic disease to the brain. There is mild to moderate diffuse cerebral atrophy and moderate to borderline advanced chronic small vessel ischemic changes appreciated.
== END | disposition home or self-care (01) ==
LOC: RADMRIMAIN 11:56
PROVIDERS: ATTEND Internal Medicine Hematology & Oncology
DX: G31.9 Degenerative disease of nervous system, unspecified (principal); I67.82 Cerebral ischemia
CPT/HCPCS: 70553; A9585

== ENCOUNTER → 2022-03-06 | Outpatient (CLI) | payer MEDICARE ==
--- NOTE | 2022-03-08 07:54 | XR ---
EXAMINATION TYPE: XR lumbar spine 2 or 3V DATE OF EXAM: 03/06/2022 CLINICAL HISTORY: pain TECHNIQUE: Three views of the lumbar spine are submitted. COMPARISON: None. FINDINGS: There are 5 lumbar type vertebral bodies identified. The lumbar spine shows satisfactory alignment w ithout evidence of acute fracture or dislocation. Vertebral body heights are within normal limits. Severe degenerative disc space narrowing at L5-S1 with vacuum disks noted. Moderate degenerative narr owing at the remaining levels. Ventral spondylosis as well as moderate facet joint arthropathy. The overlying soft tissue appears unremarkable. IMPRESSION: No acute fracture or dislocation is seen in the lumbar spine. ICD 10 NO FRACTURE, INITIAL EVALUATION
--- NOTE | 2022-03-08 07:55 | XR ---
EXAMINATION TYPE: XR thoracic spine 2V DATE OF EXAM: 03/06/2022 CLINICAL HISTORY: pain TECHNIQUE: Frontal, lateral, and swimmer's view of thoracic spine are obtained. COMPARISON: None. FINDINGS: Thoracic spine show satisfactory alignment without evidence of acute fracture or dislocatio n. Vertebral body heights are preserved. Moderate multilevel degenerative disc space narrowing and s pondylosis. Visualized ribs are unremarkable. IMPRESSION: No acute fracture or dislocation is seen in the thoracic spine. ICD 10 NO FRACTURE, INIT IAL EVALUATION
--- NOTE | 2022-03-08 08:29 | XR ---
EXAMINATION TYPE: XR cervical spine comp DATE OF EXAM: 03/06/2022 COMPARISON: 10/15/2018 HISTORY: back pain after a fall TECHNIQUE: Four views are submitted. FINDINGS: The odontoid is intact. There are no compression deformities. The prevertebral soft tissue structur es are within normal limits. Postsurgical changes involving levels C3-C7. Alignment near-anatomic. S light anterolisthesis of C7 on T1 with multilevel facet arthropathy. There is multilevel bilateral fo raminal encroachment. Odontoid intact. IMPRESSION: 1. Postoperative change with multilevel facet arthropathy and foraminal encroachment. Grade 1 anterol isthesis C7 on T1.
== END | disposition home or self-care (01) ==
LOC: RADXRMAIN 12:59
PROVIDERS: ATTEND Family Medicine
DX: M47.813 Spondylosis without myelopathy or radiculopathy, cervicothoracic region (principal); M43.13 Spondylolisthesis, cervicothoracic region; M54.9 Dorsalgia, unspecified
CPT/HCPCS: 72050; 72070; 72100

== ENCOUNTER → 2022-03-18 | Outpatient (CLI) | payer MEDICARE ==
--- NOTE | 2022-03-18 15:19 | MR ---
EXAMINATION TYPE: MR brain wo/w con DATE OF EXAM: 03/18/2022 COMPARISON: 01/11/2022 HISTORY: LUNG CANCER CONTRAST: Performed utilizing 6 mL intravenous Gadavist gadolinium contrast. TECHNIQUE: Multiplanar, multiecho imaging on a 3.0 Loli magnet is performed through the brain. Stud y is performed within 24 hours of arrival to the hospital. The craniovertebral junction is normal. The pituitary is normal. Diffusion-weighted imaging is performed. No abnormal hyperintensity is present to suggest an acute i ntracranial infarct or acute ischemic change. There are a few scattered periventricular white matter hyperintensities, likely on the basis of chron ic white matter ischemic change. These appear to be present previously. Ventricles and sulci are appropriate for the patient age. Following contrast administration, no abnormal enhancement is evident. IMPRESSIONS: 1. No suspicious changes to suggest metastatic disease. 2. Chronic appearing white matter ischemic type changes present previously.
== END | disposition home or self-care (01) ==
LOC: RADMRIMAIN 14:07
PROVIDERS: ATTEND Internal Medicine Hematology & Oncology
DX: C34.12 Malignant neoplasm of upper lobe, left bronchus or lung (principal); I67.82 Cerebral ischemia
CPT/HCPCS: 70553; A9585

== ENCOUNTER → 2022-03-29 | Outpatient (CLI) | payer MEDICARE ==
[2022-03-29 10:44] LABS: African American GFR (CKD) >90 (>60 ml/min/1.73 sqM); Blood Urea Nitrogen 7 mg/dL (9-20); Non-African American GFR(CKD) >90 (>60 ml/min/1.73 sqM)
--- NOTE | 2022-03-29 11:46 | CT ---
EXAMINATION TYPE: CT chest w con DATE OF EXAM: 03/29/2022 COMPARISON: Prior chest CT December 03, 2021 and PET/CT December 21, 2021 HISTORY: left lung ca diagnosed in November. CT DLP: 189 mGycm. Automated Exposure Control for Dose Reduction was Utilized. TECHNIQUE: CT scan of the thorax is performed following with IV Contrast, patient injected with 70 m L of Isovue 300. FINDINGS: LUNGS: Moderate to advanced underlying emphysematous change is redemonstrated. Improvement in the per ipheral left upper lobe neoplasm measuring 2.2 x 1.3 cm current study axial image 21 versus 2.7 x 2.1 cm prior study axial image 22. Some new central ground glass opacity with for intralobular septal prominence in the left hilar regio n suggest edema probable related to treatment seen near axial image 34 posteriorly is noted. No new nodules or masses. Right lung remains clear. MEDIASTINUM: Residual but improved left hilar adenopathy near axial image 29 measuring 2.3 x 1.3 cm. No enlarged lymph node in the paracarinal level on current study with marked improvement. No new gre ater than 1 cm adenopathy. Coronary artery calcification and/or stents redemonstrated. Stable small p ericardial effusion. No cardiomegaly. OTHER: No additional significant abnormality is seen. IMPRESSION: Partial positive treatment response as detailed above with diminished size peripheral lef t upper lung neoplasm and improved thoracic adenopathy.
== END ==
LOC: RADCTMAIN 09:52
PROVIDERS: ATTEND Internal Medicine Hematology & Oncology
DX: C34.12 Malignant neoplasm of upper lobe, left bronchus or lung (principal)
CPT/HCPCS: 82565; 84520; 71260; 36415; Q9967

== ENCOUNTER → 2022-05-24 | Outpatient (CLI) | payer MEDICARE | END | disposition home or self-care (01) | LOC: RADPETMAIN 09:21 | PROVIDERS: ATTEND Internal Medicine Hematology & Oncology | DX: Z53.9 Procedure and treatment not carried out, unspecified reason (principal) ==

== ENCOUNTER → 2022-06-14 | Outpatient (CLI) | payer MEDICARE ==
--- NOTE | 2022-06-17 06:25 | PE ---
EXAMINATION TYPE: PET CT fusion skull to thigh DATE OF EXAM: 06/14/2022 COMPARISON: Prior PET/CT December 21, 2021 and older studies. HISTORY: Left-sided lung cancer diagnosed December 2021 on immunotherapy currently. Had radiation treatme nt through end february. TECHNIQUE: Following the intravenous administration of 9.29 mCi of F-18 FDG, whole body images are p erformed from the skull base to the midthigh. Images are reviewed on the computer in the coronal, ax ial, and sagittal planes. Reconstructed rotating images are created on independent workstation and r eviewed on the computer. A localization and attenuation correction CT is performed in conjunction w ith the PET scan. Blood glucose level equals 100 SCAN: Subsequent Scan FINDINGS: SKULL BASE AND NECK: No areas of abnormal hypermetabolic uptake CHEST, MEDIASTINUM, AND HILAR REGION: Background moderate to advanced underlying emphysematous change is redemonstrated. Marked improvement in underlying spiculated hypermetabolic lesion peripheral left upper lobe with res idual 1.4 x 0.8 cm lesion axial image 75 diminished from 3.0 x 2.5 cm with max SUV of 1.79 versus stephen or 8.42. There is however new 1.2 cm peripheral posterior left upper lung hypermetabolic nodule axial image 77 , max SUV is 4.52 on axial image 76. Abnormal enlarged hypermetabolic paraCarinal and left hilar adenopathy has resolved in the interval. No hypermetabolic or enlarged adenopathy on current study. ABDOMEN AND PELVIS: Normal excretion is present. Nonspecific right-sided bowel uptake redemonstrated slightly more prominent. No new adrenal masses. OSSEOUS STRUCTURES: No new areas of abnormal hypermetabolic uptake. OTHER CT: Three-vessel coronary artery calcification and/or stents redemonstrated. Normal-appearing appendix is seen. Few diverticula in the sigmoid colon are present. Facet arthropath y lower lumbar levels. Sclerotic lesion right proximal humerus could reflect chondroid lesion or bone infarct remains ametabolic. IMPRESSION: Overall mixed response. Complete positive response to the left lung spiculated peripheral nodule and thoracic adenopathy but there is new hypermetabolic 1.2 cm peripheral left upper lobe nod ule noted.
== END | disposition home or self-care (01) ==
LOC: RADPETMAIN 07:14
PROVIDERS: ATTEND Internal Medicine Hematology & Oncology
DX: C34.12 Malignant neoplasm of upper lobe, left bronchus or lung (principal); R91.1 Solitary pulmonary nodule
CPT/HCPCS: 78815; A9552

== ENCOUNTER → 2022-09-11 | Outpatient (CLI) | payer MEDICARE ==
[2022-09-11 18:19] LABS: ALT 12 U/L (10-49); AST 18 U/L (14-35); African American GFR (CKD) 96.1 (60.0-200.0); Albumin 4.3 g/dL (3.8-4.9); Albumin/Globulin Ratio 1.63 (1.60-3.17); Alkaline Phosphatase 130 U/L (41-126); BUN/Creat Ratio 12.15 Ratio (12.00-20.00); Blood Urea Nitrogen 10.3 mg/dL (9.0-27.0); Calcium 9.5 mg/dL (8.7-10.3); Carbon Dioxide 27.3 mmol/L (20.0-27.5); Chloride 106 mmol/L (96-109); Chol/HDL Ratio 5.26 Ratio; Globulin 2.7 g/dL (1.6-3.3); Glucose 93 mg/dL (70-110); LDL Cholesterol,Calculated 134.6 mg/dL (0.0-131.0); Potassium 4.6 mmol/L (3.5-5.5); Sodium 142 mmol/L (135-145)
== END | disposition home or self-care (01) ==
LOC: LABWHC1 11:53
PROVIDERS: ATTEND Nurse Practitioner Adult Health
DX: E78.2 Mixed hyperlipidemia (principal)
CPT/HCPCS: 36415; 80053; 80061

== ENCOUNTER → 2022-09-27 | Outpatient (CLI) | payer MEDICARE ==
--- NOTE | 2022-09-28 11:02 | PE ---
EXAMINATION TYPE: PET CT fusion skull to thigh DATE OF EXAM: 09/27/2022 COMPARISON: Most recent PET CT June 14, 2022 and older studies. HISTORY: Left-sided lung cancer diagnosed December 2021 . Last chemotherapy September 15, 2022. TECHNIQUE: Following the intravenous administration of 12.54 mCi of F-18 FDG, whole body images are performed from the skull base to the midthigh. Images are reviewed on the computer in the coronal, a xial, and sagittal planes. Reconstructed rotating images are created on independent workstation and reviewed on the computer. A localization and attenuation correction CT is performed in conjunction with the PET scan. Blood glucose level equals 92 SCAN: Subsequent Scan FINDINGS: SKULL BASE AND NECK: No new areas of abnormal hypermetabolic uptake CHEST, MEDIASTINUM, AND HILAR REGION: Background moderate to advanced underlying emphysematous change is redemonstrated. Grossly stable 1.1 x 0.8 cm spiculated lesion axial image 74 without abnormal hypermetabolic uptake c onsistent with treated neoplasm. There is however continued enlarging 2.4 x 1.4 cm posterior left upper lung hypermetabolic nodule axi al image 76 from 1.2 cm prior study. In addition there are enlarging 2 adjacent hypermetabolic nodul es inferior to this now touching each other axial image 81, largest measures 2.1 x 1.5 cm. Max SUV is 4.6 on current study. Max SUV was 4.52 on prior exam. No new hypermetabolic or enlarged adenopathy on current study. No new hypermetabolic lesions otherwis e seen. ABDOMEN AND PELVIS: Normal excretion is present. Nonspecific bowel uptake scattered throughout the ab domen and pelvis current study. No new hypermetabolic adrenal masses. OSSEOUS STRUCTURES: No new areas of abnormal hypermetabolic uptake. OTHER CT: Three-vessel coronary artery calcification and/or stents redemonstrated. Normal-appearing appendix is seen. Few diverticula in the sigmoid colon are present. Facet arthropath y lower lumbar levels. Sclerotic lesion right proximal humerus could reflect chondroid lesion or bone infarct remains ametabolic. Mild to moderate concentric wall thickening in the bladder on current st udy. Correlate clinically to exclude acute cystitis. IMPRESSION: Overall stable findings based on PET, max SUV is stable but note is made of local enlargi ng hypermetabolic nodules in the left upper to midlung consistent with negative local treatment respo nse on CT images.
== END | disposition home or self-care (01) ==
LOC: RADPETMAIN 10:40
PROVIDERS: ATTEND Internal Medicine Hematology & Oncology
DX: C34.12 Malignant neoplasm of upper lobe, left bronchus or lung (principal)
CPT/HCPCS: 78815; A9552

== ENCOUNTER → 2022-10-17 | Outpatient (CLI) | payer MEDICARE ==
[2022-10-17 11:43] VITALS: BP 123/69; PULSE 77; RESP 18; TEMP 97.7
--- NOTE | 2022-10-17 14:30 | P.PAINPG ---
PQRS Measure Charge Sheet Comment: A 77 yr old male w son at side with a history of severe and chronic LBP secondary to post laminectomy syndrome and R hip OA presents today for evaluation s/p PT. Pain level was provoked w a half session of PT at 10/10 in intensity, constant, localized in the lower lumbar spine, sharp in character w shooting towards the R hip. Pain is provoked by any activity. Pain is alleviated with medications, repositioning and rest. Interventional pain procedures completed include DENIES Patient is currently on Tyl Patient denies any side effects of the medication(s), denies excessive drowsiness or sleepiness, denies suicidal ideation and reports that the current pain medication is helping to control the pain and improve activities of daily living. Patient denies any motor or sensory deficits. Patient denies any fever or night sweats, denies any change in the bowel movements or urination. Physical Examination: -Constitutional: Cooperative. Not in acute distress . - Neurologic: Cranial nerve II to XII intact. No focal neurological deficits. - Psychatric: Alert & oriented x 3. Matching mood & appropriate affect. Judgment and insight intact. - Musculoskeletal: Cervical spine: Muscle bulk/ tone/ strength in the bilateral upper extremities normal Vertebral body tenderness to palpation over Spurling test positive Distraction test positive Facet loading test positive TTP Thoracic spine Muscle bulk / tone/ strength in the bilateral paraspinal muscles normal Vertebral body tender to palpation over Facet loading test positive TTP Lumbar spine: +R Pain w hip abduction/ adduction Motor bulk/ tone/ strength lower extremities , thigh and legs : 5/5 Deep tendon reflexes : Normal Knee Jerk. Normal Ankle Jerk . Vertebral body tenderness to palpation over Lumbar Facet Loading Test positive Straight Leg Raise: positive at 30 degrees right side/ left side Gaenslen's Test positive Sacral spine : Severe tenderness over the Sacroiliac joint: right side / left side Range of motion: Flexion of the lumbar spine <60 degrees Range of motion: Extension of the lumbar spine <20 degrees Gaenslen's Test positive right side / left side Michael test: positive right side / left side Thigh Thrust Test positive right side / left side Sacral Thrust Test positive right side / left side Assessment and plan: Chronic LBP secondary to post laminectomy syndrome, R hip OA Recommendation of R hip trochanteric bursa injection. May need a series for optimal pain relief. Risks, benefits of procedure discussed and pt verbalized understanding. Admits to anticoagulant use or medical history of diabetes. Protocol for discontinuation/ continuation of medications elvin procedure discussed. All questions answered. I have spent less than 30 minutes on patient care today. Dr Gambino was available by phone for the evaluation of this patient. The time was used to review the medical records including relevant urine studies and Prescription history (MAPs), review of the available imaging, evaluation and examination of the patient, coordination of care with the medical staff and if applicable referring physicians, as well as creation of the medical record PQRS Narrative: Smoking Status Current every day smoker Hx Alcohol Use (MH) Yes Home Medications: Ambulatory Orders Atorvastatin [Lipitor] 80 mg PO DAILY #0 01/07/19 Nitroglycerin Sl Tabs [Nitrostat] 0.4 mg SUBLINGUAL Q5M PRN #25 tab 01/07/19 Acetaminophen [Tylenol Arthritis] 650 mg PO Q4-6H PRN 04/23/21 Gabapentin [Neurontin] 300 mg PO Q4-6H PRN 04/23/21 Sennosides/Docusate Sodium [Senna Plus 8.6-50 mg Tablet] 1 each PO HS 30 Days #30 tablet 02/09/22 Controlled Substance Measures - Controlled Substance Measures Is patient prescribed a controlled substance at discharge?: No
== END ==
LOC: PNWHC3 10:31
PROVIDERS: ATTEND Specialist
DX: M96.1 Postlaminectomy syndrome, not elsewhere classified (principal); M16.11 Unilateral primary osteoarthritis, right hip; G89.29 Other chronic pain; F17.200 Nicotine dependence, unspecified, uncomplicated; Z88.8 Allergy status to other drugs, medicaments and biological substances; M76.61 Achilles tendinitis, right leg; M54.51 Vertebrogenic low back pain
CPT/HCPCS: 99211

== ENCOUNTER 2022-10-29 11:11 | Day surgery (SDC) | payer MEDICARE ==
[2022-10-24 16:18] VITALS: BMI 23.4
[~2022-10-29 11:11] MED LIST changes: -ALBUTEROL NEB (CONC) 2.5 MG/0.5 ML INHALATION ONE; -LIDOCAINE 2% (PF) 20 MG/ML 5 ML VIAL INHALATION ONE; -LIDOCAINE VISCOUS 300 MG/15 ML CUP MUCOUS MEM ONE; -fentaNYL (PF) 50 MCG/ML 2 ML AMP IV PRN
[2022-10-29 11:36] VITALS: TEMP 97.8
[2022-10-29] MEDS ORDERED: ROPIVACAINE 5 MG/ML 20 ML AMPULE ONE (11:53)
[2022-10-29] MEDS ORDERED: methylPREDNISolone ACETATE 40 MG/ML 1 ML VIAL ONE (11:53)
--- NOTE | 2022-10-29 11:57 | P.PCN ---
Date of Procedure: 10/29/22 Operative Findings: Pre OP diagnoses: trochanteric bursitis Postoperative diagnosis: trochanteric bursitis Procedure: Right Trochanteric bursa injection under fluoroscopy Imaging: Fluoroscopy was used, images where saved to the medical record Anesthesia: None Description of the procedure: Risks, benefits, and alternatives of the procedure including but not limited to risk of infection, bleeding and incomplete pain relief, possible allergic reaction to medications were discussed with the patient along with the alternatives were also discussed with the patient and they agreed to proceed to the operating room. The patient was Placed in the supine position and standard monitors applied patient. The right hip area prepped with chlorhexidine 3 times. A 25g 1.25 needle was advanced under fluoroscopy to the trochanteric bursa under fluoroscopy and placed in the trochanteric bursa. Confirmation of the procedure was done under fluoroscopy. After negative aspiration, 5 mL of 0.5% ropivacaine along with 40mg of depomedrol was placed into the bursa. Patient tolerated the procedure well. Complications: none Follow up: Discharge material was given to the patient along with aftercare instructions. Patient will follow up as directed.
[2022-10-29 12:07] VITALS: RESP 20
[2022-10-29 12:29] VITALS: BP 115/76; PULSE 74
--- NOTE | 2022-10-29 12:41 | FL ---
Intraoperative/procedural fluoroscopic services were provided. Total fluoroscopy time is 0.2 seconds with a total of 1 submitted images to PACS. Please see the operative/procedural note for further deta ils. DAP: 0.00526
== END 2022-10-29 12:29 | disposition home or self-care (01) ==
LOC: ORPAIN 11:11
PROVIDERS: ATTEND Hospitalist
DX: M70.61 Trochanteric bursitis, right hip (principal); Z88.8 Allergy status to other drugs, medicaments and biological substances
CPT/HCPCS: 20610; 77002; J1030; J2795

== ENCOUNTER → 2022-10-30 | Outpatient (CLI) | payer MEDICARE ==
--- NOTE | 2022-10-30 14:05 | XR ---
EXAMINATION TYPE: XR chest 2V DATE OF EXAM: 10/30/2022 COMPARISON: 12/26/2021 TECHNIQUE: PA and lateral views submitted. HISTORY: Chest pain FINDINGS: There is a masslike structure left upper lobe which appears increased in size from prior exam now chiki suring 3.9 cm. Adjacent 1 cm nodule. Underlying COPD noted. There is hyperinflation. No overt failure , pleural effusion or pneumothorax. Chronic left rib deformity noted. Heart size normal and no overt failure. Osseous structures demonstrate hypertrophic and degenerative changes of the spine. Nonspeci fic sclerotic lesion involving the right humerus. IMPRESSION: 1. There is a mass in the left upper lobe which appears increased in size from prior exam now measuri ng 3.9 cm. Cannot exclude rib involvement. Adjacent 1 cm nodule correlate for history of malignancy..
== END | disposition home or self-care (01) ==
LOC: RADXRMAIN 12:53
PROVIDERS: ATTEND Nurse Practitioner Family
DX: C34.92 Malignant neoplasm of unspecified part of left bronchus or lung (principal); M95.4 Acquired deformity of chest and rib; R91.8 Other nonspecific abnormal finding of lung field
CPT/HCPCS: 71046

== ENCOUNTER → 2022-11-14 | Outpatient (CLI) | payer MEDICARE ==
[2022-11-14 10:21] LABS: African American GFR (CKD) >90 (>60 ml/min/1.73 sqM); Blood Urea Nitrogen 9 mg/dL (9-20); Non-African American GFR(CKD) >90 (>60 ml/min/1.73 sqM)
--- NOTE | 2022-11-14 20:48 | CT ---
EXAMINATION TYPE: CT chest w con DATE OF EXAM: 11/14/2022 COMPARISON: 03/29/2022 HISTORY: hx of lung CA. pain in left ribs CT DLP: 231.8 mGycm, Automated exposure control for dose reduction was used. CONTRAST: Performed injected with 100 mL of Isovue 300. TECHNIQUE: Axial images were obtained at 5 mm thick sections. Reconstructed images are reviewed on [employer] computer in the coronal plane. FINDINGS: Portion of the thyroid visualized is normal. There is an irregular mass measuring 3.1 x 4.6 cm in the posterior left midlung. There is a 0.4 cm nodule within the left posterior lateral mid lung. An adjacent pleural-based nodule measures 1.3 cm. Series 4 image 30. Extensive emphysematous changes are present. Large blebs and bullae are at the lung apices left more so than right. No enlarged mediastinal or hilar adenopathy is evident. The ascending aorta diameter at the level o f the main pulmonary artery is 3.3 cm. The main pulmonary artery diameter at the bifurcation is 2.[address] sections are obtained through the upper abdomen. Abdomen is essentially unremarkable. No suspicious lytic lesions identified. IMPRESSIONS: 1. Enlarging left lung mass with new pulmonary nodules. 2. Advanced emphysematous change
== END | disposition home or self-care (01) ==
LOC: RADCTMAIN 09:38
PROVIDERS: ATTEND Internal Medicine Hematology & Oncology
DX: C34.12 Malignant neoplasm of upper lobe, left bronchus or lung (principal); J43.9 Emphysema, unspecified; R63.0 Anorexia; R91.8 Other nonspecific abnormal finding of lung field
CPT/HCPCS: 82565; 84520; 71260; 36415; Q9967

== ENCOUNTER → 2022-12-10 | Outpatient (CLI) | payer MEDICARE ==
--- NOTE | 2022-12-10 14:03 | US ---
EXAMINATION TYPE: US scrotum with doppler. Grayscale and color Doppler Duplex imaging performed of candido baires scrotum. DATE OF EXAM: 12/10/2022 COMPARISON: NONE CLINICAL INDICATION: Male, 77 years old with history of C34.12 Lung cancer R63.0; Patient states he h ad an unknown procedure on his testicle as an , unsure if right or left. Patient has swelling a nd some pain left scrotum. Left testicle appears larger. EXAM MEASUREMENTS: TESTICLES: Right Testicle: 3.6 x 2.8 x 2.0 cm. Simple appearing cyst identified measuring 0.3 x 0.3 x 0.2 cm. Left Testicle: 3.5 x 2.3 x 2.6 cm EPIDIDYMIS HEAD: Right Epididymis: 1.0 x 1.2 x 0.8 cm Left Epididymis: 1.3 x 1.4 x 0.9 cm. Epididymal cyst measuring 0.5 x 0.6 x 0.4 cm. Doppler performed to assess for testicular vascularity; bilateral color flow and waveforms are seen. Presence of hydroceles: Yes, right measures: 5.4 x 3.1 x 1.3 cm. Left appears to have internal echoe s and measures: 6.7 x 5.9 x 4.3 cm. Presence of varicoceles: no IMPRESSION: 1. No evidence for testicular torsion or solid testicular mass. 2. Bilateral hydroceles with left greater than right.
== END ==
LOC: RADUSWWP 12:41
PROVIDERS: ATTEND Internal Medicine Hematology & Oncology
DX: C34.12 Malignant neoplasm of upper lobe, left bronchus or lung (principal); N43.3 Hydrocele, unspecified; N50.3 Cyst of epididymis; N50.819 Testicular pain, unspecified; R63.0 Anorexia
CPT/HCPCS: 76870; 93975

== ENCOUNTER → 2023-02-10 | Outpatient (CLI) | payer MEDICARE ==
[2023-02-10 13:36] LABS: African American GFR (CKD) >90 (>60 ml/min/1.73 sqM); Blood Urea Nitrogen 12 mg/dL (9-20); Non-African American GFR(CKD) >90 (>60 ml/min/1.73 sqM)
--- NOTE | 2023-02-10 14:10 | CT ---
EXAMINATION TYPE: CT chest w con DATE OF EXAM: 02/10/2023 COMPARISON: 11/14/2022. HISTORY: Auto for lung cancer. CT DLP: 387 mGycm Automated exposure control for dose reduction was used. TECHNIQUE: CT scan of the chest is performed with IV Contrast, patient injected with 100 mL of Isovue 300. MIP Images are created on CT scanner and reviewed. 3D reconstructed images are created on an independent workstation and reviewed. FINDINGS: Mediastinum and Lakeisha: There is no axillary, mediastinal or hilar lymphadenopathy. Pleural and Pericardial spaces: There are no pleural or pericardial effusions. Upper Abdomen: The visualized upper abdomen is unremarkable. Cardiovascular: There is mild vascular calcification throughout the thoracic aorta without evidence o f aneurysmal dilation or dissection. There is moderate coronary artery calcifications otherwise noted . Lung Parenchyma and Airways: There is severe upper lobe predominant centrilobular and paraseptal emph ysema. Was changes are also noted lung apices. Lobulated mass along the posterior aspect of the left upper lobe abutting the major fissure previously measured 5.1 x 2.1 cm and currently measures approxi mately 3.7 x 1.2 cm in diameter. Adjacent nodular density lateral to this lesion measures 1.7 cm in d iameter previously measured approximately 1.4 cm in diameter. Bones: No fracture or aggressive osseous lesion. IMPRESSION: 1. Slight decrease in size of the lobulated mass along the posterior margin of the left upper lobe. A dditional adjacent nodule appears slightly larger, however there does appear to be some surrounding a telectasis. Close attention on follow-up according to tumor protocol. 2. Severe emphysema. 3. Coronary artery calcifications.
== END | disposition home or self-care (01) ==
LOC: RADCTMAIN 13:05
PROVIDERS: ATTEND Internal Medicine Hematology & Oncology
DX: C34.12 Malignant neoplasm of upper lobe, left bronchus or lung (principal); J43.2 Centrilobular emphysema; I25.10 Atherosclerotic heart disease of native coronary artery without angina pectoris; J98.11 Atelectasis
CPT/HCPCS: 82565; 84520; 71260; 36415; Q9967

== ENCOUNTER → 2023-03-11 | Outpatient (CLI) | payer MEDICARE ==
--- NOTE | 2023-03-11 20:41 | MR ---
EXAMINATION TYPE: MR brain wo/w con DATE OF EXAM: 03/11/2023 8:07 PM CLINICAL INDICATION:Male, 77 years old with history of C34.12; PHH, Memory loss, Lung cancer 2022 COMPARISON: 03/18/2022 TECHNIQUE: Multi planar, multi sequence imaging was performed through the brain including: T1, T2, In version recovery, susceptibility weighted imaging and gradient echo imaging and Diffusion weighted im aging. The patient was then given intravenous contrast and multi planar, T1 fat-saturation images wer e obtained. IV Contrast: 6.5 cc Gadavist FINDINGS: Ventricular dilation proportion to cerebral atrophy. The farnsworth-white junctions, ventricular system, ba dhruv cisterns appear unremarkable. Diffusion-weighted imaging shows no evidence of restricted diffusio n to suggest acute/subacute infarct. Intracranial arterial flow voids are maintained. Midline structu res show no abnormality. Scattered foci of high T2 signal intensity are seen within the periventricul ar white matter. The susceptibility weighted images do not reveal any evidence for micro-hemorrhage. After administration of gadolinium, no abnormal enhancement is seen. The bone marrow signal is within normal limits. Paranasal sinuses and mastoid air cells: No significant paranasal sinus disease. Visualized orbits: Orbital contents are intact. IMPRESSION: 1. No evidence of intracranial mass, acute/subacute infarct, or abnormal enhancement. 2. Nonspecific white matter changes, likely related to small vessel ischemic disease 3. Mild generalized cerebral atrophy changes.
== END | disposition home or self-care (01) ==
LOC: RADMRIMAIN 18:45
PROVIDERS: ATTEND Internal Medicine Hematology & Oncology
DX: C34.12 Malignant neoplasm of upper lobe, left bronchus or lung (principal); G31.9 Degenerative disease of nervous system, unspecified; R90.82 White matter disease, unspecified; R41.3 Other amnesia
CPT/HCPCS: 70553; A9585

== ENCOUNTER 2023-04-21 11:32 | Emergency (ER) | payer MEDICARE ==
[2023-04-21 12:02] VITALS: RESP 20; TEMP 98.2
--- NOTE | 2023-04-21 12:56 | ED ---
General Adult HPI - General Chief complaint: Fall Stated complaint: fell, injury tail bone, RT shoulder Time Seen by Provider: 04/21/23 12:24 Source: patient, family, RN notes reviewed Mode of arrival: ambulatory Limitations: no limitations - History of Present Illness Initial comments: Patient is a pleasant 77-year-old male presenting to the emergency department with right shoulder injury. Patient states injury occurred last night. Patient was walking down the steps when he fell. Patient did land on his right shoulder. He should also and landed on his tailbone. Patient states he is able to get up and walk and tailbone discomfort is near resolved. Patient states right shoulder discomfort still remains. No head injury or loss of consciousn ess. No neck or back pain. - Related Data Home Medications Medication Instructions Recorded Confirmed Acetaminophen [Tylenol Arthritis] 650 mg PO Q4-6H PRN 04/23/21 04/17/23 Aspirin [Adult Low Dose Aspirin EC] 81 mg PO DAILY 10/24/22 04/17/23 HYDROcodone/APAP 10-325MG [[place] 1 tab PO Q6HR PRN 12/26/22 04/17/23 10-325] Albuterol Inhaler [Ventolin Hfa 1 - 2 puff INHALATION RT-Q6H PRN 03/25/23 04/17/23 Inhaler] Atorvastatin [Lipitor] 40 mg PO DAILY 03/25/23 04/17/23 Betamethasone Dipropionate 1 applic TOPICAL BID PRN 03/25/23 04/17/23 [Diprolene 0.05% Ointment] predniSONE See Taper PO DIRECTED 03/25/23 04/17/23 Previous Rx's Medication Instructions Recorded Nitroglycerin Sl Tabs [Nitrostat] 0.4 mg SUBLINGUAL Q5M PRN #25 tab 01/07/19 Nicotine 14Mg/24Hr Patch [Habitrol] 1 patch TRANSDERM DAILY #30 patch 04/01/23 Allergies Allergy/AdvReac Type Severity Reaction Status Date / Time pregabalin [From Lyrica] Allergy psychotic Verified 04/21/23 11:50 behavior varenicline tartrate Allergy psychotic Verified 04/21/23 11:50 [From Chantix] behavior Review of Systems ROS Statement: Those systems with pertinent positive or pertinent negative responses have been documented in the HPI. ROS Other: All systems not noted in ROS Statement are negative. Constitutional: Denies: fever Eyes: Denies: eye pain ENT: Denies: ear pain Respiratory: Denies: dyspnea Cardiovascular: Denies: chest pain Gastrointestinal: Denies: abdominal pain Musculoskeletal: Reports: as per HPI. Denies: back pain Past Medical History Past Medical History: Coronary Artery Disease (CAD), Cancer, Chest Pain / Angina, Hyperlipidemia, Musculoskeletal Disorder, Osteoarthritis (OA) Additional Past Medical History / Comment(s): Chronic neck and back pain, RADIATES DOWN BOTH LEGS, right shoulder pain, 01/2018 colonoscopy resulting in perforation of bowel leading to peg tube with reversal. Does not have any Peg tube @ this time. Squamous cell lung Carcinoma History of Any Multi-Drug Resistant Organisms: None Reported Past Surgical History: Back Surgery, Heart Catheterization With Stent, Orthopedic Surgery Additional Past Surgical History / Comment(s): Neck surgery, pain procedures. COLONOSCOPY. Past Anesthesia/Blood Transfusion Reactions: No Reported Reaction Additional Past Anesthesia/Blood Transfusion Reaction / Comment(s): FAMILY HX UNKNOWN Date of Last Stent Placement:: 12/2018 Past Psychological History: No Psychological Hx Reported Smoking Status: Current every day smoker Past Alcohol Use History: None Reported Past Drug Use History: None Reported - Past Family History Son(s) Family Medical History: Cancer Additional Family Medical History / Comment(s): brain tumors General Exam Limitations: no limitations General appearance: alert, in no apparent distress Head exam: Present: atraumatic, normocephalic Eye exam: Present: normal appearance Neck exam: Present: normal inspection. Absent: tenderness Respiratory exam: Present: normal lung sounds bilaterally Cardiovascular Exam: Present: regular rate, normal rhythm Expanded Peripheral pulses: 2+: Radial (R), Dorsalis Pedis (R), Dorsalis Pedis (L) GI/Abdominal exam: Present: soft. Absent: distended, tenderness Extremities exam: Present: tenderness (Moderate tenderness right lateral shoulder/ox malleolus. Limited range of motion at this shoulder. Distally extremity is neurovascular intact.) Back exam: Present: normal inspection. Absent: tenderness, vertebral tenderness Neurological exam: Present: alert. Absent: motor sensory deficit Psychiatric exam: Present: normal affect, normal mood Skin exam: Present: normal color Course Vital Signs 04/21/23 11:47 Temperature 98.2 F Pulse Rate 86 Respiratory 20 Rate Blood Pressure 134/69 O2 Sat by Pulse 99 Oximetry Medical Decision Making - Medical Decision Making Was pt. sent in by a medical professional or institution (MALENA Nash, TURBO OPERATOR, urgent care, hospital, or fpc...) When possible be specific @ -No Did you speak to anyone other than the patient for history (EMS, parent, family, police, friend...)? What history was obtained from this source @ -Son is present and helps provide history including that patient does not need pain medication Did you review nursing and triage notes (agree or disagree)? Why? @ -I reviewed and agree with nursing and triage notes Were old charts reviewed (outside hosp., previous admission, EMS record, old EKG, old radiological studies, urgent care reports/EKG's, fpc records)? Report findings @ -No old charts were reviewed Differential Diagnosis (chest pain, altered mental status, abdominal pain women, abdominal pain men, vaginal bleeding, weakness, fever, dyspnea, syncope, headache, dizziness, GI bleed, back pain, seizure, CVA, palpatations, mental health, musculoskeletal)? @ -Differential Musculoskeletal Muscular strain, contusion, ligament sprain, fracture, arthritis, septic arthritis, bursitis, cellulitis, muscle spasm, nerve compression, DVT, arterial occlusion, herpes zoster, electrolyte abnormality, tumor.... This is not meant to be in all inclusive list EKG interpreted by me (3pts min.). @ -As above X-rays interpreted by me (1pt min.). @ -X-ray right shoulder does show osteoporotic changes of the right acromioclavicular joint. X-ray right humerus shows stable sclerotic lesion. X- ray sacrum shows no evidence of fracture CT interpreted by me (1pt min.). @ -None done U/S interpreted by me (1pt. min.). @ -None done What testing was considered but not performed or refused? (CT, X-rays, U/S, labs)? Why? @ -None What meds were considered but not given or refused? Why? @ -None Did you discuss the management of the patient with other professionals (professionals i.e. MALENA Nash, TURBO OPERATOR, lab, RT, psych nurse, mental health social worker, barrel drainer, teacher, intelligence officer, case work aide)? Give summary @ -No Was smoking cessation discussed for >3mins.? @ -No Was critical care preformed (if so, how long)? @ -No Were there social determinants of health that impacted care today? How? (Homelessness, low income, unemployed, alcoholism, drug addiction, transportation, low edu. Level, literacy, decrease access to med. care, fci, rehab)? @ -No Was there de-escalation of care discussed even if they declined (Discuss DNR or withdrawal of care, Hospice)? DNR status @ -No What co-morbidities impacted this encounter? (DM, HTN, Smoking, COPD, CAD, Cancer, CVA, ARF, Chemo, Hep., AIDS, mental health diagnosis, sleep apnea, morbid obesity)? @ -None Was patient admitted / discharged? Hospital course, mention meds given and route, prescriptions, significant lab abnormalities, going to OR and other pertinent info. @ -Patient will receive sling. Patient refuses pain medication. Patient and son updated on results and need for follow-up. Patient does have history of lung cancer and there are advised to have oncologist review x-rays done today. Undiagnosed new problem with uncertain prognosis? @ -No Drug Therapy requiring intensive monitoring for toxicity (Heparin, Nitro, Insulin, Cardizem)? @ -No Were any procedures done? @ -No Diagnosis/symptom? @ -Fall, arm contusion Acute, or Chronic, or Acute on Chronic? @ -Acute, acute Uncomplicated (without systemic symptoms) or Complicated (systemic symptoms)? @ -default Side effects of treatment? @ -No Exacerbation, Progression, or Severe Exacerbation? @ -No Poses a threat to life or bodily function? How? (Chest pain, USA, MD, pneumonia, PE, COPD, DKA, ARF, appy, cholecystitis, CVA, Diverticulitis, Homicidal, Suicidal, threat to staff... and all critical care pts) @ -No Disposition Clinical Impression: Fall, Arm contusion Disposition: HOME SELF-CARE Condition: Stable Instructions (If sedation given, give patient instructions): Fall Prevention for Older Adults (ED), Contusion in Adults (ED) Additional Instructions: Use sling as needed. Ice to affected area. [id number] Tylenol or Motrin as needed. Return for increased pain, worsening or changing symptoms or other concerns. Is patient prescribed a controlled substance at d/c from ED?: No Referrals: hSadi Freed DO [Primary Care Provider] - 1-2 days Time of Disposition: 14:03
--- NOTE | 2023-04-21 13:36 | XR ---
EXAMINATION TYPE: XR sacrum coccyx DATE OF EXAM: 04/21/2023 1:30 PM INDICATION: Patient age:Male; 77 years old; Reason for study: fall; PHH. COMPARISON: None TECHNIQUE: The sacrum/coccyx was examined in 3 projections. FINDINGS: There is no evidence of fracture or dislocation. There is no soft tissue abnormality. Mult ilevel degenerative changes of the lower spine. IMPRESSION: No acute osseous pathology.
--- NOTE | 2023-04-21 13:40 | XR ---
EXAMINATION TYPE: XR shoulder complete RT, XR humerus RT DATE OF EXAM: 04/21/2023 1:30 PM INDICATION: Patient age:Male; 77 years old; Reason for study: fall; COMPARISON: Chest radiograph 04/07/2023, right shoulder radiograph 03/12/2021 TECHNIQUE: The left shoulder was examined in AP, internally rotated and scapular Y projections. . A P and lateral views of the right humerus. FINDINGS: No acute fracture or dislocation. AC joint arthropathy with joint space narrowing and capsular hypert rophy. Stable sclerotic lesion within the proximal right humeral metaphysis. No aggressive features. Cervical fusion hardware demonstrated. Atelectatic ossification of the aorta. Degenerative changes of the spine. The remaining portions of the visualized chest are unremarkable. IMPRESSION: 1. No acute osseous pathology. 2. Moderate AC joint arthropathy. 3. Stable sclerotic lesion within the proximal right humerus dating back to 2020 and considered rosey gn. Likely enchondroma.
[2023-04-21 14:21] VITALS: BP 163/78; PULSE 78
== END 2023-04-21 14:15 | disposition home or self-care (01) ==
LOC: EC 11:32
DX: S40.021A Contusion of right upper arm, initial encounter (principal); I25.10 Atherosclerotic heart disease of native coronary artery without angina pectoris; E78.5 Hyperlipidemia, unspecified; M19.90 Unspecified osteoarthritis, unspecified site; F17.200 Nicotine dependence, unspecified, uncomplicated; Z79.899 Other long term (current) drug therapy; Z88.8 Allergy status to other drugs, medicaments and biological substances; Z79.82 Long term (current) use of aspirin; Z79.1 Long term (current) use of non-steroidal anti-inflammatories (NSAID); W18.30XA Fall on same level, unspecified, initial encounter; Y93.01 Activity, walking, marching and hiking
CPT/HCPCS: 72220; 99284

== ENCOUNTER 2023-05-03 20:52 | Emergency (ER) | payer MEDICARE ==
[2023-05-03 21:07] VITALS: TEMP 97.9
--- NOTE | 2023-05-03 21:28 | ED ---
Anxiety HPI - General Chief Complaint: Anxiety Stated Complaint: Anxiety Time Seen by Provider: 05/03/23 21:11 Source: family, RN notes reviewed, old records reviewed, Caregiver Mode of arrival: wheelchair Limitations: no limitations - History of Present Illness Initial Comments: This is a 77-year-old male who presented today for evaluation of severe anxiety attack to not taking medications, patient comes in with the son who is the patient's house due to patient's anxiety gave him is pale and brought him to the hospital. He states on arrival patient feels normal is at his normal baseline and would like to take the patient will MD Complaint: anxiety -: hour(s) Symptoms: dyspnea Place: home Previous History of Same: Yes Severity: moderate Quality: improving, similar to prior episodes Provoking factors: emotional stress Improves With: nothing Worsens With: nothing - Related Data Home Medications: Home Medications Medication Instructions Recorded Confirmed Acetaminophen [Tylenol Arthritis] 650 mg PO Q4-6H PRN 04/23/21 05/06/23 Aspirin [Adult Low Dose Aspirin EC] 81 mg PO DAILY 10/24/22 05/06/23 HYDROcodone/APAP 10-325MG [Bertrand 1 tab PO Q6HR PRN 12/26/22 05/06/23 10-325] Albuterol Inhaler [Ventolin Hfa 1 - 2 puff INHALATION RT-Q6H PRN 03/25/23 05/06/23 Inhaler] Atorvastatin [Lipitor] 40 mg PO DAILY 03/25/23 05/06/23 Betamethasone Dipropionate 1 applic TOPICAL BID PRN 03/25/23 05/06/23 [Diprolene 0.05% Ointment] predniSONE See Taper PO DIRECTED 03/25/23 05/06/23 Previous Rx's Medication Instructions Recorded Nitroglycerin Sl Tabs [Nitrostat] 0.4 mg SUBLINGUAL Q5M PRN #25 tab 01/07/19 Nicotine 14Mg/24Hr Patch [Habitrol] 1 patch TRANSDERM DAILY #30 patch 04/01/23 Allergies/Adverse Reactions: Allergies Allergy/AdvReac Type Severity Reaction Status Date / Time pregabalin [From Lyrica] Allergy psychotic Verified 05/06/23 10:31 behavior varenicline tartrate Allergy psychotic Verified 05/06/23 10:31 [From Chantix] behavior Review of Systems ROS Statement: Those systems with pertinent positive or pertinent negative responses have been documented in the HPI. ROS Other: All systems not noted in ROS Statement are negative. Past Medical History Past Medical History: Coronary Artery Disease (CAD), Cancer, Chest Pain / Angina, Hyperlipidemia, Musculoskeletal Disorder, Osteoarthritis (OA) Additional Past Medical History / Comment(s): Chronic neck and back pain, RADIATES DOWN BOTH LEGS, right shoulder pain, 01/2018 colonoscopy resulting in perforation of bowel leading to peg tube with reversal. Does not have any Peg tube @ this time. Squamous cell lung Carcinoma History of Any Multi-Drug Resistant Organisms: None Reported Past Surgical History: Back Surgery, Heart Catheterization With Stent, Orthopedic Surgery Additional Past Surgical History / Comment(s): Neck surgery, pain procedures. COLONOSCOPY. Past Anesthesia/Blood Transfusion Reactions: No Reported Reaction Additional Past Anesthesia/Blood Transfusion Reaction / Comment(s): FAMILY HX UNKNOWN Date of Last Stent Placement:: 12/2018 Past Psychological History: No Psychological Hx Reported Smoking Status: Current every day smoker Past Alcohol Use History: Rare Past Drug Use History: None Reported - Past Family History Son(s) Family Medical History: Cancer Additional Family Medical History / Comment(s): brain tumors General Exam Limitations: no limitations General appearance: alert, in no apparent distress Head exam: Present: atraumatic, normocephalic, normal inspection Eye exam: Present: normal appearance, PERRL, EOMI. Absent: scleral icterus, conjunctival injection, periorbital swelling ENT exam: Present: normal exam, mucous membranes moist Neck exam: Present: normal inspection. Absent: tenderness, meningismus, lymphadenopathy Respiratory exam: Present: normal lung sounds bilaterally. Absent: respiratory distress, wheezes, rales, rhonchi, stridor Cardiovascular Exam: Present: regular rate, normal rhythm, normal heart sounds. Absent: systolic murmur, diastolic murmur, rubs, gallop, clicks GI/Abdominal exam: Present: soft, normal bowel sounds. Absent: distended, tenderness, guarding, rebound, rigid Extremities exam: Present: normal inspection, full ROM, normal capillary refill. Absent: tenderness, pedal edema, joint swelling, calf tenderness Back exam: Present: normal inspection Neurological exam: Present: alert, oriented X3, CN II-XII intact Psychiatric exam: Present: normal affect, normal mood Skin exam: Present: warm, dry, intact, normal color. Absent: rash Course Vital Signs 05/03/23 05/03/23 20:55 21:28 Temperature 97.9 F Pulse Rate 86 74 Respiratory 18 16 Rate Blood Pressure 149/75 135/62 O2 Sat by Pulse 95 95 Oximetry - Reevaluation(s) Reevaluation #1: 05/03/23 Medical records reviewed Reevaluation #2: 05/03/23 Patient remains without complaint Reevaluation #3: 05/03/23 Patient informed results questions answered Reevaluation #4: Was pt. sent in by a medical professional or institution (, MALENA, CABINET MOUNTER, urgent care, hospital, or detention...) When possible be specific @ -no Did you speak to anyone other than the patient for history (EMS, parent, family, police, friend...)? What history was obtained from this source @ -no Did you review nursing and triage notes (agree or disagree)? Why? @ -agree Are old charts reviewed (outside hosp., previous admission, EMS record, old EKG, old radiological studies, urgent care reports/EKG's, detention records)? Report findings @ -yes Differential Diagnosis (chest pain, altered mental status, abdominal pain women, abdominal pain men, vaginal bleeding, weakness, fever, dyspnea, syncope, headache, dizziness, GI bleed, back pain, seizure, CVA, palpatations, mental health, musculoskeletal)? @ -prior EKG interpreted by me (3pts min.). @ -no X-rays interpreted by me (1pt min.). @ -no CT interpreted by me (1pt min.). @ -no U/S interpreted by me (1pt. min.). @ -no What testing was considered but not performed or refused? (CT, X-rays, U/S, labs)? Why? @ -none What meds were considered but not given or refused? Why? @ -none Did you discuss the management of the patient with other professionals (professionals i.e. MALENA Nash, CABINET MOUNTER, lab, RT, psych nurse, social work case manager, cargo worker, teacher, chief compliance officer, manager case)? Give summary @ -no Was smoking cessation discussed for >3mins.? @ -no Was critical care preformed (if so, how long)? @ -no Were there social determinants of health that impacted care today? How? (Homelessness, low income, unemployed, alcoholism, drug addiction, transportation, low edu. Level, literacy, decrease access to med. care, snf, rehab)? @ -none Was there de-escalation of care discussed even if they declined (Discuss DNR or withdrawal of care, Hospice)? DNR status @ -no What co-morbidities impacted this encounter? (DM, HTN, Smoking, COPD, CAD, Cancer, CVA, ARF, Chemo, Hep., AIDS, mental health diagnosis, sleep apnea, morbid obesity)? @ -none Was patient admitted / discharged? Hospital course, mention meds given and route, prescriptions, significant lab abnormalities, going to OR and other pertinent info. @ - 77 male to the emergency department for evaluation of significant anxiety prior to arrival occasions. Patient is given medication prior to coming to the hospital and feels significantly improved. Patient felt like to go home Discharge Undiagnosed new problem with uncertain prognosis? @ -no Drug Therapy requiring intensive monitoring for toxicity (Heparin, Nitro, Insulin, Cardizem)? @ -no Were any procedures done? @ -no Diagnosis/symptom? @ -Anxiety, medication noncompliance Acute, or Chronic, or Acute on Chronic? @ -Acute Uncomplicated (without systemic symptoms) or Complicated (systemic symptoms)? @ -Complicated Side effects of treatment? @ -no Exacerbation, Progression, or Severe Exacerbation? @ -exacerbation Poses a threat to life or bodily function? How? (Chest pain, [place], [place], pneumonia, PE, COPD, DKA, ARF, appy, cholecystitis, CVA, Diverticulitis, Homicidal, Suicidal, threat to staff... and all critical care pts) @ -no Medical Decision Making - Medical Decision Making 77 male to the emergency department for evaluation of significant anxiety prior to arrival occasions. Patient is given medication prior to coming to the hospital and feels significantly improved. Patient felt like to go home Disposition Clinical Impression: Acute anxiety, Panic attack Disposition: HOME SELF-CARE Condition: Fair Instructions (If sedation given, give patient instructions): Generalized Anxiety Disorder (ED) Is patient prescribed a controlled substance at d/c from ED?: No Referrals: Shadi Freed DO [Primary Care Provider] - 1-2 days Time of Disposition: 21:30
[2023-05-03 21:29] VITALS: BP 135/62; PULSE 74; RESP 16
== END 2023-05-03 21:47 | disposition home or self-care (01) ==
LOC: EC 20:52
DX: F41.0 Panic disorder [episodic paroxysmal anxiety] (principal); I25.10 Atherosclerotic heart disease of native coronary artery without angina pectoris; E78.5 Hyperlipidemia, unspecified; M19.90 Unspecified osteoarthritis, unspecified site; F17.200 Nicotine dependence, unspecified, uncomplicated; Z79.1 Long term (current) use of non-steroidal anti-inflammatories (NSAID); Z79.899 Other long term (current) drug therapy; Z79.82 Long term (current) use of aspirin; Z88.8 Allergy status to other drugs, medicaments and biological substances
CPT/HCPCS: 99284

== ENCOUNTER → 2023-05-15 | Outpatient (CLI) | payer MEDICARE ==
--- NOTE | 2023-05-18 13:20 | PE ---
EXAMINATION TYPE: PET CT fusion skull to thigh DATE OF EXAM: 05/15/2023 COMPARISON: CT chest 11/14/2022 Prior PET/CT: 09/27/2022 HISTORY: Lung cancer TECHNIQUE: Following the intravenous administration of 9.63 mCi of F-18 FDG, whole body images are p erformed from the skull base to the midthigh. Images are reviewed on the computer in the coronal, ax ial, and sagittal planes. Reconstructed rotating images are created on independent workstation and r eviewed on the computer. A localization and attenuation correction CT is performed in conjunction w ith the PET scan. DLP: 374.41 mGycm SCAN: Subsequent Blood glucose: 92 mg/dL Average Mediastinum SUV: 1.45 Average Liver SUV: 1.6 FINDINGS: NECK: No abnormal uptake THORAX: There is focal uptake within the posterior lateral left upper lung field, image 97, SUV 6.94 more posterior lesion. Slightly more anterior lesion has SUV of 7.68. An additional focus of uptake i s posterior lateral to the aorta with an SUV of 5.123 Some subtle uptake is in the right suprahilar lymph node, image 105, SUV 2.35 some mild uptake may be within the left infrahilar region, image 109, SUV 3.04. ABDOMEN: No abnormal uptake PELVIS: No abnormal uptake OSSEOUS STRUCTURES: No abnormal uptake LOCALIZATION CT: Extensive emphysematous changes are within the lung prasad. Small densities within t he posterior lateral left upper lung field correlate with the abnormal areas of uptake on PET/CT. COMPARISON: Uptake within the lung prasad was present previously. The area adjacent to the aorta may be new. Max SUV levels have increased over the interval.. Previous max SUV levels in the range of 4, current max SUV values in the range of 9-10. IMPRESSION: 1. Increasing metabolic uptake within the posterior lateral right upper lung prasad. 2. Developing subtle perihilar focal uptake, new and considered suspicious.
== END | disposition home or self-care (01) ==
LOC: RADPETMAIN 09:21
PROVIDERS: ATTEND Internal Medicine Hematology & Oncology
DX: C34.12 Malignant neoplasm of upper lobe, left bronchus or lung (principal)
CPT/HCPCS: 78815; A9552

== ENCOUNTER 2023-05-28 15:10 | Inpatient (IN) | payer MEDICARE ==
--- NOTE | 2023-05-28 15:22 | ED ---
Fall HPI - General Source: patient, family Mode of arrival: wheelchair Limitations: no limitations <Papi Brewster - Last Filed: 05/28/23 15:21> <Yosi Whitaker - Last Filed: 05/28/23 18:54> - General Chief Complaint: Fall Stated Complaint: Fall-head injury Time Seen by Provider: 05/28/23 15:21 - History of Present Illness Initial Comments: 77-year-old male presents emergency Department with family for evaluation of a fall. Patient had a fall is complaining of bilateral hip pain, low back pain, facial pain. Patient does have known lung cancer patient had recent treatment. Patient started developing increasing confusion prior to this last treatment. Patient had recent PET scan showing no metastasis to the brain. Patient denies any blood thinners. (Papi Brewster) Dictation was produced using [employer] dictation software. please excuse any grammatical, word or spelling errors. Chief Complaint: 77-year-old demented male presents to emergency department after fall History of Present Illness: 77-year-old male he had a fall from standing. He is here with his son states that he's been much more confused over the last few days. He states that he tripped and fell forward. Patient report hitting his face hurting his face and left shoulder. Son reports the patient is a poor historian. There is no patient was admitted to the hospital for pneumothorax. He had a chest tube placed at that time. The had the chest tube removed during his hospital stay and was discharge in stable medical condition. Son was worried that became altered recently thought that wraps me that's when his thorax recurred. The ROS documented in this emergency department record has been reviewed and confirmed by me. Those systems with pertinent positive or negative responses have been documented in the HPI. All other systems are other negative and/or noncontributory. (Yosi Whitaker) - Related Data Home Medications Medication Instructions Recorded Confirmed HYDROcodone/APAP 10-325MG [[place] 1 tab PO Q6HR PRN 12/26/22 05/28/23 10-325] Atorvastatin [Lipitor] 40 mg PO DAILY 03/25/23 05/28/23 Albuterol Nebulized [Ventolin 2.5 mg INHALATION RT-BID 05/28/23 05/28/23 Nebulized] Nitroglycerin Sl Tabs [Nitrostat] 0.4 mg SL Q5M PRN 05/28/23 05/28/23 OLANZapine [ZyPREXA] 5 mg PO TID 05/28/23 05/28/23 Allergies Allergy/AdvReac Type Severity Reaction Status Date / Time pregabalin [From Lyrica] Allergy psychotic Verified 05/28/23 18:06 behavior varenicline tartrate Allergy psychotic Verified 05/28/23 18:06 [From Chantix] behavior Review of Systems ROS Other: All systems not noted in ROS Statement are negative. <Papi Brewster - Last Filed: 05/28/23 15:21> ROS Other: All systems not noted in ROS Statement are negative. <Yosi Whitaker - Last Filed: 05/28/23 18:54> ROS Statement: Those systems with pertinent positive or pertinent negative responses have been documented in the HPI. Past Medical History Past Medical History: Coronary Artery Disease (CAD), Cancer, Chest Pain / Angina, Hyperlipidemia, Musculoskeletal Disorder, Osteoarthritis (OA) Additional Past Medical History / Comment(s): Chronic neck and back pain, RADIATES DOWN BOTH LEGS, right shoulder pain, 01/2018 colonoscopy resulting in perforation of bowel leading to peg tube with reversal. Does not have any Peg tube @ this time. Squamous cell lung Carcinoma History of Any Multi-Drug Resistant Organisms: None Reported Past Surgical History: Back Surgery, Heart Catheterization With Stent, Orthopedic Surgery Additional Past Surgical History / Comment(s): Neck surgery, pain procedures. COLONOSCOPY. Past Anesthesia/Blood Transfusion Reactions: No Reported Reaction Additional Past Anesthesia/Blood Transfusion Reaction / Comment(s): FAMILY HX UNKNOWN Date of Last Stent Placement:: 12/2018 Past Psychological History: No Psychological Hx Reported Smoking Status: Former smoker - Past Family History Son(s) Family Medical History: Cancer Additional Family Medical History / Comment(s): brain tumors <Papi Brewster - Last Filed: 05/28/23 15:21> General Exam Limitations: no limitations <Papi Brewster - Last Filed: 05/28/23 15:21> - General Exam Comments Initial Comments: Visual Physical Exam Vital signs reviewed General: Well-appearing, nontoxic, no acute distress. Head: Normocephalic, atraumatic Eyes: PERRLA, EOMI ENT: Airway patent Chest: Nonlabored breathing Skin: No visual rash, normal skin tone Neuro: Alert and oriented 3 Musculoskeletal: No gross abnormalities (Papi Brewster) Course <Yosi Whitaker - Last Filed: 05/28/23 18:54> Vital Signs 05/28/23 05/28/23 05/28/23 15:15 16:38 16:40 Temperature 98 F Pulse Rate 80 73 Respiratory 16 18 Rate Blood Pressure 162/70 165/81 O2 Sat by Pulse 91 L 90 L 100 Oximetry 05/28/23 05/28/23 05/28/23 16:42 17:10 17:30 Temperature Pulse Rate 72 79 Respiratory 20 18 22 Rate Blood Pressure 162/85 168/81 O2 Sat by Pulse 100 100 Oximetry 05/28/23 05/28/23 17:48 18:07 Temperature Pulse Rate 85 74 Respiratory 20 17 Rate Blood Pressure 148/74 144/95 O2 Sat by Pulse 98 99 Oximetry - Reevaluation(s) Reevaluation #1: 05/28/23 16:45 Chart review was performed showing that patient had a loculated pneumothorax according to the discharge summary from 04/01/2023. (Yosi Whitaker) Procedures - Chest Tube Insertion Consent Obtained: emergent situation Side of Procedure: left Indication: Pneumothorax Placed on monitor/pulse oximetry: Yes Site Prep: Chloroprep Local Anesthesia: Lidocaine 1% Insertion Site: Other Scalpel: #10 Open into Pleural Space Using: Other (thoravent) Tube Size (Pashto): Other (thoravent) Returns: Air Sutured in Place: Yes Type of Suture: Nylon Attached to Suction: Yes Type of Suction: Pleuravac Repeat X-ray Results: Lung Inflated Patient Tolerated Procedure: well <Yosi Whitaker - Last Filed: 05/28/23 18:54> Medical Decision Making <Papi Brewster - Last Filed: 05/28/23 15:21> - Lab Data Result diagrams: 05/28/23 15:35 05/28/23 15:35 <Yosi Whitaker - Last Filed: 05/28/23 18:54> - Medical Decision Making I completed the quick note portion of this chart signed Papi Brewster PA-C (Papi Brewster) Was pt. sent in by a medical professional or institution (MALENA Nash, PHARMACY RETAIL SUPPORT SPECIALIST, urgent care, hospital, or alf...) When possible be specific @ -No Did you speak to anyone other than the patient for history (EMS, parent, family, police, friend...)? What history was obtained from this source @ -No Did you review nursing and triage notes (agree or disagree)? Why? @ -I reviewed and agree with nursing and triage notes Were old charts reviewed (outside hosp., previous admission, EMS record, old EKG, old radiological studies, urgent care reports/EKG's, alf records)? Report findings @ -as above. Discharge summary from the last visit was reviewed showing the patient had a pneumothorax Differential Diagnosis (chest pain, altered mental status, abdominal pain women, abdominal pain men, vaginal bleeding, musculoskeletal, weakness, fever, dyspnea, syncope, headache, dizziness, GI bleed, back pain, seizure, CVA, palpatations, mental health)? @ -Differential Chest Pain: Stable Angina, Unstable Angina, STEMI, NSTEMI Aortic Dissection, Pneumothorax, Musculoskeletal, Esophageal Spasm GERD, Cholecystitis, Pancreatitis, Zoster, this is not meant to be an all-inclusive list. EKG interpreted by me (3pts min.). @ -None done X-rays interpreted by me (1pt min.). @ -Shoulder x-ray, pelvis x-ray and initial chest x-ray showed pneumothorax no other acute processes noted. CT interpreted by me (1pt min.). @ -The head and C-spine and face shows no acute traumatic processes. CT chest showed large left pneumothorax U/S interpreted by me (1pt. min.). @ -None done What testing was considered but not performed or refused? (CT, X-rays, U/S, labs)? Why? @ -None What meds were considered but not given or refused? Why? @ -None Did you discuss the management of the patient with other professionals (professionals i.e. MALENA Nash, PHARMACY RETAIL SUPPORT SPECIALIST, lab, RT, psych nurse, social professionals, detonator maker, teacher, transport corps officer, case management social worker)? Give summary @ -Case discussed with hospitalist for admission Was smoking cessation discussed for >3mins.? @ -No Was critical care preformed (if so, how long)? @ -No Were there social determinants of health that impacted care today? How? (Homelessness, low income, unemployed, alcoholism, drug addiction, rubio sportation, low edu. Level, literacy, decrease access to med. care, snf, rehab)? @ -No Was there de-escalation of care discussed even if they declined (Discuss DNR or withdrawal of care, Hospice)? DNR status @ -No What co-morbidities impacted this encounter? (DM, HTN, Smoking, COPD, CAD, Cancer, CVA, ARF, Chemo, Hep., AIDS, mental health diagnosis, sleep apnea, morbid obesity)? @ -None Was patient admitted / discharged? Hospital course, mention meds given and route, prescriptions, significant lab abnormalities, going to OR and other pertinent info. @ -7-year-old male presents emergency department for fall. Patient had finding of pneumothorax previous history of pneumothorax. This is a recurrence. He has history of lung blebs. Laboratory evaluation unremarkable. Imaging studies does not suggest any acute traumatic processes. thoravent was placed. Patient tolerated procedure well. Post procedure x-ray shows good placement. Undiagnosed new problem with uncertain prognosis? @ -No Drug Therapy requiring intensive monitoring for toxicity (Heparin, Nitro, Insulin, Cardizem)? @ -No Were any procedures done? @ -No Diagnosis/symptom? Acute, or Chronic, or Acute on Chronic? Uncomplicated (without systemic symptoms) or Complicated (systemic symptoms)? @ -Pneumothorax Side effects of treatment? @ -No Exacerbation, Progression, or Severe Exacerbation? @ -No Poses a threat to life or bodily function? How? (Chest pain, USA, PA, pneumonia, PE, COPD, DKA, ARF, appy, cholecystitis, CVA, Diverticulitis, Homicidal, Suicidal, threat to staff... and all critical care pts) @ -yes (Yosi Whitaker) - Lab Data Lab Results 05/28/23 05/28/23 05/28/23 Range/Units 15:35 15:35 18:23 WBC 19.0 H (3.8-10.6) k/uL RBC 3.60 L (4.30-5.90) m/uL Hgb 11.2 L (13.0-17.5) gm/dL Hct 33.8 L (39.0-53.0) % MCV 93.9 (80.0-100.0) fL MCH 31.0 (25.0-35.0) pg MCHC 33.0 (31.0-37.0) g/dL RDW 15.4 (11.5-15.5) % Plt Count 541 H (150-450) k/uL MPV 7.3 Neutrophils % 87 % Lymphocytes % 4 % Monocytes % 8 % Eosinophils % 0 % Basophils % 0 % Neutrophils # 16.5 H (1.3-7.7) k/uL Lymphocytes # 0.8 L (1.0-4.8) k/uL Monocytes # 1.5 H (0-1.0) k/uL Eosinophils # 0.0 (0-0.7) k/uL Basophils # 0.0 (0-0.2) k/uL Sodium 140 (137-145) mmol/L Potassium 3.9 (3.5-5.1) mmol/L Chloride 104 (98-107) mmol/L Carbon Dioxide 25 (22-30) mmol/L Anion Gap 11 mmol/L BUN 21 H (9-20) mg/dL Creatinine 0.77 (0.66-1.25) mg/dL Est GFR (CKD-EPI)AfAm >90 (>60 ml/min/1.73 sqM) Est GFR (CKD-EPI)NonAf 87 (>60 ml/min/1.73 sqM) Glucose 98 (74-99) mg/dL Calcium 9.0 (8.4-10.2) mg/dL Total Bilirubin 0.5 (0.2-1.3) mg/dL AST 30 (17-59) U/L ALT 21 (4-49) U/L Alkaline Phosphatase 101 (38-126) U/L Total Protein 6.7 (6.3-8.2) g/dL Albumin 3.9 (3.5-5.0) g/dL Urine Color Colorless Urine Appearance Clear (Clear) Urine pH 5.5 (5.0-8.0) Ur Specific [place] 1.012 (1.001-1.035) Urine Protein Negative (Negative) Urine Glucose (UA) Negative (Negative) Urine Ketones Negative (Negative) Urine Blood Negative (Negative) Urine Nitrite Negative (Negative) Urine Bilirubin Negative (Negative) Urine Urobilinogen <2.0 (<2.0) mg/dL Ur Leukocyte Esterase Negative (Negative) Disposition <Papi Brewster - Last Filed: 05/28/23 15:21> Decision Time: 18:54 <Yosi Whitaker - Last Filed: 05/28/23 18:54> Clinical Impression: Pneumothorax Disposition: ADMITTED IP TO THIS HOSP Condition: Fair Referrals: Shadi Freed DO [Primary Care Provider] - 1-2 days
[2023-05-28 16:15] LABS: Basophils % (A) 0 %; Eosinophils % (A) 0 %; HCT 33.8 % (39.0-53.0); HGB 11.2 gm/dL (13.0-17.5); Lymphocytes # (A) 0.8 k/uL (1.0-4.8); Lymphocytes % (A) 4 %; MCV 93.9 fL (80.0-100.0); Mean Platelet Volume 7.3; Monocytes # (A) 1.5 k/uL (0-1.0); Monocytes % (A) 8 %; Neutrophils # (A) 16.5 k/uL (1.3-7.7); Neutrophils % (A) 87 %; Platelet Count 541 k/uL (150-450); RDW 15.4 % (11.5-15.5)
--- NOTE | 2023-05-28 16:17 | XR ---
3 views left shoulder. DATE: 05/28/2023. COMPARISON: None available. CLINICAL HISTORY: Left shoulder pain after fall. IMPRESSION: There is mild irregularity. Tuberosity and some narrowing of the subacromial space which likely relat es to rotator cuff tendinopathy. Mild degenerative joint space narrowing is also seen within the bessie ohumeral joint space. There is moderate spurring at the acromioclavicular joint. Limited evaluation of the left lung shows a moderate sized left pneumothorax. Recommend chest x-ray o r chest CT for further evaluation. There are scattered interstitial changes otherwise seen within the visualized portion of the lung.
--- NOTE | 2023-05-28 16:19 | XR ---
Single view pelvis. DATE: 05/28/2023. COMPARISON: None available. MEDICAL HISTORY: Fall. IMPRESSION: Evaluation is somewhat limited due to poor penetration overlying the intertrochanteric regions bilate rally. A definitive acute fracture is not clearly identified. There is mild degenerative joint space narrowing bilaterally.
--- NOTE | 2023-05-28 16:21 | XR ---
3 view lumbar spine. DATE: 05/28/2023. COMPARISON: None available. CLINICAL HISTORY: Pain after fall. FINDINGS: The vertebral bodies are well aligned without evidence of fracture, subluxation or dislocation. There is scattered endplate changes seen throughout the spine which is likely degenerative. The disc spaces otherwise appear relatively preserved. There is moderate to significant multilevel degenerative facet changes throughout the lumbar spine. There is significant vascular calcification throughout the abdominal aorta. IMPRESSION: Degenerative changes with no acute osseous abnormalities.
[2023-05-28 16:29] LABS: ALT 21 U/L (4-49); AST 30 U/L (17-59); African American GFR (CKD) >90 (>60 ml/min/1.73 sqM); Albumin 3.9 g/dL (3.5-5.0); Alkaline Phosphatase 101 U/L (38-126); Anion Gap 11 mmol/L; Blood Urea Nitrogen 21 mg/dL (9-20); Carbon Dioxide 25 mmol/L (22-30); Chloride 104 mmol/L (98-107); Glucose 98 mg/dL (74-99); Non-African American GFR(CKD) 87 (>60 ml/min/1.73 sqM); Potassium 3.9 mmol/L (3.5-5.1); Sodium 140 mmol/L (137-145); Total Bilirubin 0.5 mg/dL (0.2-1.3); Total Protein 6.7 g/dL (6.3-8.2)
--- NOTE | 2023-05-28 16:29 | CT ---
EXAMINATION TYPE: CT brain cspine wo con, CT facial bones wo con CT DLP: 1106.9 mGycm, Automated exposure control for dose reduction was used. DATE OF EXAM: 05/28/2023 4:14 PM COMPARISON: None 02/21/2018.. CLINICAL INDICATION:Male, 77 years old with history of pain; fall, right neck shoulder pain (accessio n [id number]), fall (accession [id number]) TECHNIQUE: Brain: Multiple axial CT images of the brain were obtained without IV contrast. Cspine: Axial CT images from the skull base to the inferior aspect of T2 we obtained without intraven ous contrast. Coronal and sagittal reformatted images were also reviewed. Facial: Axial imaging of the facial structures with sagittal coronal reformats. FINDINGS: Brain: Extra-axial spaces: No abnormal extra-axial fluid collections. Ventricular system: Dilatation in proportion to cerebral atrophy. Cerebral parenchyma: Cerebral atrophy. No acute intraparenchymal hemorrhage or mass effect. The farnsworth -white junction is well differentiated. Scattered hypoattenuating areas are seen within the white mat ter. Cerebellum: Unremarkable. Mass effect: No evidence of midline shift. Intracranial vasculature: Atherosclerotic calcifications of the intracranial vessels. Soft tissues: Normal. Calvarium/osseous structures: No depressed skull fracture. Paranasal sinuses and mastoid air cells: Clear. Visualized orbits: Orbital contents are intact. Cervical spine: Fracture: None. Osseous structures: Fixation hardware from C3 through C7. Hardware appears intact. Multilevel degener ative disc disease changes with endplate spurring and disc osteophyte complex's. Vertebral alignment: Within normal limits. Spinal canal/Neural Foramina: No evidence of significant spinal canal narrowing. No evidence for sign ificant neural foraminal stenosis. Neck soft tissues: Prevertebral soft tissues are within normal limits. Other: The airway is patent. Left upper lung pneumothorax. Facial:There is no evidence of fracture, subluxation, dislocation, or significant soft tissue swellin g. The orbital contents are unremarkable.The temporal-mandibular joints appear symmetric. The visuali zed portion of the paranasal sinuses appear clear. IMPRESSION: 1. No acute intracranial process. 2. Questionable left upper pneumothorax versus bullous emphysema. 3. No evidence of cervical spine fracture. 4. Postsurgical changes cervical spine without evidence of fracture. multilevel degenerative disc di sease. 5. No evidence for facial bone fracture.
--- NOTE | 2023-05-28 16:32 | XR ---
EXAMINATION TYPE: XR chest 2V DATE OF EXAM: 05/28/2023 4:28 PM CLINICAL INDICATION:Male, 77 years old with history of dyspnea; [facility] COMPARISON: CT same day. 04/01/2023 TECHNIQUE: XR chest 2V Frontal and lateral views of the chest. FINDINGS: Lungs/Pleura: There is a left small to moderate pneumothorax. There is no evidence of pleural effusio n, focal consolidation, or right pneumothorax. Pulmonary vascularity: Unremarkable. Heart/mediastinum: Cardiomediastinal silhouette is unremarkable. Musculoskeletal: No acute osseous pathology. Interval thoracotomy tube removal with persistent left thoracotomy tube. IMPRESSION: Left small to moderate pneumothorax as seen on CT same day.
[2023-05-28] MEDS ORDERED: MORPHINE SULFATE 4 MG/ML SYRINGE IV STA (16:48)
[2023-05-28] MEDS ORDERED: MIDAZOLAM 1 MG/ML 5 ML VIAL IV STA ×2 (17:22→17:35)
[2023-05-28] MEDS ORDERED: LIDOCAINE 1%-EPI 1:100,000 20 ML VIAL SQ STA (17:27)
--- NOTE | 2023-05-28 17:55 | CT ---
EXAMINATION TYPE: CT chest wo con CT DLP: 294.7 mGycm, Automated exposure control for dose reduction was used. DATE OF EXAM: 05/28/2023 5:13 PM COMPARISON: CT 03/24/2023, 05/15/2023, PET/CT CLINICAL INDICATION:Male, 77 years old with history of pneumo; TECHNIQUE: Multiple axial images were obtained through the chest. Sagittal and coronal reformats were created for review. Contrast used: mL of (None if empty) Oral contrast used: (None if empty) FINDINGS: LUNGS/ PLEURA: There is a large left pneumothorax. No right pneumothorax. Severe paraseptal and centr ilobular emphysema changes. Consolidation changes in the left lung felt to be due to atelectasis. AIRWAY: Patent and unremarkable. HEART: There is mildly enlarged for size with severe coronary artery atherosclerosis. MEDIASTINUM: No gross evidence of adenopathy. VASCULATURE: No aortic aneurysm. MUSCULOSKELETAL: No acute osseous abnormalities SOFT TISSUES/LYMPH NODES: Unremarkable. LOWER NECK: No significant findings. UPPER ABDOMEN: No significant findings. IMPRESSION: 1. Large left pneumothorax. 2. Severe emphysema. 3. No evidence for acute fracture. 4. Cardiomegaly with severe coronary artery atherosclerosis.
--- NOTE | 2023-05-28 18:25 | XR ---
EXAMINATION TYPE: XR chest 1V portable DATE OF EXAM: 05/28/2023 6:05 PM CLINICAL INDICATION:Male, 77 years old with history of thoravent; [facility] COMPARISON: Chest radiographs from same day. TECHNIQUE: XR chest 1V portable Frontal view of the chest. FINDINGS: Lungs/Pleura: Moderate to large left pneumothorax There is no evidence of pleural effusion, focal con solidation, or right pneumothorax. Pulmonary vascularity: Unremarkable. Heart/mediastinum: Cardiomediastinal silhouette is unremarkable. Musculoskeletal: No acute osseous pathology. Other findings: None Lines/Tubes: Left thoracotomy tube is present with persistent moderate large left pneumothorax. IMPRESSION: Left thoracotomy tube placement with persistent moderate to large pneumothorax.
[2023-05-28 18:32] LABS: Appearance,Urine Clear (Clear); Bilirubin,Urine Negative (Negative); Blood,Urine Negative (Negative); Color,Urine Colorless; Glucose,Urine (UA) Negative (Negative); Ketones,Urine Negative (Negative); Leukocyte Esterase,Urine Negative (Negative); Nitrite,Urine Negative (Negative); PH, Urine 5.5 (5.0-8.0); Protein,Urine Negative (Negative); Specific Gravity,Urine 1.012 (1.001-1.035); Urobilinogen,Urine <2.0 mg/dL (<2.0)
[2023-05-28] MEDS ORDERED: NALOXONE 0.4 MG/ML 1 ML VIAL IV PRN (18:49)
[2023-05-28] MEDS ORDERED: NITROGLYCERIN SL TABS 0.4 MG TAB SUBLINGUAL PRN (21:03)
[2023-05-28] MEDS ORDERED: ONDANSETRON 4 MG/2 ML VIAL IVP PRN (21:04)
[2023-05-28] MEDS ORDERED: ALBUTEROL NEBULIZED 2.5 MG/3 ML INHALATION PRN (21:05)
--- NOTE | 2023-05-28 23:30 | XR ---
EXAM: XR Chest, 1 View CLINICAL HISTORY: XR Reason: tube placement TECHNIQUE: Frontal view of the chest. COMPARISON: May 28, 2023 at 1755 hrs. FINDINGS: Lungs: Coarse linear densities throughout both lungs consistent with moderate emphysematous changes. Scattered areas of atelectasis or infiltrate in the left mid to lower lung, similar to previous. Pleural space: See below. Heart: The cardiac silhouette is mildly enlarged. Mediastinum: Unremarkable. Normal mediastinal contour. Bones/joints: Mild degenerative changes throughout the thoracic spine. No acute fracture. Vasculature: The aortic arch is mildly calcified but nondilated. Tubes, lines and devices: There is a small caliber chest tube on the left located superiorly. There is a residual left-sided pneumothorax measuring approximate 2.2 cm, questionably slightly smaller than previous when it measured approximately 3 cm. IMPRESSION: 1. There is a small caliber chest tube on the left located superiorly. There is a residual left-sided pneumothorax measuring approximate 2.2 cm laterally, questionably slightly smaller than previous when it measured approximately 3 cm. Approximately 30%. 2. Coarse linear densities throughout both lungs consistent with moderate emphysematous changes. Scattered areas of atelectasis or infiltrate in the left mid to lower lung, similar to previous.
--- NOTE | 2023-05-29 02:12 | P.CNPUL ---
History of Present Illness Consult date: 05/29/23 Requesting physician: Yosi Whitaker Reason for consult: pneumothorax Chief complaint: Fall History of present illness: I am seeing this patient in new consultation today 05/29/2023 in the emergency room in trauma [place] [facility] after sustaining a fall at home and was found to have recurrent left-sided pneumothorax. He is status post Thoravent insertion by the ER physician. Patient is a 77-year-old white male with past medical history significant for recent left-sided pneumothorax back in February,, left upper lobe squamous cell carcinoma previously maintained on Carbo/Taxo and radiation with recent disease progression, severe bullous emphysema/COPD, coronary artery disease with previous stent to RCA, hyperlipidemia, ex-tobacco smoker. Patient did have a recent hospital admission back in February,. He was found to have a left-sided pneumothorax at that time, requiring ThoraVent placement, and eventual resolution and discharged home. He was confused and required a environmental safety specialist on his previous admission. Patient is currently a questionable historian, he lives at home with his . Apparently, while at home he was trying to lift a water jug and fell. Patient did hit his head. He was noted to be increasing confused at home by his son. Patient presented in emergency room yesterday afternoon. CT of the head and C-spine did not show any acute intracranial process or cervical spine fracture. A chest CT showed a large left pneumothorax with severe bullous emphysema. No obvious rib fractures. Patient is status post left-sided ThoraVent placement by ER robb huerta. He is currently on a 15 L nonrebreather, in no respiratory distress. SpO2 is 100%. Follow-up chest x-ray demonstrates a residual left-sided pneumothorax measuring approximately 30%, possibly smaller than prior. There are scattered areas of probable atelectasis in the left mid and lower lung. I did try to manually aspirate air from the ThoraVent. Currently, the ThoraVent is attached to an Atrium and suction at -20 cm H2O. There is a fairly persistent air leak. Patient is fairly asymptomatic. He denies any shortness of breath. CBC on arrival showed a WBC count of 19, hemoglobin 11.2, hematocrit 33.8, platelets 541. BMP was unremarkable. Vital signs are stable. We are working on weaning his FiO2. Patient will be admitted to the cardiac stepdown unit once bed available. Review of Systems REVIEW OF SYSTEMS: CONSTITUTIONAL: Denies any recent significant weight loss or weight gain. Denies fevers. EYES: Denies change in vision. EARS, NOSE, MOUTH, THROAT: Denies headaches, denies sore throat. CARDIOVASCULAR: Denies chest pain, palpitations or syncopal episodes. RESPIRATORY: Denies cough, congestion or hemoptysis. Admits shortness of breath prior to admission GASTROINTESTINAL: Denies change in appetite, abdominal pain, nausea and vomiting, or diarrhea GENITOURINARY: Denies hematuria, denies infections. MUSKULOSKELETAL: Denies pain, denies swelling. INTEGUMENTARY: Denies rash, denies eczema. NEUROLOGICAL: Denies recent memory loss, no recent seizure activity. PSYCHIATRIC: Denies anxiety, denies depression. HEMATOLOGIC/LYMPHATIC: Denies anemia, denies enlarged lymph node Past Medical History Past Medical History: Coronary Artery Disease (CAD), Cancer, Chest Pain / Angina, Hyperlipidemia, Musculoskeletal Disorder, Osteoarthritis (OA) Additional Past Medical History / Comment(s): Chronic neck and back pain, RADIATES DOWN BOTH LEGS, right shoulder pain, 01/2018 colonoscopy resulting in perforation of bowel leading to peg tube with reversal. Does not have any Peg tube @ this time. Squamous cell lung Carcinoma History of Any Multi-Drug Resistant Organisms: None Reported Past Surgical History: Back Surgery, Heart Catheterization With Stent, Orthopedic Surgery Additional Past Surgical History / Comment(s): Neck surgery, pain procedures. COLONOSCOPY. Past Anesthesia/Blood Transfusion Reactions: No Reported Reaction Additional Past Anesthesia/Blood Transfusion Reaction / Comment(s): FAMILY HX UNKNOWN Date of Last Stent Placement:: 12/2018 Past Psychological History: No Psychological Hx Reported Additional Psychological History / Comment(s): . Smoking Status: Former smoker Past Alcohol Use History: Rare Additional Past Alcohol Use History / Comment(s): STARTED SMOKING AT AGE 16 SMOKES 1 PPD. DRINKS 6 BEERS DAILY and also drinks NA beer. Past Drug Use History: None Reported - Past Family History Son(s) Family Medical History: Cancer Additional Family Medical History / Comment(s): brain tumors Medications and Allergies Home Medications Medication Instructions Recorded Confirmed Type HYDROcodone/APAP 10-325MG [[place] 1 tab PO Q6HR PRN 12/26/22 05/28/23 History 10-325] Atorvastatin [Lipitor] 40 mg PO DAILY 03/25/23 05/28/23 History Albuterol Nebulized [Ventolin 2.5 mg INHALATION RT-BID 05/28/23 05/28/23 History Nebulized] Nitroglycerin Sl Tabs [Nitrostat] 0.4 mg SL Q5M PRN 05/28/23 05/28/23 History OLANZapine [ZyPREXA] 5 mg PO TID 05/28/23 05/28/23 History Allergies Allergy/AdvReac Type Severity Reaction Status Date / Time pregabalin [From Lyrica] Allergy psychotic Verified 05/28/23 18:06 behavior varenicline tartrate Allergy psychotic Verified 05/28/23 18:06 [From Chantix] behavior Physical Exam Vitals: Vital Signs Temp Pulse Resp BP Pulse Ox 05/28/23 23:30 70 20 142/75 100 05/28/23 23:00 67 19 151/78 100 05/28/23 22:00 67 20 156/73 100 05/28/23 21:00 79 20 163/73 100 05/28/23 20:00 100 05/28/23 18:07 74 17 144/95 99 05/28/23 17:48 85 20 148/74 98 05/28/23 17:30 79 22 168/81 100 05/28/23 17:10 72 18 162/85 100 05/28/23 16:42 20 05/28/23 16:40 73 18 165/81 100 05/28/23 16:38 90 L 05/28/23 15:15 98 F 80 16 162/70 91 L Intake and Output 05/28/23 05/28/23 05/29/23 14:59 22:59 06:59 Output Total 10 Balance -10 Output: Chest Tube Drainage 10 Thora-Vent Left 10 Other: Weight 63.503 kg GENERAL EXAM: Alert, 77-year-old white male, on a 15 L nonrebreather, comfortable in no apparent distress. HEAD: Normocephalic and atraumatic EYES: Normal reaction of pupils, equal size. NOSE: Clear with pink turbinates. THROAT: No erythema or exudates. NECK: No masses, no JVD. CHEST: No chest wall deformity. Left ThoraVent in place and hooked to suction LUNGS: Diminished left lung sounds. no crackles, wheeze, rhonchi or dullness. On a 15 L nonrebreather, SpO2 is 100%. No conversational dyspnea or accessory muscle use.. CVS: S1 and S2 normal with no audible murmur, regular rhythm. No extra heart sounds ABDOMEN: No hepatosplenomegaly, active bowel sounds, no guarding or rigidity. SPINE: No scoliosis or deformity SKIN: No rashes CENTRAL NERVOUS SYSTEM: No focal deficits, tone is normal in all 4 extremities. He is oriented to self and time. EXTREMITIES: There is no peripheral edema, clubbing, or cyanosis. Peripheral pulses are intact. Results - Laboratory Findings CBC and BMP: 05/28/23 15:35 05/28/23 15:35 Abnormal lab findings: Abnormal Labs 05/28/23 05/28/23 15:35 15:35 WBC 19.0 H RBC 3.60 L Hgb 11.2 L Hct 33.8 L Plt Count 541 H Neutrophils # 16.5 H Lymphocytes # 0.8 L Monocytes # 1.5 H BUN 21 H - Diagnostic Findings Chest x-ray: image reviewed CT scan - chest: image reviewed Assessment and Plan Assessment: Recurrent left-sided pneumothorax status post ThoraVent insertion by ER physician, recent chest x-ray shows a persistent left-sided pneumothorax estimated at 30%, possibly slightly smaller than previous imaging. Acute hypoxemic respiratory failure, secondary to above Fall Chronic obstructive pulmonary disease with bullous emphysema, stable. Left-sided squamous cell lung carcinoma status post systemic chemotherapy with Carbo/Taxo and radiation, recent disease progression, currently on Imfinzi. Most recent PET scan earlier this month shows increased metabolic uptake within the posterior lateral right upper lung prasad. Developing subtle perihilar focal uptake, considered suspicious for metastasis. Leukocytosis, no obvious infectious etiology Coronary artery disease, previous history of PCI/stent Hyperlipidemia Former tobacco smoker Plan: Patient's medications, labs and imaging reviewed. Moderate size left-sided pneumothorax remains, possibly slightly smaller than previous imaging, estimated at 30%. ThoraVent is currently hooked to suction at -20 cm H2O. There is a fairly persistent air leak. Patient is currently on a 15 L nonrebreather, mostly to facilitate with lung re-expansion. SpO2 is 100%. He is in no respiratory distress. FiO2 could be weaned. Vital signs are stable. Encourage incentive spirometer. Repeat chest x-ray in the morning. Pain appears were adequately controlled. Initiate fall precautions. Patient did require bedside sitter during his previous admission. Cardiothoracic surgery were also consulted. Patient is being admitted to the cardiac stepdown unit. We will continue to follow I have personally seen and examined the patient, performed the documentation and the assessment and plan as written. Number of minutes spent on the visit:20 Time with Patient: Greater than 30
[2023-05-29] MEDS: OLANZapine 5 MG TAB PO SCH ×4 (02:20→21:18)
[2023-05-29] MEDS: PANTOPRAZOLE 40 MG TABLET PO SCH (06:41)
[2023-05-29] MEDS ORDERED: ALBUTEROL NEBULIZED 2.5 MG/3 ML INHALATION SCH (08:00)
[2023-05-29] MEDS: ALBUTEROL NEBULIZED 2.5 MG/3 ML INHALATION SCH ×4 (08:09→20:43)
[2023-05-29] MEDS: ATORVASTATIN 40 MG TAB PO SCH (08:09)
[2023-05-29] MEDS: ACETAMINOPHEN TAB 325 MG TAB PO PRN ×2 (08:10→21:24)
--- NOTE | 2023-05-29 09:00 | P.GSCN ---
History of Present Illness Consult date: 05/29/23 Reason for Consult: Recurrent left-sided pneumothorax Requesting physician: Yosi Whitaker History of present illness: This is a 77-year-old gentleman who follows outpatient with Dr. Freed for primary care, Dr. Starks for pulmonology, and Dr. Lora for oncology. He has a previous medical history of squamous cell carcinoma of the left upper lobe of the lung status post chemotherapy and radiation with recent disease progression, coronary artery disease with previous PCI, hyperlipidemia, previous tobacco dependence, and COPD with significant bullous emphysema. We last saw this gentleman in the hospital in February when he was hospitalized for large left-sided pneumothorax with thoravent placement by the emergency room physicians. He did have some confusion and agitated behavior during that hospitalization. His lung did eventually re-expand and thoravent was removed. Patient was discharged to home and has been recovering although he has had a couple of emergency room visits for fall and anxiety. Of note he did have a PET scan May 16 demonstrating increasing metabolic uptake within the posterior lateral right upper lung prasad and developing subtle. Hilar focal uptake which is new and considered suspicious. He presented back to [facility] emergency room yesterday after a fall at home with complaints of bilateral hip pain, low back pain, and facial pain. He had multiple x-rays and CTs in the emergency room, including a CT scan of the chest demonstrating recurrent left-sided pneumothorax. A thoravent was placed by the emergency room physicians, without complete re-expansion of the left lung. This thoravent was placed to continuous wall suction with continuous air leak present. The patient was admitted for evaluation and treatment with consultation placed to pulmon ology as well as cardiothoracic surgery. Review of Systems Review of systems was completed and was negative except as noted - Musculoskeletal Reports frequent falls, Reports low back pain bilateral: hip pain Past Medical History Past Medical History: Coronary Artery Disease (CAD), Cancer, Chest Pain / Ang angeline, Hyperlipidemia, Musculoskeletal Disorder, Osteoarthritis (OA) Additional Past Medical History / Comment(s): Chronic neck and back pain, RADIATES DOWN BOTH LEGS, right shoulder pain, 01/2018 colonoscopy resulting in perforation of bowel leading to peg tube with reversal;Squamous cell lung Carcinoma; left sided pneumothorax History of Any Multi-Drug Resistant Organisms: None Reported Past Surgical History: Back Surgery, Heart Catheterization With Stent, Orthopedic Surgery Additional Past Surgical History / Comment(s): Neck surgery, pain procedures. COLONOSCOPY. Past Anesthesia/Blood Transfusion Reactions: No Reported Reaction Additional Past Anesthesia/Blood Transfusion Reaction / Comm: FAMILY HX UNKNOWN Date of Last Stent Placement:: 12/2018 Past Psychological History: No Psychological Hx Reported Additional Psychological History / Comment(s): . Smoking Status: Former smoker Past Alcohol Use History: Rare Additional Past Alcohol Use History / Comment(s): STARTED SMOKING AT AGE 16 SMO KES 1 PPD. DRINKS 6 BEERS DAILY and also drinks NA beer. Past Drug Use History: None Reported - Past Family History Son(s) Family Medical History: Cancer Additional Family Medical History / Comment(s): brain tumors Medications and Allergies Home Medications Medication Instructions Recorded Confirmed Type HYDROcodone/APAP 10-325MG [[place] 1 tab PO Q6HR PRN 12/26/22 05/28/23 History 10-325] Atorvastatin [Lipitor] 40 mg PO DAILY 03/25/23 05/28/23 History Albuterol Nebulized [Ventolin 2.5 mg INHALATION RT-BID 05/28/23 05/28/23 History Nebulized] Nitroglycerin Sl Tabs [Nitrostat] 0.4 mg SL Q5M PRN 05/28/23 05/28/23 History OLANZapine [ZyPREXA] 5 mg PO TID 05/28/23 05/28/23 History Allergies Allergy/AdvReac Type Severity Reaction Status Date / Time pregabalin [From Lyrica] Allergy psychotic Verified 05/28/23 18:06 behavior varenicline tartrate Allergy psychotic Verified 05/28/23 18:06 [From Chantix] behavior Surgical - Exam Vital Signs Temp Pulse Resp BP Pulse Ox 98 F 80 16 162/70 91 L 05/28/23 15:15 05/28/23 15:15 05/28/23 15:15 05/28/23 15:15 05/28/23 15:15 CONSTITUTIONAL: Sleeping, appears comfortable, cooperative, well-developed, well-nourished, no pain, no acute distress NECK: No masses, no bruits, trachea midline RESPIRATORY: Lungs sounds diminished on the left, faint expiratory wheezes heard bilaterally. Respirations even, nonlabored. Currently on 4 L high flow nasal cannula with oxygen saturation 97%. Left-sided thoravent present and connected to atrium, connected to continuous wall suction, continuous air leak present CARDIOVASCULAR: S1, S2 present. Regular rate and rhythm, sinus rhythm on telemetry. Palpable peripheral pulses bilaterally. No edema present GASTROINTESTINAL: Abdomen soft, nontender, nondistended without masses or organomegaly noted. There is no rebound or guarding present. Active bowel sounds present 4 quadrants. GENITOURINARY: Deferred INTEGUMENTARY: Skin is warm and dry NEUROLOGIC: Cranial nerves II through XII intact MUSKULOSKELETAL: Able to move all extremities PSYCHIATRIC: Alert and oriented to person place and time, intermittently confused per nursing Results - Labs 05/28/23 15:35 05/28/23 15:35 Abnormal Lab Results - Last 24 Hours (Table) 05/28/23 05/28/23 Range/Units 15:35 15:35 WBC 19.0 H (3.8-10.6) k/uL RBC 3.60 L (4.30-5.90) m/uL Hgb 11.2 L (13.0-17.5) gm/dL Hct 33.8 L (39.0-53.0) % Plt Count 541 H (150-450) k/uL Neutrophils # 16.5 H (1.3-7.7) k/uL Lymphocytes # 0.8 L (1.0-4.8) k/uL Monocytes # 1.5 H (0-1.0) k/uL BUN 21 H (9-20) mg/dL Diabetes panel 05/28/23 Range/Units 15:35 Sodium 140 (137-145) mmol/L Potassium 3.9 (3.5-5.1) mmol/L Chloride 104 (98-107) mmol/L Carbon Dioxide 25 (22-30) mmol/L BUN 21 H (9-20) mg/dL Creatinine 0.77 (0.66-1.25) mg/dL Glucose 98 (74-99) mg/dL Calcium 9.0 (8.4-10.2) mg/dL AST 30 (17-59) U/L ALT 21 (4-49) U/L Alkaline Phosphatase 101 (38-126) U/L Total Protein 6.7 (6.3-8.2) g/dL Albumin 3.9 (3.5-5.0) g/dL Calcium panel 05/28/23 Range/Units 15:35 Calcium 9.0 (8.4-10.2) mg/dL Albumin 3.9 (3.5-5.0) g/dL Pituitary panel 05/28/23 Range/Units 15:35 Sodium 140 (137-145) mmol/L Potassium 3.9 (3.5-5.1) mmol/L Chloride 104 (98-107) mmol/L Carbon Dioxide 25 (22-30) mmol/L BUN 21 H (9-20) mg/dL Creatinine 0.77 (0.66-1.25) mg/dL Glucose 98 (74-99) mg/dL Calcium 9.0 (8.4-10.2) mg/dL Adrenal panel 05/28/23 Range/Units 15:35 Sodium 140 (137-145) mmol/L Potassium 3.9 (3.5-5.1) mmol/L Chloride 104 (98-107) mmol/L Carbon Dioxide 25 (22-30) mmol/L BUN 21 H (9-20) mg/dL Creatinine 0.77 (0.66-1.25) mg/dL Glucose 98 (74-99) mg/dL Calcium 9.0 (8.4-10.2) mg/dL Total Bilirubin 0.5 (0.2-1.3) mg/dL AST 30 (17-59) U/L ALT 21 (4-49) U/L Alkaline Phosphatase 101 (38-126) U/L Total Protein 6.7 (6.3-8.2) g/dL Albumin 3.9 (3.5-5.0) g/dL - Imaging Chest x-ray: report reviewed, image reviewed CT scan - chest: report reviewed, image reviewed Assessment and Plan Assessment: Recurrent left-sided pneumothorax, status post placement of thoravent by emergency room physicians Acute hypoxic respiratory failure Fall at home Pain, shortness of breath secondary to above History of squamous cell carcinoma of the left upper lobe of the lung status post chemotherapy and radiation with recent disease progression History of left-sided pneumothorax in February 2023 Coronary artery disease with previous PCI Hyperlipidemia Previous tobacco dependence COPD with significant bullous emphysema Plan: The patient was seen and examined lying in bed sleeping comfortably on the cardiac stepdown unit in no acute distress. Chart/diagnostics reviewed. CT scan reviewed with Dr. Chawla. Continue thoravent to continuous wall suction and monitor for early resolution. Patient may need full thoracostomy chest tube, however with history of confusion and agitation including the last admission there is concern that patient may inadvertently pull chest tube out which would be more detrimental. Will discuss with patient's son. In the meantime encourage incentive spirometry use. Increase activity as tolerated. Wean O2 as tolerated. Due to progression of lung cancer consider hospice/palliative care. Medical management of the comorbidities per internal medicine, pulmonology. More recommendations to follow. Thank you for this consult, we will continue to follow along with you and make further recommendations as appropriate. I have personally seen and examined the patient, performed the documentation and the assessment and plan as written. Number of minutes spent on the visit: 30. XAVI RosenC
[2023-05-29 09:18] LABS: Basophils % (A) 0 %; Eosinophils # (A) 0.2 k/uL (0-0.7); Eosinophils % (A) 2 %; HCT 33.5 % (39.0-53.0); HGB 11.1 gm/dL (13.0-17.5); Lymphocytes # (A) 0.6 k/uL (1.0-4.8); Lymphocytes % (A) 6 %; MCH 30.9 pg (25.0-35.0); MCV 93.7 fL (80.0-100.0); Mean Platelet Volume 7.6; Monocytes # (A) 0.6 k/uL (0-1.0); Monocytes % (A) 6 %; Neutrophils # (A) 8.9 k/uL (1.3-7.7); Neutrophils % (A) 85 %; Platelet Count 516 k/uL (150-450); RBC 3.58 m/uL (4.30-5.90); RDW 15.2 % (11.5-15.5); WBC 10.5 k/uL (3.8-10.6)
[2023-05-29 10:23] VITALS: BMI 21.9
--- NOTE | 2023-05-29 10:30 | XR ---
EXAMINATION TYPE: XR chest 1V portable DATE OF EXAM: 05/29/2023 COMPARISON: 05/28/2023 HISTORY: Left pneumothorax TECHNIQUE: Single frontal view of the chest is obtained. FINDINGS: A large left pneumothorax stable. Chest tube seen in position. Underlying COPD. Emphysemat ous changes noted. Linear scarring or atelectasis bilaterally. Nodule overlying the right midlung lik joce related to nipple shadow. Heart size normal. No overt failure. Vague area of mass or consolidation in the left perihilar region is stable. IMPRESSION: 1. Stable large left-sided pneumothorax. 2. Stable left perihilar mass or consolidation.
--- NOTE | 2023-05-29 14:25 | P.HPIM ---
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 Multiple radiology studies including head/C-spine CT reported no acute intracranial process or cervical spine fracture,large left pneumothorax with severe bullous emphysema. Complains of chest tube insertion site discomfort otherwise denies chest pain, palpitations or shortness of breath. Maintaining O2 sats in the high 90s on 4 L high flow nasal cannula. Afebrile, WBC has normalized. Chest x-ray pending. Review of Systems ROS Statement: Those systems with pertinent positive or pertinent negative responses have been documented in the HPI. ROS Other: All systems not noted in ROS Statement are negative Past Medical History Past Medical History: Coronary Artery Disease (CAD), Cancer, Chest Pain / Angina, Hyperlipidemia, Musculoskeletal Disorder, Osteoarthritis (OA) Additional Past Medical History / Comment(s): Chronic neck and back pain, RADIATES DOWN BOTH LEGS, right shoulder pain, 01/2018 colonoscopy resulting in perforation of bowel leading to peg tube with reversal;Squamous cell lung Carcinoma; left sided pneumothorax History of Any Multi-Drug Resistant Organisms: None Reported Past Surgical History: Back Surgery, Heart Catheterization With Stent, Orthopedic Surgery Additional Past Surgical History / Comment(s): Neck surgery, pain procedures. COLONOSCOPY. Past Anesthesia/Blood Transfusion Reactions: No Reported Reaction Additional Past Anesthesia/Blood Transfusion Reaction / Comment(s): FAMILY HX UNKNOWN Date of Last Stent Placement:: 12/2018 Past Psychological History: No Psychological Hx Reported Additional Psychological History / Comment(s): . Smoking Status: Former smoker Past Alcohol Use History: Rare Additional Past Alcohol Use History / Comment(s): STARTED SMOKING AT AGE 16 SMOKES 1 PPD. DRINKS 6 BEERS DAILY and also drinks NA beer. Past Drug Use History: None Reported - Past Family History Son(s) Family Medical History: Cancer Additional Family Medical History / Comment(s): brain tumors Medications and Allergies Home Medications Medication Instructions Recorded Confirmed Type HYDROcodone/APAP 10-325MG [[place] 1 tab PO Q6HR PRN 12/26/22 05/28/23 History 10-325] Atorvastatin [Lipitor] 40 mg PO DAILY 03/25/23 05/28/23 History Albuterol Nebulized [Ventolin 2.5 mg INHALATION RT-BID 05/28/23 05/28/23 History Nebulized] Nitroglycerin Sl Tabs [Nitrostat] 0.4 mg SL Q5M PRN 05/28/23 05/28/23 History OLANZapine [ZyPREXA] 5 mg PO TID 05/28/23 05/28/23 History Allergies Allergy/AdvReac Type Severity Reaction Status Date / Time pregabalin [From Lyrica] Allergy psychotic Verified 05/28/23 18:06 behavior varenicline tartrate Allergy psychotic Verified 05/28/23 18:06 [From Chantix] behavior Physical Exam Vitals: Vital Signs Temp Pulse Pulse Resp BP BP BP 05/29/23 11:48 67 161/76 131/69 05/29/23 11:39 68 05/29/23 11:26 64 05/29/23 08:20 92 05/29/23 08:17 18 05/29/23 08:09 91 05/29/23 08:07 98.0 F 82 16 05/29/23 04:00 97.9 F 77 18 05/29/23 02:00 20 05/29/23 01:42 77 20 05/29/23 00:00 97.4 F L 72 20 05/28/23 23:30 70 20 142/75 05/28/23 23:00 67 19 151/78 05/28/23 22:00 67 20 156/73 05/28/23 21:00 79 20 163/73 05/28/23 20:00 05/28/23 18:07 74 17 144/95 05/28/23 17:48 85 20 148/74 05/28/23 17:30 79 22 168/81 05/28/23 17:10 72 18 162/85 05/28/23 16:42 20 05/28/23 16:40 73 18 165/81 05/28/23 16:38 05/28/23 15:15 98 F 80 16 162/70 BP BP Pulse Ox 05/29/23 11:48 161/72 05/29/23 11:39 05/29/23 11:26 05/29/23 08:20 05/29/23 08:17 97 05/29/23 08:09 95 05/29/23 08:07 143/66 96 05/29/23 04:00 162/73 99 05/29/23 02:00 05/29/23 01:42 98 05/29/23 00:00 131/82 97 05/28/23 23:30 100 05/28/23 23:00 100 05/28/23 22:00 100 05/28/23 21:00 100 05/28/23 20:00 100 05/28/23 18:07 99 05/28/23 17:48 98 05/28/23 17:30 100 05/28/23 17:10 100 05/28/23 16:42 05/28/23 16:40 100 05/28/23 16:38 90 L 05/28/23 15:15 91 L Intake and Output 05/28/23 05/29/23 05/29/23 22:59 06:59 14:59 Intake Total 10 Output Total 10 300 115 Balance -10 -300 -105 Intake: IV 10 Invasive Line 1 10 Output: Chest Tube Drainage 10 15 Thora-Vent Left 10 15 Urine 300 100 Other: Voiding Method Urinal Urinal Weight 63.503 kg 63.503 kg PHYSICAL EXAM: VITAL SIGNS: [As above] GENERAL: Cachectic , fragile , thin elderly male, Sitting up at side stretcher, mild confusion, no acute distress HEENT: Normocephalic ,Conjunctivae normal. eyes normal. NECK: Supple, No JVD. No thyroid enlargement. No LNs CARDIOVASCULAR: S1, S2 regular.. No murmur RESPIRATION: Unlabored, equal air entry, Breath sounds diminished in the bases. No rhonchi or crackles. No bronchial breathing. Left thoravent to continuous wall suction. ABDOMEN: Soft, nontender . No guarding. no masses palpable. No ascites, No hepatosplenomegaly.Bowel sounds heard. LEGS: No edema. no swelling PSYCHIATRY: Alert and oriented X2, mood and affect normal. NERVOUS SYSTEM: Cranial N 2-12 grossly normal. Moves all 4 limbs. Diffuse weakness No focal deficits. Strength and sensation grossly intact. Skin: Warm and dry, no rash Results CBC & Chem 7: 05/29/23 07:54 05/28/23 15:35 Labs: Abnormal Lab Results - Last 24 Hours (Table) 05/28/23 05/28/23 05/29/23 Range/Units 15:35 15:35 07:54 WBC 19.0 H (3.8-10.6) k/uL RBC 3.60 L 3.58 L (4.30-5.90) m/uL Hgb 11.2 L 11.1 L (13.0-17.5) gm/dL Hct 33.8 L 33.5 L (39.0-53.0) % Plt Count 541 H 516 H (150-450) k/uL Neutrophils # 16.5 H 8.9 H (1.3-7.7) k/uL Lymphocytes # 0.8 L 0.6 L (1.0-4.8) k/uL Monocytes # 1.5 H (0-1.0) k/uL BUN 21 H (9-20) mg/dL Thrombosis Risk Factor Assmnt - Choose All That Apply Any of the Below Risk Factors Present?: Yes Each Factor Represents 1 point: Serious lung disease incl. pneumonia (< 1month) Each Risk Factor Represents 3 Points: Age 75 years or older Other congenital or acquired thrombophilia - If yes, enter type in comment: No Thrombosis Risk Factor Assessment Total Risk Factor Score: 4 Thrombosis Risk Factor Assessment Level: Moderate Risk Assessment and Plan Assessment: Recurrent left-sided pneumothorax status post fall, status post Thoravent plac ement. Acute hypoxic respiratory failure secondary to the above Severe bullous emphysema Leukocytosis resolved. History of left-sided pneumothorax status post Thoravent placement 03/22. Possible right lower lobe opacity reported per chest x-ray History of left-sided squamous cell lung CA status post systemic chemotherapy. Pulmonary reports recent PET scan reporting disease progression. CAD with history of stent Hyperlipidemia Anemia of chronic disease Prior nicotine dependence Moderate protein calorie malnutrition, BMI 21 Plan: Continue on current medication regime ,monitoring and symptomatic treatment. Chest x-ray ordered. Thoravent chest tube management as per CTS.Aggressive pulmonary toileting with incentive spirometer reinforced. PT/OT consulted. 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 The impression and plan of care has been dictated as directed. : I performed a history and examination of this patient, discussed the same with the dictator. I agree with the dictator's note ,documented as a scribe. Any additional findings or plans will be noted.
[2023-05-30] MEDS: PANTOPRAZOLE 40 MG TABLET PO SCH (06:09)
[2023-05-30] MEDS: ALBUTEROL NEBULIZED 2.5 MG/3 ML INHALATION SCH ×4 (08:08→20:14)
--- NOTE | 2023-05-30 08:27 | XR ---
EXAMINATION TYPE: XR chest 1V portable DATE OF EXAM: 05/30/2023 6:54 AM CLINICAL INDICATION:Male, 77 years old with history of pneumothorax; COMPARISON: Chest radiographs from 05/29/2023 TECHNIQUE: XR chest 1V portable Frontal view of the chest. FINDINGS: Lungs/Pleura: There is no evidence of pleural effusion, focal consolidation, or right pneumothorax. Small moderate left pneumothorax. Increased interstitial lung markings with lungs. Pulmonary vascularity: Unremarkable. Heart/mediastinum: Cardiomediastinal silhouette is unremarkable. Musculoskeletal: No acute osseous pathology. Other findings: None Lines/Tubes: Left thoracotomy tube is present with small moderate left pneumothorax. IMPRESSION: Left thoracotomy tube with small to moderate pleural effusion similar to prior.
[2023-05-30] MEDS: OLANZapine 5 MG TAB PO SCH ×2 (09:31→15:23)
[2023-05-30] MEDS: ATORVASTATIN 40 MG TAB PO SCH (09:31)
[2023-05-30] MEDS ORDERED: LIDOCAINE 2% (PF) 20 MG/ML 2 ML VIAL SQ ONE (10:45)
--- NOTE | 2023-05-30 11:58 | P.PN ---
Subjective Progress Note Date: 05/30/23 Principal diagnosis: Recurrent left-sided pneumothorax, status post placement of thoravent, acute hypoxic respiratory failure, fall at home. History of squamous cell carcinoma of the left upper lobe of the lung status post chemotherapy and radiation with recent disease progression, left-sided pneumothorax in February 2023, coronary artery disease with previous PCI, hyperlipidemia, previous tobacco dependence, COPD with significant bullous emphysema The patient was seen and examined this morning laying in bed a cardiac stepdown unit in no acute distress, 1:1 sitter at the bedside. He does complain about the thoravent and wishes it was out, does have some pain at the thoravent site. Patient would really like to go home. Explained to patient that his lung is not healing based on chest x-ray and air leak present in chest tube. Recommended full thoracostomy tube placement. Patient is not happy with this but does want to get better. Had long discussion with the patient's son Maribel regarding treatment options, his son is in agreement with chest tube placement to help his father heal. Discussed with Dr. Freed. Objective - Vital Signs Vital signs: Vital Signs Temp 97.8 F 05/30/23 08:25 Pulse 83 05/30/23 08:25 Resp 17 05/30/23 08:25 BP 129/64 05/30/23 08:25 Pulse Ox 98 05/30/23 08:25 FiO2 Intake & Output 05/29/23 05/30/23 05/30/23 18:59 06:59 18:59 Intake Total 20 0 118 Output Total 440 1000 150 Balance -420 -1000 -32 Weight 63.503 kg Intake: IV 20 Invasive Line 1 20 Oral 0 118 Output: Chest Tube Drainage 40 Thora-Vent Left 40 Urine 400 1000 150 Other: Voiding Method Urinal Urinal - Exam CONSTITUTIONAL: Appears comfortable, cooperative, no acute distress RESPIRATORY: Lungs sounds diminished on the left. Respirations even, nonla bored. Currently on oral liters nasal cannula with oxygen saturation 98% CARDIOVASCULAR: S1, S2 present. Regular rate and rhythm, sinus rhythm on telemetry. Palpable peripheral pulses bilaterally. No edema present. No calf pain or tenderness noted. SCDs present. GASTROINTESTINAL: Abdomen soft, nontender, nondistended. Active bowel sounds present 4 quadrants. Tolerating diet GENITOURINARY: Continues to void INTEGUMENTARY: Skin is warm and dry NEUROLOGIC: Cranial nerves II through XII intact MUSKULOSKELETAL: Able to move all extremities, strength equal bilaterally PSYCHIATRIC: Alert and oriented to person place and time INVASIVE LINES AND TUBES: Left sided thoravent present and connected to wall suction, continuous air leaks present - Allied health notes Allied health notes reviewed: nursing - Labs CBC & Chem 7: 05/29/23 07:54 05/28/23 15:35 - Imaging and Cardiology Chest x-ray: report reviewed, image reviewed Assessment and Plan Assessment: Recurrent left-sided pneumothorax, status post placement of thoravent by emergency room physicians Acute hypoxic respiratory failure Fall at home Pain, shortness of breath secondary to above History of squamous cell carcinoma of the left upper lobe of the lung status post chemotherapy and radiation with recent disease progression History of left-sided pneumothorax in February 2023 Coronary artery disease with previous PCI Hyperlipidemia Previous tobacco dependence COPD with significant bullous emphysema Plan: Will place full thoracostomy tube to continuous wall suction Agree with one-to-one sitter to monitor patient and make sure he doesn't pull out his chest tube Will monitor daily x-rays Wean O2 as tolerated, encourage incentive spirometry use Increase activity as tolerated Medical management of the comorbidities per internal medicine, pulmonology More recommendations to follow.
--- NOTE | 2023-05-30 13:25 | P.PN ---
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 Multiple radiology studies including head/C-spine CT reported no acute intracranial process or cervical spine fracture,large left pneumothorax with severe bullous emphysema. Complains of chest tube insertion site discomfort otherwise denies chest pain, palpitations or shortness of breath. Maintaining O2 sats in the high 90s on 4 L high flow nasal cannula. Afebrile, WBC has normalized. Chest x-ray pending. 05/30/2023 drug safety coordinator maintained at bedside. Confused, agitated during the night. Short of breath. Chest x-ray reporting persistent left small to moderate pleural effusion similar to prior. Maintaining O2 sats in the high 90s on 4 L nasal cannula. CTS recommending changing over to a full thoracostomy tube. Afebrile. Fair diet intake. Denies chest pain or palpitations, teary- eyed, eager to go home. Objective - Vital Signs Vital signs: Vital Signs Temp 97.8 F 05/30/23 08:25 Pulse 83 05/30/23 08:25 Resp 17 05/30/23 08:25 BP 129/64 05/30/23 08:25 Pulse Ox 98 05/30/23 08:25 FiO2 Intake & Output 05/29/23 05/30/23 05/30/23 18:59 06:59 18:59 Intake Total 20 0 118 Output Total 440 1000 150 Balance -420 -1000 -32 Weight 63.503 kg Intake: IV 20 Invasive Line 1 20 Oral 0 118 Output: Chest Tube Drainage 40 Thora-Vent Left 40 Urine 400 1000 150 Other: Voiding Method Urinal Urinal - Exam PHYSICAL EXAM: VITAL SIGNS: [As above] GENERAL: Cachectic , fragile , thin elderly male, Sitting up in bed with mild confusion, alert and oriented 2, no acute distress, teary-eyed. HEENT: Normocephalic ,Conjunctivae normal. eyes normal. NECK: Supple, No JVD. No thyroid enlargement. No LNs CARDIOVASCULAR: S1, S2 regular.. No murmur RESPIRATION: Unlabored, equal air entry, Breath sounds diminished in the bases. Left thoravent to continuous wall suction ABDOMEN: Soft, nontender . No guarding.+BS LEGS: No edema. no swelling NERVOUS SYSTEM: Cranial N 2-12 grossly normal. Moves all 4 limbs. Diffuse weakness No focal deficits. Strength and sensation grossly intact. Skin: Warm and dry, no rash - Labs CBC & Chem 7: 05/29/23 07:54 05/28/23 15:35 Assessment and Plan Assessment: Recurrent left-sided pneumothorax status post fall, status post Thoravent placement. Acute hypoxic respiratory failure secondary to the above Severe bullous emphysema Leukocytosis resolved. History of left-sided pneumothorax status post Thoravent placement 03/22. Possible right lower lobe opacity reported per chest x-ray History of left-sided squamous cell lung CA status post systemic chemotherapy. Pulmonary reports recent PET scan reporting disease progression. CAD with history of stent Hyperlipidemia Anemia of chronic disease Prior nicotine dependence Moderate protein calorie malnutrition, BMI 21 Plan: Continue on current medication regime ,monitoring and symptomatic treatment. CTS replacing thoravent to a full thoracostomy tube. Maintain drug safety coordinator.Aggressive pulmonary toileting with incentive spirometer reinforced. Encourage patient to use incentive spirometer and encourage oral intake. PT/OT. The impression and plan of care has been dictated as directed. : I performed a history and examination of this patient, discussed the same with the dictator. I agree with the dictator's note ,documented as a scribe. Any additional findings or plans will be noted.
[2023-05-30] MEDS ORDERED: LIDOCAINE 2% (PF) 20 MG/ML 5 ML VIAL ONE (14:05)
--- NOTE | 2023-05-30 14:05 | P.PN ---
Subjective Progress Note Date: 05/30/23 Principal diagnosis: Pneumothorax. I am seeing this patient in new consultation today 05/29/2023 in the emergency room in trauma [place] 1 after sustaining a fall at home and was found to have recurrent left-sided pneumothorax. He is status post Thoravent insertion by the ER physician. Patient is a 77-year-old white male with past medical history significant for recent left-sided pneumothorax back in February,, left upper lobe squamous cell carcinoma previously maintained on Carbo/Taxo and radiation with recent disease progression, severe bullous emphysema/COPD, junior ry artery disease with previous stent to RCA, hyperlipidemia, ex-tobacco smoker. Patient did have a recent hospital admission back in February,. He was found to have a left-sided pneumothorax at that time, requiring ThoraVent placement, and eventual resolution and discharged home. He was confused and required a drug safety assistant on his previous admission. Patient is currently a questionable historian, he lives at home with his . Apparently, while at home he was trying to lift a water jug and fell. Patient did hit his head. He was noted to be increasing confused at home by his son. Patient presented in emergency room yesterday afternoon. CT of the head and C-spine did not show any acute intracranial process or cervical spine fracture. A chest CT showed a large left pneumothorax with severe bullous emphysema. No obvious rib fractures. Patient is status post left-sided ThoraVent placement by ER physician. He is currently on a 15 L nonrebreather, in no respiratory distress. SpO2 is 100%. Follow-up chest x-ray demonstrates a residual left-sided pneumothorax measuring approximately 30%, possibly smaller than prior. There are scattered areas of probable atelectasis in the left mid and lower lung. I did try to manually aspirate air from the ThoraVent. Currently, the ThoraVent is attached to an [facility] and suction at -20 cm H2O. There is a fairly persistent air leak. Patient is fairly asymptomatic. He denies any shortness of breath. CBC on arrival showed a WBC count of 19, hemoglobin 11.2, hematocrit 33.8, platelets 541. BMP was unremarkable. Vital signs are stable. We are working on weaning his FiO2. Patient will be admitted to the cardiac stepdown [facility] once bed available. Progress note dated 05/30/2023. 77-year-old male status post fall at home, with trauma to the chest, and subsequent pneumothorax. The patient has a history of recurrent left-sided pneumothorax, and had a Thora vent placed by the ER physician. He had a previous pneumothorax back in February, and he has a history of left upper lobe squamous cell carcinoma. He did receive chemotherapy for that lung cancer. Currently, he is resting comfortably, in room 366. The patient is getting oxygen of 4 L. No IV fluids. Left Thora vent is in place. The plan is to place a left chest tube today. The patient appears relatively stable. No New Labs Today. Labs from May 29 Have Been Reviewed. The chest x-ray from this morning shows a Thora vent to be in place, with a small to moderate left pneumothorax. There is also left-sided pleural effusion. Objective - Vital Signs Vital signs: Vital Signs Temp 97.8 F 05/30/23 08:25 Pulse 83 05/30/23 08:25 Resp 17 05/30/23 08:25 BP 129/64 05/30/23 08:25 Pulse Ox 98 05/30/23 08:25 FiO2 Intake & Output 05/29/23 05/30/23 05/30/23 18:59 06:59 18:59 Intake Total 20 0 118 Output Total 440 1000 150 Balance -420 -1000 -32 Weight 63.503 kg Intake: IV 20 Invasive Line 1 20 Oral 0 118 Output: Chest Tube Drainage 40 Thora-Vent Left 40 Urine 400 1000 150 Other: Voiding Method Urinal Urinal - Exam No acute distress, oriented 3. No respiratory distress. The patient remains on 4 L of oxygen. HEENT examination is grossly unremarkable. Mucous membranes are moist. No oral lesions. Neck supple. Full range of motion. No adenopathy thyromegaly or neck vein distention. Cardiovascular examination reveals regular rhythm rate. S1-S2 normal. No S3 or S4. No discernible murmur noted. Heart rate 83 bpm. Lungs reveal inspiratory and expiratory rhonchi and expiratory wheezes. 4 L saturation is 98%. Breath sounds are equal bilaterally but diminished throughout. A left Thora vent is noted in the anterior left chest area. Abdomen soft bowel sounds are heard. No masses or tenderness. Extremities are intact. No cyanosis clubbing or edema. Skin is without rash or lesion. Neurologic examination is brief but nonfocal. - Labs CBC & Chem 7: 05/29/23 07:54 11/29/23 15:35 Assessment and Plan Assessment: Recurrent left-sided pneumothorax status post ThoraVent insertion by ER chelsi matos, recent chest x-ray shows a persistent left-sided pneumothorax estimated at 30%. Acute hypoxemic respiratory failure. S/P Fall Chronic obstructive pulmonary disease with bullous emphysema. Left-sided squamous cell lung carcinoma status post systemic chemotherapy with Carbo/Taxo and radiation, recent disease progression, currently on Imfinzi. Most recent PET scan earlier this month shows increased metabolic uptake within the posterior lateral right upper lung prasad. Leukocytosis. Coronary artery disease, previous history of PCI/stent. Hyperlipidemia. Former tobacco smoker. Plan: Plan dated 05/30/2023. The patient still has a persistent left-sided pneumothorax. A chest tube will be placed by cardiothoracic surgery. I suspect that the Thora vent device will be removed. We will continue to follow the patient, and make recommendations along the way. The patient continues on oxygen at 4 L. Labs, x-rays, medications are reviewed. The patient's overall prognosis is very poor. Time with Patient: Less than 30
--- NOTE | 2023-05-30 15:14 | XR ---
EXAMINATION TYPE: XR chest 1V portable DATE OF EXAM: 05/30/2023 COMPARISON: 05/30/2023 at 6:39 AM HISTORY: Left chest tube placement. TECHNIQUE: Single frontal view of the chest is obtained. IMPRESSION: Interval placement of a large-bore left sided chest tube with resolution of the left pneumothorax. Sm allbore chest tube remains superiorly. The appearance of the lung parenchyma is otherwise unchanged. The appearance of the heart is unchanged.
[2023-05-31] MEDS: OLANZapine 5 MG TAB PO SCH ×4 (00:18→20:30)
[2023-05-31] MEDS ORDERED: HALOPERIDOL LACTATE 5 MG/ML 1 ML VIAL IM STA (00:55)
[2023-05-31] MEDS: PANTOPRAZOLE 40 MG TABLET PO SCH (06:00)
--- NOTE | 2023-05-31 08:06 | XR ---
EXAMINATION TYPE: XR chest 1V portable DATE OF EXAM: 05/31/2023 COMPARISON: 05/30/2023 INDICATION: Pneumothorax TECHNIQUE: Single frontal view of the chest is obtained. FINDINGS: The heart size is normal. The pulmonary vasculature is normal. Right lower lobe and left perihilar infiltrates are increasing. Left-sided chest tube and left pneumothorax catheter are stable in position. No pneumothorax is ident ified current exam. IMPRESSION: 1. No definite pneumothorax identified at this time. Left-sided chest tubes remain in position. 2. Increasing left perihilar and right lower lobe infiltrate. Correlate for atelectasis or pneumonia.
--- NOTE | 2023-05-31 08:45 | P.PN ---
Subjective Progress Note Date: 05/31/23 Principal diagnosis: Recurrent left-sided pneumothorax, status post placement of thoravent, acute hypoxic respiratory failure, fall at home. 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 To The patient was seen and examined this morning laying in bed a cardiac stepdown unit in no acute distress, 1:1 sitter at the bedside. Doesn't currently have any complaints of pain or shortness of breath, not following commands this morning when asked to cough although he was just woken up. Left-sided chest thoravent present, capped yesterday after chest tube placement. Left-sided chest tube present to continuous wall suction, intermittent air leak present overnight per nursing, minimal drainage. Chest x-ray reviewed. No other new concerns. Objective - Vital Signs Vital signs: Vital Signs Temp 98.1 F 05/31/23 04:00 Pulse 90 05/31/23 04:00 Resp 18 05/31/23 04:00 BP 158/72 05/31/23 04:00 Pulse Ox 94 L 05/31/23 04:00 FiO2 Intake & Output 05/30/23 05/31/23 05/31/23 18:59 06:59 18:59 Intake Total 128 Output Total 150 141 Balance -22 -141 Intake: IV 10 .9 10 Oral 118 Output: Chest Tube Drainage 41 Chest Tube Left Lower 41 Urine 150 100 Other: Voiding Method Urinal # Voids 3 # Bowel Movements 0 - Exam CONSTITUTIONAL: Appears comfortable, cooperative, no acute distress RESPIRATORY: Lungs sounds diminished bilaterally in the bases. Respirations even, nonlabored. Currently on 4 liters nasal cannula with oxygen saturation 94% CARDIOVASCULAR: S1, S2 present. Regular rate and rhythm, sinus rhythm on telemetry. Palpable peripheral pulses bilaterally. No edema present. No calf pain or tenderness noted. SCDs present. GASTROINTESTINAL: Abdomen soft, nontender, nondistended. Active bowel sounds present 4 quadrants. Tolerating diet GENITOURINARY: Continues to void INTEGUMENTARY: Skin is warm and dry NEUROLOGIC: Cranial nerves II through XII intact MUSKULOSKELETAL: Able to move all extremities, strength equal bilaterally PSYCHIATRIC: Alert and oriented to person place and time INVASIVE LINES AND TUBES: Left sided thoravent present, capped. Left-sided pleural chest tube present and connected to wall suction, intermittent air leak present - Allied health notes Allied health notes reviewed: nursing - Labs CBC & Chem 7: 05/29/23 07:54 05/28/23 15:35 - Imaging and Cardiology Chest x-ray: report reviewed, image reviewed Assessment and Plan Assessment: Recurrent left-sided pneumothorax, status post placement of thoravent by emergency room physicians, status post left thoracostomy tube placement by Dr. 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 status post chemotherapy and radiation with recent disease progression History of left-sided pneumothorax in February 2023 Coronary artery disease with previous PCI Hyperlipidemia Previous tobacco dependence COPD with significant bullous emphysema Plan: Continue thoracostomy tube to wall suction for another 24 hours, likely will remove suction and placed waterseal tomorrow Will discontinue thoravent today Agree with one-to-one sitter to monitor patient and make sure he doesn't pull out his chest tube Will monitor daily x-rays Wean O2 as tolerated, encourage incentive spirometry use Increase activity as tolerated Medical management of the comorbidities per internal medicine, pulmonology More recommendations to follow.
[2023-05-31] MEDS: ALBUTEROL NEBULIZED 2.5 MG/3 ML INHALATION SCH ×4 (09:13→20:51)
[2023-05-31] MEDS: ATORVASTATIN 40 MG TAB PO SCH (09:56)
[2023-05-31] MEDS: ACETAMINOPHEN TAB 325 MG TAB PO PRN ×2 (09:56→17:25)
[2023-05-31 11:03] LABS: HCT 33.5 % (39.0-53.0); HGB 10.9 gm/dL (13.0-17.5); MCH 30.4 pg (25.0-35.0); MCHC 32.4 g/dL (31.0-37.0); MCV 93.9 fL (80.0-100.0); Mean Platelet Volume 8.1; Platelet Count 534 k/uL (150-450); RBC 3.57 m/uL (4.30-5.90); RDW 15.3 % (11.5-15.5)
--- NOTE | 2023-05-31 11:16 | P.PN ---
Subjective Progress Note Date: 05/31/23 Principal diagnosis: Pneumothorax. I am seeing this patient in new consultation today 05/29/2023 in the emergency room in trauma [place] [facility] after sustaining a fall at home and was found to have recurrent left-sided pneumothorax. He is status post Thoravent insertion by the ER physician. Patient is a 77-year-old white male with past medical history significant for recent left-sided pneumothorax back in February,, left upper lobe squamous cell carcinoma previously maintained on Carbo/Taxo and radiation with recent disease progression, severe bullous emphysema/COPD, junior ry artery disease with previous stent to RCA, hyperlipidemia, ex-tobacco smoker. Patient did have a recent hospital admission back in February,. He was found to have a left-sided pneumothorax at that time, requiring ThoraVent placement, and eventual resolution and discharged home. He was confused and required a food safety auditor on his previous admission. Patient is currently a questionable historian, he lives at home with his . Apparently, while at home he was trying to lift a water jug and fell. Patient did hit his head. He was noted to be increasing confused at home by his son. Patient presented in emergency room yesterday afternoon. CT of the head and C-spine did not show any acute intracranial process or cervical spine fracture. A chest CT showed a large left pneumothorax with severe bullous emphysema. No obvious rib fractures. Patient is status post left-sided ThoraVent placement by ER physician. He is currently on a 15 L nonrebreather, in no respiratory distress. SpO2 is 100%. Follow-up chest x-ray demonstrates a residual left-sided pneumothorax measuring approximately 30%, possibly smaller than prior. There are scattered areas of probable atelectasis in the left mid and lower lung. I did try to manually aspirate air from the ThoraVent. Currently, the ThoraVent is attached to an [facility] and suction at -20 cm H2O. There is a fairly persistent air leak. Patient is fairly asymptomatic. He denies any shortness of breath. CBC on arrival showed a WBC count of 19, hemoglobin 11.2, hematocrit 33.8, platelets 541. BMP was unremarkable. Vital signs are stable. We are working on weaning his FiO2. Patient will be admitted to the cardiac [facility] once bed available. Progress note dated 05/30/2023. 77-year-old male status post fall at home, with trauma to the chest, and subsequent pneumothorax. The patient has a history of recurrent left-sided pneumothorax, and had a Thora vent placed by the ER physician. He had a previous pneumothorax back in February, and he has a history of left upper lobe squamous cell carcinoma. He did receive chemotherapy for that lung cancer. Currently, he is resting comfortably, in room 366. The patient is getting oxygen of 4 L. No IV fluids. Left Thora vent is in place. The plan is to place a left chest tube today. The patient appears relatively stable. No New Labs Today. Labs from May 29 Have Been Reviewed. The chest x-ray from this morning shows a Thora vent to be in place, with a small to moderate left pneumothorax. There is also left-sided pleural effusion. Progress note dated 05/31/2023. 77-year-old male seen in room 366. He's currently on 4 L of oxygen. Saturations are 96%. He has a left-sided Thora vent in place. In addition, a left-sided chest tube was placed by cardiothoracic surgery. His chest x-ray does not reveal any obvious pneumothorax. He does have a history of lung cancer, and a history of previous left-sided pneumothorax. White count 12, hemoglobin 10.9, hematocrit 33.5, and platelet count is 534,000. The chest x- ray shows no definitive pneumothorax on the left. Objective - Vital Signs Vital signs: Vital Signs Temp 100.6 F H 05/31/23 08:00 Pulse 84 05/31/23 09:21 Resp 20 05/31/23 08:00 BP 126/58 05/31/23 08:00 Pulse Ox 96 05/31/23 09:13 FiO2 Intake & Output 05/30/23 05/31/23 05/31/23 18:59 06:59 18:59 Intake Total 128 Output Total 150 141 150 Balance -22 -141 -150 Intake: IV 10 .9 10 Oral 118 Output: Chest Tube Drainage 41 Chest Tube Left Lower 41 Urine 150 100 150 Other: Voiding Method Urinal # Voids 3 # Bowel Movements 0 - Exam No acute distress, oriented 3. No respiratory distress. The patient remains on 4 L of oxygen. Saturations are 96%. HEENT examination is grossly unremarkable. Mucous membranes are moist. No oral lesions. Neck supple. Full range of motion. No adenopathy thyromegaly or neck vein distention. Cardiovascular examination reveals regular rhythm rate. S1-S2 normal. No S3 or S4. No discernible murmur noted. Heart rate 84 bpm. Lungs reveal inspiratory and expiratory rhonchi and expiratory wheezes. 4 L saturation is 96 %. Breath sounds are equal bilaterally but diminished throughout. A left Thora vent is noted in the anterior left chest area. In addition, a left-sided chest tube is noted. Abdomen soft bowel sounds are heard. No masses or tenderness. Extremities are intact. No cyanosis clubbing or edema. Skin is without rash or lesion. Neurologic examination is brief but nonfocal. - Labs CBC & Chem 7: 05/31/23 10:30 05/28/23 15:35 Labs: Abnormal Lab Results - Last 24 Hours (Table) 05/31/23 Range/Units 10:30 WBC 12.0 H (3.8-10.6) k/uL RBC 3.57 L (4.30-5.90) m/uL Hgb 10.9 L (13.0-17.5) gm/dL Hct 33.5 L (39.0-53.0) % Plt Count 534 H (150-450) k/uL Assessment and Plan Assessment: Recurrent left-sided pneumothorax status post ThoraVent insertion by ER physician, recent chest x-ray shows a persistent left-sided pneumothorax estimated at 30%. S/P formal left chest tube insertion, 05/30/2023. Acute hypoxemic respiratory failure. S/P Fall Chronic obstructive pulmonary disease with bullous emphysema. Left-sided squamous cell lung carcinoma status post systemic chemotherapy with Carbo/Taxo and radiation, recent disease progression, currently on Imfinzi. Mo st recent PET scan earlier this month shows increased metabolic uptake within the posterior lateral right upper lung prasad. Leukocytosis. Coronary artery disease, previous history of PCI/stent. Hyperlipidemia. Former tobacco smoker. Plan: Plan dated 05/30/2023. The patient still has a persistent left-sided pneumothorax. A chest tube will be placed by cardiothoracic surgery. I suspect that the Thora vent device will be removed. We will continue to follow the patient, and make recommendations along the way. The patient continues on oxygen at 4 L. Labs, x-rays, medicati ons are reviewed. The patient's overall prognosis is very poor. Plan dated 05/31/2023. The patient had a formal chest tube placement on the left side. Today's chest x-ray does not reveal a pneumothorax. The patient appears to be relatively stable. He continues on oxygen at 4 L. Saturations are between 96 and 98%. Labs, x-rays, medications are reviewed. Overall prognosis remains guarded. We will continue to follow the patient, and make recommendations along the way. Time with Patient: Less than 30
[2023-05-31 11:25] LABS: African American GFR (CKD) >90 (>60 ml/min/1.73 sqM); Anion Gap 12 mmol/L; Blood Urea Nitrogen 22 mg/dL (9-20); Calcium 8.9 mg/dL (8.4-10.2); Carbon Dioxide 20 mmol/L (22-30); Chloride 105 mmol/L (98-107); Glucose 104 mg/dL (74-99); Non-African American GFR(CKD) >90 (>60 ml/min/1.73 sqM); Potassium 4.4 mmol/L (3.5-5.1); Sodium 137 mmol/L (137-145)
--- NOTE | 2023-05-31 12:06 | P.PN ---
Subjective Progress Note Date: 05/31/23 * 77-year-old gentleman with past medical history significant for left sided pneumothorax required thoravent 03/22, left-sided squamous cell lung CA on chemotherapy/radiation with recent disease progression reported, COPD, CAD with stents, hyperlipidemia, prior nicotine dependence and multiple other medical issues presented to the ER status post fall with recurrent left-sided pneumothorax, thoravent placed per ER without complete reexpansion. Multiple radiology studies including head/C-spine CT reported no acute intracranial process or cervical spine fracture,large left pneumothorax with severe bullous emphysema. Complains of chest tube insertion site discomfort otherwise denies chest pain, palpitations or shortness of breath. Maintaining O2 sats in the high 90s on 4 L high flow nasal cannula. Afebrile, WBC has normalized. Chest x-ray pending. * 05/30/2023 safety teacher maintained at bedside. Confused, agitated during the night. Short of breath. Chest x-ray reporting persistent left small to moderate pleural effusion similar to prior. Maintaining O2 sats in the high 90s on 4 L nasal cannula. CTS recommending changing over to a full thoracostomy tube. Afebrile. Fair diet intake. Denies chest pain or palpitations, teary-eyed, eager to go home. * 05/31/2023: Patient seen and evaluated bedside, patient is disoriented remains confused, sitter at bedside. Appreciate input from pulmonary medicine, patient on 4 L of oxygen, patient does have left-sided chest tube in place, left-sided core underwent in place, follow-up chest x-ray does not show any definite or pneumothorax on left side chest tube noted. Overnight patient had fever of 100.6, patient on 4 L of [place] and we will continue to monitor the and follow-up serum chemistry and CBC levels ordered PHYSICAL EXAMINATION: GENERAL: The patient is alert and oriented x0, ill appearance, nasal cannula in place, on 4 L of oxygen HEENT:Normocephalic, atraumatic. CARDIOVASCULAR: S1 and S2 present. No murmurs, rubs, or gallops. PULMONARY: She is breath sounds bilaterally, left-sided chest tube in place ABDOMEN: Soft, nontender, nondistended, normoactive bowel sounds. No palpable organomegaly. MUSCULOSKELETAL: No joint swelling or deformity. EXTREMITIES: No cyanosis, clubbing, or pedal edema. NEUROLOGICAL: Exam limited patient disoriented SKIN: No rashes. Objective - Vital Signs Vital signs: Vital Signs Temp 100.6 F H 05/31/23 08:00 Pulse 84 05/31/23 09:21 Resp 20 05/31/23 08:00 BP 126/58 05/31/23 08:00 Pulse Ox 96 05/31/23 09:13 FiO2 Intake & Output 05/30/23 05/31/23 05/31/23 18:59 06:59 18:59 Intake Total 128 Output Total 150 141 150 Balance -22 -141 -150 Intake: IV 10 .9 10 Oral 118 Output: Chest Tube Drainage 41 Chest Tube Left Lower 41 Urine 150 100 150 Other: Voiding Method Urinal # Voids 3 # Bowel Movements 0 - Labs CBC & Chem 7: 05/31/23 10:30 05/31/23 10:30 Labs: Abnormal Lab Results - Last 24 Hours (Table) 05/31/23 05/31/23 Range/Units 10:30 10:30 WBC 12.0 H (3.8-10.6) k/uL RBC 3.57 L (4.30-5.90) m/uL Hgb 10.9 L (13.0-17.5) gm/dL Hct 33.5 L (39.0-53.0) % Plt Count 534 H (150-450) k/uL Carbon Dioxide 20 L (22-30) mmol/L BUN 22 H (9-20) mg/dL Creatinine 0.61 L (0.66-1.25) mg/dL Glucose 104 H (74-99) mg/dL Assessment and Plan Assessment: Assessment and plan * Recurrent left-sided pneumothorax status post chest tube placement 05/30/23 * Acute hypoxic respiratory failure * Acute delirium * Acute exacerbation of COPD with bullous emphysema * History of left-sided squamous cell lung cancer status post chemotherapy, with abnormal PET scan * Coronary artery disease with history of PCI * Hyperlipidemia chronic smoker * Status post fall prior to admission * In regards to left-sided pneumothorax, serial chest x-ray ordered, patient on chest tube, continue oxygen supplementation,, albuterol as needed * In regards to history of COPD, continue breathing treatments, pulmonary medicine following * In regards to acute delirium him a follow-up on serum chemistry, follow-up on CBC, maintain sitter at bedside * Maintain fall precautions while inpatient Time with Patient: Greater than 30
--- NOTE | 2023-05-31 12:14 | XR ---
EXAMINATION TYPE: XR chest 1V portable DATE OF EXAM: 05/31/2023 COMPARISON: Earlier exam INDICATION: Pneumothorax, dyspnea TECHNIQUE: Single frontal view of the chest is obtained. FINDINGS: The heart size is normal. The pulmonary vasculature is normal. Mild left perihilar infiltrate is present. Nodular density may be at the right lateral lung base Left-sided chest tube remain in position. The smaller pneumothorax catheter has been removed. Pneumot horax not identified. IMPRESSION: 1. No recurrent pneumothorax post catheter removal. Left-sided chest tube remains in position. 2. Left perihilar infiltrate
[2023-05-31 12:15] LABS: Glucose,Whole Blood 111 mg/dL (70-110)
[2023-05-31] MEDS ORDERED: ACETAMINOPHEN IV (For NPO) 1,000 MG in EMPTY BAG 1 BAG IVPB PRN ×2 (12:26→12:27)
[2023-05-31 13:34] LABS: VBG PH 7.4 (7.31-7.41)
[2023-05-31] MEDS: PIPERACILLIN-TAZOBACTAM 3.375 GM in SODIUM CHLORIDE 0.9% 100 ML IVPB SCH ×2 (15:10→23:55)
[2023-06-01] MEDS: HALOPERIDOL LACTATE 5 MG/ML 1 ML VIAL IM PRN ×2 (01:24→18:53)
[2023-06-01] MEDS: PANTOPRAZOLE 40 MG TABLET PO SCH (06:02)
--- NOTE | 2023-06-01 08:10 | P.PN ---
Subjective Progress Note Date: 06/01/23 Principal diagnosis: Recurrent left-sided pneumothorax, status post placement of thoravent, acute hypoxic respiratory failure, fall at home. 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 To The patient was seen and examined this morning laying in bed a cardiac stepdown unit in no acute distress, 1:1 sitter at the bedside. Doesn't currently have any complaints of pain or shortness of breath, when asked to cough patient states "I can't". Left-sided chest thoravent discontinued yesterday. Left- sided chest tube present to continuous wall suction, no visible air leak although patient refusing to cough. Chest x-ray reviewed. Patient developed fever 101.6F yesterday, WBC 12.0, procalcitonin 1.58. Patient was placed on IV zosyn, blood cultures drawn. Son Maribel updated via voicemail yesterday. No other new concerns. Objective - Vital Signs Vital signs: Vital Signs Temp 99.8 F H 06/01/23 04:00 Pulse 97 06/01/23 04:00 Resp 20 06/01/23 04:00 BP 132/68 06/01/23 00:00 Pulse Ox 92 L 06/01/23 00:00 FiO2 Intake & Output 05/31/23 06/01/23 06/01/23 18:59 06:59 18:59 Intake Total 350 Output Total 159 500 Balance 191 -500 Intake: IV 10 Invasive Line 2 10 Intake, IV Titration 100 Amount ACETAMINOPHEN IV (For NPO 100 ) 1,000 mg In Empty Bag 1 bag @ 400 mls/hr IVPB Q6HR PRN Rx#:[id number] Oral 240 Output: Chest Tube Drainage 9 Chest Tube Left Lower 9 Urine 150 500 Other: Voiding Method Urinal Urinal # Voids 1 1 - Exam CONSTITUTIONAL: Appears comfortable, no acute distress RESPIRATORY: Lungs sounds diminished bilaterally in the bases. Respirations even, nonlabored. Currently on 4 liters nasal cannula with oxygen saturation 92% CARDIOVASCULAR: S1, S2 present. Regular rate and rhythm, sinus rhythm on telemetry. Palpable peripheral pulses bilaterally. No edema present. No calf pain or tenderness noted. SCDs present. GASTROINTESTINAL: Abdomen soft, nontender, nondistended. Active bowel sounds present 4 quadrants. Tolerating diet GENITOURINARY: Continues to void INTEGUMENTARY: Skin is warm and dry NEUROLOGIC: Cranial nerves II through XII intact MUSKULOSKELETAL: Able to move all extremities, strength equal bilaterally PSYCHIATRIC: Alert and oriented to person place and time INVASIVE LINES AND TUBES: Left-sided pleural chest tube present and connected to wall suction, no air leak seen although patient refusing to cough - Allied health notes Allied health notes reviewed: nursing - Labs CBC & Chem 7: 05/31/23 10:30 05/31/23 10:30 Labs: Abnormal Lab Results - Last 24 Hours (Table) 05/31/23 05/31/23 05/31/23 Range/Units 10:30 10:30 12:12 WBC 12.0 H (3.8-10.6) k/uL RBC 3.57 L (4.30-5.90) m/uL Hgb 10.9 L (13.0-17.5) gm/dL Hct 33.5 L (39.0-53.0) % Plt Count 534 H (150-450) k/uL VBG HCO3 (24-28) mmol/L Carbon Dioxide 20 L (22-30) mmol/L BUN 22 H (9-20) mg/dL Creatinine 0.61 L (0.66-1.25) mg/dL Glucose 104 H (74-99) mg/dL POC Glucose (mg/dL) 111 H (70-110) mg/dL Procalcitonin (0.02-0.09) ng/mL 05/31/23 05/31/23 Range/Units 12:42 12:42 WBC (3.8-10.6) k/uL RBC (4.30-5.90) m/uL Hgb (13.0-17.5) gm/dL Hct (39.0-53.0) % Plt Count (150-450) k/uL VBG HCO3 23 L (24-28) mmol/L Carbon Dioxide (22-30) mmol/L BUN (9-20) mg/dL Creatinine (0.66-1.25) mg/dL Glucose (74-99) mg/dL POC Glucose (mg/dL) (70-110) mg/dL Procalcitonin 1.58 H (0.02-0.09) ng/mL - Imaging and Cardiology Chest x-ray: image reviewed Assessment and Plan Assessment: Recurrent left-sided pneumothorax, status post placement of thoravent by emergency room physicians, status post left thoracostomy tube placement by Dr. 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 status post chemotherapy and radiation with recent disease progression History of left-sided pneumothorax in February 2023 Coronary artery disease with previous PCI Hyperlipidemia Previous tobacco dependence COPD with significant bullous emphysema Plan: Continue thoracostomy tube to wall suction for another 24 hours Agree with one-to-one sitter to monitor patient and make sure he doesn't pull out his chest tube Will monitor daily x-rays Wean O2 as tolerated, encourage incentive spirometry use Increase activity as tolerated Antibiotics per internal medicine Medical management of the comorbidities per internal medicine, pulmonology More recommendations to follow.
[2023-06-01] MEDS: ALBUTEROL NEBULIZED 2.5 MG/3 ML INHALATION SCH ×4 (09:01→20:54)
[2023-06-01] MEDS: PIPERACILLIN-TAZOBACTAM 3.375 GM in SODIUM CHLORIDE 0.9% 100 ML IVPB SCH ×2 (09:39→16:51)
[2023-06-01] MEDS: HYDROcodone/APAP 10-325MG 1 EACH TAB PO PRN ×2 (09:40→16:54)
[2023-06-01] MEDS: OLANZapine 5 MG TAB PO SCH ×3 (09:41→20:22)
[2023-06-01] MEDS: ATORVASTATIN 40 MG TAB PO SCH (09:41)
--- NOTE | 2023-06-01 11:22 | P.PN ---
Subjective Progress Note Date: 06/01/23 Principal diagnosis: Pneumothorax. I am seeing this patient in new consultation today 05/29/2023 in the emergency room in trauma [place] [facility] after sustaining a fall at home and was found to have recurrent left-sided pneumothorax. He is status post Thoravent insertion by the ER physician. Patient is a 77-year-old white male with past medical history significant for recent left-sided pneumothorax back in February,, left upper lobe squamous cell carcinoma previously maintained on Carbo/Taxo and radiation with recent disease progression, severe bullous emphysema/COPD, junior ry artery disease with previous stent to RCA, hyperlipidemia, ex-tobacco smoker. Patient did have a recent hospital admission back in February,. He was found to have a left-sided pneumothorax at that time, requiring ThoraVent placement, and eventual resolution and discharged home. He was confused and required a public safety officer on his previous admission. Patient is currently a questionable historian, he lives at home with his . Apparently, while at home he was trying to lift a water jug and fell. Patient did hit his head. He was noted to be increasing confused at home by his son. Patient presented in emergency room yesterday afternoon. CT of the head and C-spine did not show any acute intracranial process or cervical spine fracture. A chest CT showed a large left pneumothorax with severe bullous emphysema. No obvious rib fractures. Patient is status post left-sided ThoraVent placement by ER physician. He is currently on a 15 L nonrebreather, in no respiratory distress. SpO2 is 100%. Follow-up chest x-ray demonstrates a residual left-sided pneumothorax measuring approximately 30%, possibly smaller than prior. There are scattered areas of probable atelectasis in the left mid and lower lung. I did try to manually aspirate air from the ThoraVent. Currently, the ThoraVent is attached to an [facility] and suction at -20 cm H2O. There is a fairly persistent air leak. Patient is fairly asymptomatic. He denies any shortness of breath. CBC on arrival showed a WBC count of 19, hemoglobin 11.2, hematocrit 33.8, platelets 541. BMP was unremarkable. Vital signs are stable. We are working on weaning his FiO2. Patient will be admitted to the cardiac stepdown u [facility] once bed available. Progress note dated 05/30/2023. 77-year-old male status post fall at home, with trauma to the chest, and subsequent pneumothorax. The patient has a history of recurrent left-sided pneumothorax, and had a Thora vent placed by the ER physician. He had a previous pneumothorax back in February, and he has a history of left upper lobe squamous cell carcinoma. He did receive chemotherapy for that lung cancer. Currently, he is resting comfortably, in room 366. The patient is getting oxygen of 4 L. No IV fluids. Left Thora vent is in place. The plan is to place a left chest tube today. The patient appears relatively stable. No New Labs Today. Labs from May 29 Have Been Reviewed. The chest x-ray from this morning shows a Thora vent to be in place, with a small to moderate left pneumothorax. There is also left-sided pleural effusion. Progress note dated 05/31/2023. 77-year-old male seen in room 366. He's currently on 4 L of oxygen. Saturations are 96%. He has a left-sided Thora vent in place. In addition, a left-sided chest tube was placed by cardiothoracic surgery. His chest x-ray does not reveal any obvious pneumothorax. He does have a history of lung cancer, and a history of previous left-sided pneumothorax. White count 12, hemoglobin 10.9, hematocrit 33.5, and platelet count is 534,000. The chest x- ray shows no definitive pneumothorax on the left. Progress note dated 06/01/2023. 77-year-old male seen in room 366. He currently remains on 4 L of oxygen. He is also on Zosyn. A chest tube was placed a couple days ago by cardiothoracic surgery. The Thora vent, in the left chest area, was removed. The patient does have some subcutaneous emphysema. Currently, he is relatively stable, without complaint. No new laboratory data today. Pro-calcitonin level is 1.58 from yesterday. Chest x-ray is reviewed. Objective - Vital Signs Vital signs: Vital Signs Temp 98.4 F 06/01/23 09:17 Pulse 88 06/01/23 09:17 Resp 22 06/01/23 09:17 BP 133/62 06/01/23 09:17 Pulse Ox 94 L 06/01/23 09:17 FiO2 Intake & Output 05/31/23 06/01/23 06/01/23 18:59 06:59 18:59 Intake Total 350 10 Output Total 159 500 Balance 191 -500 10 Intake: IV 10 10 Invasive Line 2 10 10 Intake, IV Titration 100 Amount ACETAMINOPHEN IV (For NPO 100 ) 1,000 mg In Empty Bag 1 bag @ 400 mls/hr IVPB Q6HR PRN Rx#:[id number] Oral 240 Output: Chest Tube Drainage 9 Chest Tube Left Lower 9 Urine 150 500 Other: Voiding Method Urinal Urinal Urinal # Voids 1 1 1 - Exam No acute distress, oriented 3. No respiratory distress. The patient remains on 4 L of oxygen. Saturations are 94 %. HEENT examination is grossly unremarkable. Mucous membranes are moist. No oral lesions. Neck supple. Full range of motion. No adenopathy thyromegaly or neck vein distention. Cardiovascular examination reveals regular rhythm rate. S1-S2 normal. No S3 or S4. No discernible murmur noted. Heart rate 88 bpm. Lungs reveal inspiratory and expiratory rhonchi and expiratory wheezes. 4 L saturation is 94 %. Breath sounds are equal bilaterally but diminished throughout. A left-sided chest tube is noted. Abdomen soft bowel sounds are heard. No masses or tenderness. Extremities are intact. No cyanosis clubbing or edema. Skin is without rash or lesion. Neurologic examination is brief but nonfocal. - Labs CBC & Chem 7: 05/31/23 10:30 05/31/23 10:30 Labs: Abnormal Lab Results - Last 24 Hours (Table) 05/31/23 05/31/23 05/31/23 Range/Units 10:30 12:12 12:42 VBG HCO3 23 L (24-28) mmol/L Carbon Dioxide 20 L (22-30) mmol/L BUN 22 H (9-20) mg/dL Creatinine 0.61 L (0.66-1.25) mg/dL Glucose 104 H (74-99) mg/dL POC Glucose (mg/dL) 111 H (70-110) mg/dL Procalcitonin (0.02-0.09) ng/mL 05/31/23 Range/Units 12:42 VBG HCO3 (24-28) mmol/L Carbon Dioxide (22-30) mmol/L BUN (9-20) mg/dL Creatinine (0.66-1.25) mg/dL Glucose (74-99) mg/dL POC Glucose (mg/dL) (70-110) mg/dL Procalcitonin 1.58 H (0.02-0.09) ng/mL Assessment and Plan Assessment: Recurrent left-sided pneumothorax status post ThoraVent insertion by ER physician, recent chest x-ray shows a persistent left-sided pneumothorax estimated at 30%. The ThoraVent has been removed. S/P formal left chest tube insertion, 05/30/2023. Acute hypoxemic respiratory failure. S/P Fall Chronic obstructive pulmonary disease with bullous emphysema. Left-sided squamous cell lung carcinoma status post systemic chemotherapy with Carbo/Taxo and radiation, recent disease progression, currently on Imfinzi. Most recent PET scan earlier this month shows increased metabolic uptake within the posterior lateral right upper lung prasad. Leukocytosis. Coronary artery disease, previous history of PCI/stent. Hyperlipidemia. Former tobacco smoker. Plan: Plan dated 05/30/2023. The patient still has a persistent left-sided pneumothorax. A chest tube will be placed by cardiothoracic surgery. I suspect that the Thora vent device will be removed. We will continue to follow the patient, and make recommendations along the way. The patient continues on oxygen at 4 L. Labs, x-rays, medi cations are reviewed. The patient's overall prognosis is very poor. Plan dated 05/31/2023. The patient had a formal chest tube placement on the left side. Today's chest x-ray does not reveal a pneumothorax. The patient appears to be relatively stable. He continues on oxygen at 4 L. Saturations are between 96 and 98%. Labs, x-rays, medications are reviewed. Overall prognosis remains guarded. We will continue to follow the patient, and make recommendations along the way. Plan dated 06/01/2023. A chest tube was placed by cardiothoracic surgery. The Thora vent was removed. Labs, x-rays, medications are reviewed. Clinically, the patient appears relatively stable. We will continue to follow make recommendations along the way. Overall prognosis remains guarded. The patient does have some subcutaneous emphysema. No large pneumothorax is noted. Time with Patient: Less than 30
--- NOTE | 2023-06-01 12:01 | XR ---
EXAMINATION TYPE: XR chest 1V portable DATE OF EXAM: 06/01/2023 COMPARISON: 05/31/2023 INDICATION: Pneumothorax TECHNIQUE: Single frontal view of the chest is obtained. FINDINGS: The heart size is normal. The pulmonary vasculature is normal. Left-sided chest tube is present. Subcutaneous emphysematous changes are on the left. Pneumothorax i s not clearly identified. Subtle pneumothorax may be difficult to exclude at the apex. Mild increasin g treatment may be at the lung bases. IMPRESSION: 1. No definite pneumothorax identified. Or, there is increasing subcutaneous emphysema which can be c ompatible with pneumothorax potentially obscure small pneumothorax. Follow-up is recommended. 2. Mild increasing infiltrates at the lung bases. Correlate for subsegmental atelectasis.
[2023-06-01] MEDS: ACETAMINOPHEN TAB 325 MG TAB PO PRN (12:09)
--- NOTE | 2023-06-01 12:16 | P.PN ---
Subjective Progress Note Date: 06/01/23 * 77-year-old gentleman with past medical history significant for left sided pneumothorax required thoravent 03/22, left-sided squamous cell lung CA on chemotherapy/radiation with recent disease progression reported, COPD, CAD with stents, hyperlipidemia, prior nicotine dependence and multiple other medical issues presented to the ER status post fall with recurrent left-sided pneumothorax, thoravent placed per ER without complete reexpansion. Multiple radiology studies including head/C-spine CT reported no acute intracranial process or cervical spine fracture,large left pneumothorax with severe bullous emphysema. Complains of chest tube insertion site discomfort otherwise denies chest pain, palpitations or shortness of breath. Maintaining O2 sats in the high 90s on 4 L high flow nasal cannula. Afebrile, WBC has normalized. Chest x-ray pending. * 05/30/2023 product safety officer maintained at bedside. Confused, agitated during the night. Short of breath. Chest x-ray reporting persistent left small to moderate pleural effusion similar to prior. Maintaining O2 sats in the high 90s on 4 L nasal cannula. CTS recommending changing over to a full thoracostomy tube. Afebrile. Fair diet intake. Denies chest pain or palpitations, teary-eyed, eager to go home. * 05/31/2023: Patient seen and evaluated bedside, patient is disoriented remains confused, sitter at bedside. Appreciate input from pulmonary medicine, patient on 4 L of oxygen, patient does have left-sided chest tube in place, left-sided core underwent in place, follow-up chest x-ray does not show any definite or pneumothorax on left side chest tube noted. Overnight patient had fever of 100.6, patient on 4 L of [place] and we will continue to monitor the and follow-up serum chemistry and CBC levels ordered * 06/01/2023: Patient seen and evaluated bedside, overnight patient continued to remain delirious, patient has chest tube in place, 4 hours and has been removed, pro-calcitonin elevated at 1.58, chest x-ray completed, continue IV antibiotic overnight fever noted as well continue with frequent reorientation PHYSICAL EXAMINATION: GENERAL: The patient is alert and oriented x 1 , ill appearance, nasal cannula in place, on 4 L of oxygen HEENT:Normocephalic, atraumatic. CARDIOVASCULAR: S1 and S2 present. No murmurs, rubs, or gallops. PULMONARY: Decreased breath sounds bilaterally, left-sided chest tube in place ABDOMEN: Soft, nontender, nondistended, normoactive bowel sounds. No palpable organomegaly. MUSCULOSKELETAL: No joint swelling or deformity. EXTREMITIES: No cyanosis, clubbing, or pedal edema. NEUROLOGICAL: Exam limited patient disoriented Objective - Vital Signs Vital signs: Vital Signs Temp 100.6 F H 06/01/23 12:01 Pulse 91 06/01/23 12:01 Resp 22 06/01/23 12:01 BP 108/55 06/01/23 12:01 Pulse Ox 93 L 06/01/23 12:01 FiO2 Intake & Output 05/31/23 06/01/23 06/01/23 18:59 06:59 18:59 Intake Total 350 128 Output Total 159 500 Balance 191 -500 128 Intake: IV 10 10 Invasive Line 2 10 10 Intake, IV Titration 100 Amount ACETAMINOPHEN IV (For NPO 100 ) 1,000 mg In Empty Bag 1 bag @ 400 mls/hr IVPB Q6HR PRN Rx#:[id number] Oral 240 118 Output: Chest Tube Drainage 9 Chest Tube Left Lower 9 Urine 150 500 Other: Voiding Method Urinal Urinal Urinal # Voids 1 1 1 - Labs CBC & Chem 7: 05/31/23 10:30 05/31/23 10:30 Labs: Abnormal Lab Results - Last 24 Hours (Table) 05/31/23 05/31/23 05/31/23 Range/Units 12:12 12:42 12:42 VBG HCO3 23 L (24-28) mmol/L POC Glucose (mg/dL) 111 H (70-110) mg/dL Procalcitonin 1.58 H (0.02-0.09) ng/mL Assessment and Plan Assessment: Assessment and plan * Recurrent left-sided pneumothorax status post chest tube placement 05/30/23 * Acute hypoxic respiratory failure * BI lateral lower lobe pneumonia * Acute delirium * Acute exacerbation of COPD with bullous emphysema * History of left-sided squamous cell lung cancer status post chemotherapy, with abnormal PET scan * Coronary artery disease with history of PCI * Hyperlipidemia chronic smoker * Status post fall prior to admission * In regards to left-sided pneumothorax, serial chest x-ray ordered, patient on chest tube, continue oxygen supplementation,, albuterol as needed, chest tube managed by pulmonary/thoracic * In regards to fever, bilateral lower lobe infiltrates noted suspect pneumonia continue IV Zosyn day 2 * In regards to history of COPD, continue breathing treatments, pulmonary medicine following * In regards to acute delirium him a follow-up on serum chemistry, follow-up on CBC, maintain sitter at bedside * Maintain fall precautions while inpatient
[2023-06-01 16:16] LABS: HCT 32.1 % (39.0-53.0); HGB 10.4 gm/dL (13.0-17.5); Hypochromasia Slight; MCH 31.1 pg (25.0-35.0); MCHC 32.4 g/dL (31.0-37.0); Platelet Count 483 k/uL (150-450); RBC 3.34 m/uL (4.30-5.90); RDW 15.2 % (11.5-15.5); WBC 8.4 k/uL (3.8-10.6)
[2023-06-01 16:40] LABS: African American GFR (CKD) >90 (>60 ml/min/1.73 sqM); Anion Gap 12 mmol/L; Blood Urea Nitrogen 36 mg/dL (9-20); Calcium 8.7 mg/dL (8.4-10.2); Carbon Dioxide 20 mmol/L (22-30); Chloride 106 mmol/L (98-107); Glucose 98 mg/dL (74-99); Non-African American GFR(CKD) 83 (>60 ml/min/1.73 sqM); Sodium 138 mmol/L (137-145)
[2023-06-01 17:06] LABS: Potassium 4.3 mmol/L (3.5-5.1)
[2023-06-02] MEDS: PIPERACILLIN-TAZOBACTAM 3.375 GM in SODIUM CHLORIDE 0.9% 100 ML IVPB SCH ×4 (00:02→23:40)
[2023-06-02] MEDS: PANTOPRAZOLE 40 MG TABLET PO SCH (06:02)
[2023-06-02 07:02] LABS: HCT 33.5 % (39.0-53.0); HGB 10.9 gm/dL (13.0-17.5); Hypochromasia Slight; MCH 31.1 pg (25.0-35.0); MCHC 32.4 g/dL (31.0-37.0); Mean Platelet Volume 6.9; Platelet Count 474 k/uL (150-450); RBC 3.49 m/uL (4.30-5.90); RDW 15.1 % (11.5-15.5); WBC 9.4 k/uL (3.8-10.6)
--- NOTE | 2023-06-02 07:59 | P.PN ---
Subjective Progress Note Date: 06/02/23 Principal diagnosis: Recurrent left-sided pneumothorax, status post placement of thoravent, acute hypoxic respiratory failure, fall at home. 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 To The patient was seen and examined this morning laying in bed a cardiac stepdown unit in no acute distress, 1:1 sitter at the bedside. Patient is coughing this morning with each set of water, no air leak present in his left-sided chest tube which remains present to continuous wall suction. Chest x-ray reviewed. T-max in the last 24 hours 100.6F, WBC 9.4 today, procalcitonin 1.58. Patient was placed on IV zosyn, blood cultures drawn. No other new concerns. Objective - Vital Signs Vital signs: Vital Signs Temp 100.2 F H 06/02/23 04:00 Pulse 78 06/02/23 06:23 Resp 18 06/02/23 04:00 BP 147/64 06/02/23 04:00 Pulse Ox 93 L 06/02/23 04:00 FiO2 Intake & Output 06/01/23 06/02/23 06/02/23 18:59 06:59 18:59 Intake Total 246 Output Total 12 Balance 246 -12 Intake: IV 10 Invasive Line 2 10 Oral 236 Output: Chest Tube Drainage 12 Chest Tube Left Lower 12 Other: Voiding Method Urinal Urinal # Voids 3 2 - Exam CONSTITUTIONAL: Appears comfortable, no acute distress although does cough with intake of fluids RESPIRATORY: Lungs sounds diminished bilaterally in the bases. Respirations even, nonlabored. Currently on 4 liters nasal cannula with oxygen saturation 93% CARDIOVASCULAR: S1, S2 present. Regular rate and rhythm, sinus rhythm on telemetry. Palpable peripheral pulses bilaterally. No edema present. No calf pain or tenderness noted. SCDs present. GASTROINTESTINAL: Abdomen soft, nontender, nondistended. Active bowel sounds present 4 quadrants. Tolerating diet GENITOURINARY: Continues to void INTEGUMENTARY: Skin is warm and dry. 3 sided dressing present over thoravent site NEUROLOGIC: Cranial nerves II through XII intact MUSKULOSKELETAL: Able to move all extremities, strength equal bilaterally PSYCHIATRIC: Alert and oriented to person place and time INVASIVE LINES AND TUBES: Left-sided pleural chest tube present and connected to wall suction, no air leak seen with coughing, minimal drainage - Allied health notes Allied health notes reviewed: nursing - Labs CBC & Chem 7: 06/02/23 06:25 06/01/23 14:40 Labs: Abnormal Lab Results - Last 24 Hours (Table) 06/01/23 06/01/23 06/02/23 Range/Units 14:40 14:40 06:25 RBC 3.34 L 3.49 L (4.30-5.90) m/uL Hgb 10.4 L 10.9 L (13.0-17.5) gm/dL Hct 32.1 L 33.5 L (39.0-53.0) % Plt Count 483 H 474 H (150-450) k/uL Carbon Dioxide 20 L (22-30) mmol/L BUN 36 H (9-20) mg/dL Microbiology - Last 24 Hours (Table) 05/31/23 12:42 Blood Culture - Preliminary Blood - Imaging and Cardiology Chest x-ray: image reviewed Assessment and Plan Assessment: Recurrent left-sided pneumothorax, status post placement of thoravent by emergency room physicians, status post left thoracostomy tube placement by Dr. 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 status post chemotherapy and radiation with recent disease progression History of left-sided pneumothorax in February 2023 Coronary artery disease with previous PCI Hyperlipidemia Previous tobacco dependence COPD with significant bullous emphysema Leukocytosis with fever, procalcitonin 1.58 Plan: Will place thoracostomy tube to water seal Agree with one-to-one sitter to monitor patient and make sure he doesn't pull out his chest tube Will monitor daily x-rays Wean O2 as tolerated, encourage incentive spirometry use Increase activity as tolerated Antibiotics per internal medicine Recommend swallow evaluation, although per nursing patient's son refused to allow patient to be made NPO Medical management of the comorbidities per internal medicine, pulmonology More recommendations to follow.
--- NOTE | 2023-06-02 08:36 | XR ---
EXAMINATION TYPE: XR chest 1V portable DATE OF EXAM: 06/02/2023 COMPARISON: 06/01/2023 HISTORY: Follow-up pneumothorax TECHNIQUE: Single frontal view of the chest is obtained. FINDINGS: Chest tube seen in position with no sizable pneumothorax. Subcutaneous emphysema. Arthropa thy of the shoulder with diffuse osteopenia hypertrophic and degenerative changes of the spine. Under lying COPD. Atherosclerotic change aorta. Surgical changes overlying the cervical spine. Emphysematou s changes noted. Sclerotic lesion involving the right humerus could be related to bone infarct or a c hondroid lesion. IMPRESSION: COPD with no sizable pneumothorax.
[2023-06-02] MEDS: ATORVASTATIN 40 MG TAB PO SCH (08:38)
[2023-06-02] MEDS: MORPHINE SULFATE 4 MG/ML SYRINGE IV PRN ×3 (08:38→22:45)
[2023-06-02] MEDS: ALBUTEROL NEBULIZED 2.5 MG/3 ML INHALATION SCH ×4 (08:45→20:42)
[2023-06-02] MEDS: OLANZapine 5 MG TAB PO SCH ×3 (08:45→21:03)
[2023-06-02 09:06] LABS: African American GFR (CKD) >90 (>60 ml/min/1.73 sqM); Anion Gap 14 mmol/L; Blood Urea Nitrogen 33 mg/dL (9-20); Carbon Dioxide 21 mmol/L (22-30); Chloride 108 mmol/L (98-107); Glucose 106 mg/dL (74-99); Non-African American GFR(CKD) 88 (>60 ml/min/1.73 sqM); Potassium 3.9 mmol/L (3.5-5.1); Sodium 143 mmol/L (137-145)
--- NOTE | 2023-06-02 10:35 | P.PN ---
Subjective Progress Note Date: 06/02/23 On today's evaluation of 06/02/2023, the patient is resting comfortably in bed. His mental status has been fluctuating get I was told that he is more oriented and less agitated compared to few days back. He has a sitter at the bedside. As stated, the patient has a left-sided pneumothorax, initially treated with a small bore catheter and subsequently the patient was given a chest tube. The chest tube is in a good location on today's chest x-ray. There is some limited subcu emphysema along the left chest. She is no evidence of any sizable pneumothorax. There is obvious background COPD. The patient is a 77 years old. He has sustained a fall at home and he had a left-sided pneumothorax. He is known to have COPD with severe bullous disease. 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 His most recent CAT scan of the chest that was done on 05/28/2023 showed the pneumothorax. His prior CAT scan of the chest from 02/10/2023 showed a slight decrease in the size of the lobe related mass in the left upper lobe with some surrounding atelectasis. Objective - Vital Signs Vital signs: Vital Signs Temp 100.2 F H 06/02/23 04:00 Pulse 78 06/02/23 09:01 Resp 20 06/02/23 08:00 BP 122/62 06/02/23 08:00 Pulse Ox 94 L 06/02/23 08:00 FiO2 Intake & Output 06/01/23 06/02/23 06/02/23 18:59 06:59 18:59 Intake Total 246 Output Total 12 Balance 246 -12 Intake: IV 10 Invasive Line 2 10 Oral 236 Output: Chest Tube Drainage 12 Chest Tube Left Lower 12 Other: Voiding Method Urinal Urinal # Voids 3 2 - Exam CONSTITUTIONAL: Appears comfortable, no acute distress although does cough with intake of fluids RESPIRATORY: Lungs sounds diminished bilaterally in the bases. Respirations even, nonlabored. Currently on 4 liters nasal cannula with oxygen saturation 93% CARDIOVASCULAR: S1, S2 present. Regular rate and rhythm, sinus rhythm on telemetry. Palpable peripheral pulses bilaterally. No edema present. No calf pain or tenderness noted. SCDs present. GASTROINTESTINAL: Abdomen soft, nontender, nondistended. Active bowel sounds present 4 quadrants. Tolerating diet GENITOURINARY: Continues to void INTEGUMENTARY: Skin is warm and dry. 3 sided dressing present over thoravent site NEUROLOGIC: Cranial nerves II through XII intact MUSKULOSKELETAL: Able to move all extremities, strength equal bilaterally PSYCHIATRIC: Alert and oriented to person place and time INVASIVE LINES AND TUBES: Left-sided pleural chest tube present and connected to wall suction, no air leak seen with coughing, minimal drainage - Labs CBC & Chem 7: 06/02/23 06:25 06/02/23 06:25 Labs: Abnormal Lab Results - Last 24 Hours (Table) 06/01/23 06/01/23 06/02/23 Range/Units 14:40 14:40 06:25 RBC 3.34 L 3.49 L (4.30-5.90) m/uL Hgb 10.4 L 10.9 L (13.0-17.5) gm/dL Hct 32.1 L 33.5 L (39.0-53.0) % Plt Count 483 H 474 H (150-450) k/uL Chloride (98-107) mmol/L Carbon Dioxide 20 L (22-30) mmol/L BUN 36 H (9-20) mg/dL Glucose (74-99) mg/dL 06/02/23 Range/Units 06:25 RBC (4.30-5.90) m/uL Hgb (13.0-17.5) gm/dL Hct (39.0-53.0) % Plt Count (150-450) k/uL Chloride 108 H (98-107) mmol/L Carbon Dioxide 21 L (22-30) mmol/L BUN 33 H (9-20) mg/dL Glucose 106 H (74-99) mg/dL Microbiology - Last 24 Hours (Table) 05/31/23 12:42 Blood Culture - Preliminary Blood Assessment and Plan Plan: Recurrent left-sided pneumothorax, status post placement of thoravent by em ergency room physicians, status post left thoracostomy tube placement by Dr. To, the chest tube is in place and there is no evidence of any air leak. The chest tube was taken off the suction and currently is on waterseal. Acute hypoxic respiratory failure, currently on oxygen 4 L/m nasal cannula Fall at home Pain, shortness of breath secondary to above History of squamous cell carcinoma of the left upper lobe of the lung status post chemotherapy and radiation with recent disease progression History of left-sided pneumothorax in February 2023 Coronary artery disease with previous PCI Hyperlipidemia Previous tobacco dependence COPD with significant bullous emphysema Leukocytosis with fever, procalcitonin 1.58, on today's labs, has a white cell count is at 9.4 with a hemoglobin of 10.9. Plan: Clinically stable and the patient is currently on 4 L of oxygen by nasal cannula. Will place thoracostomy tube to water seal, and discontinue the suction Agree with one-to-one sitter to monitor patient and make sure he doesn't pull out his chest tube Will monitor daily x-rays Wean O2 as tolerated, encourage incentive spirometry use Increase activity as tolerated Repeat pro-calcitonin level Repeat chest x-ray in the morning We'll possibly remove the chest tube within next 24 hours
[2023-06-02] MEDS: HALOPERIDOL LACTATE 5 MG/ML 1 ML VIAL IM PRN ×2 (12:16→22:45)
--- NOTE | 2023-06-02 13:54 | P.PN ---
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 Multiple radiology studies including head/C-spine CT reported no acute intracranial process or cervical spine fracture,large left pneumothorax with severe bullous emphysema. Complains of chest tube insertion site discomfort otherwise denies chest pain, palpitations or shortness of breath. Maintaining O2 sats in the high 90s on 4 L high flow nasal cannula. Afebrile, WBC has normalized. Chest x-ray pending. 05/30/2023 drug safety physician maintained at bedside. Confused, agitated during the night. Short of breath. Chest x-ray reporting persistent left small to moderate pleural effusion similar to prior. Maintaining O2 sats in the high 90s on 4 L nasal cannula. CTS recommending changing over to a full thoracostomy tube. Afebrile. Fair diet intake. Denies chest pain or palpitations, teary- eyed, eager to go home. 06/02/2023 sensorium improving, drug safety physician at bedside.Thoravent discontinued and currently with left pleural chest tube. Chest x-ray reporting COPD with no sizable pneumothorax. Denies chest pain, palpitations or increased shortness of breath. Continues on Zosyn. T-max 100.6, blood cultures pending. Repeat pro calcitonin pending. Objective - Vital Signs Vital signs: Vital Signs Temp 100.2 F H 06/02/23 04:00 Pulse 79 06/02/23 11:45 Resp 20 06/02/23 08:00 BP 122/62 06/02/23 08:00 Pulse Ox 94 L 06/02/23 08:00 FiO2 Intake & Output 06/01/23 06/02/23 06/02/23 18:59 06:59 18:59 Intake Total 246 Output Total 12 Balance 246 -12 Intake: IV 10 Invasive Line 2 10 Oral 236 Output: Chest Tube Drainage 12 Chest Tube Left Lower 12 Other: Voiding Method Urinal Urinal # Voids 3 2 1 - Exam PHYSICAL EXAM: VITAL SIGNS: [As above] GENERAL: Cachectic , fragile , thin elderly male, Sitting up in bed with mild confusion, alert and oriented 2, no acute distress. HEENT: Normocephalic ,Conjunctivae normal. eyes normal. NECK: Supple, No JVD. CARDIOVASCULAR: S1, S2 regular. No murmur RESPIRATION: Unlabored, equal air entry, Breath sounds diminished in the bases. Left pleural chest tube. ABDOMEN: Soft, nontender . No guarding.+BS LEGS: No edema. no swelling NERVOUS SYSTEM: Cranial N 2-12 grossly normal. Skin: Warm and dry, no rash Microbiology 05/31/23 12:42 Blood Blood Culture - Preliminary - Labs CBC & Chem 7: 06/02/23 06:25 06/02/23 06:25 Labs: Abnormal Lab Results - Last 24 Hours (Table) 06/01/23 06/01/23 06/02/23 Range/Units 14:40 14:40 06:25 RBC 3.34 L 3.49 L (4.30-5.90) m/uL Hgb 10.4 L 10.9 L (13.0-17.5) gm/dL Hct 32.1 L 33.5 L (39.0-53.0) % Plt Count 483 H 474 H (150-450) k/uL Chloride (98-107) mmol/L Carbon Dioxide 20 L (22-30) mmol/L BUN 36 H (9-20) mg/dL Glucose (74-99) mg/dL 06/02/23 Range/Units 06:25 RBC (4.30-5.90) m/uL Hgb (13.0-17.5) gm/dL Hct (39.0-53.0) % Plt Count (150-450) k/uL Chloride 108 H (98-107) mmol/L Carbon Dioxide 21 L (22-30) mmol/L BUN 33 H (9-20) mg/dL Glucose 106 H (74-99) mg/dL Microbiology - Last 24 Hours (Table) 05/31/23 12:42 Blood Culture - Preliminary Blood Assessment and Plan Assessment: Recurrent left-sided pneumothorax status post fall, status post Thoravent placement, currently with left pleural chest tube. Acute hypoxic respiratory failure secondary to the above Severe bullous emphysema Leukocytosis resolved. History of dysphagia, patient and family requesting chopped dysphagia 3 diet, MBS declined,aware of risk of aspiration as per speech therapy's discussion with them. History of left-sided pneumothorax status post Thoravent placement 03/22. Possible right lower lobe opacity reported per chest x-ray History of left-sided squamous cell lung CA status post systemic chemotherapy. Pulmonary reports recent PET scan reporting disease progression. CAD with history of stent Hyperlipidemia Anemia of chronic disease Prior nicotine dependence Moderate protein calorie malnutrition, BMI 21 Plan: Continue on current medication regime ,monitoring and symptomatic treatment. Chest tube to waterseal as per CTS. continue on IV antibiotics. Maintain drug safety physician.Aggressive pulmonary toileting with incentive spirometer reinforced. Encourage patient to use incentive spirometer and encourage oral intake. PT/OT. Patient evaluated by speech therapy prior to this visit and on May 30 secondary to history of dysphagia,MBS declined,aware of risk of aspiration as per speech therapy's discussion with them-family requesting chopped dysphagia 3 diet. The impression and plan of care has been dictated as directed. : I performed a history and examination of this patient, discussed the same with the dictator. I agree with the dictator's note ,documented as a scribe. Any additional findings or plans will be noted.
[2023-06-03] MEDS: NICOTINE 14MG/24HR PATCH TRANSDERM SCH (01:23)
[2023-06-03] MEDS: HALOPERIDOL LACTATE 5 MG/ML 1 ML VIAL IM PRN ×2 (05:06→21:47)
[2023-06-03] MEDS: MORPHINE SULFATE 4 MG/ML SYRINGE IV PRN ×3 (05:06→23:40)
[2023-06-03] MEDS: PANTOPRAZOLE 40 MG TABLET PO SCH (06:37)
[2023-06-03] MEDS: ALBUTEROL NEBULIZED 2.5 MG/3 ML INHALATION SCH ×4 (07:43→21:08)
[2023-06-03] MEDS: PIPERACILLIN-TAZOBACTAM 3.375 GM in SODIUM CHLORIDE 0.9% 100 ML IVPB SCH ×2 (08:02→15:33)
--- NOTE | 2023-06-03 08:02 | P.PN ---
Subjective Progress Note Date: 06/03/23 Principal diagnosis: Recurrent left-sided pneumothorax, status post placement of thoravent, acute hypoxic respiratory failure, fall at home. 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 To The patient was seen and examined this morning laying in bed a cardiac stepdown unit in no acute distress, 1:1 sitter at the bedside. Patient is following instructions this morning, he did cough when asked and no air leak was present in his left-sided chest tube which was placed to waterseal yesterday. Chest x- ray reviewed. T-max in the last 24 hours 100.2F. Continues on IV zosyn. No other new concerns. Objective - Vital Signs Vital signs: Vital Signs Temp 98.7 F 06/03/23 04:00 Pulse 78 06/03/23 07:45 Resp 20 06/03/23 04:00 BP 156/75 06/03/23 04:00 Pulse Ox 94 L 06/03/23 07:43 FiO2 Intake & Output 06/02/23 06/03/23 06/03/23 18:59 06:59 18:59 Output Total 650 Balance -650 Output: Urine 650 Other: Voiding Method Urinal # Voids 1 - Exam CONSTITUTIONAL: Appears comfortable, no acute distress RESPIRATORY: Lungs sounds diminished bilaterally in the bases. Respirations even, nonlabored. Currently on 6 liters nasal cannula with oxygen saturation 94% CARDIOVASCULAR: S1, S2 present. Regular rate and rhythm, sinus rhythm on telemetry. Palpable peripheral pulses bilaterally. No edema present. No calf pain or tenderness noted. SCDs present. GASTROINTESTINAL: Abdomen soft, nontender, nondistended. Active bowel sounds present 4 quadrants. Tolerating diet GENITOURINARY: Continues to void INTEGUMENTARY: Skin is warm and dry. 3 sided dressing present over thoravent site NEUROLOGIC: Cranial nerves II through XII intact MUSKULOSKELETAL: Able to move all extremities, strength equal bilaterally PSYCHIATRIC: Alert and oriented to person place and time INVASIVE LINES AND TUBES: Left-sided pleural chest tube present to waterseal, no air leak seen with coughing, minimal drainage - Allied health notes Allied health notes reviewed: nursing - Labs CBC & Chem 7: 06/02/23 06:25 06/02/23 06:25 Labs: Abnormal Lab Results - Last 24 Hours (Table) 06/02/23 Range/Units 06:25 Chloride 108 H (98-107) mmol/L Carbon Dioxide 21 L (22-30) mmol/L BUN 33 H (9-20) mg/dL Glucose 106 H (74-99) mg/dL Microbiology - Last 24 Hours (Table) 05/31/23 12:42 Blood Culture - Preliminary Blood - Imaging and Cardiology Chest x-ray: image reviewed Assessment and Plan Assessment: Recurrent left-sided pneumothorax, status post placement of thoravent by emergency room physicians, status post left thoracostomy tube placement by Dr. 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 status post chemotherapy and radiation with recent disease progression History of left-sided pneumothorax in February 2023 Coronary artery disease with previous PCI Hyperlipidemia Previous tobacco dependence COPD with significant bullous emphysema Leukocytosis with fever, procalcitonin 1.58 Plan: Likely will discontinue chest tube today Agree with one-to-one sitter for patient safety Will monitor daily x-rays Wean O2 as tolerated, encourage incentive spirometry use Increase activity as tolerated Antibiotics per internal medicine Recommend swallow evaluation, although per nursing patient's son refused to allow patient to be made NPO Medical management of the comorbidities per internal medicine, pulmonology More recommendations to follow.
[2023-06-03] MEDS: ATORVASTATIN 40 MG TAB PO SCH (08:04)
[2023-06-03] MEDS: OLANZapine 5 MG TAB PO SCH ×3 (08:04→23:15)
--- NOTE | 2023-06-03 08:25 | XR ---
EXAMINATION TYPE: XR chest 1V portable DATE OF EXAM: 06/03/2023 COMPARISON: 06/02/2020 HISTORY: Chest tube TECHNIQUE: Single frontal view of the chest is obtained. FINDINGS: Chest tube seen in position with small left pneumothorax not excluded.. Subcutaneous emphy sema. Arthropathy of the shoulder with diffuse osteopenia hypertrophic and degenerative changes of th e spine. Underlying COPD. Atherosclerotic change aorta. Surgical changes overlying the cervical spine . Emphysematous changes noted. Sclerotic lesion involving the right humerus could be related to bone infarct or a chondroid lesion. IMPRESSION: Stable COPD, subcutaneous seen. Cannot exclude a small pneumothorax.
--- NOTE | 2023-06-03 09:51 | P.PN ---
Subjective Progress Note Date: 06/03/23 On today's evaluation of 06/02/2023, the patient is resting comfortably in bed. His mental status has been fluctuating get I was told that he is more oriented and less agitated compared to few days back. He has a sitter at the bedside. As stated, the patient has a left-sided pneumothorax, initially treated with a small bore catheter and subsequently the patient was given a chest tube. The chest tube is in a good location on today's chest x-ray. There is some limited subcu emphysema along the left chest. She is no evidence of any sizable pneumothorax. There is obvious background COPD. The patient is a 77 years old. He has sustained a fall at home and he had a left-sided pneumothorax. He is known to have COPD with severe bullous disease. 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 His most recent CAT scan of the chest that was done on 05/28/2023 showed the pneumothorax. His prior CAT scan of the chest from 02/10/2023 showed a slight decrease in the size of the lobe related mass in the left upper lobe with some surrounding atelectasis. On 06/03/2023, the patient is quite somnolent and sleepy. He received Haldol last night as the patient was becoming more agitated and combative. Probably a component of delirium was also present. The patient was given Haldol. This morning his resting comfortably in bed. His somnolent. He is able to respond upon stimulation. No significant rest of distress. He remains on oxygen and he is on 6 L of oxygen by nasal cannula. Left-sided chest tube is still in place. A repeat chest x-ray was done today and shows some ongoing symptoms of edema on the left. Apical bullous emphysematous changes. Chest tube is in a good location. No clear indication for an underlying pneumothorax. The chest tube was kept waterseal over the past 24 hours. She will be clamped and another c hest x-ray obtained tomorrow.Labs from today are still pending. Labs from yesterday were all noted. Pro-calcitonin was unexpectedly elevated and the patient has been on IV Zosyn. Objective - Vital Signs Vital signs: Vital Signs Temp 98.6 F 06/03/23 08:00 Pulse 77 06/03/23 08:00 Resp 19 06/03/23 08:00 BP 151/76 06/03/23 08:00 Pulse Ox 96 06/03/23 08:00 FiO2 Intake & Output 06/02/23 06/03/23 06/03/23 18:59 06:59 18:59 Intake Total 118 Output Total 650 Balance -650 118 Intake: Oral 118 Output: Urine 650 Other: Voiding Method Urinal Urinal Diaper # Voids 1 - Exam CONSTITUTIONAL: Appears comfortable, no acute distress although does cough with intake of fluids the patient is currently on 6 L of oxygen nasal cannula RESPIRATORY: Lungs sounds diminished bilaterally in the bases. Respirations even, nonlabored. C CARDIOVASCULAR: S1, S2 present. Regular rate and rhythm, sinus rhythm on telemetry. Palpable peripheral pulses bilaterally. No edema present. No calf pain or tenderness noted. SCDs present. GASTROINTESTINAL: Abdomen soft, nontender, nondistended. Active bowel sounds present 4 quadrants. Tolerating diet GENITOURINARY: Continues to void INTEGUMENTARY: Skin is warm and dry. 3 sided dressing present over thoravent site NEUROLOGIC: Cranial nerves II through XII intact MUSKULOSKELETAL: Able to move all extremities, strength equal bilaterally PSYCHIATRIC: Alert and oriented to person place and time INVASIVE LINES AND TUBES: Left-sided pleural chest tube present and connected to wall suction, no air leak seen with coughing, minimal drainage - Labs CBC & Chem 7: 06/02/23 06:25 06/02/23 06:25 Labs: Microbiology - Last 24 Hours (Table) 05/31/23 12:42 Blood Culture - Preliminary Blood Assessment and Plan Plan: Recurrent left-sided pneumothorax, status post placement of thoravent by emergency room physicians, status post left thoracostomy tube placement by Dr. To, the chest tube is in place and there is no evidence of any air leak. The chest tube was taken off the suction and currently is on waterseal. And the repeat chest x-ray from today shows no clear indication for pneumothorax. There is still some carrots emphysema in the left upper chest area. I discussed the case with the cardiothoracic surgery team and we added up clamping the tube in giving the patient another 24 hours. If the chest x-ray from [facility] adequate, she will be removed. Acute hypoxic respiratory failure, currently on oxygen 6 L/m nasal cannula Fall at home Pain, shortness of breath secondary to above History of squamous cell carcinoma of the left upper lobe of the lung status post chemotherapy and radiation with recent disease progression History of left-sided pneumothorax in February 2023 Coronary artery disease with previous PCI Hyperlipidemia Previous tobacco dependence COPD with significant bullous emphysema Leukocytosis with fever, procalcitonin 1.58, on today's labs, has a white cell count is at 9.4 with a hemoglobin of 10.9. Delirium and agitation, given haldol Plan: Clinically stable and the patient is currently on 4- 6L of oxygen by nasal cannula. Chest tube will be clamped Repeat chest x-ray in the morning Monitor mental status Wean O2 as tolerated, encourage incentive spirometry use Increase activity as tolerated Repeat pro-calcitonin level, labs are pending from today
--- NOTE | 2023-06-03 14:23 | XR ---
EXAMINATION TYPE: XR chest 1V portable DATE OF EXAM: 06/03/2023 COMPARISON: 06/03/2023 HISTORY: Chest tube TECHNIQUE: Single frontal view of the chest is obtained. FINDINGS: Chest tube seen in position with small left pneumothorax not excluded.. Subcutaneous emphy sema. Arthropathy of the shoulder with diffuse osteopenia hypertrophic and degenerative changes of th e spine. Underlying COPD. Atherosclerotic change aorta. Surgical changes overlying the cervical spine . Emphysematous changes noted. Sclerotic lesion involving the right humerus could be related to bone infarct or a chondroid lesion. Soft tissue edema extends over this right upper neck. IMPRESSION: 1. No definite pneumothorax. 2. Extensive subcutaneous emphysema. A small degree of pneumomediastinum not excluded.
--- NOTE | 2023-06-03 17:44 | P.PN ---
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 Multiple radiology studies including head/C-spine CT reported no acute intracranial process or cervical spine fracture,large left pneumothorax with severe bullous emphysema. Complains of chest tube insertion site discomfort otherwise denies chest pain, palpitations or shortness of breath. Maintaining O2 sats in the high 90s on 4 L high flow nasal cannula. Afebrile, WBC has normalized. Chest x-ray pending. 05/30/2023 drug safety assistant maintained at bedside. Confused, agitated during the night. Short of breath. Chest x-ray reporting persistent left small to moderate pleural effusion similar to prior. Maintaining O2 sats in the high 90s on 4 L nasal cannula. CTS recommending changing over to a full thoracostomy tube. Afebrile. Fair diet intake. Denies chest pain or palpitations, teary- eyed, eager to go home. 06/02/2023 sensorium improving, drug safety assistant at bedside.Thoravent discontinued and currently with left pleural chest tube. Chest x-ray reporting COPD with no sizable pneumothorax. Denies chest pain, palpitations or increased shortness of breath. Continues on Zosyn. T-max 100.6, blood cultures pending. Repeat pro calcitonin pending. 06/03/2023 agitated during the night, required Haldol. Sleepy this morning. Sitter at bedside. Continues on Zosyn. Maintaining O2 sats in the high 90s on 6 L nasal cannula. T-max 100.2, WBC within normal limits. Pulmonary blood cultures reporting no growth after 48 hours. Left pleural chest tube to waterseal over the last 24 hours,chest x-ray reporting stable, subcutaneous emphysema, possible small pneumothorax. Objective - Vital Signs Vital signs: Vital Signs Temp 98.5 F 06/03/23 11:21 Pulse 77 06/03/23 11:21 Resp 17 06/03/23 11:21 BP 158/66 06/03/23 11:21 Pulse Ox 97 06/03/23 11:21 FiO2 Intake & Output 06/02/23 06/03/23 06/03/23 18:59 06:59 18:59 Intake Total 118 Output Total 650 275 Balance -650 -157 Intake: Oral 118 Output: Urine 650 275 Other: Voiding Method Urinal Urinal Diaper # Voids 1 1 - Exam PHYSICAL EXAM: VITAL SIGNS: [As above] GENERAL: Alert and oriented 2-3 ,Cachectic , fragile , thin elderly male, Sitting up in bed with mild confusion, fatigue, alert and oriented 2, no acute distress. HEENT: Normocephalic ,Conjunctivae normal. eyes normal. NECK: Supple, No JVD. CARDIOVASCULAR: S1, S2 regular. No murmur RESPIRATION: Unlabored, equal air entry, Breath sounds diminished in the bases. Left pleural chest tube. ABDOMEN: Soft, nondistended, nontender . No guarding.+BS LEGS: No edema. no swelling NERVOUS SYSTEM: Cranial N 2-12 grossly normal. Skin: Warm and dry, no rash - Labs CBC & Chem 7: 06/02/23 06:25 06/02/23 06:25 Labs: Microbiology - Last 24 Hours (Table) 05/31/23 12:42 Blood Culture - Preliminary Blood Assessment and Plan Assessment: Recurrent left-sided pneumothorax status post fall, status post Thoravent placement, currently with left pleural chest tube. Positive subcutaneous emphysema. Acute hypoxic respiratory failure secondary to the above Severe bullous emphysema Leukocytosis resolved. History of dysphagia, patient and family requesting chopped dysphagia 3 diet, MBS declined,aware of risk of aspiration as per speech therapy's discussion with them. History of left-sided pneumothorax status post Thoravent placement 03/22. Possible right lower lobe opacity reported per chest x-ray History of left-sided squamous cell lung CA status post systemic chemotherapy. Pulmonary reports recent PET scan reporting disease progression. CAD with history of stent Hyperlipidemia Anemia of chronic disease Prior nicotine dependence Moderate protein calorie malnutrition, BMI 21 Plan: Continue on current medication regime ,monitoring and symptomatic treatment. Chest tube clamped, continue on IV antibiotics. Maintain drug safety assistant.continue with aggressive pulmonary toileting with incentive spirometer reinforced. Encourage patient to use incentive spirometer and encourage oral intake. PT/OT. The impression and plan of care has been dictated as directed. : I performed a history and examination of this patient, discussed the same with the dictator. I agree with the dictator's note ,documented as a scribe. Any additional findings or plans will be noted.
[2023-06-04] MEDS: PIPERACILLIN-TAZOBACTAM 3.375 GM in SODIUM CHLORIDE 0.9% 100 ML IVPB SCH ×4 (00:31→23:53)
[2023-06-04] MEDS: PANTOPRAZOLE 40 MG TABLET PO SCH (06:17)
--- NOTE | 2023-06-04 08:41 | XR ---
EXAMINATION TYPE: XR chest 1V portable DATE OF EXAM: 06/04/2023 COMPARISON: 06/03/2023 HISTORY: Pneumothorax TECHNIQUE: Single frontal view of the chest is obtained. FINDINGS: Chest tube seen in position with small left pneumothorax not excluded.. Subcutaneous emphy sema. Arthropathy of the shoulder with diffuse osteopenia hypertrophic and degenerative changes of th e spine. Underlying COPD. Atherosclerotic change aorta. Surgical changes overlying the cervical spine . Emphysematous changes noted. Sclerotic lesion involving the right humerus could be related to bone infarct or a chondroid lesion. Soft tissue edema extends over this right upper neck. Chronic deformit y left clavicle. IMPRESSION: 1. No definite sizable pneumothorax. 2. Persistent extensive subcutaneous emphysema.
[2023-06-04] MEDS: ALBUTEROL NEBULIZED 2.5 MG/3 ML INHALATION SCH ×4 (08:43→21:41)
[2023-06-04] MEDS: OLANZapine 5 MG TAB PO SCH ×3 (09:50→23:50)
[2023-06-04] MEDS: NICOTINE 14MG/24HR PATCH TRANSDERM SCH (09:50)
[2023-06-04] MEDS: ATORVASTATIN 40 MG TAB PO SCH (09:50)
[2023-06-04] MEDS: HYDROcodone/APAP 10-325MG 1 EACH TAB PO PRN (10:02)
--- NOTE | 2023-06-04 10:25 | P.PN ---
Subjective Progress Note Date: 06/04/23 Principal diagnosis: Recurrent left-sided pneumothorax, status post placement of thoravent, acute hypoxic respiratory failure, fall at home. 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 Persistent pneumothorax, status post thoracostomy tube placement by Dr. To. The patient was seen and examined in follow-up this morning at his bedside on the third floor cardiac stepdown unit. The patient is currently lying in bed, as a one-to-one sitter at his bedside and is in no acute distress. Left pleural chest tube remains in place to water seal with no air leak present at this time. The patient was unable to cough when asked this morning. Oxygen saturations are 96% on 6 L high flow nasal cannula. T-max temperature in the last 24 hours was 98.6F and he remains on Zosyn IV piggyback every 8 hours. Chest x-ray was reviewed. Objective - Vital Signs Vital signs: Vital Signs Temp 98.1 F 06/04/23 09:48 Pulse 80 06/04/23 09:48 Resp 17 06/04/23 09:48 BP 140/68 06/04/23 09:48 Pulse Ox 96 06/04/23 09:48 FiO2 Intake & Output 06/03/23 06/04/23 06/04/23 18:59 06:59 18:59 Intake Total 118 Output Total 700 300 12 Balance -582 -300 -12 Intake: Oral 118 Output: Chest Tube Drainage 12 Chest Tube Left Lower 12 Urine 700 300 Other: Voiding Method Urinal Urinal Urinal Diaper Diaper Diaper # Voids 3 - Exam CONSTITUTIONAL: Appears comfortable, no acute distress. RESPIRATORY: Lungs sounds diminished bilaterally to his bases. Respirations are symmetrical, nonlabored. Currently on 6 liters high flow nasal cannula with oxygen saturation 96% CARDIOVASCULAR: S1, S2 present. Regular rate and rhythm, sinus bradycardia rhythm on remote telemetry with a heart rate of 59 BPM. Palpable peripheral pulses bilaterally. No edema present. No calf pain or tenderness noted. SCDs present. GASTROINTESTINAL: Abdomen soft, nontender, nondistended. Active bowel sounds present 4 quadrants. Tolerating diet. GENITOURINARY: Continues to void. INTEGUMENTARY: Skin is warm and dry. Dressing clean and dry and intact over previous thoravent site. NEUROLOGIC: Cranial nerves II through XII intact. MUSKULOSKELETAL: Able to move all extremities, strength equal bilaterally. PSYCHIATRIC: Alert and oriented to person, place and time. INVASIVE LINES AND TUBES: Left-sided pleural chest tube present to waterseal, no air leak seen, minimal thin serosanguineous drainage. - Labs CBC & Chem 7: 06/02/23 06:25 06/02/23 06:25 Labs: Microbiology - Last 24 Hours (Table) 05/31/23 12:42 Blood Culture - Preliminary Blood - Imaging and Cardiology Chest x-ray: report reviewed, image reviewed Assessment and Plan Assessment: Recurrent left-sided pneumothorax, status post placement of thoravent by emergency room physicians, status post left thoracostomy tube placement by Dr. 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 Agree with one-to-one sitter for patient safety. Will continue to monitor daily chest x-rays. Wean O2 as tolerated, encourage incentive spirometry use 10 times every hour while awake. Increase activity as tolerated. Antibiotics per internal medicine recommendations and management. Medical management of the comorbidities per internal medicine, pulmonology. More recommendations to follow based on patient's clinical course. Time with Patient: Greater than 30
--- NOTE | 2023-06-04 12:42 | P.PN ---
Subjective Progress Note Date: 06/04/23 H&P Date: 05/29/23 Chief Complaint: Recurrent left-sided pneumothorax status post fall This is a 77-year-old gentleman with past medical history significant for left sided pneumothorax required thoravent 03/22, left-sided squamous cell lung CA on chemotherapy/radiation with recent disease progression reported, COPD, CAD with stents, hyperlipidemia, prior nicotine dependence and multiple other medical issues presented to the ER status post fall with recurrent left-sided pneumothorax, thoravent placed per ER without complete reexpansion. Multiple radiology studies including head/C-spine CT reported no acute intracranial process or cervical spine fracture,large left pneumothorax with severe bullous emphysema. Complains of chest tube insertion site discomfort otherwise denies chest pain, palpitations or shortness of breath. Maintaining O2 sats in the high 90s on 4 L high flow nasal cannula. Afebrile, WBC has normalized. Chest x-ray pending. 05/30/2023 product safety compliance leader maintained at bedside. Confused, agitated during the night. Short of breath. Chest x-ray reporting persistent left small to moderate pleural effusion similar to prior. Maintaining O2 sats in the high 90s on 4 L nasal cannula. CTS recommending changing over to a full thoracostomy tube. Afebrile. Fair diet intake. Denies chest pain or palpitations, teary- eyed, eager to go home. 06/02/2023 sensorium improving, product safety compliance leader at bedside.Thoravent discontinued and currently with left pleural chest tube. Chest x-ray reporting COPD with no sizable pneumothorax. Denies chest pain, palpitations or increased shortness of breath. Continues on Zosyn. T-max 100.6, blood cultures pending. Repeat pro calcitonin pending. 06/03/2023 agitated during the night, required Haldol. Sleepy this morning. Sitter at bedside. Continues on Zosyn. Maintaining O2 sats in the high 90s on 6 L nasal cannula. T-max 100.2, WBC within normal limits. Pulmonary blood cultures reporting no growth after 48 hours. Left pleural chest tube to waterseal over the last 24 hours,chest x-ray reporting stable, subcutaneous emphysema, possible small pneumothorax. 06/04/2023 sitter at bedside. left pleural chest tube to waterseal, maintaining O2 sats in the high 90s on 5 L high flow nasal cannula. Chest x-ray reporting no definite sizable pneumothorax, persistent extensive subcutaneous emphysema. Maintained on Zosyn .Afebrile, normal WBC. Denies chest pain, palpitations or increased shortness of breath.. Objective - Vital Signs Vital signs: Vital Signs Temp 98.1 F 06/04/23 09:48 Pulse 96 06/04/23 12:00 Resp 19 06/04/23 11:38 BP 135/65 06/04/23 11:38 Pulse Ox 97 06/04/23 11:38 FiO2 Intake & Output 06/03/23 06/04/23 06/04/23 18:59 06:59 18:59 Intake Total 118 Output Total 700 300 12 Balance -582 -300 -12 Intake: Oral 118 Output: Chest Tube Drainage 12 Chest Tube Left Lower 12 Urine 700 300 Other: Voiding Method Urinal Urinal Urinal Diaper Diaper Diaper # Voids 3 - Exam PHYSICAL EXAM: VITAL SIGNS: [As above] GENERAL: Alert and oriented 2-3 ,Cachectic elderly male, fatigued, alert and oriented 2, no acute distress, sitting up in bed. HEENT: Normocephalic ,Conjunctivae normal. eyes normal. NECK: Supple, No JVD. CARDIOVASCULAR: S1, S2 regular. No murmur RESPIRATION: Unlabored, equal air entry, Breath sounds diminished in the bases. Left pleural chest tube. ABDOMEN: Soft, nondistended, nontender . No guarding.+BS LEGS: No edema. no swelling NERVOUS SYSTEM: Cranial N 2-12 grossly normal. Skin: Warm and dry, no rash - Labs CBC & Chem 7: 06/02/23 06:25 06/02/23 06:25 Labs: Microbiology - Last 24 Hours (Table) 05/31/23 12:42 Blood Culture - Preliminary Blood Assessment and Plan Assessment: Recurrent left-sided pneumothorax status post fall, status post Thoravent placement, currently with left pleural chest tube. Positive subcutaneous emphysema. Acute hypoxic respiratory failure secondary to the above Severe bullous emphysema Leukocytosis resolved. History of dysphagia, patient and family requesting chopped dysphagia 3 diet, MBS declined,aware of risk of aspiration as per speech therapy's discussion with them. History of left-sided pneumothorax status post Thoravent placement 03/22. Possible right lower lobe opacity reported per chest x-ray History of left-sided squamous cell lung CA status post systemic chemotherapy. Pulmonary reports recent PET scan reporting disease progression. CAD with history of stent Hyperlipidemia Anemia of chronic disease Prior nicotine dependence Moderate protein calorie malnutrition, BMI 21 Plan: Continue on current medication regime ,monitoring and symptomatic treatment. Continue product safety compliance leader.maintain antibiotics .continue with aggressive pulmonary toileting with incentive spirometer reinforced. Encourage patient to use incentive spirometer and encourage oral intake. Potential DC of left pleural chest tube tomorrow as per CTS. PT/OT. The impression and plan of care has been dictated as directed. : I performed a history and examination of this patient, discussed the same with the dictator. I agree with the dictator's note ,documented as a scribe. Any additional findings or plans will be noted.
--- NOTE | 2023-06-04 16:23 | P.PN ---
Subjective Progress Note Date: 06/04/23 On today's evaluation of 06/02/2023, the patient is resting comfortably in bed. His mental status has been fluctuating get I was told that he is more oriented and less agitated compared to few days back. He has a sitter at the bedside. As stated, the patient has a left-sided pneumothorax, initially treated with a small bore catheter and subsequently the patient was given a chest tube. The chest tube is in a good location on today's chest x-ray. There is some limited subcu emphysema along the left chest. She is no evidence of any sizable pneumothorax. There is obvious background COPD. The patient is a 77 years old. He has sustained a fall at home and he had a left-sided pneumothorax. He is known to have COPD with severe bullous disease. 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 His most recent CAT scan of the chest that was done on 05/28/2023 showed the pneumothorax. His prior CAT scan of the chest from 02/10/2023 showed a slight decrease in the size of the lobe related mass in the left upper lobe with some surrounding atelectasis. On 06/03/2023, the patient is quite somnolent and sleepy. He received Haldol last night as the patient was becoming more agitated and combative. Probably a component of delirium was also present. The patient was given Haldol. This morning his resting comfortably in bed. His somnolent. He is able to respond upon stimulation. No significant rest of distress. He remains on oxygen and he is on 6 L of oxygen by nasal cannula. Left-sided chest tube is still in place. A repeat chest x-ray was done today and shows some ongoing symptoms of edema on the left. Apical bullous emphysematous changes. Chest tube is in a good location. No clear indication for an underlying pneumothorax. The chest tube was kept waterseal over the past 24 hours. She will be clamped and another c hest x-ray obtained tomorrow.Labs from today are still pending. Labs from yesterday were all noted. Pro-calcitonin was unexpectedly elevated and the patient has been on IV Zosyn. On 06/04/2023, seeing the patient for a follow-up. Left-sided chest tube was kept in place. The chest x-ray showed no evidence of pneumothorax. Stable subcutaneous emphysema. The patient remains on 6 L of oxygen nasal cannula with a polypectomy. The patient in the bedside. He was on a computer he is trying to get up in bed thinking is going to go out to smoke. No new labs are available from today. Most recent full calcitonin level is at 1.58 and the patient is currently on IV Zosyn. He is afebrile. Hemodynamically stable. The decision was to keep the chest tube in for another 24 hours Objective - Vital Signs Vital signs: Vital Signs Temp 98.1 F 06/04/23 09:48 Pulse 80 06/04/23 09:48 Resp 17 06/04/23 09:48 BP 140/68 06/04/23 09:48 Pulse Ox 96 06/04/23 09:48 FiO2 Intake & Output 06/03/23 06/04/23 06/04/23 18:59 06:59 18:59 Intake Total 118 Output Total 700 300 12 Balance -582 -300 -12 Intake: Oral 118 Output: Chest Tube Drainage 12 Chest Tube Left Lower 12 Urine 700 300 Other: Voiding Method Urinal Urinal Urinal Diaper Diaper Diaper # Voids 3 - Exam CONSTITUTIONAL: Appears comfortable, no acute distress although does cough with intake of fluids the patient is currently on 6 L of oxygen nasal cannula RESPIRATORY: Lungs sounds diminished bilaterally in the bases. Respirations even, nonlabored. C CARDIOVASCULAR: S1, S2 present. Regular rate and rhythm, sinus rhythm on telemetry. Palpable peripheral pulses bilaterally. No edema present. No calf pain or tenderness noted. SCDs present. GASTROINTESTINAL: Abdomen soft, nontender, nondistended. Active bowel sounds present 4 quadrants. Tolerating diet GENITOURINARY: Continues to void INTEGUMENTARY: Skin is warm and dry. 3 sided dressing present over thoravent site NEUROLOGIC: Cranial nerves II through XII intact MUSKULOSKELETAL: Able to move all extremities, strength equal bilaterally PSYCHIATRIC: Alert and oriented to person place and time INVASIVE LINES AND TUBES: Left-sided pleural chest tube present and connected to wall suction, no air leak seen with coughing, minimal drainage - Labs CBC & Chem 7: 06/02/23 06:25 06/02/23 06:25 Labs: Microbiology - Last 24 Hours (Table) 05/31/23 12:42 Blood Culture - Preliminary Blood Assessment and Plan Plan: Recurrent left-sided pneumothorax, status post placement of thoravent by emergency room physicians, status post left thoracostomy tube placement by Dr. To, the chest tube is in place and there is no evidence of any air leak. The chest tube was taken off the suction and currently is on waterseal. No evidence of any pneumothorax. No evidence of any subcu in his emphysema History of left-sided pneumothorax in February 2023 Coronary artery disease with previous PCI Hyperlipidemia Previous tobacco dependence COPD with significant bullous emphysema Leukocytosis with fever, procalcitonin 1.58, on today's labs, has a white cell count is at 9.4 with a hemoglobin of 10.9. Delirium and agitation, given haldol Plan: Clinically stable and the patient is currently on 4- 6L of oxygen by nasal cannula. Chest tube will be clamped Repeat chest x-ray in the morning Monitor mental status Wean O2 as tolerated, encourage incentive spirometry use Increase activity as tolerated Repeat pro-calcitonin level, labs are pending from today
[2023-06-04] MEDS: MORPHINE SULFATE 4 MG/ML SYRINGE IV PRN ×2 (18:16→23:52)
[2023-06-05] MEDS: PANTOPRAZOLE 40 MG TABLET PO SCH (06:08)
[2023-06-05] MEDS: NICOTINE 14MG/24HR PATCH TRANSDERM SCH (08:30)
[2023-06-05] MEDS: ALBUTEROL NEBULIZED 2.5 MG/3 ML INHALATION SCH ×4 (08:31→20:02)
[2023-06-05] MEDS: ATORVASTATIN 40 MG TAB PO SCH (08:31)
[2023-06-05] MEDS: ACETAMINOPHEN TAB 325 MG TAB PO PRN (08:31)
[2023-06-05] MEDS: OLANZapine 5 MG TAB PO SCH ×2 (08:31→16:38)
[2023-06-05] MEDS: PIPERACILLIN-TAZOBACTAM 3.375 GM in SODIUM CHLORIDE 0.9% 100 ML IVPB SCH ×2 (08:31→16:38)
--- NOTE | 2023-06-05 08:56 | XR ---
EXAMINATION TYPE: XR chest 1V portable DATE OF EXAM: 06/05/2023 COMPARISON: 06/04/2023 HISTORY: Left-sided pneumothorax TECHNIQUE: Single frontal view of the chest is obtained. FINDINGS: Chest tube seen in position with small left pneumothorax along the lower medial left lung. . Subcutaneous emphysema. Arthropathy of the shoulder with diffuse osteopenia hypertrophic and degene rative changes of the spine. Underlying COPD. Atherosclerotic change aorta. Surgical changes overlyin g the cervical spine. Emphysematous changes noted. Sclerotic lesion involving the right humerus could be related to bone infarct or a chondroid lesion. Soft tissue edema extends over this right upper ne ck. Chronic deformity left clavicle. IMPRESSION: 1. There is approximately 5% pneumothorax seen along the lower medial aspect of the left lung.. 2. Persistent extensive subcutaneous emphysema.
[2023-06-05] MEDS: HALOPERIDOL LACTATE 5 MG/ML 1 ML VIAL IM PRN (12:12)
--- NOTE | 2023-06-05 13:54 | XR ---
EXAMINATION TYPE: XR chest 1V portable DATE OF EXAM: 06/05/2023 COMPARISON: 06/05/2023 HISTORY: Pain TECHNIQUE: Single frontal view of the chest is obtained. FINDINGS: Chest tube seen in position with small left pneumothorax along the lower medial left lung. . Subcutaneous emphysema. Arthropathy of the shoulder with diffuse osteopenia hypertrophic and degene rative changes of the spine. Underlying COPD. Atherosclerotic change aorta. Surgical changes overlyin g the cervical spine. Emphysematous changes noted. Sclerotic lesion involving the right humerus could be related to bone infarct or a chondroid lesion. Soft tissue edema extends over this right upper neck. Chronic deformity left clavicle. Increased suprahilar area of patchy infiltrate or mass stable. IMPRESSION: 1. There is approximately 5% pneumothorax seen along the lower medial aspect of the left lung. 2. Persistent extensive subcutaneous emphysema.
--- NOTE | 2023-06-05 14:53 | P.PN ---
Subjective Progress Note Date: 06/05/23 On today's evaluation of 06/02/2023, the patient is resting comfortably in bed. His mental status has been fluctuating get I was told that he is more oriented and less agitated compared to few days back. He has a sitter at the bedside. As stated, the patient has a left-sided pneumothorax, initially treated with a small bore catheter and subsequently the patient was given a chest tube. The chest tube is in a good location on today's chest x-ray. There is some limited subcu emphysema along the left chest. She is no evidence of any sizable pneumothorax. There is obvious background COPD. The patient is a 77 years old. He has sustained a fall at home and he had a left-sided pneumothorax. He is known to have COPD with severe bullous disease. 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 His most recent CAT scan of the chest that was done on 05/28/2023 showed the pneumothorax. His prior CAT scan of the chest from 02/10/2023 showed a slight decrease in the size of the lobe related mass in the left upper lobe with some surrounding atelectasis. On 06/03/2023, the patient is quite somnolent and sleepy. He received Haldol last night as the patient was becoming more agitated and combative. Probably a component of delirium was also present. The patient was given Haldol. This morning his resting comfortably in bed. His somnolent. He is able to respond upon stimulation. No significant rest of distress. He remains on oxygen and he is on 6 L of oxygen by nasal cannula. Left-sided chest tube is still in place. A repeat chest x-ray was done today and shows some ongoing symptoms of edema on the left. Apical bullous emphysematous changes. Chest tube is in a good location. No clear indication for an underlying pneumothorax. The chest tube was kept waterseal over the past 24 hours. She will be clamped and another c hest x-ray obtained tomorrow.Labs from today are still pending. Labs from yesterday were all noted. Pro-calcitonin was unexpectedly elevated and the patient has been on IV Zosyn. On 06/04/2023, seeing the patient for a follow-up. Left-sided chest tube was kept in place. The chest x-ray showed no evidence of pneumothorax. Stable subcutaneous emphysema. The patient remains on 6 L of oxygen nasal cannula with a polypectomy. The patient in the bedside. He was on a computer he is trying to get up in bed thinking is going to go out to smoke. No new labs are available from today. Most recent full calcitonin level is at 1.58 and the patient is currently on IV Zosyn. He is afebrile. Hemodynamically stable. The decision was to keep the chest tube in for another 24 hours On today's evaluation of 06/02/2023, the patient's is on 5 L of oxygen by nasal cannula. No appendiceal distress. Appearance emphysema still present with left anterior chest area which remains unchanged. The chest x-ray from today shows a questionable left apical pneumothorax in the order of 5%. The chest tube was clamped and the chest will possibly be removed as the patient is able to tolerate it without any pneumothorax. A repeat chest x-ray still pending for now. The patient is comfortable in bed. BUN is at 33 with a creatinine of 0.7. The risk of 9.4 and those labs are from 06/02/2023. The patient remains on IV Zosyn. Patient remains on albuterol nebulized treatments [id number] 4 times a day. He has occasional delirium and his taken Haldol for that. Objective - Vital Signs Vital signs: Vital Signs Temp 98.5 F 06/05/23 08:08 Pulse 86 06/05/23 08:08 Resp 20 06/05/23 08:08 BP 146/81 06/05/23 08:08 Pulse Ox 95 06/05/23 08:08 FiO2 Intake & Output 06/04/23 06/05/23 06/05/23 18:59 06:59 18:59 Intake Total 240 70 Output Total 562 300 0 Balance -562 -60 70 Weight 63.503 kg Intake: IV 10 Invasive Line 5 10 Oral 240 60 Output: Chest Tube Drainage 12 0 Chest Tube Left Lower 12 0 Gastric Drainage 0 Urine 550 300 0 Stool 0 Urine/Stool Mix 0 Emesis 0 Oral Regurgitation 0 Other: Voiding Method Urinal Urinal Diaper Diaper # Voids 1 0 # Bowel Movements 0 - Exam CONSTITUTIONAL: Appears comfortable, no acute distress although does cough with intake of fluids the patient is currently on 5 L of oxygen nasal cannula RESPIRATORY: Lungs sounds diminished bilaterally in the bases. Respirations even, nonlabored. The left-sided chest tube is currently clamped CARDIOVASCULAR: S1, S2 present. Regular rate and rhythm, sinus rhythm on tel emetry. Palpable peripheral pulses bilaterally. No edema present. No calf pain or tenderness noted. SCDs present. GASTROINTESTINAL: Abdomen soft, nontender, nondistended. Active bowel sounds present 4 quadrants. Tolerating diet GENITOURINARY: Continues to void INTEGUMENTARY: Skin is warm and dry. 3 sided dressing present over thoravent site NEUROLOGIC: Cranial nerves II through XII intact MUSKULOSKELETAL: Able to move all extremities, strength equal bilaterally PSYCHIATRIC: Alert and oriented to person place and time INVASIVE LINES AND TUBES: Left-sided pleural chest tube present and connected to wall suction, no air leak seen with coughing, minimal drainage - Labs CBC & Chem 7: 06/02/23 06:25 06/02/23 06:25 Assessment and Plan Plan: Recurrent left-sided pneumothorax, status post placement of thoravent by emergency room physicians, status post left thoracostomy tube placement by Dr. To, the chest tube is in place and there is no evidence of any air leak. The chest tube was clamped this morning, awaiting a follow-up chest x-ray. The morning chest x-ray shows questionable left apical pneumothorax in the order of 5% or less. The patient has stable subcutaneous emphysema. History of left-sided pneumothorax in February 2023 Coronary artery disease with previous PCI Hyperlipidemia Previous tobacco dependence COPD with significant bullous emphysema Leukocytosis with fever, procalcitonin 1.58, on today's labs, has a white cell count is at 9.4 with a hemoglobin of 10.9. Delirium and agitation, given haldol Plan: Clinically stable and the patient is currently on 4- 6L of oxygen by nasal cannula. Currently on 5 L Chest tube was clamped Repeat chest x-ray and decide if the chest tube can be removed Monitor mental status Wean O2 as tolerated, encourage incentive spirometry use Increase activity as tolerated Repeat pro-calcitonin level, labs are pending from today
--- NOTE | 2023-06-05 17:14 | P.PN ---
Subjective Progress Note Date: 06/05/23 Principal diagnosis: Recurrent left-sided pneumothorax, status post placement of thoravent, acute hypoxic respiratory failure, fall at home. 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 Persistent pneumothorax, status post thoracostomy tube placement by Dr. To. Patient was seen and examined at his bedside on the third for cardiac stepdown unit 06/05/2023. He is currently laying in bed, is awake, alert and disoriented. He is a 1:1 sitter with him present at his bedside. The patient's son is currently at his bedside. The patient denies any complaints of pain or shortness of breath at this time. Remote telemetry showing normal sinus rhythm heart rate 78 BPM. Oxygen saturations are 93% on 5 L nasal cannula. His left pleural chest tube remains in place to water seal, no air leak is present. Draining thin serosanguineous drainage. We have clamped his left pleural chest tube and a repeat chest x-ray was completed and results reviewed. Objective - Vital Signs Vital signs: Vital Signs Temp 98.2 F 06/05/23 16:28 Pulse 79 06/05/23 16:28 Resp 16 06/05/23 16:28 BP 157/73 06/05/23 16:28 Pulse Ox 96 06/05/23 16:28 FiO2 Intake & Output 06/04/23 06/05/23 06/05/23 18:59 06:59 18:59 Intake Total 240 80 Output Total 562 300 0 Balance -562 -60 80 Weight 63.503 kg Intake: IV 20 Invasive Line 4 10 Invasive Line 5 10 Oral 240 60 Output: Chest Tube Drainage 12 0 Chest Tube Left Lower 12 0 Gastric Drainage 0 Urine 550 300 0 Stool 0 Urine/Stool Mix 0 Emesis 0 Oral Regurgitation 0 Other: Voiding Method Urinal Urinal Urinal Diaper Diaper Diaper # Voids 1 2 # Bowel Movements 0 - Exam CONSTITUTIONAL: Appears comfortable, no acute distress. RESPIRATORY: Lungs sounds diminished bilaterally to his bases. Respirations are symmetrical, nonlabored. Currently on 5 liters high flow nasal cannula with oxygen saturation 93% CARDIOVASCULAR: S1, S2 present. Regular rate and rhythm, normal sinus rhythm on remote telemetry with a heart rate of 78 BPM. Palpable peripheral pulses bilaterally. No edema present. No calf pain or tenderness noted. SCDs present. GASTROINTESTINAL: Abdomen soft, nontender, nondistended. Active bowel sounds present 4 quadrants. Tolerating diet. GENITOURINARY: Continues to void. INTEGUMENTARY: Skin is warm and dry. Dressing clean and dry and intact over previous thoravent site. NEUROLOGIC: Cranial nerves II through XII intact. MUSKULOSKELETAL: Able to move all extremities, strength equal bilaterally. PSYCHIATRIC: Alert and oriented to person, place and time. INVASIVE LINES AND TUBES: Left-sided pleural chest tube present to waterseal, no air leak seen, minimal thin serosanguineous drainage. - Allied health notes Allied health notes reviewed: nursing - Labs CBC & Chem 7: 06/02/23 06:25 06/02/23 06:25 - Imaging and Cardiology Chest x-ray: report reviewed, image reviewed Assessment and Plan Assessment: Recurrent left-sided pneumothorax, status post placement of thoravent by e mergency room physicians, status post left thoracostomy tube placement by Dr. 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 Agree with one-to-one sitter for patient safety. Repeat chest x-ray in the a.m. 06/06/2023. Wean O2 as tolerated, encourage incentive spirometry use 10 times every hour while awake. Increase activity as tolerated. Antibiotics per internal medicine recommendations and management. Medical management of the comorbidities per internal medicine, pulmonology. We will continue to follow the patient on an as-needed basis. Time with Patient: Greater than 30
[2023-06-06] MEDS: PIPERACILLIN-TAZOBACTAM 3.375 GM in SODIUM CHLORIDE 0.9% 100 ML IVPB SCH ×4 (00:30→23:49)
[2023-06-06] MEDS: OLANZapine 5 MG TAB PO SCH ×4 (03:27→20:50)
--- NOTE | 2023-06-06 07:43 | XR ---
EXAMINATION TYPE: XR chest 1V portable DATE OF EXAM: 06/06/2023 Comparison: 06/05/2023 Clinical History: 77-year-old male removal left chest tube Findings: ACF hardware. Interval removal left-sided chest tube with residual subcutaneous emphysema along the l eft chest wall and also right infraclavicular region. Heart upper limits of normal in size. Hyperinfl ation. Patchy opacity left mid and lower lung similar to slightly increased. Patchy medial right basi lar opacity increased as well. No sizable pneumothorax is identified. Impression: 1. Removal of left-sided chest tube. Persistent subcutaneous emphysema on the left. No appreciable pn eumothorax. 2. COPD. Increasing interstitial and patchy densities left mid and lower lung and right medial base. Follow-up recommended to exclude developing infiltrates.
[2023-06-06] MEDS: ALBUTEROL NEBULIZED 2.5 MG/3 ML INHALATION SCH ×5 (08:04→21:21)
[2023-06-06] MEDS: HYDROcodone/APAP 10-325MG 1 EACH TAB PO PRN ×2 (08:34→16:24)
[2023-06-06] MEDS: NICOTINE 14MG/24HR PATCH TRANSDERM SCH (08:34)
[2023-06-06] MEDS: PANTOPRAZOLE 40 MG TABLET PO SCH (08:35)
[2023-06-06] MEDS: ATORVASTATIN 40 MG TAB PO SCH (08:35)
--- NOTE | 2023-06-06 12:40 | P.PN ---
Subjective Progress Note Date: 06/05/23 H&P Date: 05/29/23 Chief Complaint: Recurrent left-sided pneumothorax status post fall This is a 77-year-old gentleman with past medical history significant for left sided pneumothorax required thoravent 03/22, left-sided squamous cell lung CA on chemotherapy/radiation with recent disease progression reported, COPD, CAD with stents, hyperlipidemia, prior nicotine dependence and multiple other medical issues presented to the ER status post fall with recurrent left-sided pneumothorax, thoravent placed per ER without complete reexpansion. Multiple radiology studies including head/C-spine CT reported no acute intracranial process or cervical spine fracture,large left pneumothorax with severe bullous emphysema. Complains of chest tube insertion site discomfort otherwise denies chest pain, palpitations or shortness of breath. Maintaining O2 sats in the high 90s on 4 L high flow nasal cannula. Afebrile, WBC has normalized. Chest x-ray pending. 05/30/2023 system safety engineer maintained at bedside. Confused, agitated during the night. Short of breath. Chest x-ray reporting persistent left small to moderate pleural effusion similar to prior. Maintaining O2 sats in the high 90s on 4 L nasal cannula. CTS recommending changing over to a full thoracostomy tube. Afebrile. Fair diet intake. Denies chest pain or palpitations, teary- eyed, eager to go home. 06/02/2023 sensorium improving, system safety engineer at bedside.Thoravent discontinued and currently with left pleural chest tube. Chest x-ray reporting COPD with no sizable pneumothorax. Denies chest pain, palpitations or increased shortness of breath. Continues on Zosyn. T-max 100.6, blood cultures pending. Repeat pro calcitonin pending. 06/03/2023 agitated during the night, required Haldol. Sleepy this morning. Sitter at bedside. Continues on Zosyn. Maintaining O2 sats in the high 90s on 6 L nasal cannula. T-max 100.2, WBC within normal limits. Pulmonary blood cultures reporting no growth after 48 hours. Left pleural chest tube to waterseal over the last 24 hours,chest x-ray reporting stable, subcutaneous emphysema, possible small pneumothorax. 06/04/2023 sitter at bedside. left pleural chest tube to waterseal, maintaining O2 sats in the high 90s on 5 L high flow nasal cannula. Chest x-ray reporting no definite sizable pneumothorax, persistent extensive subcutaneous emphysema. Maintained on Zosyn .Afebrile, normal WBC. Denies chest pain, palpitations or increased shortness of breath. 06/05/2023 medicated for pain close to midnight,loopy this am. BCC Zyprexa at bedtime, system safety engineer maintained. Chest x-ray reporting approximately 5% pneumothorax along the lower medial aspect of the left lung, persistent extensive subcutaneous emphysema. Left pleural Chest tube clamped. Repeat chest x-ray pending. Telemetry sinus rhythm. Diet intake fair, staff reports patient coughing with food intake. Objective - Vital Signs Vital signs: Vital Signs Temp 98.3 F 06/05/23 12:15 Pulse 98 06/05/23 12:15 Resp 20 06/05/23 12:15 BP 119/68 06/05/23 12:15 Pulse Ox 92 L 06/05/23 12:15 FiO2 Intake & Output 06/04/23 06/05/23 06/05/23 18:59 06:59 18:59 Intake Total 240 70 Output Total 562 300 0 Balance -562 -60 70 Weight 63.503 kg Intake: IV 10 Invasive Line 5 10 Oral 240 60 Output: Chest Tube Drainage 12 0 Chest Tube Left Lower 12 0 Gastric Drainage 0 Urine 550 300 0 Stool 0 Urine/Stool Mix 0 Emesis 0 Oral Regurgitation 0 Other: Voiding Method Urinal Urinal Urinal Diaper Diaper Diaper # Voids 1 0 # Bowel Movements 0 - Exam PHYSICAL EXAM: VITAL SIGNS: [As above] GENERAL: Alert and oriented 2-3 ,Cachectic elderly male, fatigued, sleepy ,alert and oriented 2, no acute distress, sitting up in bed. HEENT: Normocephalic ,Conjunctivae normal. eyes normal. NECK: Supple, No JVD. CARDIOVASCULAR: S1, S2 regular. No murmur RESPIRATION: Unlabored, equal air entry, Breath sounds diminished in the bases. Left pleural chest tube. ABDOMEN: Soft, nondistended, nontender . No guarding.+BS LEGS: No edema. no swelling NERVOUS SYSTEM: Cranial N 2-12 grossly normal. Skin: Warm and dry, no rash, coccyx stage I - Labs CBC & Chem 7: 06/02/23 06:25 06/02/23 06:25 Assessment and Plan Assessment: Recurrent left-sided pneumothorax status post fall, status post Thoravent placement, currently with left pleural chest tube. Positive subcutaneous emphysema. Acute hypoxic respiratory failure secondary to the above Severe bullous emphysema Leukocytosis resolved. History of dysphagia, patient and family requesting chopped dysphagia 3 diet, MBS declined,aware of risk of aspiration as per speech therapy's discussion with them. History of left-sided pneumothorax status post Thoravent placement 03/22. Possible right lower lobe opacity reported per chest x-ray History of left-sided squamous cell lung CA status post systemic chemotherapy. Pulmonary reports recent PET scan reporting disease progression. CAD with history of stent Hyperlipidemia Anemia of chronic disease Prior nicotine dependence Moderate protein calorie malnutrition, BMI 21 Plan: Continue on current medication regime ,monitoring and symptomatic treatment. fullerette.aggressive pulmonary toileting with antibiotics, nebulized bronchodilators, steroids with incentive spirometer reinforced,. Potential DC of left pleural chest tube today as per CTS. PCP updated son, regarding choking on foods, alternatives. Son requested hospice informational meeting. The impression and plan of care has been dictated as directed. : I performed a history and examination of this patient, discussed the same with the dictator. I agree with the dictator's note ,documented as a scribe. Any additional findings or plans will be noted.
--- NOTE | 2023-06-06 12:51 | P.PN ---
Subjective Progress Note Date: 06/06/23 H&P Date: 05/29/23 Chief Complaint: Recurrent left-sided pneumothorax status post fall This is a 77-year-old gentleman with past medical history significant for left sided pneumothorax required thoravent 03/22, left-sided squamous cell lung CA on chemotherapy/radiation with recent disease progression reported, COPD, CAD with stents, hyperlipidemia, prior nicotine dependence and multiple other medical issues presented to the ER status post fall with recurrent left-sided pneumothorax, thoravent placed per ER without complete reexpansion. Multiple radiology studies including head/C-spine CT reported no acute intracranial process or cervical spine fracture,large left pneumothorax with severe bullous emphysema. Complains of chest tube insertion site discomfort otherwise denies chest pain, palpitations or shortness of breath. Maintaining O2 sats in the high 90s on 4 L high flow nasal cannula. Afebrile, WBC has normalized. Chest x-ray pending. 05/30/2023 food safety officer maintained at bedside. Confused, agitated during the night. Short of breath. Chest x-ray reporting persistent left small to moderate pleural effusion similar to prior. Maintaining O2 sats in the high 90s on 4 L nasal cannula. CTS recommending changing over to a full thoracostomy tube. Afebrile. Fair diet intake. Denies chest pain or palpitations, teary- eyed, eager to go home. 06/02/2023 sensorium improving, food safety officer at bedside.Thoravent discontinued and currently with left pleural chest tube. Chest x-ray reporting COPD with no sizable pneumothorax. Denies chest pain, palpitations or increased shortness of breath. Continues on Zosyn. T-max 100.6, blood cultures pending. Repeat pro calcitonin pending. 06/03/2023 agitated during the night, required Haldol. Sleepy this morning. Sitter at bedside. Continues on Zosyn. Maintaining O2 sats in the high 90s on 6 L nasal cannula. T-max 100.2, WBC within normal limits. Pulmonary blood cultures reporting no growth after 48 hours. Left pleural chest tube to waterseal over the last 24 hours,chest x-ray reporting stable, subcutaneous emphysema, possible small pneumothorax. 06/04/2023 sitter at bedside. left pleural chest tube to waterseal, maintaining O2 sats in the high 90s on 5 L high flow nasal cannula. Chest x-ray reporting no definite sizable pneumothorax, persistent extensive subcutaneous emphysema. Maintained on Zosyn .Afebrile, normal WBC. Denies chest pain, palpitations or increased shortness of breath. 06/05/2023 medicated for pain close to midnight,loopy this am. BCC Zyprexa at bedtime, food safety officer maintained. Chest x-ray reporting approximately 5% pneumothorax along the lower medial aspect of the left lung, persistent extensive subcutaneous emphysema. Left pleural Chest tube clamped. Repeat chest x-ray pending. Telemetry sinus rhythm. Diet intake fair, staff reports patient coughing with food intake. 06/06/2023 Son met with hospice regarding informational meeting. Wishes to discuss it further with siblings. Patient remains a full code at this time. Continues on Zosyn, nebulized bronchodilators, afebrile. Left pleural chest tube discontinued yesterday. Chest x-ray this morning reports persistent subcutaneous emphysema on the left no appreciable pneumothorax, COPD, increasing interstitial and patchy densities left mid and lower lung and right medial base possible developing infiltrates. Currently maintaining O2 sats in the high 90s on 4 Lnc. Patient reports shortness of breath. Objective - Vital Signs Vital signs: Vital Signs Temp 98.6 F 06/06/23 11:33 Pulse 72 06/06/23 12:09 Resp 20 06/06/23 11:33 BP 128/72 06/06/23 11:33 Pulse Ox 96 06/06/23 11:33 FiO2 Intake & Output 06/05/23 06/06/23 06/06/23 18:59 06:59 18:59 Intake Total 200 20 20 Output Total 150 300 Balance 50 -280 20 Intake: IV 20 20 20 Invasive Line 4 10 20 10 Invasive Line 5 10 10 Oral 180 Output: Chest Tube Drainage 0 Chest Tube Left Lower 0 Gastric Drainage 0 Urine 150 300 Stool 0 0 Urine/Stool Mix 0 Emesis 0 Oral Regurgitation 0 Other: Voiding Method Urinal Urinal Urinal Diaper Diaper Diaper # Voids 2 1 # Bowel Movements 0 - Exam PHYSICAL EXAM: VITAL SIGNS: [As above] GENERAL: Alert and oriented 2,Cachectic elderly male, fatigued, sleepy ,sitting up in bed,NAD HEENT: Normocephalic ,Conjunctivae normal. eyes normal. NECK: Supple, No JVD. CARDIOVASCULAR: S1, S2 regular. No murmur RESPIRATION: Unlabored, equal air entry, Breath sounds diminished in the bases. ABDOMEN: Soft, nondistended, nontender . No guarding.+BS LEGS: No edema. no swelling NERVOUS SYSTEM: Cranial N 2-12 grossly normal. Skin: Warm and dry, no rash, coccyx stage I - Labs CBC & Chem 7: 06/02/23 06:25 06/02/23 06:25 Labs: Abnormal Lab Results - Last 24 Hours (Table) 06/02/23 Range/Units 06:25 Procalcitonin 2.14 H (0.02-0.09) ng/mL Microbiology - Last 24 Hours (Table) 05/31/23 12:42 Blood Culture - Final Blood Assessment and Plan Assessment: Recurrent left-sided pneumothorax status post fall, status post Thoravent placement, currently with left pleural chest tube. Positive subcutaneous emphysema. Acute hypoxic respiratory failure secondary to the above Severe bullous emphysema Leukocytosis resolved. History of dysphagia, patient and family requesting chopped dysphagia 3 diet, MBS declined,aware of risk of aspiration as per speech therapy's discussion with them. History of left-sided pneumothorax status post Thoravent placement 03/22. Possible right lower lobe opacity reported per chest x-ray History of left-sided squamous cell lung CA status post systemic chemotherapy. Pulmonary reports recent PET scan reporting disease progression. CAD with history of stent Hyperlipidemia Anemia of chronic disease Prior nicotine dependence Moderate protein calorie malnutrition, BMI 21 Plan: Continue on current medication regime ,monitoring and symptomatic treatment. Maintain supportive care. teenage babysitter.aggressive pulmonary toileting with antibiotics, nebulized bronchodilators, steroids with incentive spirometer reinforced. Family considering hospice and changing CODE STATUS. Prognosis guarded given multiple complex medical issues. The impression and plan of care has been dictated as directed. : I performed a history and examination of this patient, discussed the same with the dictator. I agree with the dictator's note ,documented as a scribe. Any additional findings or plans will be noted.
--- NOTE | 2023-06-06 13:11 | P.PN ---
Subjective Progress Note Date: 06/06/23 On today's evaluation of 06/02/2023, the patient is resting comfortably in bed. His mental status has been fluctuating get I was told that he is more oriented and less agitated compared to few days back. He has a sitter at the bedside. As stated, the patient has a left-sided pneumothorax, initially treated with a small bore catheter and subsequently the patient was given a chest tube. The chest tube is in a good location on today's chest x-ray. There is some limited subcu emphysema along the left chest. She is no evidence of any sizable pneumothorax. There is obvious background COPD. The patient is a 77 years old. He has sustained a fall at home and he had a left-sided pneumothorax. He is known to have COPD with severe bullous disease. 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 His most recent CAT scan of the chest that was done on 05/28/2023 showed the pneumothorax. His prior CAT scan of the chest from 02/10/2023 showed a slight decrease in the size of the lobe related mass in the left upper lobe with some surrounding atelectasis. On 06/03/2023, the patient is quite somnolent and sleepy. He received Haldol last night as the patient was becoming more agitated and combative. Probably a component of delirium was also present. The patient was given Haldol. This morning his resting comfortably in bed. His somnolent. He is able to respond upon stimulation. No significant rest of distress. He remains on oxygen and he is on 6 L of oxygen by nasal cannula. Left-sided chest tube is still in place. A repeat chest x-ray was done today and shows some ongoing symptoms of edema on the left. Apical bullous emphysematous changes. Chest tube is in a good location. No clear indication for an underlying pneumothorax. The chest tube was kept waterseal over the past 24 hours. She will be clamped and another c hest x-ray obtained tomorrow.Labs from today are still pending. Labs from yesterday were all noted. Pro-calcitonin was unexpectedly elevated and the patient has been on IV Zosyn. On 06/04/2023, seeing the patient for a follow-up. Left-sided chest tube was kept in place. The chest x-ray showed no evidence of pneumothorax. Stable subcutaneous emphysema. The patient remains on 6 L of oxygen nasal cannula with a polypectomy. The patient in the bedside. He was on a computer he is trying to get up in bed thinking is going to go out to smoke. No new labs are available from today. Most recent full calcitonin level is at 1.58 and the patient is currently on IV Zosyn. He is afebrile. Hemodynamically stable. The decision was to keep the chest tube in for another 24 hours On today's evaluation of 06/02/2023, the patient's is on 5 L of oxygen by nasal cannula. No appendiceal distress. Appearance emphysema still present with left anterior chest area which remains unchanged. The chest x-ray from today shows a questionable left apical pneumothorax in the order of 5%. The chest tube was clamped and the chest will possibly be removed as the patient is able to tolerate it without any pneumothorax. A repeat chest x-ray still pending for now. The patient is comfortable in bed. BUN is at 33 with a creatinine of 0.7. The risk of 9.4 and those labs are from 06/02/2023. The patient remains on IV Zosyn. Patient remains on albuterol nebulized treatments [id number] 4 times a day. He has occasional delirium and his taken Haldol for that. on today's evaluation of 06/03/2023, the patient on 4 L of oxygen by nasal cannula. No respiratory distress. The chest tube was removed yesterday and the follow-up chest x-ray from today shows a stable appearance emphysema without any clear evidence of a pneumothorax at this point in time.The patient is otherwise doing well. No specific complaints. BUN is at 33 with a creatinine of 0.7. Sodium level is at 143. The risk was at 9.4 with a hemoglobin of 10.9. Pro- calcitonin level follow-up was at 2.14. The patient remains on empiric antibiotic coverage with IV Zosyn. The pro-calcitonin slightly higher compared to his baseline. No clear signs of an infection at this point in time. Mental status is more proper on today's evaluation patient is tolerating diet. Objective - Vital Signs Vital signs: Vital Signs Temp 97.8 F 06/06/23 08:22 Pulse 76 12/08/23 08:22 Resp 20 06/06/23 08:22 BP 142/77 06/06/23 08:22 Pulse Ox 97 06/06/23 08:22 FiO2 Intake & Output 06/05/23 06/06/23 06/06/23 18:59 06:59 18:59 Intake Total 200 20 20 Output Total 150 300 Balance 50 -280 20 Intake: IV 20 20 20 Invasive Line 4 10 20 10 Invasive Line 5 10 10 Oral 180 Output: Chest Tube Drainage 0 Chest Tube Left Lower 0 Gastric Drainage 0 Urine 150 300 Stool 0 0 Urine/Stool Mix 0 Emesis 0 Oral Regurgitation 0 Other: Voiding Method Urinal Urinal Diaper Diaper # Voids 2 1 # Bowel Movements 0 - Exam CONSTITUTIONAL: Appears comfortable, no acute distress although does cough with intake of fluids the patient is currently on 4L of oxygen nasal cannula RESPIRATORY: Lungs sounds diminished bilaterally in the bases. Respirations even, nonlabored. The left-sided chest tube was removed CARDIOVASCULAR: S1, S2 present. Regular rate and rhythm, sinus rhythm on telemetry. Palpable peripheral pulses bilaterally. No edema present. No calf pain or tenderness noted. SCDs present. GASTROINTESTINAL: Abdomen soft, nontender, nondistended. Active bowel sounds present 4 quadrants. Tolerating diet GENITOURINARY: Continues to void INTEGUMENTARY: Skin is warm and dry. 3 sided dressing present over thoravent site NEUROLOGIC: Cranial nerves II through XII intact MUSKULOSKELETAL: Able to move all extremities, strength equal bilaterally PSYCHIATRIC: Alert and oriented to person place and time INVASIVE LINES AND TUBES: Left-sided pleural chest tube present and connected to wall suction, no air leak seen with coughing, minimal drainage - Labs CBC & Chem 7: 06/02/23 06:25 06/02/23 06:25 Labs: Abnormal Lab Results - Last 24 Hours (Table) 06/02/23 Range/Units 06:25 Procalcitonin 2.14 H (0.02-0.09) ng/mL Microbiology - Last 24 Hours (Table) 05/31/23 12:42 Blood Culture - Final Blood Assessment and Plan Plan: Recurrent left-sided pneumothorax, status post placement of thoravent by em ergency room physicians, status post left thoracostomy tube placement by Dr. To, the chest tube is in place and there is no evidence of any air leak. The chest tube was removed and the repeat chest x-ray from today shows no evidence of any pneumothorax History of left-sided pneumothorax in February 2023 Coronary artery disease with previous PCI Hyperlipidemia Previous tobacco dependence COPD with significant bullous emphysema Leukocytosis with fever, procalcitonin 1.58, repeat pro-calcitonin level was slightly elevated. The patient remains on IV Zosyn. No clear signs of any infection, the white cell count is not elevated and the patient is afebrile. Delirium and agitation, given haldol, improved Plan: Clinically stable and the patient is currently on 4liters of oxygen nasal cannula Chest tube was cremoved on 06/05/2023 Repeat chest x-ray annose no evidence of any pneumothorax and there is some limited soakings emphysema Monitor mental status Wean O2 as tolerated, encourage incentive spirometry use Increase activity as tolerated Repcontinue IV Zosyn Increase mobility Increase diet We'll follow
[2023-06-06] MEDS: MORPHINE SULFATE 4 MG/ML SYRINGE IV PRN (20:49)
[2023-06-07] MEDS: HALOPERIDOL LACTATE 5 MG/ML 1 ML VIAL IM PRN (03:42)
[2023-06-07] MEDS: MORPHINE SULFATE 4 MG/ML SYRINGE IV PRN ×2 (05:20→12:03)
[2023-06-07] MEDS: PANTOPRAZOLE 40 MG TABLET PO SCH (06:54)
[2023-06-07] MEDS: NICOTINE 14MG/24HR PATCH TRANSDERM SCH (08:25)
[2023-06-07] MEDS: OLANZapine 5 MG TAB PO SCH ×3 (08:25→20:47)
[2023-06-07] MEDS: ATORVASTATIN 40 MG TAB PO SCH (08:25)
[2023-06-07] MEDS: PIPERACILLIN-TAZOBACTAM 3.375 GM in SODIUM CHLORIDE 0.9% 100 ML IVPB SCH ×4 (08:25→23:47)
[2023-06-07] MEDS: ALBUTEROL NEBULIZED 2.5 MG/3 ML INHALATION SCH ×4 (08:41→17:59)
[2023-06-07 11:31] LABS: Basophils % (A) 0 %; Eosinophils # (A) 0.3 k/uL (0-0.7); Eosinophils % (A) 1 %; HCT 34.1 % (39.0-53.0); HGB 10.6 gm/dL (13.0-17.5); Hypochromasia Slight; Lymphocytes # (A) 0.9 k/uL (1.0-4.8); Lymphocytes % (A) 5 %; MCH 29.4 pg (25.0-35.0); MCV 94.8 fL (80.0-100.0); Mean Platelet Volume 7.6; Monocytes # (A) 1.3 k/uL (0-1.0); Monocytes % (A) 7 %; Neutrophils # (A) 16.6 k/uL (1.3-7.7); Neutrophils % (A) 86 %; Platelet Count 506 k/uL (150-450); RDW 15.2 % (11.5-15.5); WBC 19.3 k/uL (3.8-10.6)
[2023-06-07 11:45] LABS: African American GFR (CKD) >90 (>60 ml/min/1.73 sqM); Anion Gap 10 mmol/L; Blood Urea Nitrogen 23 mg/dL (9-20); Calcium 8.8 mg/dL (8.4-10.2); Carbon Dioxide 24 mmol/L (22-30); Chloride 112 mmol/L (98-107); Glucose 104 mg/dL (74-99); Non-African American GFR(CKD) 89 (>60 ml/min/1.73 sqM); Potassium 3.5 mmol/L (3.5-5.1); Sodium 146 mmol/L (137-145)
--- NOTE | 2023-06-07 13:38 | P.PN ---
Subjective Progress Note Date: 06/07/23 On today's evaluation of 06/02/2023, the patient is resting comfortably in bed. His mental status has been fluctuating get I was told that he is more oriented and less agitated compared to few days back. He has a sitter at the bedside. As stated, the patient has a left-sided pneumothorax, initially treated with a small bore catheter and subsequently the patient was given a chest tube. The chest tube is in a good location on today's chest x-ray. There is some limited subcu emphysema along the left chest. She is no evidence of any sizable pneumothorax. There is obvious background COPD. The patient is a 77 years old. He has sustained a fall at home and he had a left-sided pneumothorax. He is known to have COPD with severe bullous disease. 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 His most recent CAT scan of the chest that was done on 05/28/2023 showed the pneumothorax. His prior CAT scan of the chest from 02/10/2023 showed a slight decrease in the size of the lobe related mass in the left upper lobe with some surrounding atelectasis. On 06/03/2023, the patient is quite somnolent and sleepy. He received Haldol last night as the patient was becoming more agitated and combative. Probably a component of delirium was also present. The patient was given Haldol. This morning his resting comfortably in bed. His somnolent. He is able to respond upon stimulation. No significant rest of distress. He remains on oxygen and he is on 6 L of oxygen by nasal cannula. Left-sided chest tube is still in place. A repeat chest x-ray was done today and shows some ongoing symptoms of edema on the left. Apical bullous emphysematous changes. Chest tube is in a good location. No clear indication for an underlying pneumothorax. The chest tube was kept waterseal over the past 24 hours. She will be clamped and another c hest x-ray obtained tomorrow.Labs from today are still pending. Labs from yesterday were all noted. Pro-calcitonin was unexpectedly elevated and the patient has been on IV Zosyn. On 06/04/2023, seeing the patient for a follow-up. Left-sided chest tube was kept in place. The chest x-ray showed no evidence of pneumothorax. Stable subcutaneous emphysema. The patient remains on 6 L of oxygen nasal cannula with a polypectomy. The patient in the bedside. He was on a computer he is trying to get up in bed thinking is going to go out to smoke. No new labs are available from today. Most recent full calcitonin level is at 1.58 and the patient is currently on IV Zosyn. He is afebrile. Hemodynamically stable. The decision was to keep the chest tube in for another 24 hours On today's evaluation of 06/05/2023, the patient's is on 5 L of oxygen by nasal cannula. No appendiceal distress. Appearance emphysema still present with left anterior chest area which remains unchanged. The chest x-ray from today shows a questionable left apical pneumothorax in the order of 5%. The chest tube was clamped and the chest will possibly be removed as the patient is able to tolerate it without any pneumothorax. A repeat chest x-ray still pending for now. The patient is comfortable in bed. BUN is at 33 with a creatinine of 0.7. The risk of 9.4 and those labs are from 06/02/2023. The patient remains on IV Zosyn. Patient remains on albuterol nebulized treatments [id number] 4 times a day. He has occasional delirium and his taken Haldol for that. on today's evaluation of 06/06/2023, the patient on 4 L of oxygen by nasal cannula. No respiratory distress. The chest tube was removed yesterday and the follow-up chest x-ray from today shows a stable appearance emphysema without any clear evidence of a pneumothorax at this point in time.The patient is otherwise doing well. No specific complaints. BUN is at 33 with a creatinine of 0.7. Sodium level is at 143. The risk was at 9.4 with a hemoglobin of 10.9. Pro- calcitonin level follow-up was at 2.14. The patient remains on empiric antibiotic coverage with IV Zosyn. The pro-calcitonin slightly higher compared to his baseline. No clear signs of an infection at this point in time. Mental status is more proper on today's evaluation patient is tolerating diet. On 06/07/2023, seeing the patient for a follow-up. no specific complaints in his overall condition remains unchanged. He does have episodes of that he di dn't confusion. No respiratory distress and the patient remains on 6 L of O2 nasal cannula. He remains on IV Zosyn. The exact cause for the elevated pro- calcitonin is not clear to me. No clear focus of infection this point in time. He remains afebrile. White cell count is at 19.3 which is higher compared to his baseline. Hemoglobin is at 10.6. The enzymes at 23 with a creatinine of 0.7. As mentioned, there was a resident pro-calcitonin from 1.58 up to 2.14. A repeat level to be obtained tomorrow. We'll also initiate infectious workup. Obtain urine analysis, urine cultures and blood cultures. Continue the IV Zosyn for now. Objective - Vital Signs Vital signs: Vital Signs Temp 97.6 F 06/07/23 08:23 Pulse 72 06/07/23 08:50 Resp 16 06/07/23 08:23 BP 127/71 06/07/23 08:23 Pulse Ox 94 L 06/07/23 08:43 FiO2 Intake & Output 06/06/23 06/07/23 06/07/23 18:59 06:59 18:59 Intake Total 240 Output Total 125 0 0 Balance 115 0 0 Intake: IV 20 Invasive Line 4 10 Invasive Line 5 10 Oral 220 Output: Urine 125 Stool 0 0 Other: Voiding Method Urinal Urinal Urinal Diaper Diaper Diaper # Voids 3 2 - Exam CONSTITUTIONAL: Appears comfortable, no acute distress although does cough with intake of fluids the patient is currently on 4L of oxygen nasal cannula RESPIRATORY: Lungs sounds diminished bilaterally in the bases. Respirations even, nonlabored. The left-sided chest tube was removed CARDIOVASCULAR: S1, S2 present. Regular rate and rhythm, sinus rhythm on telemetry. Palpable peripheral pulses bilaterally. No edema present. No calf pain or tenderness noted. SCDs present. GASTROINTESTINAL: Abdomen soft, nontender, nondistended. Active bowel sounds present 4 quadrants. Tolerating diet GENITOURINARY: Continues to void INTEGUMENTARY: Skin is warm and dry. 3 sided dressing present over thoravent site NEUROLOGIC: Cranial nerves II through XII intact MUSKULOSKELETAL: Able to move all extremities, strength equal bilaterally PSYCHIATRIC: Alert and oriented to person place and time INVASIVE LINES AND TUBES: Left-sided pleural chest tube present and connected to wall suction, no air leak seen with coughing, minimal drainage - Labs CBC & Chem 7: 06/07/23 11:00 06/07/23 11:00 Labs: Abnormal Lab Results - Last 24 Hours (Table) 06/07/23 Range/Units 11:00 WBC 19.3 H (3.8-10.6) k/uL RBC 3.60 L (4.30-5.90) m/uL Hgb 10.6 L (13.0-17.5) gm/dL Hct 34.1 L (39.0-53.0) % Plt Count 506 H (150-450) k/uL Neutrophils # 16.6 H (1.3-7.7) k/uL Lymphocytes # 0.9 L (1.0-4.8) k/uL Monocytes # 1.3 H (0-1.0) k/uL Assessment and Plan Plan: Recurrent left-sided pneumothorax, status post placement of thoravent by emergency room physicians, status post left thoracostomy tube placement , the tube was removed and the patient has no residual pneumothorax based on yesterday's chest x-ray History of left-sided pneumothorax in February 2023 Coronary artery disease with previous PCI Hyperlipidemia Previous tobacco dependence COPD with significant bullous emphysema Leukocytosis with fever, procalcitonin 1.58, repeat pro-calcitonin level was slightly elevated. The patient remains on IV Zosyn. No clear signs of any infection, the white cell count is elevated today. Delirium and agitation, given haldol, improved Plan: Clinically stable and the patient is currently on 4-6 liters of oxygen nasal cannula Chest tube was cremoved on 06/05/2023 Repeat chest x-ray , no evidence of any pneumothorax and there is some limited soakings emphysema Monitor mental status Wean O2 as tolerated, encourage incentive spirometry use Increase activity as tolerated Repcontinue IV Zosyn Check urinalysis and cultures Check blood cultures Monitor echoes and pro-calcitonin level Increase mobility Increase diet We'll follow
[2023-06-07] MEDS ORDERED: PIPERACILLIN-TAZOBACTAM 3.375 GM in SODIUM CHLORIDE 0.9% 100 ML IVPB ONE (17:00)
--- NOTE | 2023-06-07 17:48 | P.PN ---
Subjective Progress Note Date: 06/07/23 77-year-old gentleman with past medical history significant for left sided pneumothorax required thoravent 03/22, left-sided squamous cell lung CA on chemotherapy/radiation with recent disease progression reported, COPD, CAD with stents, hyperlipidemia, prior nicotine dependence and multiple other medical issues presented to the ER status post fall with recurrent left-sided pneumothorax, thoravent placed per ER without complete reexpansion. Multiple radiology studies including head/C-spine CT reported no acute intracranial process or cervical spine fracture,large left pneumothorax with severe bullous emphysema. Complains of chest tube insertion site discomfort otherwise denies chest pain, palpitations or shortness of breath. Maintaining O2 sats in the high 90s on 4 L high flow nasal cannula. Afebrile, WBC has normalized. 06/07/2023 Patient is seen and evaluated in room at bedside; no specific complaints in his overall condition remains unchanged. He does have episodes of that he didn't confusion. No respiratory distress and the patient remains on 6 L of O2 nasal cannula. He remains on IV Zosyn. The exact cause for the elevated pro- calcitonin is not clear to me. No clear focus of infection this point in time. He remains afebrile. White cell count is at 19.3 which is higher compared to his baseline. Hemoglobin is at 10.6. The enzymes at 23 with a creatinine of 0.7. As mentioned, there was a resident pro-calcitonin from 1.58 up to 2.14. A repeat level to be obtained tomorrow. We'll also initiate infectious workup. Obtain urine analysis, urine cultures and blood cultures. Patient remains on IV Zosyn -- Coronary service on board and recommending to continue to be O2 of as tolerated; incentive spirometry recommended - Encourage increase activity Objective - Vital Signs Vital signs: Vital Signs Temp 97.6 F 06/07/23 08:23 Pulse 72 06/07/23 08:50 Resp 16 06/07/23 08:23 BP 127/71 06/07/23 08:23 Pulse Ox 94 L 06/07/23 08:43 FiO2 Intake & Output 06/06/23 06/07/23 06/07/23 18:59 06:59 18:59 Intake Total 240 Output Total 125 0 Balance 115 0 Intake: IV 20 Invasive Line 4 10 Invasive Line 5 10 Oral 220 Output: Urine 125 Stool 0 Other: Voiding Method Urinal Urinal Diaper Diaper # Voids 3 2 - Exam GENERAL: Alert and oriented 2,Cachectic elderly male, fatigued, sleepy ,sitting up in bed,NAD HEENT: Normocephalic ,Conjunctivae normal. eyes normal. NECK: Supple, No JVD. CARDIOVASCULAR: S1, S2 regular. No murmur RESPIRATION: Unlabored, equal air entry, Breath sounds diminished in the bases. ABDOMEN: Soft, nondistended, nontender . No guarding.+BS LEGS: No edema. no swelling NERVOUS SYSTEM: Cranial N 2-12 grossly normal. Skin: Warm and dry, no rash, coccyx stage I - Labs CBC & Chem 7: 06/07/23 11:00 06/07/23 11:00 Assessment and Plan Assessment: Recurrent left-sided pneumothorax status post fall, status post Thoravent drake cement, currently with left pleural chest tube. Positive subcutaneous emphysema. Acute hypoxic respiratory failure secondary to the above Severe bullous emphysema Leukocytosis resolved. History of dysphagia, patient and family requesting chopped dysphagia 3 diet, MBS declined,aware of risk of aspiration as per speech therapy's discussion with them. History of left-sided pneumothorax status post Thoravent placement 03/22. Possible right lower lobe opacity reported per chest x-ray History of left-sided squamous cell lung CA status post systemic chemotherapy. Pulmonary reports recent PET scan reporting disease progression. CAD with history of stent Hyperlipidemia Anemia of chronic disease Prior nicotine dependence Moderate protein calorie malnutrition, BMI 21 Plan: Continue on current medication regime ,monitoring and symptomatic treatment. Maintain supportive care. patient safety sitter.aggressive pulmonary toileting with antibiotics, nebulized bronchodilators, steroids with incentive spirometer reinforced. Family considering hospice and changing CODE STATUS. Prognosis guarded given multiple complex medical issues.
[2023-06-07 19:18] LABS: Appearance,Urine Clear (Clear); Bilirubin,Urine Negative (Negative); Blood,Urine Trace (Negative); Color,Urine Yellow; Glucose,Urine (UA) Negative (Negative); Ketones,Urine Negative (Negative); Leukocyte Esterase,Urine Negative (Negative); Nitrite,Urine Negative (Negative); Protein,Urine Negative (Negative); Urobilinogen,Urine <2.0 mg/dL (<2.0)
[2023-06-07 19:21] LABS: Mucus,Urine Rare /hpf; RBC,Urine 11 /hpf (0-5); Squamous Epithelial Cell,Urine 1 /hpf (0-4); WBC,Urine 4 /hpf (0-5)
[2023-06-08] MEDS: PANTOPRAZOLE 40 MG TABLET PO SCH (05:25)
[2023-06-08 08:41] LABS: Basophils % (A) 0 %; Eosinophils # (A) 0.1 k/uL (0-0.7); Eosinophils % (A) 1 %; HCT 33.8 % (39.0-53.0); HGB 10.6 gm/dL (13.0-17.5); Hypochromasia Slight; Lymphocytes # (A) 0.8 k/uL (1.0-4.8); Lymphocytes % (A) 4 %; MCH 29.5 pg (25.0-35.0); MCHC 31.3 g/dL (31.0-37.0); MCV 94.1 fL (80.0-100.0); Mean Platelet Volume 8.2; Monocytes # (A) 1.3 k/uL (0-1.0); Monocytes % (A) 6 %; Neutrophils # (A) 18.3 k/uL (1.3-7.7); Neutrophils % (A) 88 %; Platelet Count 543 k/uL (150-450); RBC 3.59 m/uL (4.30-5.90); RDW 15.3 % (11.5-15.5); WBC 20.9 k/uL (3.8-10.6)
[2023-06-08 08:56] LABS: African American GFR (CKD) >90 (>60 ml/min/1.73 sqM); Anion Gap 13 mmol/L; Blood Urea Nitrogen 26 mg/dL (9-20); Carbon Dioxide 21 mmol/L (22-30); Chloride 115 mmol/L (98-107); Glucose 109 mg/dL (74-99); Non-African American GFR(CKD) 87 (>60 ml/min/1.73 sqM); Potassium 3.6 mmol/L (3.5-5.1); Sodium 149 mmol/L (137-145)
[2023-06-08] MEDS: NICOTINE 14MG/24HR PATCH TRANSDERM SCH (09:04)
[2023-06-08] MEDS: PIPERACILLIN-TAZOBACTAM 3.375 GM in SODIUM CHLORIDE 0.9% 100 ML IVPB SCH ×2 (09:04→17:37)
[2023-06-08] MEDS: ATORVASTATIN 40 MG TAB PO SCH (09:04)
[2023-06-08] MEDS: OLANZapine 5 MG TAB PO SCH ×3 (09:04→21:15)
[2023-06-08] MEDS: ALBUTEROL NEBULIZED 2.5 MG/3 ML INHALATION SCH ×4 (09:12→20:56)
[2023-06-08] MEDS ORDERED: DEXTROSE 5%-0.45% NACL 1,000 ML IV SCH (10:15)
[2023-06-08] MEDS ORDERED: DEXTROSE 5% IN WATER 1,000 ML IV ONE (10:31)
--- NOTE | 2023-06-08 12:04 | P.PN ---
Subjective Progress Note Date: 06/08/23 On today's evaluation of 06/02/2023, the patient is resting comfortably in bed. His mental status has been fluctuating get I was told that he is more oriented and less agitated compared to few days back. He has a sitter at the bedside. As stated, the patient has a left-sided pneumothorax, initially treated with a small bore catheter and subsequently the patient was given a chest tube. The chest tube is in a good location on today's chest x-ray. There is some limited subcu emphysema along the left chest. She is no evidence of any sizable pneumothorax. There is obvious background COPD. The patient is a 77 years old. He has sustained a fall at home and he had a left-sided pneumothorax. He is known to have COPD with severe bullous disease. 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 His most recent CAT scan of the chest that was done on 05/28/2023 showed the pneumothorax. His prior CAT scan of the chest from 02/10/2023 showed a slight decrease in the size of the lobe related mass in the left upper lobe with some surrounding atelectasis. On 06/03/2023, the patient is quite somnolent and sleepy. He received Haldol last night as the patient was becoming more agitated and combative. Probably a component of delirium was also present. The patient was given Haldol. This morning his resting comfortably in bed. His somnolent. He is able to respond upon stimulation. No significant rest of distress. He remains on oxygen and he is on 6 L of oxygen by nasal cannula. Left-sided chest tube is still in place. A repeat chest x-ray was done today and shows some ongoing symptoms of edema on the left. Apical bullous emphysematous changes. Chest tube is in a good location. No clear indication for an underlying pneumothorax. The chest tube was kept waterseal over the past 24 hours. She will be clamped and another c hest x-ray obtained tomorrow.Labs from today are still pending. Labs from yesterday were all noted. Pro-calcitonin was unexpectedly elevated and the patient has been on IV Zosyn. On 06/04/2023, seeing the patient for a follow-up. Left-sided chest tube was kept in place. The chest x-ray showed no evidence of pneumothorax. Stable subcutaneous emphysema. The patient remains on 6 L of oxygen nasal cannula with a polypectomy. The patient in the bedside. He was on a computer he is trying to get up in bed thinking is going to go out to smoke. No new labs are available from today. Most recent full calcitonin level is at 1.58 and the patient is currently on IV Zosyn. He is afebrile. Hemodynamically stable. The decision was to keep the chest tube in for another 24 hours On today's evaluation of 06/05/2023, the patient's is on 5 L of oxygen by nasal cannula. No appendiceal distress. Appearance emphysema still present with left anterior chest area which remains unchanged. The chest x-ray from today shows a questionable left apical pneumothorax in the order of 5%. The chest tube was clamped and the chest will possibly be removed as the patient is able to tolerate it without any pneumothorax. A repeat chest x-ray still pending for now. The patient is comfortable in bed. BUN is at 33 with a creatinine of 0.7. The risk of 9.4 and those labs are from 06/02/2023. The patient remains on IV Zosyn. Patient remains on albuterol nebulized treatments [id number] 4 times a day. He has occasional delirium and his taken Haldol for that. on today's evaluation of 06/06/2023, the patient on 4 L of oxygen by nasal cannula. No respiratory distress. The chest tube was removed yesterday and the follow-up chest x-ray from today shows a stable appearance emphysema without any clear evidence of a pneumothorax at this point in time.The patient is otherwise doing well. No specific complaints. BUN is at 33 with a creatinine of 0.7. Sodium level is at 143. The risk was at 9.4 with a hemoglobin of 10.9. Pro- calcitonin level follow-up was at 2.14. The patient remains on empiric antibiotic coverage with IV Zosyn. The pro-calcitonin slightly higher compared to his baseline. No clear signs of an infection at this point in time. Mental status is more proper on today's evaluation patient is tolerating diet. On 06/07/2023, seeing the patient for a follow-up. no specific complaints in his overall condition remains unchanged. He does have episodes of that he di dn't confusion. No respiratory distress and the patient remains on 6 L of O2 nasal cannula. He remains on IV Zosyn. The exact cause for the elevated pro- calcitonin is not clear to me. No clear focus of infection this point in time. He remains afebrile. White cell count is at 19.3 which is higher compared to his baseline. Hemoglobin is at 10.6. The enzymes at 23 with a creatinine of 0.7. As mentioned, there was a resident pro-calcitonin from 1.58 up to 2.14. A repeat level to be obtained tomorrow. We'll also initiate infectious workup. Obtain urine analysis, urine cultures and blood cultures. Continue the IV Zosyn for now. On 06/08/2020, the patient is calm and comfortable, communicating, feeding with assistance, currently on 4 L of oxygen by nasal cannula. Remains on IV Zosyn. Sodium levels of 149 and acidosis patient to D5 water. Potassium levels at 3.6. BUN is at 26 with a creatinine of 0.7. The echoes at 20.9. Pro- calcitonin level was reordered. No other specific complaints otherwise for now. Objective - Vital Signs Vital signs: Vital Signs Temp 98.3 F 06/08/23 04:00 Pulse 80 06/08/23 09:27 Resp 15 06/08/23 09:03 BP 145/82 06/08/23 09:03 Pulse Ox 94 L 06/08/23 09:12 FiO2 Intake & Output 06/07/23 06/08/23 06/08/23 18:59 06:59 18:59 Intake Total 0 Output Total 0 200 Balance 0 -200 Intake: Oral 0 Output: Urine 200 Stool 0 Other: Voiding Method Urinal Urinal Urinal Diaper Diaper Diaper # Voids 1 1 1 - Exam CONSTITUTIONAL: Appears comfortable, no acute distress although does cough with intake of fluids the patient is currently on 4L of oxygen nasal cannula RESPIRATORY: Lungs sounds diminished bilaterally in the bases. Respirations even, nonlabored. The left-sided chest tube was removed CARDIOVASCULAR: S1, S2 present. Regular rate and rhythm, sinus rhythm on telemetry. Palpable peripheral pulses bilaterally. No edema present. No calf pain or tenderness noted. SCDs present. GASTROINTESTINAL: Abdomen soft, nontender, nondistended. Active bowel sounds present 4 quadrants. Tolerating diet GENITOURINARY: Continues to void INTEGUMENTARY: Skin is warm and dry. 3 sided dressing present over thoravent site NEUROLOGIC: Cranial nerves II through XII intact MUSKULOSKELETAL: Able to move all extremities, strength equal bilaterally PSYCHIATRIC: Alert and oriented to person place and time INVASIVE LINES AND TUBES: Left-sided pleural chest tube present and connected to wall suction, no air leak seen with coughing, minimal drainage - Labs CBC & Chem 7: 06/08/23 08:21 06/08/23 08:21 Labs: Abnormal Lab Results - Last 24 Hours (Table) 06/07/23 06/07/23 06/07/23 Range/Units 11:00 11:00 15:13 WBC 19.3 H (3.8-10.6) k/uL RBC 3.60 L (4.30-5.90) m/uL Hgb 10.6 L (13.0-17.5) gm/dL Hct 34.1 L (39.0-53.0) % Plt Count 506 H (150-450) k/uL Neutrophils # 16.6 H (1.3-7.7) k/uL Lymphocytes # 0.9 L (1.0-4.8) k/uL Monocytes # 1.3 H (0-1.0) k/uL Sodium 146 H (137-145) mmol/L Chloride 112 H (98-107) mmol/L Carbon Dioxide (22-30) mmol/L BUN 23 H (9-20) mg/dL Glucose 104 H (74-99) mg/dL Procalcitonin 0.33 H (0.02-0.09) ng/mL Urine Blood (Negative) Urine RBC (0-5) /hpf Urine Mucus (None) /hpf 06/07/23 06/08/23 06/08/23 Range/Units 18:45 08:21 08:21 WBC 20.9 H (3.8-10.6) k/uL RBC 3.59 L (4.30-5.90) m/uL Hgb 10.6 L (13.0-17.5) gm/dL Hct 33.8 L (39.0-53.0) % Plt Count 543 H (150-450) k/uL Neutrophils # 18.3 H (1.3-7.7) k/uL Lymphocytes # 0.8 L (1.0-4.8) k/uL Monocytes # 1.3 H (0-1.0) k/uL Sodium 149 H (137-145) mmol/L Chloride 115 H (98-107) mmol/L Carbon Dioxide 21 L (22-30) mmol/L BUN 26 H (9-20) mg/dL Glucose 109 H (74-99) mg/dL Procalcitonin (0.02-0.09) ng/mL Urine Blood Trace H (Negative) Urine RBC 11 H (0-5) /hpf Urine Mucus Rare H (None) /hpf Assessment and Plan Plan: Recurrent left-sided pneumothorax, status post placement of thoravent by emergency room physicians, status post left thoracostomy tube placement , the tube was removed and the patient is currently stable on 4 L of O2 nasal cannula History of left-sided pneumothorax in February 2023 Coronary artery disease with previous PCI Hyperlipidemia Previous tobacco dependence COPD with significant bullous emphysema Leukocytosis with fever, procalcitonin 1.58, repeat pro-calcitonin level was slightly elevated. The patient remains on IV Zosyn. No clear signs of any infection, the white cell count is elevated today. Delirium and agitation, given haldol, improved Plan: Clinically stable and the patient is currently on 4-6 liters of oxygen nasal cannula, currently on 4 L Chest tube was cremoved on 06/05/2023, no residual pneumothorax Limited septic in his emphysema with anterior chest Monitor mental status Wean O2 as tolerated, encourage incentive spirometry use Increase activity as tolerated Repcontinue IV Zosyn Check urinalysis and cultures, negative Check blood cultures, pending Repeat pro-calcitonin level, pending Increase mobility Increase diet We'll follow
[2023-06-08] MEDS: MORPHINE SULFATE 4 MG/ML SYRINGE IV PRN (21:15)
[2023-06-09] MEDS: HALOPERIDOL LACTATE 5 MG/ML 1 ML VIAL IM PRN (00:48)
[2023-06-09] MEDS: MORPHINE SULFATE 4 MG/ML SYRINGE IV PRN ×2 (01:37→11:26)
--- NOTE | 2023-06-09 05:40 | P.PN ---
Subjective Progress Note Date: 06/08/23 77-year-old gentleman with past medical history significant for left sided pneumothorax required thoravent 03/22, left-sided squamous cell lung CA on chemotherapy/radiation with recent disease progression reported, COPD, CAD with stents, hyperlipidemia, prior nicotine dependence and multiple other medical issues presented to the ER status post fall with recurrent left-sided pneumothorax, thoravent placed per ER without complete reexpansion. Multiple radiology studies including head/C-spine CT reported no acute intracranial process or cervical spine fracture,large left pneumothorax with severe bullous emphysema. Complains of chest tube insertion site discomfort otherwise denies chest pain, palpitations or shortness of breath. Maintaining O2 sats in the high 90s on 4 L high flow nasal cannula. Afebrile, WBC has normalized. 06/07/2023 Patient is seen and evaluated in room at bedside; no specific complaints in his overall condition remains unchanged. He does have episodes of that he didn't confusion. No respiratory distress and the patient remains on 6 L of O2 nasal cannula. He remains on IV Zosyn. The exact cause for the elevated pro- calcitonin is not clear to me. No clear focus of infection this point in time. He remains afebrile. White cell count is at 19.3 which is higher compared to his baseline. Hemoglobin is at 10.6. The enzymes at 23 with a creatinine of 0.7. As mentioned, there was a resident pro-calcitonin from 1.58 up to 2.14. A repeat level to be obtained tomorrow. We'll also initiate infectious workup. Obtain urine analysis, urine cultures and blood cultures. Patient remains on IV Zosyn -- Coronary service on board and recommending to continue to be O2 of as tolerated; incentive spirometry recommended - Encourage increase activity 06/08/2023 the patient is seen and evaluated with sitter at bedside; calm and comfortable, communicating, feeding with assistance, currently on 4 L of oxygen by nasal cannula. Remains on IV Zosyn. Sodium levels of 149 and acidosis patient to D5 water. Potassium levels at 3.6. BUN is at 26 with a creatinine of 0.7. The echoes at 20.9. Pro-calcitonin level was reordered. No other specific complaints otherwise for now. Clinically stable and the patient is currently on 4-6 liters of oxygen nasal cannula, currently on 4 L; continue to wean O2 as able Remains on IV Zosyn Objective - Vital Signs Vital signs: Vital Signs Temp 98.3 F 06/08/23 04:00 Pulse 80 06/08/23 09:27 Resp 15 06/08/23 09:03 BP 145/82 06/08/23 09:03 Pulse Ox 94 L 06/08/23 09:12 FiO2 Intake & Output 06/07/23 06/08/23 06/08/23 18:59 06:59 18:59 Intake Total 0 Output Total 0 Balance 0 Intake: Oral 0 Output: Stool 0 Other: Voiding Method Urinal Urinal Urinal Diaper Diaper Diaper # Voids 1 1 0 - Exam GENERAL: Alert and oriented 2,Cachectic elderly male, fatigued, sleepy ,sitting up in bed,NAD HEENT: Normocephalic ,Conjunctivae normal. eyes normal. NECK: Supple, No JVD. CARDIOVASCULAR: S1, S2 regular. No murmur RESPIRATION: Unlabored, equal air entry, Breath sounds diminished in the bases. ABDOMEN: Soft, nondistended, nontender . No guarding.+BS LEGS: No edema. no swelling NERVOUS SYSTEM: Cranial N 2-12 grossly normal. Skin: Warm and dry, no rash, coccyx stage I - Labs CBC & Chem 7: 06/08/23 08:21 06/08/23 08:21 Labs: Abnormal Lab Results - Last 24 Hours (Table) 06/07/23 06/07/23 06/07/23 Range/Units 11:00 11:00 15:13 WBC 19.3 H (3.8-10.6) k/uL RBC 3.60 L (4.30-5.90) m/uL Hgb 10.6 L (13.0-17.5) gm/dL Hct 34.1 L (39.0-53.0) % Plt Count 506 H (150-450) k/uL Neutrophils # 16.6 H (1.3-7.7) k/uL Lymphocytes # 0.9 L (1.0-4.8) k/uL Monocytes # 1.3 H (0-1.0) k/uL Sodium 146 H (137-145) mmol/L Chloride 112 H (98-107) mmol/L Carbon Dioxide (22-30) mmol/L BUN 23 H (9-20) mg/dL Glucose 104 H (74-99) mg/dL Procalcitonin 0.33 H (0.02-0.09) ng/mL Urine Blood (Negative) Urine RBC (0-5) /hpf Urine Mucus (None) /hpf 06/07/23 06/08/23 06/08/23 Range/Units 18:45 08:21 08:21 WBC 20.9 H (3.8-10.6) k/uL RBC 3.59 L (4.30-5.90) m/uL Hgb 10.6 L (13.0-17.5) gm/dL Hct 33.8 L (39.0-53.0) % Plt Count 543 H (150-450) k/uL Neutrophils # 18.3 H (1.3-7.7) k/uL Lymphocytes # 0.8 L (1.0-4.8) k/uL Monocytes # 1.3 H (0-1.0) k/uL Sodium 149 H (137-145) mmol/L Chloride 115 H (98-107) mmol/L Carbon Dioxide 21 L (22-30) mmol/L BUN 26 H (9-20) mg/dL Glucose 109 H (74-99) mg/dL Procalcitonin (0.02-0.09) ng/mL Urine Blood Trace H (Negative) Urine RBC 11 H (0-5) /hpf Urine Mucus Rare H (None) /hpf Assessment and Plan Assessment: Recurrent left-sided pneumothorax status post fall, status post Thoravent placement, currently with left pleural chest tube. Positive subcutaneous emphysema. Acute hypoxic respiratory failure secondary to the above Severe bullous emphysema Leukocytosis resolved. History of dysphagia, patient and family requesting chopped dysphagia 3 diet, MBS declined,aware of risk of aspiration as per speech therapy's discussion with them. History of left-sided pneumothorax status post Thoravent placement 03/22. Possible right lower lobe opacity reported per chest x-ray History of left-sided squamous cell lung CA status post systemic chemotherapy. Pulmonary reports recent PET scan reporting disease progression. CAD with history of stent Hyperlipidemia Anemia of chronic disease Prior nicotine dependence Moderate protein calorie malnutrition, BMI 21 Plan: Continue on current medication regime ,monitoring and symptomatic treatment. 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 Family considering hospice and changing CODE STATUS. Prognosis guarded given multiple complex medical issues.
[2023-06-09] MEDS: PANTOPRAZOLE 40 MG TABLET PO SCH (05:54)
[2023-06-09 07:40] LABS: African American GFR (CKD) >90 (>60 ml/min/1.73 sqM); Anion Gap 9 mmol/L; Blood Urea Nitrogen 20 mg/dL (9-20); Calcium 8.6 mg/dL (8.4-10.2); Carbon Dioxide 24 mmol/L (22-30); Chloride 114 mmol/L (98-107); Glucose 104 mg/dL (74-99); Non-African American GFR(CKD) 90 (>60 ml/min/1.73 sqM); Sodium 147 mmol/L (137-145)
[2023-06-09] MEDS: ALBUTEROL NEBULIZED 2.5 MG/3 ML INHALATION SCH ×4 (08:01→21:12)
[2023-06-09 08:15] LABS: Potassium 3.4 mmol/L (3.5-5.1)
[2023-06-09] MEDS: PIPERACILLIN-TAZOBACTAM 3.375 GM in SODIUM CHLORIDE 0.9% 100 ML IVPB SCH ×5 (08:15→23:52)
[2023-06-09] MEDS: OLANZapine 5 MG TAB PO SCH ×3 (11:03→21:33)
[2023-06-09] MEDS: HYDROcodone/APAP 10-325MG 1 EACH TAB PO PRN (11:26)
[2023-06-09] MEDS: ATORVASTATIN 40 MG TAB PO SCH (11:41)
[2023-06-09] MEDS: NICOTINE 14MG/24HR PATCH TRANSDERM SCH (11:42)
--- NOTE | 2023-06-09 16:20 | P.PN ---
Subjective Progress Note Date: 06/09/23 Principal diagnosis: Recurrent left-sided pneumothorax, and COPD On today's evaluation of 06/02/2023, the patient is resting comfortably in bed. His mental status has been fluctuating get I was told that he is more oriented and less agitated compared to few days back. He has a sitter at the bedside. As stated, the patient has a left-sided pneumothorax, initially treated with a small bore catheter and subsequently the patient was given a chest tube. The chest tube is in a good location on today's chest x-ray. There is some limited subcu emphysema along the left chest. She is no evidence of any sizable pneumothorax. There is obvious background COPD. The patient is a 77 years old. He has sustained a fall at home and he had a left-sided pneumothorax. He is known to have COPD with severe bullous disease. 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 His most recent CAT scan of the chest that was done on 05/28/2023 showed the pneumothorax. His prior CAT scan of the chest from 02/10/2023 showed a slight decrease in the size of the lobe related mass in the left upper lobe with some surrounding atelectasis. On 06/03/2023, the patient is quite somnolent and sleepy. He received Haldol last night as the patient was becoming more agitated and combative. Probably a component of delirium was also present. The patient was given Haldol. This morning his resting comfortably in bed. His somnolent. He is able to respond upon stimulation. No significant rest of distress. He remains on oxygen and he is on 6 L of oxygen by nasal cannula. Left-sided chest tube is still in place. A repeat chest x-ray was done today and shows some ongoing symptoms of edema on the left. Apical bullous emphysematous changes. Chest tube is in a good location. No clear indication for an underlying pneumothorax. The chest tube was kept waterseal over the past 24 hours. She will be clamped and another chest x-ray obtained tomorrow.Labs from today are still pending. Labs from yesterday were all noted. Pro-calcitonin was unexpectedly elevated and the patient has been on IV Zosyn. On 06/04/2023, seeing the patient for a follow-up. Left-sided chest tube was kept in place. The chest x-ray showed no evidence of pneumothorax. Stable subcutaneous emphysema. The patient remains on 6 L of oxygen nasal cannula with a polypectomy. The patient in the bedside. He was on a computer he is trying to get up in bed thinking is going to go out to smoke. No new labs are available from today. Most recent full calcitonin level is at 1.58 and the patient is currently on IV Zosyn. He is afebrile. Hemodynamically stable. The decision was to keep the chest tube in for another 24 hours On today's evaluation of 06/05/2023, the patient's is on 5 L of oxygen by nasal cannula. No appendiceal distress. Appearance emphysema still present with left anterior chest area which remains unchanged. The chest x-ray from today shows a questionable left apical pneumothorax in the order of 5%. The chest tube was c lamped and the chest will possibly be removed as the patient is able to tolerate it without any pneumothorax. A repeat chest x-ray still pending for now. The patient is comfortable in bed. BUN is at 33 with a creatinine of 0.7. The risk of 9.4 and those labs are from 06/02/2023. The patient remains on IV Zosyn. Patient remains on albuterol nebulized treatments [id number] 4 times a day. He has occasional delirium and his taken Haldol for that. on today's evaluation of 06/06/2023, the patient on 4 L of oxygen by nasal cannula. No respiratory distress. The chest tube was removed yesterday and the follow-up chest x-ray from today shows a stable appearance emphysema without any clear evidence of a pneumothorax at this point in time.The patient is otherwise doing well. No specific complaints. BUN is at 33 with a creatinine of 0.7. Sodium level is at 143. The risk was at 9.4 with a hemoglobin of 10.9. Pro- calcitonin level follow-up was at 2.14. The patient remains on empiric antibiotic coverage with IV Zosyn. The pro-calcitonin slightly higher compared to his baseline. No clear signs of an infection at this point in time. Mental status is more proper on today's evaluation patient is tolerating diet. On 06/07/2023, seeing the patient for a follow-up. no specific complaints in his overall condition remains unchanged. He does have episodes of that he didn't confusion. No respiratory distress and the patient remains on 6 L of O2 nasal cannula. He remains on IV Zosyn. The exact cause for the elevated pro- calcitonin is not clear to me. No clear focus of infection this point in time. He remains afebrile. White cell count is at 19.3 which is higher compared to his baseline. Hemoglobin is at 10.6. The enzymes at 23 with a creatinine of 0.7. As mentioned, there was a resident pro-calcitonin from 1.58 up to 2.14. A repeat level to be obtained tomorrow. We'll also initiate infectious workup. Obtain urine analysis, urine cultures and blood cultures. Continue the IV Zosyn for now. On 06/08/2020, the patient is calm and comfortable, communicating, feeding with assistance, currently on 4 L of oxygen by nasal cannula. Remains on IV Zosyn. Sodium levels of 149 and acidosis patient to D5 water. Potassium levels at 3.6. BUN is at 26 with a creatinine of 0.7. The echoes at 20.9. Pro- calcitonin level was reordered. No other specific complaints otherwise for now. Reevaluated today on 06/09/2023, patient is resting in bed, he is on 2 L nasal cannula, plating of some shortness of breath, no cough, no wheezing, no fever, no chills, no hemoptysis. Chest x-ray from 06/06, showed interval removal of the left-sided chest tube and some subcutaneous emphysema and he had COPD with increasing interstitial and patchy densities left midlung and right medial lung base, the findings are basically nonspecific. Nonetheless the patient continues to have leukocytosis with WBC count of 20.9 hemoglobin is 10.6, sodium is coming down to 147, the rest of the electrolytes are normal Objective - Vital Signs Vital signs: Vital Signs Temp 97.6 F 06/09/23 00:00 Pulse 72 06/09/23 11:42 Resp 16 06/09/23 11:04 BP 142/67 06/09/23 11:04 Pulse Ox 93 L 06/09/23 11:05 FiO2 Intake & Output 06/08/23 06/09/23 06/09/23 18:59 06:59 18:59 Output Total 200 150 200 Balance -200 -150 -200 Output: Urine 200 150 200 Stool 0 Other: Voiding Method Urinal Urinal Urinal Diaper Diaper Diaper # Voids 2 2 - Exam Physical Exam: Revealed 77-year-old white male in no distress. On 2 L nasal cannula HEENT:[Neck is supple.] [No neck masses.] [No thyromegaly.] [No JVD.] Chest: [Clear throughout, no crackles, no rhonchi, no wheezes.] Cardiac Exam: [Normal S1 and S2, no S3 gallop, no murmur.] Abdomen: [Soft, nontender, no megaly, no rebound, no guarding, normal bowel sounds.] Extremities: [No clubbing, no edema, no cyanosis.] Neurological Exam: [No focal neurologic deficit.] Alert and oriented to place and time. Psychiatric: Depressed mood, flat affect, relatively normal mental status. Skin: No rashes - Labs CBC & Chem 7: 06/08/23 08:21 06/09/23 06:50 Labs: Abnormal Lab Results - Last 24 Hours (Table) 06/09/23 Range/Units 06:50 Sodium 147 H (137-145) mmol/L Potassium 3.4 L (3.5-5.1) mmol/L Chloride 114 H (98-107) mmol/L Glucose 104 H (74-99) mg/dL Microbiology - Last 24 Hours (Table) 06/07/23 15:18 Blood Culture - Preliminary Blood Assessment and Plan Assessment: Impression: Recurrent left-sided pneumothorax requiring chest tube placement and has been removed Coronary artery disease with previous PCI COPD with significant bullous emphysema Possible aspiration pneumonia involving right lower lobe and left midlung with elevated pro calcitonin level, patient is on Zosyn, suspect aspiration pneumonia Mental status change with intermittent episodes of delirium and agitation requiring Haldol, improving Recommendation: Continue present supportive care measures Continue bronchodilators Titrate oxygen accordingly Continue incentive spirometry Continue Zosyn Increase mobility Advanced diet as tolerated We will continue to follow Time with Patient: Less than 30
[2023-06-09] MEDS ORDERED: ANIDULAFUNGIN 200 MG in SODIUM CHLORIDE 0.9% 200 ML IVPB ONE (18:30)
[2023-06-09] MEDS ORDERED: Potassium Replacement Protocol 1 EACH MISC MISCELLANE PRN (19:42)
--- NOTE | 2023-06-09 19:49 | P.PN ---
Subjective Progress Note Date: 06/09/23 H&P Date: 05/29/23 Chief Complaint: Recurrent left-sided pneumothorax status post fall This is a 77-year-old gentleman with past medical history significant for left sided pneumothorax required thoravent 03/22, left-sided squamous cell lung CA on chemotherapy/radiation with recent disease progression reported, COPD, CAD with stents, hyperlipidemia, prior nicotine dependence and multiple other medical issues presented to the ER status post fall with recurrent left-sided pneumothorax, thoravent placed per ER without complete reexpansion. Multiple radiology studies including head/C-spine CT reported no acute intracranial process or cervical spine fracture,large left pneumothorax with severe bullous emphysema. Complains of chest tube insertion site discomfort otherwise denies chest pain, palpitations or shortness of breath. Maintaining O2 sats in the high 90s on 4 L high flow nasal cannula. Afebrile, WBC has normalized. Chest x-ray pending. 05/30/2023 safety instructor maintained at bedside. Confused, agitated during the night. Short of breath. Chest x-ray reporting persistent left small to moderate pleural effusion similar to prior. Maintaining O2 sats in the high 90s on 4 L nasal cannula. CTS recommending changing over to a full thoracostomy tube. Afebrile. Fair diet intake. Denies chest pain or palpitations, teary- eyed, eager to go home. 06/02/2023 sensorium improving, safety instructor at bedside.Thoravent discontinued and currently with left pleural chest tube. Chest x-ray reporting COPD with no sizable pneumothorax. Denies chest pain, palpitations or increased shortness of breath. Continues on Zosyn. T-max 100.6, blood cultures pending. Repeat pro calcitonin pending. 06/03/2023 agitated during the night, required Haldol. Sleepy this morning. Sitter at bedside. Continues on Zosyn. Maintaining O2 sats in the high 90s on 6 L nasal cannula. T-max 100.2, WBC within normal limits. Pulmonary blood cultures reporting no growth after 48 hours. Left pleural chest tube to waterseal over the last 24 hours,chest x-ray reporting stable, subcutaneous emphysema, possible small pneumothorax. 06/04/2023 sitter at bedside. left pleural chest tube to waterseal, maintaining O2 sats in the high 90s on 5 L high flow nasal cannula. Chest x-ray reporting no definite sizable pneumothorax, persistent extensive subcutaneous emphysema. Maintained on Zosyn .Afebrile, normal WBC. Denies chest pain, palpitations or increased shortness of breath. 06/05/2023 medicated for pain close to midnight,loopy this am. BCC Zyprexa at bedtime, safety instructor maintained. Chest x-ray reporting approximately 5% pneumothorax along the lower medial aspect of the left lung, persistent extensive subcutaneous emphysema. Left pleural Chest tube clamped. Repeat chest x-ray pending. Telemetry sinus rhythm. Diet intake fair, staff reports patient coughing with food intake. 06/06/2023 Son met with hospice regarding informational meeting. Wishes to discuss it further with siblings. Patient remains a full code at this time. Continues on Zosyn, nebulized bronchodilators, afebrile. Left pleural chest tube discontinued yesterday. Chest x-ray this morning reports persistent subcutaneous emphysema on the left no appreciable pneumothorax, COPD, increasing interstitial and patchy densities left mid and lower lung and right medial base possible developing infiltrates. Currently maintaining O2 sats in the high 90s on 4 Lnc. Patient reports shortness of breath. continues on Zosyn, afebrile, WBC 20.9. Potassium 3.4 replacement protocol-replacement protocol will be ordered .maintain on D5W, sodium improving down to 147. Renal function improving Objective - Vital Signs Vital signs: Vital Signs Temp 97.6 F 06/09/23 00:00 Pulse 101 H 06/09/23 16:00 Resp 18 06/09/23 16:00 BP 110/52 06/09/23 16:00 Pulse Ox 94 L 06/09/23 16:00 FiO2 Intake & Output 06/09/23 06/09/23 06/10/23 06:59 18:59 06:59 Output Total 150 200 Balance -150 -200 Output: Urine 150 200 Stool 0 Other: Voiding Method Urinal Urinal Diaper Diaper # Voids 2 - Exam PHYSICAL EXAM: VITAL SIGNS: [As above] GENERAL: Alert and oriented 2,Cachectic elderly male, fatigued ,sitting up in bed,NAD HEENT: Normocephalic ,Conjunctivae normal. eyes normal. NECK: Supple, No JVD. CARDIOVASCULAR: S1, S2 regular. No murmur RESPIRATION: Unlabored, equal air entry, bilateral bases diminished ABDOMEN: Soft, nondistended, nontender . No guarding.+BS LEGS: No edema. no swelling NERVOUS SYSTEM: Cranial N 2-12 grossly normal. Skin: Warm and dry, no rash, coccyx stage I - Labs CBC & Chem 7: 06/08/23 08:21 06/09/23 06:50 Labs: Abnormal Lab Results - Last 24 Hours (Table) 06/09/23 Range/Units 06:50 Sodium 147 H (137-145) mmol/L Potassium 3.4 L (3.5-5.1) mmol/L Chloride 114 H (98-107) mmol/L Glucose 104 H (74-99) mg/dL Microbiology - Last 24 Hours (Table) 06/07/23 15:18 Blood Culture - Preliminary Blood Assessment and Plan Assessment: Recurrent left-sided pneumothorax status post fall, status post Thoravent placement, currently with left pleural chest tube. Positive subcutaneous emph ysema. Acute hypoxic respiratory failure secondary to the above Severe bullous emphysema Leukocytosis resolved. History of dysphagia, patient and family requesting chopped dysphagia 3 diet, MBS declined,aware of risk of aspiration as per speech therapy's discussion with them. History of left-sided pneumothorax status post Thoravent placement 03/22. Possible right lower lobe opacity reported per chest x-ray History of left-sided squamous cell lung CA status post systemic chemotherapy. Pulmonary reports recent PET scan reporting disease progression. CAD with history of stent Hyperlipidemia Anemia of chronic disease Prior nicotine dependence Moderate protein calorie malnutrition, BMI 21 No code Plan: Continue on current medication regime ,monitoring and symptomatic treatment. Maintain aggressive pulmonary toileting with antibiotics, nebulized bronchodilators, steroids with incentive spirometer reinforced. Increase activity as tolerated, PT/OT. Family meeting with hospice this afternoon as per case management. Prognosis guarded given multiple complex medical issues. The impression and plan of care has been dictated as directed. : I performed a history and examination of this patient, discussed the same with the dictator. I agree with the dictator's note ,documented as a scribe. Any additional findings or plans will be noted.
[2023-06-10] MEDS: MORPHINE SULFATE 4 MG/ML SYRINGE IV PRN ×4 (01:29→23:07)
[2023-06-10] MEDS: PANTOPRAZOLE 40 MG TABLET PO SCH (06:19)
[2023-06-10] MEDS: ALBUTEROL NEBULIZED 2.5 MG/3 ML INHALATION SCH ×5 (09:05→22:08)
--- NOTE | 2023-06-10 09:44 | P.CONS ---
History of Present Illness - Reason for Consult Consult date: 06/09/23 - History of Present Illness Patient is a 77-year-old male who has been in the hospital for almost 2 weeks now with a past medical history available coronary artery disease hyperlipidemia osteoarthritis patient presented on 05/28/2023 after the patient did have a fall and the patient was complaining of bilateral hip pain and also noticed to be increasingly confused CT of the chest shows evidence of left-sided pneumothorax for a vent was placed by the ER physician without complete reexpansion of the lung did have a chest tube placed subsequently and the patient has been hospital recovery patient did spike a fever on 05/31/2023 and the patient was febrile on 06/01/2023 as well as 06/02/2023 however no fever have recorded subsequently patient noticed to have a worsening of the white count over the last 2 days with a vital of 19.3 on 06/07/2023 and 20.9 yesterday morning that has prompted this infectious disease consultation patient did have normal kidney function procalcitonin has been mildly elevated patient has been on Zosyn empirically blood culture on 05 31 has been negative as well as blood culture on 06 07 has been negative so far, patient did have a chest x-ray last completed on 06/06/2023 with removal of left-sided chest tube persistent subcutaneous emphysema on the left no appreciable pneumothorax COPD increasing interstitial patchy density in the left mid and lower lung and right medial base , patient is currently pleasantly confused and try to get out of the bed patient apparently has failed swallow evaluation and speech pathology recommending PEG tube placement with the patient family has been refusing most of the information has been extracted from thorough review of his chart all for the last 2 weeks as the patient could not provide any history and discussing with the nursing staff at the bedside no clear history of nausea vomiting and no diarrhea has been reported and the patient had been on steroids recently Past Medical History Past Medical History: Coronary Artery Disease (CAD), Cancer, Chest Pain / Angina, Hyperlipidemia, Musculoskeletal Disorder, Osteoarthritis (OA) Additional Past Medical History / Comment(s): Chronic neck and back pain, RADIATES DOWN BOTH LEGS, right shoulder pain, 01/2018 colonoscopy resulting in perforation of bowel leading to peg tube with reversal;Squamous cell lung Carcinoma; left sided pneumothorax History of Any Multi-Drug Resistant Organisms: None Reported Past Surgical History: Back Surgery, Heart Catheterization With Stent, Orthopedic Surgery Additional Past Surgical History / Comment(s): Neck surgery, pain procedures. COLONOSCOPY. Past Anesthesia/Blood Transfusion Reactions: No Reported Reaction Additional Past Anesthesia/Blood Transfusion Reaction / Comm: FAMILY HX UNKNOWN Date of Last Stent Placement:: 12/2018 Past Psychological History: No Psychological Hx Reported Additional Psychological History / Comment(s): . Smoking Status: Former smoker Past Alcohol Use History: Rare Additional Past Alcohol Use History / Comment(s): STARTED SMOKING AT AGE 16 SMOKES 1 PPD. DRINKS 6 BEERS DAILY and also drinks NA beer. Past Drug Use History: None Reported - Past Family History Son(s) Family Medical History: Cancer Additional Family Medical History / Comment(s): brain tumors Medications and Allergies Home Medications Medication Instructions Recorded Confirmed Type HYDROcodone/APAP 10-325MG [[place] 1 tab PO Q6HR PRN 12/26/22 05/28/23 History 10-325] Atorvastatin [Lipitor] 40 mg PO DAILY 03/25/23 05/28/23 History Albuterol Nebulized [Ventolin 2.5 mg INHALATION RT-BID 05/28/23 05/28/23 History Nebulized] Nitroglycerin Sl Tabs [Nitrostat] 0.4 mg SL Q5M PRN 05/28/23 05/28/23 History OLANZapine [ZyPREXA] 5 mg PO TID 05/28/23 05/28/23 History Allergies Allergy/AdvReac Type Severity Reaction Status Date / Time pregabalin [From Lyrica] Allergy psychotic Verified 05/28/23 18:06 behavior varenicline tartrate Allergy psychotic Verified 05/28/23 18:06 [From Chantix] behavior alprazolam [From Xanax] AdvReac Severe Psychotic Verified 05/29/23 18:08 behavior lorazepam [From Ativan] AdvReac Severe Psychotic Verified 05/29/23 18:08 behavior Physical Exam Vitals: Vital Signs Temp Pulse Pulse Resp BP Pulse Ox 06/09/23 02:00 93 19 06/09/23 00:00 97.6 F 93 19 129/64 92 L 06/08/23 20:00 97.8 F 72 19 123/59 93 L 06/08/23 17:42 97.5 F L 101 H 16 114/65 96 06/08/23 16:11 80 06/08/23 16:05 76 06/08/23 12:13 78 06/08/23 12:02 80 Intake and Output 06/08/23 06/09/23 06/09/23 22:59 06:59 14:59 Output Total 150 Balance -150 Output: Urine 150 Stool 0 Other: Voiding Method Urinal Urinal Diaper Diaper # Voids 1 2 Results CBC & Chem 7: 06/10/23 09:42 06/09/23 06:50 Labs: Abnormal Lab Results - Last 24 Hours (Table) 06/09/23 Range/Units 06:50 Sodium 147 H (137-145) mmol/L Potassium 3.4 L (3.5-5.1) mmol/L Chloride 114 H (98-107) mmol/L Glucose 104 H (74-99) mg/dL Microbiology - Last 24 Hours (Table) 06/07/23 15:18 Blood Culture - Preliminary Blood Assessment and Plan Plan: 1patient with worsening leukocytosis and this patient currently in the hospital for almost 2 weeks presenting with a fall and did have a left-sided pneumothorax requiring a chest tube placement was subsequently discussed patient did have a fever during this hospital stay however that has resolved now with worsening leukocytosis possibly related to the oropharyngeal candidiasis as patient has been on antibiotics for almost 2 weeks now or recurrent aspiration pneumonitis 2-blood culture has been repeated results will be followed 3-as Diflucan cannot be added because of drug interaction with other medication patient is on we will empirically start the patient on Eraxis and see clinical response and continue with the Zosyn We will follow on clinical condition and cultures to further adjust medication if needed Thank you for this consultation we will follow the patient along with you Dictation was produced using [employer] dictation software. please excuse any grammatical, word or spelling errors. Time with Patient: Greater than 30
[2023-06-10] MEDS: HALOPERIDOL LACTATE 5 MG/ML 1 ML VIAL IM PRN ×2 (09:45→18:27)
[2023-06-10] MEDS: PIPERACILLIN-TAZOBACTAM 3.375 GM in SODIUM CHLORIDE 0.9% 100 ML IVPB SCH ×2 (10:11→16:15)
[2023-06-10] MEDS: OLANZapine 5 MG TAB PO SCH ×3 (10:11→21:41)
[2023-06-10] MEDS: ATORVASTATIN 40 MG TAB PO SCH (10:11)
[2023-06-10] MEDS: NICOTINE 14MG/24HR PATCH TRANSDERM SCH (10:11)
[2023-06-10] MEDS: ANIDULAFUNGIN 100 MG in SODIUM CHLORIDE 0.9% 100 ML IVPB SCH (10:11)
[2023-06-10 10:18] LABS: Basophils % (A) 0 %; Eosinophils # (A) 0.4 k/uL (0-0.7); Eosinophils % (A) 2 %; HCT 34.5 % (39.0-53.0); HGB 11.2 gm/dL (13.0-17.5); Hypochromasia Slight; Lymphocytes % (A) 5 %; MCH 30.3 pg (25.0-35.0); MCHC 32.5 g/dL (31.0-37.0); MCV 93.3 fL (80.0-100.0); Mean Platelet Volume 7.8; Monocytes # (A) 1.4 k/uL (0-1.0); Monocytes % (A) 8 %; Neutrophils % (A) 83 %; Platelet Count 556 k/uL (150-450); RDW 15.1 % (11.5-15.5); WBC 18.2 k/uL (3.8-10.6)
--- NOTE | 2023-06-10 10:43 | P.PN ---
Subjective Progress Note Date: 06/10/23 H&P Date: 05/29/23 Chief Complaint: Recurrent left-sided pneumothorax status post fall This is a 77-year-old gentleman with past medical history significant for left sided pneumothorax required thoravent 03/22, left-sided squamous cell lung CA on chemotherapy/radiation with recent disease progression reported, COPD, CAD with stents, hyperlipidemia, prior nicotine dependence and multiple other medical issues presented to the ER status post fall with recurrent left-sided pneumothorax, thoravent placed per ER without complete reexpansion. Multiple radiology studies including head/C-spine CT reported no acute intracranial process or cervical spine fracture,large left pneumothorax with severe bullous emphysema. Complains of chest tube insertion site discomfort otherwise denies chest pain, palpitations or shortness of breath. Maintaining O2 sats in the high 90s on 4 L high flow nasal cannula. Afebrile, WBC has normalized. Chest x-ray pending. 05/30/2023 chief safety officer maintained at bedside. Confused, agitated during the night. Short of breath. Chest x-ray reporting persistent left small to moderate pleural effusion similar to prior. Maintaining O2 sats in the high 90s on 4 L nasal cannula. CTS recommending changing over to a full thoracostomy tube. Afebrile. Fair diet intake. Denies chest pain or palpitations, teary- eyed, eager to go home. 06/02/2023 sensorium improving, chief safety officer at bedside.Thoravent discontinued and currently with left pleural chest tube. Chest x-ray reporting COPD with no sizable pneumothorax. Denies chest pain, palpitations or increased shortness of breath. Continues on Zosyn. T-max 100.6, blood cultures pending. Repeat pro calcitonin pending. 06/03/2023 agitated during the night, required Haldol. Sleepy this morning. Sitter at bedside. Continues on Zosyn. Maintaining O2 sats in the high 90s on 6 L nasal cannula. T-max 100.2, WBC within normal limits. Pulmonary blood cultures reporting no growth after 48 hours. Left pleural chest tube to waterseal over the last 24 hours,chest x-ray reporting stable, subcutaneous emphysema, possible small pneumothorax. 06/04/2023 sitter at bedside. left pleural chest tube to waterseal, maintaining O2 sats in the high 90s on 5 L high flow nasal cannula. Chest x-ray reporting no definite sizable pneumothorax, persistent extensive subcutaneous emphysema. Maintained on Zosyn .Afebrile, normal WBC. Denies chest pain, palpitations or increased shortness of breath. 06/05/2023 medicated for pain close to midnight,loopy this am. BCC Zyprexa at bedtime, chief safety officer maintained. Chest x-ray reporting approximately 5% pneumothorax along the lower medial aspect of the left lung, persistent extensive subcutaneous emphysema. Left pleural Chest tube clamped. Repeat chest x-ray pending. Telemetry sinus rhythm. Diet intake fair, staff reports patient coughing with food intake. 06/06/2023 Son met with hospice regarding informational meeting. Wishes to discuss it further with siblings. Patient remains a full code at this time. Continues on Zosyn, nebulized bronchodilators, afebrile. Left pleural chest tube discontinued yesterday. Chest x-ray this morning reports persistent subcutaneous emphysema on the left no appreciable pneumothorax, COPD, increasing interstitial and patchy densities left mid and lower lung and right medial base possible developing infiltrates. Currently maintaining O2 sats in the high 90s on 4 Lnc. Patient reports shortness of breath. continues on Zosyn, afebrile, WBC 20.9. Potassium 3.4 replacement protocol-replacement protocol will be ordered .maintain on D5W, sodium improving down to 147. Renal function improving 06/10/2023 maintained on Eraxis and Zosyn,poor intake, repeat preliminary blood culture reported no growth after 48 hours. Afebrile, WBC decreased to 18.2. restless during the night, not sleeping. Diet intake poor. Maintaining O2 sats in the low 90s on 2 L nasal cannula. son Maribel, met with hospice. Plans to take his father home with hospice tomorrow. Objective - Vital Signs Vital signs: Vital Signs Temp 98.2 F 06/10/23 03:29 Pulse 73 06/10/23 09:40 Resp 18 06/10/23 09:40 BP 152/108 06/10/23 09:40 Pulse Ox 92 L 06/10/23 09:40 FiO2 Intake & Output 06/09/23 06/10/23 06/10/23 18:59 06:59 18:59 Output Total 200 200 Balance -200 -200 Output: Urine 200 200 Other: Voiding Method Urinal Urinal Diaper Diaper # Voids 2 - Exam PHYSICAL EXAM: VITAL SIGNS: [As above] GENERAL: Alert and oriented 2,Cachectic elderly male, tired,sitting up in bed,NAD HEENT: Normocephalic ,Conjunctivae normal. eyes normal. NECK: Supple, No JVD. CARDIOVASCULAR: S1, S2 regular. No murmur RESPIRATION: Unlabored, equal air entry, bilateral bases diminished ABDOMEN: Soft, nondistended, nontender . No guarding.+BS LEGS: No edema. no swelling NERVOUS SYSTEM: Limited exam, recently medicated with IV morphine Skin: Warm and dry, no rash, coccyx stage I - Labs CBC & Chem 7: 06/10/23 09:42 06/09/23 06:50 Labs: Abnormal Lab Results - Last 24 Hours (Table) 06/10/23 Range/Units 09:42 WBC 18.2 H (3.8-10.6) k/uL RBC 3.70 L (4.30-5.90) m/uL Hgb 11.2 L (13.0-17.5) gm/dL Hct 34.5 L (39.0-53.0) % Plt Count 556 H (150-450) k/uL Neutrophils # 15.0 H (1.3-7.7) k/uL Monocytes # 1.4 H (0-1.0) k/uL Microbiology - Last 24 Hours (Table) 06/07/23 15:18 Blood Culture - Preliminary Blood Assessment and Plan Assessment: Recurrent left-sided pneumothorax status post fall, status post Thoravent placement, status post left pleural chest tube. Acute hypoxic respiratory failure secondary to the above COPD with severe bullous emphysema Leukocytosis, possibly recurrent aspiration pneumonitia. ID following. Acute metabolic and toxic encephalopathy secondary to the above and medications History of dysphagia, patient and family requesting chopped dysphagia 3 diet, MBS declined,aware of risk of aspiration as per speech therapy's discussion with them. History of left-sided pneumothorax status post Thoravent placement 03/22. Possible right lower lobe opacity reported per chest x-ray History of left-sided squamous cell lung CA status post systemic chemotherapy. Pulmonary reports recent PET scan reporting disease progression. CAD with history of stent Hyperlipidemia Anemia of chronic disease Prior nicotine dependence Moderate protein calorie malnutrition, BMI 21 No code Plan: Continue on current medication regime ,monitoring and symptomatic treatment. Discharge planning in progress for tomorrow. Patient will be going home with hospice.Continue antibiotics, nebulized bronchodilators, steroids. The impression and plan of care has been dictated as directed. : I performed a history and examination of this patient, discussed the same with the dictator. I agree with the dictator's note ,documented as a scribe. Any additional findings or plans will be noted.
--- NOTE | 2023-06-10 15:06 | P.PN ---
Subjective Progress Note Date: 06/10/23 Principal diagnosis: Recurrent left-sided pneumothorax, and COPD On today's evaluation of 06/02/2023, the patient is resting comfortably in bed. His mental status has been fluctuating get I was told that he is more oriented and less agitated compared to few days back. He has a sitter at the bedside. As stated, the patient has a left-sided pneumothorax, initially treated with a small bore catheter and subsequently the patient was given a chest tube. The chest tube is in a good location on today's chest x-ray. There is some limited subcu emphysema along the left chest. She is no evidence of any sizable pneumothorax. There is obvious background COPD. The patient is a 77 years old. He has sustained a fall at home and he had a left-sided pneumothorax. He is known to have COPD with severe bullous disease. 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 His most recent CAT scan of the chest that was done on 05/28/2023 showed the pneumothorax. His prior CAT scan of the chest from 02/10/2023 showed a slight decrease in the size of the lobe related mass in the left upper lobe with some surrounding atelectasis. On 06/03/2023, the patient is quite somnolent and sleepy. He received Haldol last night as the patient was becoming more agitated and combative. Probably a component of delirium was also present. The patient was given Haldol. This morning his resting comfortably in bed. His somnolent. He is able to respond upon stimulation. No significant rest of distress. He remains on oxygen and he is on 6 L of oxygen by nasal cannula. Left-sided chest tube is still in place. A repeat chest x-ray was done today and shows some ongoing symptoms of edema on the left. Apical bullous emphysematous changes. Chest tube is in a good location. No clear indication for an underlying pneumothorax. The chest tube was kept waterseal over the past 24 hours. She will be clamped and another chest x-ray obtained tomorrow.Labs from today are still pending. Labs from yesterday were all noted. Pro-calcitonin was unexpectedly elevated and the patient has been on IV Zosyn. On 06/04/2023, seeing the patient for a follow-up. Left-sided chest tube was kept in place. The chest x-ray showed no evidence of pneumothorax. Stable subcutaneous emphysema. The patient remains on 6 L of oxygen nasal cannula with a polypectomy. The patient in the bedside. He was on a computer he is trying to get up in bed thinking is going to go out to smoke. No new labs are available from today. Most recent full calcitonin level is at 1.58 and the patient is currently on IV Zosyn. He is afebrile. Hemodynamically stable. The decision was to keep the chest tube in for another 24 hours On today's evaluation of 06/05/2023, the patient's is on 5 L of oxygen by nasal cannula. No appendiceal distress. Appearance emphysema still present with left anterior chest area which remains unchanged. The chest x-ray from today shows a questionable left apical pneumothorax in the order of 5%. The chest tube was c lamped and the chest will possibly be removed as the patient is able to tolerate it without any pneumothorax. A repeat chest x-ray still pending for now. The patient is comfortable in bed. BUN is at 33 with a creatinine of 0.7. The risk of 9.4 and those labs are from 06/02/2023. The patient remains on IV Zosyn. Patient remains on albuterol nebulized treatments [id number] 4 times a day. He has occasional delirium and his taken Haldol for that. on today's evaluation of 06/06/2023, the patient on 4 L of oxygen by nasal cannula. No respiratory distress. The chest tube was removed yesterday and the follow-up chest x-ray from today shows a stable appearance emphysema without any clear evidence of a pneumothorax at this point in time.The patient is otherwise doing well. No specific complaints. BUN is at 33 with a creatinine of 0.7. Sodium level is at 143. The risk was at 9.4 with a hemoglobin of 10.9. Pro- calcitonin level follow-up was at 2.14. The patient remains on empiric antibiotic coverage with IV Zosyn. The pro-calcitonin slightly higher compared to his baseline. No clear signs of an infection at this point in time. Mental status is more proper on today's evaluation patient is tolerating diet. On 06/07/2023, seeing the patient for a follow-up. no specific complaints in his overall condition remains unchanged. He does have episodes of that he didn't confusion. No respiratory distress and the patient remains on 6 L of O2 nasal cannula. He remains on IV Zosyn. The exact cause for the elevated pro- calcitonin is not clear to me. No clear focus of infection this point in time. He remains afebrile. White cell count is at 19.3 which is higher compared to his baseline. Hemoglobin is at 10.6. The enzymes at 23 with a creatinine of 0.7. As mentioned, there was a resident pro-calcitonin from 1.58 up to 2.14. A repeat level to be obtained tomorrow. We'll also initiate infectious workup. Obtain urine analysis, urine cultures and blood cultures. Continue the IV Zosyn for now. On 06/08/2020, the patient is calm and comfortable, communicating, feeding with assistance, currently on 4 L of oxygen by nasal cannula. Remains on IV Zosyn. Sodium levels of 149 and acidosis patient to D5 water. Potassium levels at 3.6. BUN is at 26 with a creatinine of 0.7. The echoes at 20.9. Pro- calcitonin level was reordered. No other specific complaints otherwise for now. Reevaluated today on 06/09/2023, patient is resting in bed, he is on 2 L nasal cannula, plating of some shortness of breath, no cough, no wheezing, no fever, no chills, no hemoptysis. Chest x-ray from 06/06, showed interval removal of the left-sided chest tube and some subcutaneous emphysema and he had COPD with increasing interstitial and patchy densities left midlung and right medial lung base, the findings are basically nonspecific. Nonetheless the patient continues to have leukocytosis with WBC count of 20.9 hemoglobin is 10.6, sodium is coming down to 147, the rest of the electrolytes are normal Reevaluated today on 06/10/2023, on 2 L nasal cannula with O2 sats 92%, denies any pulmonary symptoms however the patient seems to be quite confused and gets agitated very easily. The scan is 18.2 hemoglobin 11.2 sodium is 147 renal profile is normal pro-calcitonin level few days ago was 0.3 patient does not seem to be in distress, however he seems to be quite confused this morning Objective - Vital Signs Vital signs: Vital Signs Temp 98.0 F 06/10/23 10:09 Pulse 91 06/10/23 11:52 Resp 18 06/10/23 11:52 BP 148/69 06/10/23 11:52 Pulse Ox 92 L 06/10/23 11:52 FiO2 Intake & Output 06/09/23 06/10/23 06/10/23 18:59 06:59 18:59 Output Total 200 200 Balance -200 -200 Weight 63.503 kg Output: Urine 200 200 Other: Voiding Method Urinal Urinal Urinal Diaper Diaper Diaper # Voids 2 - Exam Physical Exam: Revealed 77-year-old white male in no distress. On 2 L nasal cannula HEENT:[Neck is supple.] [No neck masses.] [No thyromegaly.] [No JVD.] Chest: [Clear throughout, no crackles, no rhonchi, no wheezes.] Cardiac Exam: [Normal S1 and S2, no S3 gallop, no murmur.] Abdomen: [Soft, nontender, no megaly, no rebound, no guarding, normal bowel sounds.] Extremities: [No clubbing, no edema, no cyanosis.] Neurological Exam: [No focal neurologic deficit.] Except mental status is ab normal Confused and anxious Psychiatric anxious, gets agitated easily, confused Skin: No rashes - Labs CBC & Chem 7: 06/10/23 09:42 06/09/23 06:50 Labs: Abnormal Lab Results - Last 24 Hours (Table) 06/10/23 Range/Units 09:42 WBC 18.2 H (3.8-10.6) k/uL RBC 3.70 L (4.30-5.90) m/uL Hgb 11.2 L (13.0-17.5) gm/dL Hct 34.5 L (39.0-53.0) % Plt Count 556 H (150-450) k/uL Neutrophils # 15.0 H (1.3-7.7) k/uL Monocytes # 1.4 H (0-1.0) k/uL Microbiology - Last 24 Hours (Table) 06/07/23 15:18 Blood Culture - Preliminary Blood Assessment and Plan Assessment: Impression: Recurrent left-sided pneumothorax requiring chest tube placement and has been removed Coronary artery disease with previous PCI COPD with significant bullous emphysema Possible aspiration pneumonia involving right lower lobe and left midlung with elevated pro calcitonin level, patient is on Zosyn, suspect aspiration pneumonia Mental status change with intermittent episodes of delirium and agitation requiring Haldol Recommendation: Continue present supportive care measures Continue bronchodilators Titrate oxygen accordingly Continue incentive spirometry Continue Zosyn Ambulate if possible Advanced diet as tolerated We will continue to follow Time with Patient: Less than 30
--- NOTE | 2023-06-10 15:06 | P.PN ---
Subjective Progress Note Date: 06/10/23 Principal diagnosis: Reason for follow-up is leukocytosis Patient is a 77-year-old male with multiple comorbidities including lung cancer presenting to the hospital after a fall he did have a left-sided pneumothorax requiring chest tube placement that was subsequent discontinued did have worsening of the white count probably this infectious disease consultation On today's evaluation that is 06/10/2023, the patient continues to be afebrile, the patient is breathing comfortably on 2 L nasal cannula oxygen, patient remains to be pleasantly confused , not a very good historian denies any worsening cough or sputum production and no diarrhea has been reported Patient white count is down to 18.2, creatinine 0.71 Objective - Vital Signs Vital signs: Vital Signs Temp 98.0 F 06/10/23 10:09 Pulse 91 06/10/23 11:52 Resp 18 06/10/23 11:52 BP 148/69 06/10/23 11:52 Pulse Ox 92 L 06/10/23 11:52 FiO2 Intake & Output 06/09/23 06/10/23 06/10/23 18:59 06:59 18:59 Output Total 200 200 Balance -200 -200 Weight 63.503 kg Output: Urine 200 200 Other: Voiding Method Urinal Urinal Urinal Diaper Diaper Diaper # Voids 2 - Exam GENERAL DESCRIPTION: An elderly male lying in bed in no distress RESPIRATORY SYSTEM: Unlabored breathing , decreased breath sound at the base HEART: S1 S2 regular rate and rhythm , ABDOMEN: Soft , no tenderness EXTREMITIES: No edema feet - Labs CBC & Chem 7: 06/10/23 09:42 06/09/23 06:50 Labs: Abnormal Lab Results - Last 24 Hours (Table) 06/10/23 Range/Units 09:42 WBC 18.2 H (3.8-10.6) k/uL RBC 3.70 L (4.30-5.90) m/uL Hgb 11.2 L (13.0-17.5) gm/dL Hct 34.5 L (39.0-53.0) % Plt Count 556 H (150-450) k/uL Neutrophils # 15.0 H (1.3-7.7) k/uL Monocytes # 1.4 H (0-1.0) k/uL Microbiology - Last 24 Hours (Table) 06/07/23 15:18 Blood Culture - Preliminary Blood Assessment and Plan (1) Leukocytosis Current Visit: Yes Status: Acute Code(s): D72.829 - ELEVATED WHITE BLOOD CELL COUNT, UNSPECIFIED SNOMED Code(s): 296299859 (2) Oropharyngeal candidiasis Current Visit: Yes Status: Acute Code(s): B37.0 - CANDIDAL STOMATITIS SNOMED Code(s): 75501434 (3) Aspiration pneumonia Current Visit: No Status: Acute Code(s): J69.0 - PNEUMONITIS DUE TO INHALATION OF FOOD AND VOMIT SNOMED Code(s): 856601427 Plan: 1patient with worsening leukocytosis and this patient currently in the hospital for almost 2 weeks presenting with a fall and did have a left-sided pneumothorax requiring a chest tube placement was subsequently discussed patient did have a fever during this hospital stay however that has resolved now with worsening leukocytosis possibly related to the oropharyngeal candidiasis as the patient as been antibiotics for almost 2 weeks now or recurrent aspiration pneumonitis 2-blood culture has been repeated , results are currently pending 3-patient white count is trending down to continue with the Zosyn and Eraxis Family the bedside questions were answered Dictation was produced using [employer] dictation software. please excuse any grammatical, word or spelling errors. Time with Patient: Less than 30
[2023-06-10] MEDS ORDERED: HALOPERIDOL LACTATE 5 MG/ML 1 ML VIAL IM PRN (19:52)
[2023-06-11] MEDS: PANTOPRAZOLE 40 MG TABLET PO SCH (05:28)
[2023-06-11 05:33] VITALS: RESP 16
[2023-06-11] MEDS: ALBUTEROL NEBULIZED 2.5 MG/3 ML INHALATION SCH ×2 (07:50→11:24)
[2023-06-11] MEDS: OLANZapine 5 MG TAB PO SCH (08:55)
[2023-06-11] MEDS: ANIDULAFUNGIN 100 MG in SODIUM CHLORIDE 0.9% 100 ML IVPB SCH (08:55)
[2023-06-11] MEDS: NICOTINE 14MG/24HR PATCH TRANSDERM SCH (08:55)
[2023-06-11] MEDS: ATORVASTATIN 40 MG TAB PO SCH (08:55)
[2023-06-11] MEDS: HYDROcodone/APAP 10-325MG 1 EACH TAB PO PRN (08:58)
--- NOTE | 2023-06-11 12:03 | P.DS ---
Providers Date of admission: 05/28/23 18:50 Expected date of discharge: 06/11/23 Attending physician: Shadi Freed Consults: 05/28/23 18:27 Consult Physician Routine Consulting Provider: Carmelo Olivia Consult Reason/Comments: pneumothorax Do you want consulting provider notified?: Yes 05/28/23 18:28 Consult Physician Routine Consulting Provider: Makayla Madrigal Consult Reason/Comments: recurrent ptx Do you want consulting provider notified?: Yes 06/08/23 09:55 Consult Physician Routine Consulting Provider: Juanita Jay Consult Reason/Comments: Persistent leukocytosis Do you want consulting provider notified?: Yes Primary care physician: Shadi Freed Hospital Course: Final Diagnoses: Hospital course:This is a 77-year-old gentleman with past medical history sign ificant for left sided pneumothorax required thoravent 03/22, left-sided squamous cell lung CA on chemotherapy/radiation with recent disease progression reported, COPD, CAD with stents, hyperlipidemia, prior nicotine dependence and multiple other medical issues presented to the ER status post fall with recurrent left- sided pneumothorax, thoravent placed per ER without complete reexpansion. Multiple radiology studies including head/C-spine CT reported no acute intracranial process or cervical spine fracture,large left pneumothorax with severe bullous emphysema. Complains of chest tube insertion site discomfort otherwise denies chest pain, palpitations or shortness of breath. Maintaining O2 sats in the high 90s on 4 L high flow nasal cannula. Afebrile, WBC has normalized. Chest x-ray pending. 05/30/2023 enforcement safety officer maintained at bedside. Confused, agitated during the night. Short of breath. Chest x-ray reporting persistent left small to moderate pleural effusion similar to prior. Maintaining O2 sats in the high 90s on 4 L nasal cannula. CTS recommending changing over to a full thoracostomy tube. Afebrile. Fair diet intake. Denies chest pain or palpitations, teary- eyed, eager to go home. 06/02/2023 sensorium improving, enforcement safety officer at bedside.Thoravent discontinued and currently with left pleural chest tube. Chest x-ray reporting COPD with no sizable pneumothorax. Denies chest pain, palpitations or increased shortness of breath. Continues on Zosyn. T-max 100.6, blood cultures pending. Repeat pro calcitonin pending. 06/03/2023 agitated during the night, required Haldol. Sleepy this morning. Sitter at bedside. Continues on Zosyn. Maintaining O2 sats in the high 90s on 6 L nasal cannula. T-max 100.2, WBC within normal limits. Pulmonary blood cultu res reporting no growth after 48 hours. Left pleural chest tube to waterseal over the last 24 hours,chest x-ray reporting stable, subcutaneous emphysema, possible small pneumothorax. 06/04/2023 sitter at bedside. left pleural chest tube to waterseal, maintaining O2 sats in the high 90s on 5 L high flow nasal cannula. Chest x-ray reporting no definite sizable pneumothorax, persistent extensive subcutaneous emphysema. Maintained on Zosyn .Afebrile, normal WBC. Denies chest pain, palpitations or increased shortness of breath. 06/05/2023 medicated for pain close to midnight,loopy this am. Zyprexa at bedtime, enforcement safety officer maintained. Chest x-ray reporting approximately 5% pneumothorax along the lower medial aspect of the left lung, persistent extensive subcutaneous emphysema. Left pleural Chest tube clamped. Repeat chest x-ray pending. Telemetry sinus rhythm. Diet intake fair, staff reports patient coughing with food intake. 06/06/2023 Son met with hospice regarding informational meeting. Wishes to discuss it further with siblings. Patient remains a full code at this time. Continues on Zosyn, nebulized bronchodilators, afebrile. Left pleural chest tube discontinued yesterday. Chest x-ray this morning reports persistent subcutaneous emphysema on the left no appreciable pneumothorax, COPD, increasing interstitial and patchy densities left mid and lower lung and right medial base possible developing infiltrates. Currently maintaining O2 sats in the high 90s on 4 Lnc. Patient reports shortness of breath. continues on Zosyn, afebrile, WBC 20.9. Potassium 3.4 replacement protocol-replacement protocol will be ordered .maintain on D5W, sodium improving down to 147. Renal function improving 06/10/2023 maintained on Eraxis and Zosyn,poor intake, repeat preliminary blood culture reported no growth after 48 hours. Afebrile, WBC decreased to 18.2. restless during the night, not sleeping. Diet intake poor. Maintaining O2 sats in the low 90s on 2 L nasal cannula. son Maribel, met with hospice. Plans to take his father home with hospice tomorrow. Patient will be discharged home today with hospice. Maintaining O2 sats of 88 on 2 L nasal cannula, VSS. Prognosis poor given multiple complex medical issues. The impression and plan of care has been dictated as directed. : I performed a history and examination of this patient, discussed the same with the dictator. I agree with the dictator's note ,documented as a scribe. Any additional findings or plans will be noted. Patient Condition at Discharge: Stable Plan - Discharge Summary Discharge Rx Participant: No New Discharge Prescriptions: Discontinued Atorvastatin [Lipitor] 40 mg PO DAILY No Action OLANZapine [ZyPREXA] 5 mg PO TID HYDROcodone/APAP 10-325MG [[place] 10-325] 1 tab PO Q6HR PRN PRN Reason: Pain Nitroglycerin Sl Tabs [Nitrostat] 0.4 mg SL Q5M PRN PRN Reason: Chest Pain Albuterol Nebulized [Ventolin Nebulized] 2.5 mg INHALATION RT-BID Discharge Medication List HYDROcodone/APAP 10-325MG [[place] 10-325] 1 tab PO Q6HR PRN 12/26/22 [History] Albuterol Nebulized [Ventolin Nebulized] 2.5 mg INHALATION RT-BID 05/28/23 [History] Nitroglycerin Sl Tabs [Nitrostat] 0.4 mg SL Q5M PRN 05/28/23 [History] OLANZapine [ZyPREXA] 5 mg PO TID 05/28/23 [History] Follow up Appointment(s)/Referral(s): Shadi Freed DO [Primary Care Provider] - As Needed Discharge Disposition: HOME WITH HOSPICE
[2023-06-11 12:22] VITALS: TEMP 98.4
[2023-06-11 12:47] VITALS: BP 143/64; PULSE 65
--- NOTE | 2023-06-11 14:17 | P.PN ---
Subjective Progress Note Date: 06/11/23 Principal diagnosis: Recurrent left-sided pneumothorax, and COPD On today's evaluation of 06/02/2023, the patient is resting comfortably in bed. His mental status has been fluctuating get I was told that he is more oriented and less agitated compared to few days back. He has a sitter at the bedside. As stated, the patient has a left-sided pneumothorax, initially treated with a small bore catheter and subsequently the patient was given a chest tube. The chest tube is in a good location on today's chest x-ray. There is some limited subcu emphysema along the left chest. She is no evidence of any sizable pneumothorax. There is obvious background COPD. The patient is a 77 years old. He has sustained a fall at home and he had a left-sided pneumothorax. He is known to have COPD with severe bullous disease. 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 His most recent CAT scan of the chest that was done on 05/28/2023 showed the pneumothorax. His prior CAT scan of the chest from 02/10/2023 showed a slight decrease in the size of the lobe related mass in the left upper lobe with some surrounding atelectasis. On 06/03/2023, the patient is quite somnolent and sleepy. He received Haldol last night as the patient was becoming more agitated and combative. Probably a component of delirium was also present. The patient was given Haldol. This morning his resting comfortably in bed. His somnolent. He is able to respond upon stimulation. No significant rest of distress. He remains on oxygen and he is on 6 L of oxygen by nasal cannula. Left-sided chest tube is still in place. A repeat chest x-ray was done today and shows some ongoing symptoms of edema on the left. Apical bullous emphysematous changes. Chest tube is in a good location. No clear indication for an underlying pneumothorax. The chest tube was kept waterseal over the past 24 hours. She will be clamped and another chest x-ray obtained tomorrow.Labs from today are still pending. Labs from yesterday were all noted. Pro-calcitonin was unexpectedly elevated and the patient has been on IV Zosyn. On 06/04/2023, seeing the patient for a follow-up. Left-sided chest tube was kept in place. The chest x-ray showed no evidence of pneumothorax. Stable subcutaneous emphysema. The patient remains on 6 L of oxygen nasal cannula with a polypectomy. The patient in the bedside. He was on a computer he is trying to get up in bed thinking is going to go out to smoke. No new labs are available from today. Most recent full calcitonin level is at 1.58 and the patient is currently on IV Zosyn. He is afebrile. Hemodynamically stable. The decision was to keep the chest tube in for another 24 hours On today's evaluation of 06/05/2023, the patient's is on 5 L of oxygen by nasal cannula. No appendiceal distress. Appearance emphysema still present with left anterior chest area which remains unchanged. The chest x-ray from today shows a questionable left apical pneumothorax in the order of 5%. The chest tube was c lamped and the chest will possibly be removed as the patient is able to tolerate it without any pneumothorax. A repeat chest x-ray still pending for now. The patient is comfortable in bed. BUN is at 33 with a creatinine of 0.7. The risk of 9.4 and those labs are from 06/02/2023. The patient remains on IV Zosyn. Patient remains on albuterol nebulized treatments [id number] 4 times a day. He has occasional delirium and his taken Haldol for that. on today's evaluation of 06/06/2023, the patient on 4 L of oxygen by nasal cannula. No respiratory distress. The chest tube was removed yesterday and the follow-up chest x-ray from today shows a stable appearance emphysema without any clear evidence of a pneumothorax at this point in time.The patient is otherwise doing well. No specific complaints. BUN is at 33 with a creatinine of 0.7. Sodium level is at 143. The risk was at 9.4 with a hemoglobin of 10.9. Pro- calcitonin level follow-up was at 2.14. The patient remains on empiric antibiotic coverage with IV Zosyn. The pro-calcitonin slightly higher compared to his baseline. No clear signs of an infection at this point in time. Mental status is more proper on today's evaluation patient is tolerating diet. On 06/07/2023, seeing the patient for a follow-up. no specific complaints in his overall condition remains unchanged. He does have episodes of that he didn't confusion. No respiratory distress and the patient remains on 6 L of O2 nasal cannula. He remains on IV Zosyn. The exact cause for the elevated pro- calcitonin is not clear to me. No clear focus of infection this point in time. He remains afebrile. White cell count is at 19.3 which is higher compared to his baseline. Hemoglobin is at 10.6. The enzymes at 23 with a creatinine of 0.7. As mentioned, there was a resident pro-calcitonin from 1.58 up to 2.14. A repeat level to be obtained tomorrow. We'll also initiate infectious workup. Obtain urine analysis, urine cultures and blood cultures. Continue the IV Zosyn for now. On 06/08/2020, the patient is calm and comfortable, communicating, feeding with assistance, currently on 4 L of oxygen by nasal cannula. Remains on IV Zosyn. Sodium levels of 149 and acidosis patient to D5 water. Potassium levels at 3.6. BUN is at 26 with a creatinine of 0.7. The echoes at 20.9. Pro- calcitonin level was reordered. No other specific complaints otherwise for now. Reevaluated today on 06/09/2023, patient is resting in bed, he is on 2 L nasal cannula, plating of some shortness of breath, no cough, no wheezing, no fever, no chills, no hemoptysis. Chest x-ray from 06/06, showed interval removal of the left-sided chest tube and some subcutaneous emphysema and he had COPD with increasing interstitial and patchy densities left midlung and right medial lung base, the findings are basically nonspecific. Nonetheless the patient continues to have leukocytosis with WBC count of 20.9 hemoglobin is 10.6, sodium is coming down to 147, the rest of the electrolytes are normal Reevaluated today on 06/10/2023, on 2 L nasal cannula with O2 sats 92%, denies any pulmonary symptoms however the patient seems to be quite confused and gets agitated very easily. The scan is 18.2 hemoglobin 11.2 sodium is 147 renal profile is normal pro-calcitonin level few days ago was 0.3 patient does not seem to be in distress, however he seems to be quite confused this morning Reevaluated today on 06/11/2023, patient is sitting in a recliner, confused, at times agitated, not in any distress, he is on room air. No labs were done on the patient today, previous labs from yesterday and the day before were reviewed. Patient denies any shortness of breath cough or wheezing. His last chest x-ray from 06/06 showed no evidence of pneumothorax. Objective - Vital Signs Vital signs: Vital Signs Temp 98.4 F 06/11/23 08:35 Pulse 65 06/11/23 12:00 Resp 16 06/11/23 12:00 BP 143/64 06/11/23 12:00 Pulse Ox 90 L 06/11/23 12:00 FiO2 Intake & Output 06/10/23 06/11/23 06/11/23 18:59 06:59 18:59 Intake Total 118 Output Total 0 Balance 118 Weight 63.503 kg Intake: Oral 118 Output: Stool 0 Other: Voiding Method Urinal Urinal Urinal Diaper Diaper Diaper # Voids 2 1 - Exam Physical Exam: Revealed 77-year-old white male in no distress. On room air HEENT:[Neck is supple.] [No neck masses.] [No thyromegaly.] [No JVD.] Chest: [Clear throughout, no crackles, no rhonchi, no wheezes.] Cardiac Exam: [Normal S1 and S2, no S3 gallop, no murmur.] Abdomen: [Soft, nontender, no megaly, no rebound, no guarding, normal bowel sounds.] Extremities: [No clubbing, no edema, no cyanosis.] Neurological Exam: [No focal neurologic deficit.] Except mental status is abnormal Confused and anxious Psychiatric anxious, gets agitated easily, confused Skin: No rashes - Labs CBC & Chem 7: 06/10/23 09:42 06/09/23 06:50 Labs: Microbiology - Last 24 Hours (Table) 06/07/23 15:18 Blood Culture - Preliminary Blood Assessment and Plan Assessment: Impression: Recurrent left-sided pneumothorax requiring chest tube placement and has been removed Coronary artery disease with previous PCI COPD with significant bullous emphysema Possible aspiration pneumonia involving right lower lobe and left midlung with elevated pro calcitonin level, patient is on Zosyn, suspect aspiration pneumonia Mental status change with intermittent episodes of delirium and agitation requiring Haldol Recommendation: Continue present supportive care measures Continue bronchodilators Will clear the patient for discharge if cleared by other consultants Patient will definitely need placement. Time with Patient: Less than 30
== END 2023-06-11 13:57 | disposition hospice, home (50) | DRG 199 ==
LOC: EC 15:10 → 3SCARD 18:50
PROVIDERS: ADMIT Family Medicine; ATTEND Family Medicine
PROC: 0W9B30Z Drainage of Left Pleural Cavity with Drainage Device, Percutaneous Approach (ICD-10-PCS; principal; 2023-05-28)
DX: S27.0XXA Traumatic pneumothorax, initial encounter (principal); G92.8 Other toxic encephalopathy; J69.0 Pneumonitis due to inhalation of food and vomit; J96.01 Acute respiratory failure with hypoxia; B37.89 Other sites of candidiasis; E44.0 Moderate protein-calorie malnutrition; R64 Cachexia; J44.1 Chronic obstructive pulmonary disease with (acute) exacerbation; B37.0 Candidal stomatitis; I25.110 Atherosclerotic heart disease of native coronary artery with unstable angina pectoris; J90 Pleural effusion, not elsewhere classified; C34.12 Malignant neoplasm of upper lobe, left bronchus or lung; F03.94 Unspecified dementia, unspecified severity, with anxiety; J98.11 Atelectasis; T79.7XXA Traumatic subcutaneous emphysema, initial encounter; J43.9 Emphysema, unspecified; Z66 Do not resuscitate; Z51.5 Encounter for palliative care; D63.0 Anemia in neoplastic disease; E78.5 Hyperlipidemia, unspecified; K21.9 Gastro-esophageal reflux disease without esophagitis; M19.90 Unspecified osteoarthritis, unspecified site; G89.29 Other chronic pain; M54.2 Cervicalgia; M25.511 Pain in right shoulder; M25.551 Pain in right hip; M25.552 Pain in left hip; Z68.21 Body mass index [BMI] 21.0-21.9, adult; M54.50 Low back pain, unspecified; Z79.899 Other long term (current) drug therapy; Z87.891 Personal history of nicotine dependence; Z71.6 Tobacco abuse counseling; Z95.5 Presence of coronary angioplasty implant and graft; Z92.3 Personal history of irradiation; Z92.21 Personal history of antineoplastic chemotherapy; Z71.3 Dietary counseling and surveillance; W01.0XXA Fall on same level from slipping, tripping and stumbling without subsequent striking against object, initial encounter; Y92.009 Unspecified place in unspecified non-institutional (private) residence as the place of occurrence of the external cause; Z88.8 Allergy status to other drugs, medicaments and biological substances
CPT/HCPCS: 32551; 36415; 70450; 70486; 71045; 71046; 71250; 72100; 72125; 72170; 80048; 80053; 81001; 81003; 82803; 84145; 85025; 85027; 87040; 94640; 94760; 96374; 96375; 99285